=== PATIENT | male | born 1950 | race Caucasian/White ===

== ENCOUNTER 2019-07-02 19:42 | Inpatient (IN) | payer MEDICARE, BC ==
[~2019-07-02] VITALS: Ht 167.6 cm; Wt 88.2 kg
[2019-07-02 20:15] LABS: BASO % 0 % (0-3); EOS # 0.5 x10^3/uL (0.0-0.7); EOS % 6 % (0-3); HEMATOCRIT 41.6 % (39.0-53.0); HEMOGLOBIN 13.9 g/dL (13.0-17.5); LYMPH # 2.2 x10^3/uL (1.0-4.8); LYMPH % 28 % (24-48); MEAN CORPUSCULAR HEMOGLOBIN 28 pg (25-35); MEAN CORPUSCULAR HGB CONC 33 g/dL (31-37); MEAN CORPUSCULAR VOLUME 83 fL (79-100); MONO # 0.9 x10^3/uL (0.0-1.1); MONO % 11 % (0-9); NEUT # 4.2 x10^3uL (1.8-7.7); NEUT % 54 % (31-73); PLATELET COUNT 476 x10^3/uL (140-400); RED BLOOD COUNT 4.99 x10^6/uL (4.30-5.70); RED CELL DISTRIBUTION WIDTH 14.6 % (11.5-14.5); WHITE BLOOD COUNT 7.8 x10^3/uL (4.0-11.0)
[2019-07-02 20:27] LABS: ALBUMIN/GLOBULIN RATIO 0.8 (1.0-1.7); CALCIUM 9.1 mg/dL (8.5-10.1); CREATININE 0.8 mg/dL (0.7-1.3); GFR 96.4; MAGNESIUM 1.8 mg/dL (1.8-2.4); POTASSIUM 3.8 mmol/L (3.5-5.1); TOTAL BILIRUBIN 0.2 mg/dL (0.2-1.0); TOTAL PROTEIN 6.8 g/dL (6.4-8.2)
--- NOTE | 2019-07-02 20:55 | RAD ---
Exam: CT head INDICATION: Trauma TECHNIQUE: Sequential axial images through the head were obtained without the administration of IV contrast. Comparisons: None FINDINGS: No focal parenchymal lesion or hemorrhage is identified. There is no midline shift or sulcal effacement. No acute vascular territory infarction is identified. Latham-white distinction is preserved. The ventricular system is within normal limits without compression hydrocephalus. The basal cisterns are well maintained. There is a extra cranial soft tissue contusion in the right frontal region. The visualized portions of the paranasal sinuses and mastoid air cells are well-pneumatized. No acute fractures. IMPRESSION: There is an extra cranial soft tissue contusion in the right frontal region without underlying osseous or intracranial abnormality. Exposure: One or more of the following in the visualized dose reduction techniques were utilized for this examination: 1. Automated exposure control 2. Adjustment of the MA and/or KV according to patient size Use of iterative of reconstructive technique Electronically signed by: Elfego Antonio MD (07/02/2019 8:53 PM) [facility]
--- NOTE | 2019-07-02 21:25 | PHYS DOC ---
Past History Past Medical History: Anxiety, Depression, High Cholesterol, Hypertension, Hypothyroid, Other Additional Past Medical Histor: PTSD, OSTEOARTHRITIS, TOXIC ANCEPHALOPATHY, FALLS Past Surgical History: Other Additional Past Surgical Histo: NO SURGICAL HX PROVIDED Alcohol Use: None Drug Use: None Adult General Chief Complaint Chief Complaint: PSYCH EVALUATION HPI HPI Patient is a [69-year-old male sent here for medical clearance for [facility] admission Apparently has been having thoughts of hurting himself and is behaving himself as a long history of the same he has a history of conversion disorder and multiple other psychiatric issues. He's had multiple falls some seem to be self-inflicted according to chart review has a headache injury it is unclear if he ever had a head CT based on my chart review so we performed a head CT here which was negative acute. Vital signs are stable labs look good urine is still pending patient will be transferred to [facility] in stable condition Review of Systems Review of Systems Limited by cooperation Allergies Allergies Allergies Coded Allergies Type Severity Reaction Last Updated Verified oxycodone Allergy Unknown 07/02/19 Yes Physical Exam Physical Exam Constitutional: Well developed, well nourished, no acute distress, non-toxic appearance. [] HENT: Large contusion to the forehead Eyes: PERRLA, EOMI, conjunctiva normal, no discharge. [] Oropharynx is dry but the skin has good turgor Neck: Normal range of motion, no tenderness, supple, no stridor. [] Cardiovascular:Heart rate regular rhythm, no murmur [] Lungs & Thorax: Bilateral breath sounds clear to auscultation [] Abdomen: Bowel sounds normal, soft, no tenderness, no masses, no pulsatile masses. [] Skin: Warm, dry, no erythema, no rash. [] Back: No tenderness, no CVA tenderness. [] Extremities: No tenderness, no cyanosis, no clubbing, ROM intact, no edema. [] Neurologic: Alert and oriented X 3, normal motor function, normal sensory function, no focal deficits noted. [] Psychologic: Very blunted affect with depressed mood Current Patient Data Vital Signs Vital Signs Date Time Temp Pulse Resp B/P (MAP) Pulse Ox O2 Delivery O2 Flow Rate FiO2 07/02/19 19:45 98.5 80 20 95 Room Air None Temperature (Fahrenheit): * 99.3 degrees F (97.6-99.5) Patient Temperature * 99.3 degrees F (97.5-99.5) Temperature Source * Oral Blood Pressure Systolic * 113 mm Hg (100-140) Blood Pressure Diastolic * 67 mm Hg (60-100) Blood Pressure Mean * 82 mm Hg Pulse Rate * 106 beats per minute (60-90) H Respiratory Rate * 18 breaths per minute (12-24) Oxygen Delivery Method * Room Air Bedside Pulse Oximetry * 94 % Treatment Prior to Arrival * Yes Lab Results Laboratory Tests Test 07/02/19 20:00 White Blood Count 7.8 x10^3/uL (4.0-11.0) Red Blood Count 4.99 x10^6/uL (4.30-5.70) Hemoglobin 13.9 g/dL (13.0-17.5) Hematocrit 41.6 % (39.0-53.0) Mean Corpuscular Volume 83 fL (79-100) Mean Corpuscular Hemoglobin 28 pg (25-35) Mean Corpuscular Hemoglobin Concent 33 g/dL (31-37) Red Cell Distribution Width 14.6 % (11.5-14.5) H Platelet Count 476 x10^3/uL (140-400) H Neutrophils (%) (Auto) 54 % (31-73) Lymphocytes (%) (Auto) 28 % (24-48) Monocytes (%) (Auto) 11 % (0-9) H Eosinophils (%) (Auto) 6 % (0-3) H Basophils (%) (Auto) 0 % (0-3) Neutrophils # (Auto) 4.2 x10^3uL (1.8-7.7) Lymphocytes # (Auto) 2.2 x10^3/uL (1.0-4.8) Monocytes # (Auto) 0.9 x10^3/uL (0.0-1.1) Eosinophils # (Auto) 0.5 x10^3/uL (0.0-0.7) Basophils # (Auto) 0.0 x10^3/uL (0.0-0.2) Sodium Level 140 mmol/L (136-145) Potassium Level 3.8 mmol/L (3.5-5.1) Chloride Level 105 mmol/L (98-107) Carbon Dioxide Level 27 mmol/L (21-32) Anion Gap 8 (6-14) Blood Urea Nitrogen 8 mg/dL (8-26) Creatinine 0.8 mg/dL (0.7-1.3) Estimated GFR (Cockcroft-Gault) 96.4 BUN/Creatinine Ratio 10 (6-20) Glucose Level 86 mg/dL (70-99) Calcium Level 9.1 mg/dL (8.5-10.1) Magnesium Level 1.8 mg/dL (1.8-2.4) Total Bilirubin 0.2 mg/dL (0.2-1.0) Aspartate Amino Transferase (AST) 17 U/L (15-37) Alanine Aminotransferase (ALT) 25 U/L (16-63) Alkaline Phosphatase 93 U/L (46-116) Total Protein 6.8 g/dL (6.4-8.2) Albumin 3.0 g/dL (3.4-5.0) L Albumin/Globulin Ratio 0.8 (1.0-1.7) L EKG EKG []Normal sinus rhythm rate of 75 no acute ischemic changes noted interpreted by me the time of encounter Radiology/Procedures Radiology/Procedures [] Course & Med Decision Making Course & Med Decision Making Pertinent Labs and Imaging studies reviewed. (See chart for details) []See history of present illness for MDM Dragon Disclaimer Dragon Disclaimer This electronic medical record was generated, in whole or in part, using a voice recognition dictation system. Departure Departure: Impression: Primary Impression: Depression Disposition: ADMITTED INPATIENT Condition: STABLE Referrals: PCP,UNKNOWN (PCP) JIN ESPANA MD Jul 02, 2019 21:25
[2019-07-02 21:39] LABS: BILIRUBIN,URINE NEG (NEG); CLARITY,URINE CLEAR; COLOR,URINE YELLOW; GLUCOSE,URINE NEG (NEG); NITRITE,URINE NEG (NEG); UROBILINOGEN,URINE 1 mg/dL (0.2 mg/dL)
[2019-07-02 21:40] LABS: BACTERIA,URINE 0 /HPF (0-FEW); SQUAMOUS EPITHELIAL CELL,UR FEW /LPF; WBC,URINE OCC /HPF (0-4)
[2019-07-02] MEDS ORDERED: FLUO20CA8 PO (21:58)
[2019-07-02] MEDS ORDERED: MELA3TAB56 PO (21:58)
[2019-07-02] MEDS ORDERED: FENO145T30 PO (21:58)
[2019-07-02] MEDS ORDERED: ERGO500027 PO (21:58)
[2019-07-02] MEDS ORDERED: LORA10TA3 PO (21:58)
[2019-07-02] MEDS ORDERED: DOCU100C28 PO (21:58)
[2019-07-02] MEDS ORDERED: HYDR-2869 PO (21:58)
[2019-07-02] MEDS ORDERED: FLUO40CA2 PO (21:58)
[2019-07-02] MEDS ORDERED: AMLO5TAB10 PO (21:58)
[2019-07-02] MEDS ORDERED: FINA5TAB4 PO (21:58)
[2019-07-02] MEDS ORDERED: CLON1PAT2 TD (21:58)
[2019-07-02] MEDS ORDERED: ARIP5TAB13 PO (21:58)
[2019-07-02] MEDS ORDERED: POLY2500 PO (21:58)
[2019-07-02] MEDS ORDERED: HYDR-3165 PO (21:58)
[2019-07-02] MEDS ORDERED: LEVO50TA60 PO (21:58)
[2019-07-02] MEDS ORDERED: MONT10TA80 PO (21:58)
[2019-07-02] MEDS ORDERED: FLUT16SP21 NS (21:58)
[2019-07-02] MEDS ORDERED: TAMS0.4C97 PO (21:58)
[2019-07-02] MEDS ORDERED: LISI10TA2 PO (21:58)
[2019-07-02] MEDS ORDERED: GUAI600T6 PO (21:58)
[2019-07-02] MEDS ORDERED: ATOR20TA58 PO (21:58)
[2019-07-02] MEDS ORDERED: ACET325T9 PO (21:58)
[2019-07-02] MEDS ORDERED: DICL100G18 TP (21:58)
[2019-07-02] MEDS ORDERED: DIAZ10TA4 PO (21:58)
[2019-07-02] MEDS ORDERED: ASPI-612 PO (21:58)
[2019-07-02 23:41] VITALS: BP 115/78
[2019-07-02] MEDS ORDERED: ACETAMINOPHEN 325 MG TABLET PO PRN (23:45)
[2019-07-02] MEDS ORDERED: MAG HYDROX/AL HYDROX/SIMETH 30 ML ORAL.SUSP PO PRN (23:45)
[2019-07-02] MEDS ORDERED: MAGNESIUM HYDROXIDE 2,400 MG/30 ML ORAL.SUSP. PO PRN (23:45)
[2019-07-02] MEDS ORDERED: METHYL SALICYLATE/MENTHOL TOPICAL OINTMENT 57GM TUBE. TP PRN (23:45)
--- NOTE | 2019-07-02 23:52 | NUR ---
Admission Note with Justification for Admission to [facility] Patient admitted to [facility] for protective oversight for emergency stabilization of acute psychiatric crisis. Pt admitted from: [facility] Mode of arrival: EMS Accompanied By: [facility]SON Staff/ EMS Precipitating behaviors that initiated intake and admission: Weight loss (has lost 10# recently), poor intake of meals, increased depression, hitting himself, expressing that he wants to , asked driver wheelchair to kill him and leave him on the side of the road. Description of failure of out patient attempts at stabilization in previous setting list behavior and medication trials: Multiple ER visits, seen by Kristin DAHL and put on Abilify and Prozac. Behaviors and assessment findings upon admission: Pt A/O x4, calm but with a flat and depressed affect, soft spoken. When asked about thoughts of suicide, pt states "no, unless you had a gun and are going to shoot me". Pt denies any plan but has had multiple falls recently thought to be intentional attempts to self harm. Pt assigned to room close to the nurse's station, bed alarm on/in use. Pt oriented to room and unit, bed low and locked and yellow non-slip socks on. Plan: Admit for protective oversight for adjustment and stabilization of medications, behaviors and mood. Intense treatment regimen including groups, medication adjustments, therapy, consistent regimen for ADL's, self care, and sleep hygiene. Daily monitoring by Inpatient staff, Psychiatry, and Medical Physician.
[2019-07-03] MEDS: LEVOTHYROXINE 50 MCG TABLET PO SCH (06:09)
[2019-07-03 06:29] VITALS: BP 126/79
[2019-07-03] MEDS: FLUTICASONE 50MCG/NASAL SPRAY 16GM BOTTLE. NS SCH (08:36)
[2019-07-03] MEDS: DICLOFENAC SODIUM 1% TOPICAL GEL 100GM TUBE. TP SCH ×2 (08:37→20:11)
[2019-07-03] MEDS: CETIRIZINE HCL 10 MG TABLET PO SCH (08:38)
[2019-07-03] MEDS: TAMSULOSIN 0.4 MG CAP.ER.24H. PO SCH (08:38)
[2019-07-03] MEDS: LISINOPRIL 10 MG TABLET PO SCH (08:39)
[2019-07-03] MEDS: MONTELUKAST 10 MG TABLET. PO SCH (08:39)
[2019-07-03] MEDS: ASPIRIN ENTERIC COATED 81 MG TABLET.DR. PO SCH (08:39)
[2019-07-03] MEDS: amLODIPine BESYLATE 5 MG TABLET PO SCH (08:40)
[2019-07-03] MEDS: POLYETHYLENE GLYCOL 3350 17 GM PACKET. PO SCH (08:41)
[2019-07-03] MEDS: FINASTERIDE 5 MG TABLET PO SCH (08:41)
[2019-07-03] MEDS ORDERED: FLUoxetine HCL 20 MG CAPSULE PO SCH ×2 (09:00)
[2019-07-03 13:20] LABS: THYROID STIM HORMONE (TSH) 1.378 uIU/mL (0.358-3.740)
[2019-07-03 15:56] VITALS: BP 134/85
[2019-07-03] MEDS: DOCUSATE SODIUM 100 MG CAPSULE PO SCH (17:16)
[2019-07-03] MEDS: FENOFIBRATE NANOCRYSTALLIZED 145 MG TABLET PO SCH (20:10)
[2019-07-03] MEDS: MELATONIN 3 MG TABLET PO SCH (20:10)
[2019-07-03] MEDS: ATORVASTATIN CALCIUM 20 MG TABLET PO SCH (20:10)
[2019-07-03] MEDS: diazePAM 5 MG TABLET PO SCH (20:10)
[2019-07-03] MEDS ORDERED: ARIPiprazole 5 MG TABLET PO SCH (21:00)
--- NOTE | 2019-07-03 21:49 | PDOC ---
Exam Note: Robert Note: Please also refer to the separate dictated note~for this date of service dictated separately. Discussed the patient with Nursing staff reviewed the chart.~Reviewed interim history and current functioning. Reviewed vital signs,~Labs/ Radiology~and current medications noted below. Continue current treatment with the changes noted in the dictated addendum note Assessment: Vital Signs/I&O: Vital Signs Date Time Temp Pulse Resp B/P (MAP) Pulse Ox O2 Delivery O2 Flow Rate FiO2 07/03/19 15:56 97.2 102 18 134/85 (101) 95 07/02/19 19:45 Room Air I & O 07/02/19 07/02/19 07/03/19 15:00 23:00 07:00 Intake Total 0 ml Balance 0 ml Current Medications: Meds: Current Medications Medications (Trade) Dose Ordered Sig/Henry Route PRN Reason Start Time Stop Time Status Last Admin Dose Admin Amlodipine Besylate (Norvasc) 5 mg DAILY PO 07/03/19 09:00 07/03/19 08:40 Aspirin (Aspirin Enteric Coated) 81 mg DAILYWBKFT PO 07/03/19 08:00 07/03/19 08:39 Atorvastatin Calcium (Lipitor) 20 mg QHS PO 07/03/19 21:00 07/03/19 20:10 Diclofenac Sodium (Voltaren) 4 alexsandra BID TP 07/03/19 09:00 07/03/19 20:11 Fenofibrate (Tricor) 145 mg QHS PO 07/03/19 21:00 07/03/19 20:10 Finasteride (Proscar) 5 mg DAILY PO 07/03/19 09:00 07/03/19 08:41 Fluticasone Propionate (Flonase) 1 spray DAILY NS 07/03/19 09:00 07/03/19 08:36 Guaifenesin (Mucinex Er) 600 mg Q12HR PO 07/03/19 09:00 07/03/19 20:10 Levothyroxine Sodium (Synthroid) 50 mcg DAILY06 PO 07/03/19 06:00 07/03/19 06:09 Lisinopril (Prinivil) 10 mg DAILY PO 07/03/19 09:00 07/03/19 08:39 Montelukast Sodium (Singulair) 10 mg DAILY PO 07/03/19 09:00 07/03/19 08:39 Tamsulosin HCl (Flomax) 0.4 mg DAILY PO 07/03/19 09:00 07/03/19 08:38 Cetirizine HCl (ZyrTEC) 10 mg DAILY PO 07/03/19 09:00 07/03/19 08:38 Polyethylene Glycol (miraLAX) 17 gm DAILY PO 07/03/19 09:00 07/03/19 08:41 Aripiprazole (Abilify) 5 mg QHS PO 07/03/19 21:00 07/03/19 20:07 Fluoxetine HCl (PROzac) 20 mg DAILY PO 07/03/19 09:00 07/03/19 08:38 Melatonin (Melatonin) 3 mg QHS PO 07/03/19 21:00 07/03/19 20:10 Diazepam (Valium) 10 mg QHS PO 07/03/19 21:00 07/03/19 20:10 Fluoxetine HCl (PROzac) 40 mg DAILY PO 07/03/19 09:00 07/03/19 08:41 I have reviewed the current psychotropics carefully including drug interactions. Risk benefit ratio favors no change other than as noted in my dictated progress note. Diagnosis: Problems: (1) Anxiety disorder (2) Major depressive disorder, recurrent episode (3) Psychosis, atypical DARA FELIPE MD Jul 03, 2019 21:49
[2019-07-03] MEDS: HYDROcodone/APAP 5/325MG 1 TAB TABLET PO PRN ×2 (22:01→23:14)
[2019-07-03 22:11] LABS: THYROXINE 11.4 ug/dL (4.5-12.0)
[2019-07-03 23:07] LABS: HEMOGLOBIN A1C 5.6 % (4.8-5.6)
--- NOTE | 2019-07-03 23:35 | NUR ---
Stoney Note: Patient was in day room at time of medication administration and assessments. Patient is very quiet, flat and withdrawn. He is calm, cooperative and compliant, however. Patient is clearly very depressed saying, "I will take them but I don't think it'll make any difference." Patient mentioned he has sleep sonido. Patient has PTSD and according to him, cannot be startled when awoken. Patient denies and SI at this time. No other notable behaviors at this time. Addendum: 07/04/19 at 0510 by SOBEIDA MUNOZ RN Patient received a PRN Lortab around 2210 for pain, "all over."
[2019-07-04 05:40] VITALS: BP 96/65
[2019-07-04] MEDS: LEVOTHYROXINE 50 MCG TABLET PO SCH (06:00)
[2019-07-04] MEDS ORDERED: LURASIDONE 40 MG TABLET. PO SCH (08:00)
[2019-07-04] MEDS: DICLOFENAC SODIUM 1% TOPICAL GEL 100GM TUBE. TP SCH ×2 (08:50→20:37)
[2019-07-04] MEDS: POLYETHYLENE GLYCOL 3350 17 GM PACKET. PO SCH (08:51)
[2019-07-04] MEDS: FLUTICASONE 50MCG/NASAL SPRAY 16GM BOTTLE. NS SCH (08:51)
[2019-07-04] MEDS: LURASIDONE 40 MG TABLET. PO SCH (08:51)
[2019-07-04] MEDS: DULoxetine HCL 30 MG CAPSULE.DR PO SCH (08:52)
[2019-07-04] MEDS: TAMSULOSIN 0.4 MG CAP.ER.24H. PO SCH (08:53)
[2019-07-04] MEDS: FINASTERIDE 5 MG TABLET PO SCH (08:53)
[2019-07-04] MEDS: MONTELUKAST 10 MG TABLET. PO SCH (08:53)
[2019-07-04] MEDS: CETIRIZINE HCL 10 MG TABLET PO SCH (08:53)
[2019-07-04] MEDS: ASPIRIN ENTERIC COATED 81 MG TABLET.DR. PO SCH (08:53)
[2019-07-04] MEDS: LISINOPRIL 10 MG TABLET PO SCH (09:00)
[2019-07-04] MEDS: amLODIPine BESYLATE 5 MG TABLET PO SCH (09:00)
--- NOTE | 2019-07-04 12:57 | NUR ---
PSYCHOSOCIAL ASSESSMENT ADMISSION DATE: 07/02/19 CONTACT INFORMATION: DPOA/Guardian Contact Name: N/A, Bj is a self sign ETHNIC ORIGIN: REASONS FOR ADMISSION: Depressed Relation/conflict Sig. Change Appetite Sig. Change Sleep Suicidal ideation ADDITIONAL ADMISSION COMMENTS: Per intake record, Bj has been depressed, hitting himself in the head, expressing thoughts of wanting to , asked the facility manager van to kill him and leave him on the side fo the road, and has had poor intake of meals with weight loss. It was also reported that Bj may be falling to intentionally hurt himself. REASON FOR ADMISSION IN PATIENT/FAMILY'S OWN WORDS: "I was at [facility] and had no motivation to participate in therapy." PATIENT/FAMILY EXPECTATIONS FOR ADMISSION: Bj expressed desire to have increased intake of meals and to be able to sleep at night. LIVING SITUATION: Patient lives with: Most recently at [facility] for skilled rehab Snf Other living arrangements: [facility] Contact Name: Brittney-content engineer Contact Address: [id number] [place] [id number] Contact Phone #: [phone] Contact Fax #: [phone] FAMILY RELATIONS: Marital Status: # of Marriages: 2 # of Children: 4 [facility] Family Support: Bj reports spouse as concerned and that he saw her on the day he was brought to [place]. Additional Comments r/t Family: Bj has been twice. He had four children with his first ; Mary, Alfonzo, Edna, and Sara. All children reside in [place]. Bj's first marriage ended in divorce. He re- to Isaura, twenty years his younger. They have been for twenty years but live in separate residences. Bj has 14 grandchildren. Bj expressed that his children have offered to come see him and he has declined their visits. SIGNIFICANT PSYCHIATRIC/MEDICAL HISTORY: Psychiatric/Treatment History: Bj reported having been followed for the past eight years by psychiatrist, Dr. Herrera, for PTSD. Bj stated he no longer sees Dr. Herrera. He has most recently been seen at [facility] on 06/25/19 and was seen by a PA. Bj also reported having been treated for in- patient psych at a facility in [place] but was only there for three days because it was a bad experience and his came to pick him up. Bj also reported being at [facility] for one week sometime this year. Pertinent Family History: Bj reported that both of his parents committed suicide. His father was reported as an alcoholic. Bj also expressed that several other family members and friends of his have committed suicide. HISTORICAL DATA: Childhood Environment: Stressful Childhood Environment Additional Comments: Bj was born in [place] but raised in [place]. Bj reported his father to be an alcoholic. Bj was the youngest of three children. He reports that one sister was a drug addict and is . His other sister is living in [place] and he has occasional communication with her. Psychological Abuse: None reported Additional Comments: Drug Abuse History last 12 months: None reported Comment: Bj denied tobacco, alcohol, or drug use. PERSONAL HISTORY: Vocational history: Bj reported he worked in [employer]. He stated he worked for [email or web address]. 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 service: N Christian background: Bj is of the [employer] uatsdin. Sexual orientation: Heterosexual Educational Level: Bj graduated from high school and went on to obtain his bachelors degree in business from the [employer]. He attended [employer] for a period of time but did not finish his JAE. 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 He enjoys sports and used to play sports. Bj enjoys hunting and recently owned an 80 acre hunting property in [place]. Financial support/resources: Social Security Monthly income: Unknown Person handling finances: Isaura Delvalle- Do you have a history of legal problems: None reported. Cultural considerations: None reported. SOCIAL RELATIONSHIPS-CURRENT/PAST: Psychiatrist: Most recently, [facility], seen by a PA PCP: Most recently, Dr. Oropeza at [facility] Counselor/Therapist: None at this time. Veterans[facility] Administration: N/A Support Group: None Track Repairer/Hospital Account Manager: Reported that Lien Chaney is a case hardener, jB is unaware of this person. Other relationships: Reports supportive relation with STRENGTHS & WEAKNESSES: Patient's strengths: Good verbal skills Education level Ambulatory with a walker Patient's weaknesses: Lack of housing Poor relationships Health problems PRELIMINARY PLAN OF TREATMENT: Preliminary plan: Symp. Depression Decrease Isolation Promote Coping Skill No Suicidal/Amberly. ideation Improved Social Skills Medication Stabilization Monitor Med Effects Prevent Deterioration Other preliminary treatment comments: Bj will be encouraged to attend SW and recreational therapy groups while on the unit. DISCHARGE PLANNING: Discharge planning/disposition: Snf Additional discharge needs identified: D/C plans will relate to Bj's physical ability to care for himself at time of d/c. Bj is able to return to [facility] at time of d/c if skilled therapy is still needed. Bj expressed that it would not be an option for him to d/c to his 's apartment. ADDITIONAL INFORMATION: Other Pertinent Data: Met with Bj on 07/03/19 to introduce self and complete psychosocial assessment. Bj was sitting in the day room but agreeable to visit and was able to ambulate to his room with a walker. Bj was alert with flat affect. He had some difficulty with timeline of events when recalling recent hospitalizations. He reported having been in and out of hospitals and SNF's repeatedly over the past two months. Bj was focused on his lack of appetite and lack of sleep. Reassurance provided that physicians would be following his care and addressing these issues. Bj was agreeable to participate in treatment team meeting to be held on 07/05/19. Addendum: 07/05/19 at 1452 by TRACIE BRUNO JERROD read and approves PSA.
--- NOTE | 2019-07-04 13:57 | NUR ---
Attempted to meet and complete Activity Therapy Assessment; however, Pt. in social work group. Will attempt assessment again tomorrow.
[2019-07-04] MEDS: HYDROcodone/APAP 5/325MG 1 TAB TABLET PO PRN (14:18)
--- NOTE | 2019-07-04 14:51 | HP ---
ADMIT DATE: PSYCHIATRIC ADMISSION HISTORY AND EVALUATION This is a late entry, date of service 07/03/2019 covers elements not covered in my initial note 07/03/2019. I met with the patient evening of 07/03/2019. Discussed with nursing staff, reviewed the chart, previously discussed the patient with Shelby Martinez, project coordinator rn. After the patient was referred to us from [facility] where the patient has been in rehab and referred by Dr. Forbes, his primary care physician, on account of worsening symptoms of depression, not eating, weight loss, hitting himself with frequent falls, expressions of wanting to . He asked the advanced practice psychiatric nurse to kill him and leave him on the side of the road. This is within the context of his family history of mother committing suicide at the age of 52 and father committing suicide at the age of 74. The patient's behaviors have been dangerous with the suicidal ideation noted above despite him minimizing his symptoms and he has failed outpatient psychiatric interventions. CHIEF COMPLAINT: "I just said that. I did not mean it." HISTORY OF PRESENT ILLNESS: The patient has a history of significantly worsening depression, low mood, feeling irritable, angry with suicidal ideation noted above. He has been at [facility] for a short period of time for rehab. He has had a poor appetite, sleep disturbance and even though he has been reasonably oriented. He has had some short-term memory deficits. He has a history of some hypomanic episodes alternating with significant depressive episodes. MEDICAL HISTORY: Positive for hypertension, hyperlipidemia, colitis, encephalopathy, BPH, chronic low back pain, hypothyroidism, osteoarthritis, somewhat hard of hearing. PAST PSYCHIATRIC HISTORY: Positive for PTSD, conversion disorder. He was taken to the [facility] on 06/25/2019, started on Abilify at that time. ALLERGIES: OXYCODONE. CODE STATUS: DNR. ACCU-CHEKS: Negative. DIET: Regular. Takes medications whole, ambulates in wheelchair with frequent falls. FAMILY HISTORY: Positive for successful suicide in his mother and father. SOCIAL HISTORY: The patient is . He is being admitted voluntarily with coordination with his . No alcohol or drug abuse, physical, sexual or elder abuse. He is not known to be a perpetrator. The patient states he has been stressed lately because he could not sell his hunting property, but he was finally able to sell it within the past 1 month and then moved to this area. We will have to check the veracity of all of this with his . REACTION TO HOSPITALIZATION: The patient is accepting of it. ASSETS: Supportive . Reasonably cognitively intact. MENTAL STATUS EXAMINATION: The patient was seen individually in the evening of 07/03/2019. I had to talk loudly into his left ear. He is in a wheelchair. Speech is coherent, has some latency. Abstraction fair. Computation, he was able to do two steps on serial 7's. Speech coherent, low in volume at other times. Mood is depressed, anxious even though he minimizes this. He is somewhat paranoid. No active suicidal or homicidal ideation. Attention span is short. Intellect average. Insight fair. Judgment intact to standard questioning. IMPRESSION: Major depressive disorder, recurrent with psychotic features; anxiety disorder, unspecified; rule out bipolar 2 disorder, depressed with psychotic features, mild cognitive impairment; history of posttraumatic stress disorder consequent to witnessing his parents committed suicide. History of conversion disorder. Rest diagnoses as above. PLAN: Admit to Geropsychiatry Unit at [facility]. I will see the patient daily individually from a psychiatric standpoint. Medical followup with Dr. Estevez. We will observe the patient's baseline and then make further adjustments in his psychotropics. Given his history of possible bipolar 2 disorder, depressed with psychotic features. We will go ahead and reduce his Valium gradually, but for now, we will change the Prozac 60 mg a day to Cymbalta 30 mg a day for 2 days, then 60 mg a day thereafter and change the Abilify to Latuda 20 mg a day for 2 days, then 40 mg a day thereafter. May consider Lamictal as a mood stabilizer. Continue melatonin 5 mg at bedtime. Valium is 10 mg at bedtime. We will gradually reduce this. Estimated length of stay 10-12 days. DISPOSITION PLANS: We will have to be decided depending on the patient's response to treatment. MAN Marc FELIPE MD DR: NIKKY/sergey JOB#: [id number] / [id number]
--- NOTE | 2019-07-04 15:13 | CONS ---
DATE OF CONSULTATION: REASON FOR CONSULTATION: Consult for medical management. HISTORY OF PRESENT ILLNESS: The patient is a 69-year-old male patient, a resident at [facility] who was admitted on account of increasing depression, not eating, weight loss, hitting himself, frequent falls, expression of wanting to , asked a product evangelist to kill him and leave him on the side of the road, all this in a background with major depressive disorder, severe with psychotic features. When I asked him this afternoon, he said he was only joking about killing himself, did complain that he has poor appetite, he is not eating. He has also vasovagal episode, but he falls and he claimed that he has also critical illness myopathy as he apparently has been in bed for a long time in [facility], [facility] and [facility], although he was unable to be specific as to why he was in this hospital. PAST MEDICAL HISTORY: Significant for hypertension, hyperlipidemia, benign prostatic hypertrophy, has had a history of colitis as well as chronic low blood pressure and hypothyroidism together with osteoarthritis. PAST PSYCHIATRIC HISTORY: Significant for conversion disorder, posttraumatic stress disorder, generalized anxiety disorder and insomnia. PAST SURGICAL HISTORY: Significant for arthroscopic surgery of both knee joints and ruptured left biceps tendon and left rotator cuff tear repair. ALLERGIES: He is allergic to OXYCODONE. MEDICATIONS: He is currently on following medications: He is on loratadine 10 mg once a day, tamsulosin 0.4 mg daily, fenofibrate shabana-crystallized 145 mg at bedtime, atorvastatin calcium 20 mg at bedtime, clonidine TTS 2 weekly, hydralazine 50 mg 4 times a day, amlodipine besylate 5 mg daily, lisinopril 10 mg once a day, aspirin 81 mg once a day, diclofenac sodium for Voltaren gel 4 grams twice a day, hydrocodone/APAP 5/325 one tablet every 4 hours, acetaminophen 650 mg every 4 hours, fluoxetine 20 mg p.o. daily and aripiprazole 5 mg at bedtime, diazepam 10 mg at bedtime, Singulair 10 mg once a day, guaifenesin for Mucinex extended release 600 mg twice a day. He is on fluticasone propionate for Flonase 1 spray to each nostril once a day, Colace 100 mg once a day and levothyroxine sodium 50 mcg once a day, ergocalciferol 50,000 international units once a week every Tuesday, finasteride 5 mg daily, melatonin 3 mg at bedtime, polyethylene glycol 17 grams daily. FAMILY HISTORY: His mother committed suicide at age of 52. Her father committed suicide at the age of 72. He has one sister, older, apparently healthy. SOCIAL HISTORY: He is apparently , has no children from his second . He has 4 children with the first . He apparently does not smoke, drink alcohol or use any recreational drugs. 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 REVIEW OF SYSTEMS: As per history of present illness. PHYSICAL EXAMINATION GENERAL: When I examined him, he was sitting comfortably in his chair, in no apparent respiratory distress, slightly pale, but no jaundice, cyanosis or thyromegaly. No jugular venous distention. No limb edema. VITAL SIGNS: His heart rate was 80, blood pressure was 115/78, temperature was 97.7, respiratory rate was 18 and oxygen saturation was 96% on room air. HEAD, EYES, EARS, NOSE AND THROAT: Showed normocephalic, atraumatic. NECK: Supple. HEART: Showed normal first and second heart sounds. No gallop or murmur. CHEST: Clear to auscultation. No crepitation, rhonchi. ABDOMEN: Distended, soft, nontender. NEUROLOGIC: He was awake, alert, very soft spoken. However, all his cranial nerves are intact. EXTREMITIES: He moves extremities without difficulty, ambulates with a walker without difficulty. LABORATORY DATA: His lab work showed a white cell count of 7800, hemoglobin 14, hematocrit 42, MCV 83 and platelet count 476,000. His chemistry showed a serum sodium 140, potassium 3.8, chloride 105, bicarbonate 27, anion gap of 8, BUN 8, creatinine 0.8, estimated GFR was 96 mL per minute. His glucose was 86, calcium was 9.1, magnesium was 1.8. His serum iron was 35, TIBC was low at 249 and iron saturation was 14. His total bilirubin, AST, ALT, alkaline phosphatase were normal. Total protein was 6.8, albumin 3. Serum triglycerides 75, total cholesterol 129, LDL cholesterol was 86, VLDL was 15 and HDL cholesterol of 28 and the ratio was 4. His 25-hydroxyvitamin D was 60 and TSH was normal at 1.378. Urinalysis showed the urine was yellow, clear with a pH of 6, specific gravity of 1.020. The urine was negative for protein, glucose, ketones, moderate amount of blood, negative for nitrite and leukocyte esterase, and there are 11-20 rbc's, occasional wbc's, and no bacteria. His treponema pallidum antibodies were nonreactive. He did have a CT scan of the head without contrast as he had fell recently. This showed that the patient has no focal parenchymal lesion or hemorrhage identified. There is no midline shift or sulcal effacement, no acute vascular territory infarction identified. Nayak white distinction is preserved. The ventricular system is within normal limits without compression hydrocephalus. Basal cisterns are well maintained. There is an extracranial soft tissue contusion in the right frontal region. The visualized portions of the paranasal sinuses and mastoid air cells are well pneumatized. No acute fracture. IMPRESSION: There is an extracranial soft tissue contusion in the right frontal region without underlying osseous intracranial abnormality. ASSESSMENT AND PLAN: In summary, this is a 69-year-old male patient, a resident at [facility] who was admitted with increased depression, not eating, has weight loss, hitting himself, frequent falls, expressing wanting to , asked the product evangelist to kill himself and leave him on the side of the road, all this in a background of major depressive disorder, severe with psychotic features. Medically, he has multiple medical problems including hypertension, hyperlipidemia, benign prostatic hypertrophy. He has low blood pressure. However, he is also on multiple antihypertensive medications including clonidine, lisinopril, amlodipine and hydralazine. My plan is to check his orthostatics and if his blood pressures continue to be low, we might have to consider discontinuing some of his medication. He claims that he has critical illness myopathy. He was unable to be more specific about how the length of time he was admitted and why he was admitted in [facility], [facility] and [facility]. He also complained of low back pain. I will also consult Dr. Díaz to see if he has assist in finding out why he is falling. Thank you, Dr. Faria for allowing me to participate in the care of this patient. ANDRES BONNER MD DR: Parmjit JOB#: [id number] / [id number]
--- NOTE | 2019-07-04 15:15 | NUR ---
Patient is in the dining room for medications and assessments. He is flat, blunted, speaks in a whisper. Cooperative and compliant. Takes his medications whole. Out in the day room for groups, moderate participation. He stated, "I feel like I'm dehydrated even though I keep drinking water." and "I haven't been able to pee all day." This filing writer told him to continue drinking water, and that if he still feels like he isn't urinating enough, we will do a bladder scan. Just went to the bathroom and urinated. When this filing writer asked him if he went, he stated "just a little bit." Requested PRN Hydrocodone at 1415 for back pain. No agitation, denies SI/HI.
[2019-07-04 16:58] VITALS: BP 104/69
[2019-07-04] MEDS: DOCUSATE SODIUM 100 MG CAPSULE PO SCH (17:34)
--- NOTE | 2019-07-04 17:47 | NUR ---
Bladder scan performed at patient request. He is not retaining any urine. Given a urinal as well as a measured water cup to assuage his anxiety. called for an update, and informed this senior writer that patient often obsesses about his output and being dehydrated. He either thinks he is urinating too much, not enough or that he is constantly dehydrated. She said that it helps to show him what color his urine is and explain that it would be darker if he was in fact dehydrated.
--- NOTE | 2019-07-04 18:28 | CONS ---
DATE OF CONSULTATION: 07/02/2019 NEUROLOGICAL CONSULTATION REFERRING PHYSICIAN: Dr. Faria. REASON FOR CONSULTATION: Status post head injuries and syncopal attacks. HISTORY OF PRESENT ILLNESS: This is a 69-year-old, right-handed male who was admitted through Emergency Room on 07/02/2019 on account of frequent falls, mental status changes, and severe depressions along with suicidal ideations. According to the patient, he has had recurrent syncopal attacks for the last 10 years. He could not give me detailed information about the frequency and he would have ataxia. The last attack was approximately a week ago, ended up with a closed head injury, and contusion to the right frontal regions. The patient stated he did not recall the events and he did not have any seizure-like activities. Currently, he complains of lightheadedness, more prominent when he walks. Therefore, he has been using a walker for ambulation because of frequent falls. Currently, he denies chest pain, shortness of breath or palpitation, dysarthria, dysphagia, weakness, or paresthesia. He complains of right hip pain. Initial nonenhanced head CT scan revealed evidence of right frontal contusion, otherwise no acute intracranial processes. PAST MEDICAL HISTORY: Significant for depression, anxiety, hyperlipidemia, hypertension, hypothyroidism, frequent falls, osteoarthritis, posttraumatic stress disorders, encephalopathy, vitamin D deficiency, benign prostate hypertrophy. PAST SURGICAL HISTORY: Negative. SOCIAL HISTORY: The patient has four children. 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 He denies smoking, alcohol drinking, or illicit drug use. FAMILY HISTORY: Noncontributory. CURRENT HOME MEDICATIONS: Vitamin D2 15 units p.o., clonidine TTS-2 one patch weekly, Cymbalta 30 mg p.o. daily, Latuda 20 mg daily, diazepam 10 mg at bedtime, melatonin 3 mg at bedtime, TriCor 145 mg at bedtime, Lipitor 20 mg at bedtime, MiraLax, cetirizine 10 mg daily, tamsulosin 0.4 mg daily, Singulair 10 mg daily, lisinopril 10 mg daily, Mucinex ER 600 mg q. 12 hours, Proscar 5 mg daily, diclofenac topical application twice daily for arthritis, amlodipine 5 mg daily, aspirin 81 mg daily, levothyroxine 50 mcg p.o. daily, Tylenol p.r.n. hydralazine 50 mg q.i.d., magnesium 2400 mg daily, Mylanta. ALLERGIES: OXYCODONE. PHYSICAL EXAMINATION: GENERAL: Well-developed, well-nourished male, not in acute distress. VITAL SIGNS: Blood pressure 96/65, respiratory rate 20, pulse is 66, temperature 97, oxygen saturation 97% on room air. HEENT: Normocephalic. The patient has contusion to the right frontal region secondary to recent falls, otherwise unremarkable. NECK: Supple. Negative for carotid bruit, lymphadenopathy, or thyromegaly. LUNGS: Clear to A and P. CARDIOVASCULAR: Regular rate and rhythm, normal S1, S2. There is no S3, S4, or murmur. ABDOMEN: Soft. Bowel sounds positive. EXTREMITIES: Negative for cyanosis, clubbing, pitting edema. NEUROLOGICAL EXAM: Mental Status: The patient is alert and oriented x 3. The speech is fluent, but low volume. There is no language dysfunction. Memory, judgment, and abstracting thinking are fair. The patient denies hallucination or delusion. CRANIAL NERVES: Visual cummings are full. The pupils are reactive to light and accommodation. The extraocular movements are intact. There is no nystagmus. There is no facial motor or sensory deficit. Hearing is diminished bilaterally. The palate is elevated symmetrically. Sternocleidomastoid muscles are powerful bilaterally. The patient shrugs his shoulders symmetrically, protrudes his tongue in the midline without fasciculation or atrophy. MOTOR: No focal muscle bulk wasting. The tone is normal. The strength is 5/5 throughout. SENSORY EXAMINATION: Revealed normal pinprick, light touch, vibratory and position senses. DEEP TENDON REFLEXES: Symmetric and active without pathologic responses. GAIT: The patient uses a walker for ambulation. DIAGNOSTIC DATA: Nonenhanced head CT scan consistent with right frontal regions as described above in the history of present illness, otherwise unremarkable. LABORATORY DATA: CBC reveals white cells of 7.8 thousand, hemoglobin 13.9, hematocrit 41.6, and platelet count of 476,000. Chemistry reveals a sodium of 140, potassium 3.9, chloride 105, CO2 of 27, BUN 8, creatinine 0.8, glucose 86, and calcium 9.1. Iron is low at 35, TIBC is low at 249. Triglyceride and total cholesterol is normal, otherwise lipid profile is normal. TSH is normal. Laboratory data is negative for urinary tract infections. IMPRESSION: 1. Frequent falls with long history of syncope; however, he probably had self-induced closed head injury with abnormal head CT scan consistent with right frontal contusions. 2. Multiple medical problems to include hypertension, hyperlipidemia, vitamin D deficiency, benign prostate hypertrophy, frequent syncopal attacks, hypothyroidism, multiple psychiatric problems to include depressions, anxiety, with psychotic features. RECOMMENDATIONS: 1. The patient is neurologically stable; however, the patient has a risk of seizure due to recent head injuries and frequent falls. Therefore, the patient has to use a walker to prevent any frequent falls. The patient today has hypotension; therefore, for further evaluation for antihypertensive medication is recommended to prevent further syncopal attacks. 2. Continue with current medical and psychiatric care. 3. Physical therapy evaluation. M Cathy WILDER MD DR: JUAN/sergey JOB#: [id number] / [id number]
[2019-07-04] MEDS ORDERED: traZODone 50 MG TABLET. PO PRN (18:45)
[2019-07-04] MEDS: diazePAM 5 MG TABLET PO SCH (20:36)
[2019-07-04] MEDS: MELATONIN 3 MG TABLET PO SCH (20:37)
[2019-07-04] MEDS: ATORVASTATIN CALCIUM 20 MG TABLET PO SCH (20:37)
[2019-07-04] MEDS: FENOFIBRATE NANOCRYSTALLIZED 145 MG TABLET PO SCH (20:37)
[2019-07-04] MEDS ORDERED: ARIPiprazole 5 MG TABLET PO SCH (21:00)
--- NOTE | 2019-07-04 21:43 | PDOC ---
Exam Note: Robert Note: Please also refer to the separate dictated note~for this date of service dictated separately.~Patient seen individually. Discussed the patient with Nursing staff reviewed the chart.~Reviewed interim history and current functioning. Reviewed vital signs,~Labs/ Radiology~and current medications noted below. Continue current treatment with the changes noted in the dictated addendum note Assessment: Vital Signs/I&O: Vital Signs Date Time Temp Pulse Resp B/P (MAP) Pulse Ox O2 Delivery O2 Flow Rate FiO2 07/04/19 16:58 97.7 82 18 104/69 (81) 97 07/03/19 22:01 Room Air I & O 07/03/19 07/03/19 07/04/19 15:00 23:00 07:00 Intake Total 625 ml 600 ml Balance 625 ml 600 ml Current Medications: Meds: Current Medications Medications (Trade) Dose Ordered Sig/Henry Route PRN Reason Start Time Stop Time Status Last Admin Dose Admin Lurasidone HCl (Latuda) 20 mg DAILYWBKFT PO 07/04/19 08:00 07/05/19 08:01 07/04/19 08:51 Duloxetine HCl (Cymbalta) 30 mg DAILY PO 07/04/19 09:00 07/06/19 08:00 07/04/19 08:52 I have reviewed the current psychotropics carefully including drug interactions. Risk benefit ratio favors no change other than as noted in my dictated progress note. Diagnosis: Problems: (1) Anxiety disorder (2) Major depressive disorder, recurrent episode (3) Psychosis, atypical (4) Mild cognitive impairment (5) History of post traumatic stress disorder (6) Conversion disorder DARA FELIPE MD Jul 04, 2019 21:43
--- NOTE | 2019-07-05 02:51 | NUR ---
Pt in hallway for evening med pass and assessment. Pt calm, compliant. Pt worried about getting enough sleep but so far has not asked for any additional sleep med this shift.
[2019-07-05] MEDS: LEVOTHYROXINE 50 MCG TABLET PO SCH (05:59)
[2019-07-05 06:36] VITALS: BP 113/73
[2019-07-05] MEDS: LURASIDONE 40 MG TABLET. PO SCH (08:22)
[2019-07-05] MEDS: ASPIRIN ENTERIC COATED 81 MG TABLET.DR. PO SCH (08:22)
[2019-07-05] MEDS: CETIRIZINE HCL 10 MG TABLET PO SCH (08:22)
[2019-07-05] MEDS: DULoxetine HCL 30 MG CAPSULE.DR PO SCH (08:23)
[2019-07-05] MEDS: MONTELUKAST 10 MG TABLET. PO SCH (08:23)
[2019-07-05] MEDS: FINASTERIDE 5 MG TABLET PO SCH (08:23)
[2019-07-05] MEDS: amLODIPine BESYLATE 5 MG TABLET PO SCH (08:23)
[2019-07-05] MEDS: PRENATAL MULTIVITAMIN TABLET. PO SCH (08:24)
[2019-07-05] MEDS: TAMSULOSIN 0.4 MG CAP.ER.24H. PO SCH (08:24)
[2019-07-05] MEDS: POLYETHYLENE GLYCOL 3350 17 GM PACKET. PO SCH (08:25)
[2019-07-05] MEDS: FLUTICASONE 50MCG/NASAL SPRAY 16GM BOTTLE. NS SCH (08:25)
[2019-07-05] MEDS: LISINOPRIL 10 MG TABLET PO SCH (08:25)
[2019-07-05] MEDS: DICLOFENAC SODIUM 1% TOPICAL GEL 100GM TUBE. TP SCH ×2 (08:26→21:12)
--- NOTE | 2019-07-05 09:39 | NUR ---
WEEKLY ACTIVITY THERAPY NOTE Date of Admission: 07/02/2019 Date of AT Assessment: TBD Goal aimed:TBD Initial goal: TBD Weekly progress towards goal: NA Group participation level: moderate in one group on Tuesday highlights: participated in Trivia/ exercises on Tuesday morning Behaviors observed: soft spoken, flat affect Plan: meet/assess Pt Beneficial adaptations: TBD
--- NOTE | 2019-07-05 11:21 | NUR ---
WEEKLY NOTE: Bj participated in team meeting held this date. He has a flat affect and tends to be withdrawn. Bj is worried about his lack of appetite and reports insomnia. Nursing reports he is consuming on average 80% of meals and slept six hours last night. Dr. Faria reviewed with Bj that he has trazadone ordered prn and will be started on scheduled Remeron to help with appetite and sleep. Bj was made aware that he will need to request the trazadone is he is having difficulty sleeping. Bj has been attending SW groups since admit.
--- NOTE | 2019-07-05 12:52 | NUR ---
Faxed request for CARE assessment completion to Shalonda at [facility] should Bj need intermediate care at time of d/c.
[2019-07-05] MEDS: DOCUSATE SODIUM 100 MG CAPSULE PO SCH (15:41)
--- NOTE | 2019-07-05 16:17 | NUR ---
Patient is in the dining room for medications and assessments. He is flat, blunted, speaks in a whisper. Cooperative and compliant. Takes his medications whole. Out in the day room for groups, moderate participation. Patient continues to request water and insist that he is dehydrated. After lunch, he was incontinent of stool several times in the day room without making any attempt to go to his restroom or asking for help until he had already gone in his brief. Staff instructed him to walk to his bathroom and get himself cleaned up and changed. He kept asking for help, but when staff told him he was capable of doing it by himself and that they would stand by to make sure he was okay, he got himself cleaned up and changed. Call placed to Dr. Estevez re: excessive bowel movements. Order for Immodium placed, Miralax changed to PRN from daily. Patient instructed that he is not able to have a Boost unless he eats at least 50% of his meal. Denies pain, denies SI/HI.
[2019-07-05 16:22] VITALS: BP 109/70
[2019-07-05] MEDS ORDERED: POLYETHYLENE GLYCOL 3350 17 GM PACKET. PO PRN (16:30)
[2019-07-05] MEDS: LOPERAMIDE 2 MG CAPSULE PO PRN (16:49)
--- NOTE | 2019-07-05 17:00 | NUR ---
Orders from Dr. Estevez to change scheduled daily Miralax to PRN only. Latanya held. New order for Immodium, given to patient at 1645.
--- NOTE | 2019-07-05 18:04 | NUR ---
Despite PRN Immodium, patient continues to have loose stools. Lab order placed for stool culture, pending collection at this time.
--- NOTE | 2019-07-05 21:09 | PDOC ---
Exam Note: Robert Note: Please also refer to the separate dictated note~for this date of service dictated separately.~Patient seen individually. Discussed the patient with Nursing staff reviewed the chart.~Reviewed interim history and current functioning. Reviewed vital signs,~Labs/ Radiology~and current medications noted below. Continue current treatment with the changes noted in the dictated addendum note Assessment: Vital Signs/I&O: Vital Signs Date Time Temp Pulse Resp B/P (MAP) Pulse Ox O2 Delivery O2 Flow Rate FiO2 07/05/19 16:22 97.7 98 16 109/70 (83) 95 Room Air I & O 07/04/19 07/04/19 07/05/19 15:00 23:00 07:00 Intake Total 600 ml 240 ml 120 ml Balance 600 ml 240 ml 120 ml Current Medications: Meds: Current Medications Medications (Trade) Dose Ordered Sig/Henry Route PRN Reason Start Time Stop Time Status Last Admin Dose Admin Multivit/ Folic Acid/Iron (Multivitamin ) 1 tab DAILY PO 07/05/19 09:00 07/05/19 08:24 Loperamide HCl (Imodium) 4 mg PRN DAILY PRN PO diarrhea 07/05/19 16:30 07/05/19 16:49 I have reviewed the current psychotropics carefully including drug interactions. Risk benefit ratio favors no change other than as noted in my dictated progress note. Diagnosis: Problems: (1) Conversion disorder (2) Mild cognitive impairment (3) History of post traumatic stress disorder (4) Anxiety disorder (5) Major depressive disorder, recurrent episode (6) Psychosis, atypical DARA FELIPE MD Jul 05, 2019 21:09
[2019-07-05] MEDS: FENOFIBRATE NANOCRYSTALLIZED 145 MG TABLET PO SCH (21:12)
[2019-07-05] MEDS: MIRTAZAPINE 7.5 MG TABLET. PO SCH (21:12)
[2019-07-05] MEDS: diazePAM 5 MG TABLET PO SCH (21:13)
[2019-07-05] MEDS: ATORVASTATIN CALCIUM 20 MG TABLET PO SCH (21:13)
[2019-07-05] MEDS: MELATONIN 3 MG TABLET PO SCH (21:13)
--- NOTE | 2019-07-05 23:39 | NUR ---
PT in day room at time of medication administration and assessment. PT immediately stated he was having a bowel movement in his underwear. PT went to his room to clean himself up and try to use the toilet more. PT given new underwear and new pants. PT complained of pain of 8/10 with hyperactive bowel sounds. PT with watery diarrhea, same as all day. PT stating he thought about suicide earlier today, none now, no plan. No HI. PT assessed in room and medications given in room. PT compliant with both. Medications given whole with water.
[2019-07-06] MEDS: LEVOTHYROXINE 50 MCG TABLET PO SCH (06:17)
[2019-07-06 06:26] VITALS: BP 106/68
[2019-07-06] MEDS ORDERED: LURASIDONE 40 MG TABLET. PO SCH (08:00)
[2019-07-06] MEDS: FLUTICASONE 50MCG/NASAL SPRAY 16GM BOTTLE. NS SCH (08:37)
[2019-07-06] MEDS: DICLOFENAC SODIUM 1% TOPICAL GEL 100GM TUBE. TP SCH ×2 (08:37→20:30)
[2019-07-06] MEDS: LOPERAMIDE 2 MG CAPSULE PO PRN ×2 (08:38→18:08)
[2019-07-06] MEDS: cloNIDine TTS-2 1 PATCH PATCH TD SCH ×4 (08:38→13:53)
[2019-07-06] MEDS: FINASTERIDE 5 MG TABLET PO SCH (08:38)
[2019-07-06] MEDS: MONTELUKAST 10 MG TABLET. PO SCH (08:38)
[2019-07-06] MEDS: TAMSULOSIN 0.4 MG CAP.ER.24H. PO SCH (08:38)
[2019-07-06] MEDS: CETIRIZINE HCL 10 MG TABLET PO SCH (08:38)
[2019-07-06] MEDS: PRENATAL MULTIVITAMIN TABLET. PO SCH (08:38)
[2019-07-06] MEDS: LISINOPRIL 10 MG TABLET PO SCH (08:39)
[2019-07-06] MEDS: DULoxetine HCL 60 MG CAPSULE.DR PO SCH (08:39)
[2019-07-06] MEDS: LURASIDONE 40 MG TABLET. PO SCH (08:39)
[2019-07-06] MEDS: ASPIRIN ENTERIC COATED 81 MG TABLET.DR. PO SCH (08:39)
[2019-07-06] MEDS: amLODIPine BESYLATE 5 MG TABLET PO SCH (08:44)
--- NOTE | 2019-07-06 13:00 | NUR ---
ACTIVITY THERAPY ASSESSMENT: Pt was sitting down in the day room during the assessment. Pt was able to remember his past, present location, family, age, and more. Pt made eye contact, listened, and responded. Pt can verbally express himself and he uses a walker to ambulate. Pt wore clean clothes, has a low haircut and his hair color is black and bourgeois. Pt is and has four children form his previous marriage. Pt expressed his interest in hunting, sports, weight-lifting, [employer] music and he loves playing catch with tennis balls. Pt expressed that he has more stress than usual due to his current health and environment. INITIAL TREATMENT GOAL: Pt will increase motivation and recreation education by engaging in at least five activity therapy groups per week. Addendum: 07/26/19 at 0910 by EITAN AC ACT Goal changed 07/26/2019: Pt. will participate in all Activity Therapy groups offered.
[2019-07-06] MEDS: HYDROcodone/APAP 5/325MG 1 TAB TABLET PO PRN (13:51)
[2019-07-06 13:58] VITALS: BP 112/77
--- NOTE | 2019-07-06 14:31 | NUR ---
With Suly's verbal permission, phone call returned to Isaura, joe. Isaura provided the following timeline of events: In December 2016, Suly had a cousin that was more like a brother to him that by suicide. Suly began to decline in mood from that time. Per report, Suly became "manic" after that and was admitted for in patient psych treatment at [facility] in 08/2017. He somewhat stabilized until April 05, 2019 when he called his from their [place] home and reported thoughts of suicide. Isaura contacted crisis intervention who assisted to get Suly admitted to a [facility] in patient psych hospital for treatment. Isaura picked suly up on 04/07/19 with the intention to bring him back to [place] for [place]. Upon arriving to [place] on 04/12/19, Suly was taken to [facility] for evaluation. [facility] indicated that Suly did not qualify for in patient treatment and needed out patient services. Isaura set up an appointment at [facility] on on 04/14/19 and they recommended in patient treatment so Suly was hospitalized there from 04/14/19 thru 04/20/19. Suly then discharged back to [facility] in a weakened state. On 04/21/19 Suly had a fall and was unconscious and taken to [facility] where he was treated until 04/27/19. He was then discharged to [facility] from 04/27/19 thru 05/02/19 for rehab. He was discharged to [facility] apartment still weak with SI. On 05/05/19, Suly collapsed and was taken to [facility] where he stayed for medical issues and psych issues until 05/29/19. During Suly's stay at [facility], he had four ECT treatments. He was discharged back to [facility] on 05/29/19 but continued to be weak and was dehydrated. On 06/01/19, Suly was admitted to [facility] and treated there until he was transferred to [facility] on 06/07/19. Suly exhibited s/s of depression while at [facility] which prompted a referral to [facility]. Isaura expressed that while she wants to be supportive of any services that Suly may need, it is not an option for him to return to her apartment. She can not manage his needs and is currently under therapy herself. Shalonda from [facility] completed CARE assessment this afternoon and Suly triggered need for Level II assessment. Will work on getting psychiatric records from [facility] and [facility].
[2019-07-06 15:51] VITALS: BP 100/70
[2019-07-06] MEDS: DOCUSATE SODIUM 100 MG CAPSULE PO SCH (16:19)
--- NOTE | 2019-07-06 16:33 | NUR ---
Bj signed a release for information form in order to obtain medical records from [facility]. Releases faxed to [facility] with request for records. Awaiting records.
[2019-07-06] MEDS ORDERED: traZODone 50 MG TABLET. PO ONE (17:15)
[2019-07-06] MEDS ORDERED: traZODone 50 MG TABLET. PO PRN (18:15)
--- NOTE | 2019-07-06 18:29 | NUR ---
Pt had 3 episodes of loose stools today, one episode of incontinence. Verified stool sample sent to lab and pending. Immodium given. Pt very worried about becoming dehydrated or drinking too much. Explained to patient needs for proper hydration if having diarrhea and reinforced how to look at urine to tell hydration status. Pt stated he is feeling frustrated with diarrhea, but has denied SI today.
--- NOTE | 2019-07-06 19:29 | PN ---
DATE: PSYCHIATRIC PROGRESS NOTE This late entry 07/05/2019 covers the elements not covered in my initial note. SUBJECTIVE: I met with the patient in the evening and staffed at a treatment team meeting with the entire team in the morning. The patient attended this conference. The patient is sleeping average 6 hours. Appetite is 80%. Reviewed his family history of alcoholism in father, drug abuse in his sister, successful suicide in multiple family members including mother and father. REVIEW OF SYSTEMS: Ambulation impaired. No CV, , pulmonary, eye system symptoms on review. He is obsessed that he can sleep at night even though it is recorded he is sleeping reasonably well. MENTAL STATUS EXAM: Reasonably oriented. Speech has some latency, low in rate and rhythm, low in volume, often responses monosyllabic. Abstraction fair, computation impaired, language function intact. He states he is not eating well. No active suicidal or homicidal ideation. Mood and affect remains depressed. LABORATORY DATA: Reviewed. IMPRESSION: Major depressive disorder with psychotic features. At one point, the patient defecated in his pants in the dayroom. He is being checked for C. diff, started on Imodium MiraLax has been stopped, obsessed regarding being dehydrated and then over compensates by drinking excessive fluids causing the diarrhea partially. IMPRESSION: Major depressive disorder with psychotic features, mild cognitive impairment, bipolar, possible bipolar disorder, depressed. PLAN: Taper the Valium from 10 mg at bedtime gradually by 2.5 mg every 2 to 3 days until discontinued. Start Remeron 7.5 mg at bedtime for insomnia should help stimulate his appetite as well. Maintain Latuda increased to 40 mg a day. Continue melatonin, Cymbalta and trazodone p.r.n. MAN Marc FELIPE MD DR: NIKKY/sergey JOB#: [id number] / [id number]
[2019-07-06] MEDS: MIRTAZAPINE 7.5 MG TABLET. PO SCH (20:30)
[2019-07-06] MEDS: MELATONIN 3 MG TABLET PO SCH (20:30)
[2019-07-06] MEDS: traZODone 50 MG TABLET. PO SCH (20:30)
[2019-07-06] MEDS: diazePAM 5 MG TABLET PO SCH (20:30)
[2019-07-06] MEDS: ATORVASTATIN CALCIUM 20 MG TABLET PO SCH (20:30)
[2019-07-06] MEDS: FENOFIBRATE NANOCRYSTALLIZED 145 MG TABLET PO SCH (20:30)
--- NOTE | 2019-07-06 21:35 | PDOC ---
Exam Note: Robert Note: Please also refer to the separate dictated note~for this date of service dictated separately.~Patient seen individually. Discussed the patient with Nursing staff reviewed the chart.~Reviewed interim history and current functioning. Reviewed vital signs,~Labs/ Radiology~and current medications noted below. Continue current treatment with the changes noted in the dictated addendum note Assessment: Vital Signs/I&O: Vital Signs Date Time Temp Pulse Resp B/P (MAP) Pulse Ox O2 Delivery O2 Flow Rate FiO2 07/06/19 15:51 98.0 81 16 100/70 (80) 95 07/06/19 06:26 Room Air I & O 07/05/19 07/05/19 07/06/19 15:00 23:00 07:00 Intake Total 1060 ml 240 ml Balance 1060 ml 240 ml Current Medications: Meds: Current Medications Medications (Trade) Dose Ordered Sig/Henry Route PRN Reason Start Time Stop Time Status Last Admin Dose Admin Clonidine HCl (Catapres Tts-2) 1 patch WEEKLY TD 07/06/19 09:00 07/06/19 13:53 Lurasidone HCl (Latuda) 40 mg DAILYWBKFT PO 07/06/19 08:00 07/06/19 08:39 Duloxetine HCl (Cymbalta) 60 mg DAILY PO 07/06/19 09:00 07/06/19 08:39 Trazodone HCl (Desyrel) 50 mg HS PO 07/06/19 21:00 07/06/19 20:30 I have reviewed the current psychotropics carefully including drug interactions. Risk benefit ratio favors no change other than as noted in my dictated progress note. Diagnosis: Problems: (1) Conversion disorder (2) Mild cognitive impairment (3) History of post traumatic stress disorder (4) Anxiety disorder (5) Major depressive disorder, recurrent episode (6) Psychosis, atypical DARA FELIPE MD Jul 06, 2019 21:35
--- NOTE | 2019-07-06 23:39 | PN ---
DATE: 07/04/2019 PSYCHIATRIC PROGRESS NOTE This late entry 07/04/2019 covers elements not covered in my initial note. SUBJECTIVE: I met with the patient in the evening of 07/04/2019. Per report from PEDRO LUIS Lewis, the patient slept 6-3/4 hours previous night. We have consulted Dr. Díaz to follow him from a neurological standpoint. He has had a syncopal episode, remains somewhat obsessed about being dehydrated and not being able to urinate. Bladder scan showed 0 mL retention. He has vague somatic symptoms as above. No CV, , pulmonary, eye system symptoms on review, but obsessed that he is not sleeping, even though he is sleeping quite well per nursing observation. MENTAL STATUS EXAM: Oriented to himself and situation. Speech has some latency, low in rate and rhythm, low in volume. Abstraction fair, computation impaired, language function intact, attention span short. Mood and affect withdrawn, quite obsessive, anxious, depressed. LABORATORY DATA: Reviewed. IMPRESSION: Major depressive disorder, recurrent with psychotic features; anxiety disorder, unspecified. Rest unchanged. PLAN: Continue to gradually increase Cymbalta from 30 mg a day to 60 mg a day, Latuda from 20 mg a day to 40 mg a day. He also has some symptoms of PTSD, having experienced the suicide first hand by his mother and father. There are several other members in the family who have committed suicide raising the possibility of bipolar depression with a familial predisposition. We will continue to assess this. No active suicidal or homicidal ideation. MENTAL STATUS EXAMINATION: Reasonably oriented. Speech moderate latency, often responses monosyllabic. Abstraction fair, computation impaired, language function intact. Mood and affect withdrawn. PLAN: Continue as noted above. Adjust further as clinically indicated. MAN Marc FELIPE MD DR: NIKKY/sergey JOB#: [id number] / [id number]
--- NOTE | 2019-07-07 00:46 | NUR ---
Nsg Note: Patient in day room at time of medication administration and assessments. Patient calm, cooperative and compliant. No SI. Hypoverbal and flat. Patient went to his room shortly after this. Patient states he lays wide awake in the bed all night and cannot sleep but he is sleeping on/off. No other notable behaviors at this time. No documented diarrhea on NOC shift this far.
[2019-07-07] MEDS: LEVOTHYROXINE 50 MCG TABLET PO SCH (05:24)
[2019-07-07 06:14] VITALS: BP 100/58
[2019-07-07 07:44] LABS: HEMATOCRIT 36.4 % (39.0-53.0); HEMOGLOBIN 12.4 g/dL (13.0-17.5); RED BLOOD COUNT 4.4 x10^6/uL (4.30-5.70); RED CELL DISTRIBUTION WIDTH 14.4 % (11.5-14.5); WHITE BLOOD COUNT 10.5 x10^3/uL (4.0-11.0)
[2019-07-07 08:21] LABS: ALBUMIN 2.9 g/dL (3.4-5.0); ALBUMIN/GLOBULIN RATIO 1.2 (1.0-1.7); CALCIUM 8.5 mg/dL (8.5-10.1); CREATININE 0.9 mg/dL (0.7-1.3); GFR 84.2; POTASSIUM 4.5 mmol/L (3.5-5.1); TOTAL BILIRUBIN 0.3 mg/dL (0.2-1.0); TOTAL PROTEIN 5.4 g/dL (6.4-8.2)
[2019-07-07] MEDS: FINASTERIDE 5 MG TABLET PO SCH (11:08)
[2019-07-07] MEDS: PRENATAL MULTIVITAMIN TABLET. PO SCH (11:08)
[2019-07-07] MEDS: LURASIDONE 40 MG TABLET. PO SCH (11:08)
[2019-07-07] MEDS: TAMSULOSIN 0.4 MG CAP.ER.24H. PO SCH (11:08)
[2019-07-07] MEDS: CETIRIZINE HCL 10 MG TABLET PO SCH (11:08)
[2019-07-07] MEDS: MONTELUKAST 10 MG TABLET. PO SCH (11:09)
[2019-07-07] MEDS: DULoxetine HCL 60 MG CAPSULE.DR PO SCH (11:09)
[2019-07-07] MEDS: LISINOPRIL 10 MG TABLET PO SCH (11:09)
[2019-07-07] MEDS: ASPIRIN ENTERIC COATED 81 MG TABLET.DR. PO SCH (11:10)
[2019-07-07] MEDS: amLODIPine BESYLATE 5 MG TABLET PO SCH (11:10)
[2019-07-07] MEDS: FLUTICASONE 50MCG/NASAL SPRAY 16GM BOTTLE. NS SCH (11:13)
[2019-07-07] MEDS: DICLOFENAC SODIUM 1% TOPICAL GEL 100GM TUBE. TP SCH ×2 (11:13→19:50)
[2019-07-07] MEDS: DOCUSATE SODIUM 100 MG CAPSULE PO SCH (16:35)
--- NOTE | 2019-07-07 16:37 | NUR ---
Speaks with soft voice, as if a whisper. Compliant with medications and cares. Has had large loose stools today, so held colace. Pushing fluids as he might be dehydrated, B/P was low this a.m. was rechecked prior to environmental remediation specialist. and was 103/69 at that time, improved since before breakfast. He also reports a 30 lb weight loss in 3 months, simply due to not being hungry. Also states he does not like hospital food, but could eat a steak. Provided and ordered PBJ at meals since he said he would eat that. Somatic complaints increaased as day progressed. Reports he had fallen previously at the [facility] in [place], where he got the bruised forehead. A & O X3. Also states his voice became softer about 6 months ago and reports no one can tell him why. Walks with a walker, will contiinue to monitor intake and B/P. Did not address suicidal ideation with him today.
[2019-07-07 16:41] VITALS: BP 113/73
[2019-07-07] MEDS: diazePAM 5 MG TABLET PO SCH (19:49)
[2019-07-07] MEDS: MELATONIN 3 MG TABLET PO SCH (19:49)
[2019-07-07] MEDS: ATORVASTATIN CALCIUM 20 MG TABLET PO SCH (19:49)
[2019-07-07] MEDS: FENOFIBRATE NANOCRYSTALLIZED 145 MG TABLET PO SCH (19:50)
[2019-07-07] MEDS: MIRTAZAPINE 7.5 MG TABLET. PO SCH (19:50)
[2019-07-07] MEDS: traZODone 50 MG TABLET. PO SCH (19:51)
[2019-07-07] MEDS: HYDROcodone/APAP 5/325MG 1 TAB TABLET PO PRN (20:04)
--- NOTE | 2019-07-07 20:24 | NUR ---
Nursing note: Assumed care of pt in the day room. He was pleasant and compliant. he had to run to the restroom r/t loose stool agaim Addendum: 07/07/19 at 2025 by CONNOR ROACH RN again. He c/o pain 8/10 in his back and was given prn Lortab as ordered. No agitation, no hallucinations or delusions present.
--- NOTE | 2019-07-07 23:23 | PDOC ---
Exam Note: Robert Note: Please also refer to the separate dictated note~for this date of service dictated separately.~Patient seen individually. Discussed the patient with Nursing staff reviewed the chart.~Reviewed interim history and current functioning. Reviewed vital signs,~Labs/ Radiology~and current medications noted below. Continue current treatment with the changes noted in the dictated addendum note Assessment: Vital Signs/I&O: Vital Signs Date Time Temp Pulse Resp B/P (MAP) Pulse Ox O2 Delivery O2 Flow Rate FiO2 07/07/19 21:15 16 98 Room Air 07/07/19 16:41 97.4 86 113/73 (86) I & O 07/06/19 07/06/19 07/07/19 14:59 22:59 06:59 Intake Total 960 ml 240 ml 240 ml Balance 960 ml 240 ml 240 ml Labs: Laboratory Tests Test 07/07/19 07:17 White Blood Count 10.5 x10^3/uL (4.0-11.0) Red Blood Count 4.40 x10^6/uL (4.30-5.70) Hemoglobin 12.4 g/dL (13.0-17.5) L Hematocrit 36.4 % (39.0-53.0) L Mean Corpuscular Volume 83 fL (79-100) Mean Corpuscular Hemoglobin 28 pg (25-35) Mean Corpuscular Hemoglobin Concent 34 g/dL (31-37) Red Cell Distribution Width 14.4 % (11.5-14.5) Platelet Count 496 x10^3/uL (140-400) H Sodium Level 136 mmol/L (136-145) Potassium Level 4.5 mmol/L (3.5-5.1) Chloride Level 100 mmol/L (98-107) Carbon Dioxide Level 27 mmol/L (21-32) Anion Gap 9 (6-14) Blood Urea Nitrogen 18 mg/dL (8-26) Creatinine 0.9 mg/dL (0.7-1.3) Estimated GFR (Cockcroft-Gault) 84.2 BUN/Creatinine Ratio 20 (6-20) Glucose Level 83 mg/dL (70-99) Calcium Level 8.5 mg/dL (8.5-10.1) Total Bilirubin 0.3 mg/dL (0.2-1.0) Aspartate Amino Transferase (AST) 17 U/L (15-37) Alanine Aminotransferase (ALT) 19 U/L (16-63) Alkaline Phosphatase 74 U/L (46-116) Total Protein 5.4 g/dL (6.4-8.2) L Albumin 2.9 g/dL (3.4-5.0) L Albumin/Globulin Ratio 1.2 (1.0-1.7) Current Medications: Meds: Current Medications Medications (Trade) Dose Ordered Sig/Henry Route PRN Reason Start Time Stop Time Status Last Admin Dose Admin Diazepam (Valium) 5 mg QHS PO 07/07/19 21:00 07/08/19 21:01 07/07/19 19:49 I have reviewed the current psychotropics carefully including drug interactions. Risk benefit ratio favors no change other than as noted in my dictated progress note. Diagnosis: Problems: (1) Conversion disorder (2) Mild cognitive impairment (3) History of post traumatic stress disorder (4) Anxiety disorder (5) Major depressive disorder, recurrent episode (6) Psychosis, atypical DARA FELIPE MD Jul 07, 2019 23:23
[2019-07-08] MEDS: HYDROcodone/APAP 5/325MG 1 TAB TABLET PO PRN ×2 (02:05→20:24)
[2019-07-08 05:40] VITALS: BP 119/73
[2019-07-08] MEDS: LEVOTHYROXINE 50 MCG TABLET PO SCH (06:02)
[2019-07-08] MEDS: LURASIDONE 40 MG TABLET. PO SCH (08:32)
[2019-07-08] MEDS: PRENATAL MULTIVITAMIN TABLET. PO SCH (08:32)
[2019-07-08] MEDS: ASPIRIN ENTERIC COATED 81 MG TABLET.DR. PO SCH (08:32)
[2019-07-08] MEDS: LISINOPRIL 10 MG TABLET PO SCH (08:33)
[2019-07-08] MEDS: DULoxetine HCL 60 MG CAPSULE.DR PO SCH (08:33)
[2019-07-08] MEDS: MONTELUKAST 10 MG TABLET. PO SCH (08:34)
[2019-07-08] MEDS: CETIRIZINE HCL 10 MG TABLET PO SCH (08:34)
[2019-07-08] MEDS: FLUTICASONE 50MCG/NASAL SPRAY 16GM BOTTLE. NS SCH (08:34)
[2019-07-08] MEDS: amLODIPine BESYLATE 5 MG TABLET PO SCH (08:34)
[2019-07-08] MEDS: FINASTERIDE 5 MG TABLET PO SCH (08:34)
[2019-07-08] MEDS: TAMSULOSIN 0.4 MG CAP.ER.24H. PO SCH (08:34)
[2019-07-08] MEDS: DICLOFENAC SODIUM 1% TOPICAL GEL 100GM TUBE. TP SCH ×2 (08:36→20:26)
--- NOTE | 2019-07-08 11:29 | NUR ---
Had a large loose green stool immediately after eating breakfast, he asked "why is this happening?" Stool is green, will f/u with historical records. Stated he had multiple samples taken already, but our records do not reflect that statement. Soft spoken. Denies any pain at this time. A & O X3.
[2019-07-08] MEDS: LOPERAMIDE 2 MG CAPSULE PO PRN (12:20)
--- NOTE | 2019-07-08 14:28 | NUR ---
Given PRN immodium and held colace at suppertime.
[2019-07-08 16:15] VITALS: BP 95/62
[2019-07-08] MEDS: DOCUSATE SODIUM 100 MG CAPSULE PO SCH (17:41)
[2019-07-08] MEDS: traZODone 100 MG TABLET. PO SCH (20:22)
[2019-07-08] MEDS: MIRTAZAPINE 7.5 MG TABLET. PO SCH (20:23)
[2019-07-08] MEDS: diazePAM 5 MG TABLET PO SCH (20:23)
[2019-07-08] MEDS: MELATONIN 3 MG TABLET PO SCH (20:23)
[2019-07-08] MEDS: FENOFIBRATE NANOCRYSTALLIZED 145 MG TABLET PO SCH (20:23)
[2019-07-08] MEDS: ATORVASTATIN CALCIUM 20 MG TABLET PO SCH (20:23)
--- NOTE | 2019-07-08 20:44 | NUR ---
Nursing note: Assumed care of pt in the day room. He was quiet and withdrawn. He is pleasant and interactive, denying SI but c/o chronic pain 8/ in back. Given PRN Lortab as ordered. He is A&OX4. Pt stated he believes his weight was 196 when he came in, not 180 as our records reflect and so he has lost 4lbs.
--- NOTE | 2019-07-08 21:51 | PDOC ---
Exam Note: Robert Note: Please also refer to the separate dictated note~for this date of service dictated separately.~Patient seen individually. Discussed the patient with Nursing staff reviewed the chart.~Reviewed interim history and current functioning. Reviewed vital signs,~Labs/ Radiology~and current medications noted below. Continue current treatment with the changes noted in the dictated addendum note Assessment: Vital Signs/I&O: Vital Signs Date Time Temp Pulse Resp B/P (MAP) Pulse Ox O2 Delivery O2 Flow Rate FiO2 07/08/19 20:24 18 96 Room Air 07/08/19 16:15 97.5 88 95/62 (73) I & O 07/07/19 07/07/19 07/08/19 15:00 23:00 07:00 Intake Total 240 ml 240 ml Balance 240 ml 240 ml Current Medications: Meds: Current Medications Medications (Trade) Dose Ordered Sig/Henry Route PRN Reason Start Time Stop Time Status Last Admin Dose Admin Trazodone HCl (Desyrel) 100 mg QHS PO 07/08/19 21:00 07/08/19 20:22 I have reviewed the current psychotropics carefully including drug interactions. Risk benefit ratio favors no change other than as noted in my dictated progress note. Diagnosis: Problems: (1) Conversion disorder (2) Mild cognitive impairment (3) History of post traumatic stress disorder (4) Anxiety disorder (5) Major depressive disorder, recurrent episode (6) Psychosis, atypical DARA FELIPE MD Jul 08, 2019 21:51
[2019-07-09 05:32] VITALS: BP 110/70
[2019-07-09] MEDS: LEVOTHYROXINE 50 MCG TABLET PO SCH (06:38)
[2019-07-09] MEDS: PRENATAL MULTIVITAMIN TABLET. PO SCH (08:00)
[2019-07-09] MEDS: amLODIPine BESYLATE 5 MG TABLET PO SCH (08:00)
[2019-07-09] MEDS: FLUTICASONE 50MCG/NASAL SPRAY 16GM BOTTLE. NS SCH (08:00)
[2019-07-09] MEDS: DICLOFENAC SODIUM 1% TOPICAL GEL 100GM TUBE. TP SCH ×2 (08:00→21:00)
[2019-07-09] MEDS: DULoxetine HCL 60 MG CAPSULE.DR PO SCH (08:00)
[2019-07-09] MEDS: CETIRIZINE HCL 10 MG TABLET PO SCH (08:00)
[2019-07-09] MEDS: FINASTERIDE 5 MG TABLET PO SCH (08:01)
[2019-07-09] MEDS: ASPIRIN ENTERIC COATED 81 MG TABLET.DR. PO SCH (08:01)
[2019-07-09] MEDS: LURASIDONE 40 MG TABLET. PO SCH (08:01)
[2019-07-09] MEDS: MONTELUKAST 10 MG TABLET. PO SCH (08:01)
[2019-07-09] MEDS: TAMSULOSIN 0.4 MG CAP.ER.24H. PO SCH (08:01)
[2019-07-09] MEDS: CHOLECALCIFEROL (VITAMIN D3) 50,000 UNIT CAPSULE PO SCH (08:01)
[2019-07-09] MEDS: LISINOPRIL 10 MG TABLET PO SCH (08:02)
--- NOTE | 2019-07-09 09:24 | PN ---
DATE: 07/06/2019 PSYCHIATRIC PROGRESS NOTE This late entry 07/06/2019 covers elements not covered in my initial note. SUBJECTIVE: I met with the patient evening of 07/06/2019. Per PEDRO LUIS Polo, the patient slept 5-1/2 hours previous night. He has had diarrhea x 1 during the day and twice previous night, still complains of not sleeping, though he is recorded to sleep better. REVIEW OF SYSTEMS: No CV, , pulmonary, eye system symptoms on review. Does admit to tiredness. MENTAL STATUS EXAM: Reasonably oriented. Speech has some latency, coherent. Abstraction fair, computation impaired, language function intact, attention span short. No active suicidal ideation. LABORATORY DATA: Reviewed. IMPRESSION: Unchanged from initial note. PLAN: No change from initial note. We will taper the Valium, gradually increase the Latuda. Rest unchanged including Cymbalta. MAN Marc FELIPE MD DR: NIKKY/sergey JOB#: [id number] / [id number]
--- NOTE | 2019-07-09 11:41 | NUR ---
No medical records received from [facility] or [facility]. Follow up calls placed to both hospitals and messages left with request for medical records to be faxed. Awaiting return phone call from each hospital.
--- NOTE | 2019-07-09 12:06 | NUR ---
Returned phone call to Isaura, , who had questions about the CARE assessment. Explained to Isaura that based on Bj's diagnosis and previous in patient psychiatric hospitalizations this year, he will trigger a level II assessment. Isaura expressed she will contact their parts salesperson today to inform and proceed with medicaid planning, application process and spend down.
[2019-07-09] MEDS: LOPERAMIDE 2 MG CAPSULE PO PRN (12:48)
[2019-07-09] MEDS: DOCUSATE SODIUM 100 MG CAPSULE PO SCH (16:02)
[2019-07-09 16:04] VITALS: BP 84/56
--- NOTE | 2019-07-09 17:33 | NUR ---
Patient is in the dining room for medications and assessments. He is flat, blunted. He takes his medications whole. His appetite continues to be poor. He has also been breaking off and pocketing pieces of plastic silverware. Request to dietary put in for weighted utensils. He complained of loose stools x2, but was continent. PRN Immodium given at 1246. No agitation, no s/s or c/o pain or discomfort. Patient denies SI/HI.
[2019-07-09 20:11] VITALS: BP 96/62
[2019-07-09] MEDS: traZODone 100 MG TABLET. PO SCH (20:57)
[2019-07-09] MEDS: MIRTAZAPINE 7.5 MG TABLET. PO SCH (20:58)
[2019-07-09] MEDS: FENOFIBRATE NANOCRYSTALLIZED 145 MG TABLET PO SCH (20:59)
[2019-07-09] MEDS: diazePAM 5 MG TABLET PO SCH (20:59)
[2019-07-09] MEDS: ATORVASTATIN CALCIUM 20 MG TABLET PO SCH (20:59)
[2019-07-09] MEDS: MELATONIN 3 MG TABLET PO SCH (20:59)
--- NOTE | 2019-07-09 21:13 | PDOC ---
Exam Note: Robert Note: Please also refer to the separate dictated note~for this date of service dictated separately.~Patient seen individually. Discussed the patient with Nursing staff reviewed the chart.~Reviewed interim history and current functioning. Reviewed vital signs,~Labs/ Radiology~and current medications noted below. Continue current treatment with the changes noted in the dictated addendum note Assessment: Vital Signs/I&O: Vital Signs Date Time Temp Pulse Resp B/P (MAP) Pulse Ox O2 Delivery O2 Flow Rate FiO2 07/09/19 16:04 97.9 91 18 84/56 (65) 95 07/08/19 21:24 Room Air I & O 07/08/19 07/08/19 07/09/19 15:00 23:00 07:00 Intake Total 360 ml 360 ml 420 ml Balance 360 ml 360 ml 420 ml Current Medications: Meds: Current Medications Medications (Trade) Dose Ordered Sig/Henry Route PRN Reason Start Time Stop Time Status Last Admin Dose Admin Vitamin D (Vitamin D3) 50,000 unit WEEKLY PO 07/09/19 09:00 07/09/19 08:01 Diazepam (Valium) 2.5 mg QHS PO 07/09/19 21:00 07/10/19 21:01 07/09/19 20:59 I have reviewed the current psychotropics carefully including drug interactions. Risk benefit ratio favors no change other than as noted in my dictated progress note. Diagnosis: Problems: (1) Conversion disorder (2) Mild cognitive impairment (3) History of post traumatic stress disorder (4) Anxiety disorder (5) Major depressive disorder, recurrent episode (6) Psychosis, atypical DARA FELIPE MD Jul 09, 2019 21:13
--- NOTE | 2019-07-09 21:27 | PN ---
DATE: PSYCHIATRIC PROGRESS NOTE This late entry 07/08/2019 covers the elements not covered in my initial note. SUBJECTIVE: I met with the patient in the evening of 07/08/2019. The patient slept 6 hours previous night. He has been cooperative, appetite is poor. He has had some loose stools, still feels he is not sleeping well. REVIEW OF SYSTEMS: No CV, , pulmonary, eye system symptoms on review. MENTAL STATUS EXAM: Reasonably oriented. Speech has some latency, often responses monosyllabic, low in volume. Abstraction fair, computation impaired, language function intact. Mood and affect depressed. Denies active suicidal ideation. LABORATORY DATA: Reviewed. IMPRESSION: Major depressive disorder with psychotic features. Rest unchanged; history of post traumatic stress disorder; anxiety disorder, unspecified. PLAN: Increase trazodone to 100 mg at bedtime, may repeat x 1 insomnia. Taper the Valium. Continue rest of the psychotropics, Cymbalta, Latuda, melatonin, Remeron for now. MAN Marc FELIPE MD DR: NIKKY/sergey JOB#: [id number] / [id number]
[2019-07-09] MEDS: traZODone 50 MG TABLET. PO PRN (22:28)
--- NOTE | 2019-07-09 23:06 | NUR ---
Pt located in the dayroom this evening. Pt withdrawn, sitting by himself. Pt has flat affect and speaks in a whisper. Denies SI. Pt states that he has not eaten today or voided. Pt states that he does not sleep during the night. Nurse instructed pt to raise his hand if he is awake as staff makes their 15 min rounds. Pt taken to bed at 2200 where he immediately fell asleep with his arm raised, resting against the bed frame. Pt woke up during 2229 rounds and repeat Trazodone administered at that time. Pt currently sleeping soundly in his bed.
[2019-07-10 05:49] VITALS: BP 98/61
[2019-07-10] MEDS: LEVOTHYROXINE 50 MCG TABLET PO SCH (06:12)
--- NOTE | 2019-07-10 06:17 | NUR ---
While administering pt's AM thyroid pill, pt was sleeping soundly and very resistive to waking up to take the pill. When asked how he slept last night, pt responded "I didn't sleep." Pt then informed that staff checked on him every 15 minutes and pt was sleeping soundly and snoring each time. Pt then replied "I didn't sleep at all" and immediately fell back to sleep.
--- NOTE | 2019-07-10 06:48 | PN ---
DATE: 07/07/2019 PSYCHIATRIC PROGRESS NOTE This late entry of 07/07/2019 covers elements not covered in my initial note. SUBJECTIVE: I met with the patient on the evening of 07/07/2019. The patient slept 7-3/4 hours the previous night. He has had 5 loose bowel movements, we will defer to Dr. Estevez. Colace was held. Weight at admission per nursing was 180 pounds and today is 192 pounds. The patient states he is not eating well, we will monitor this. He still complains of insomnia, but reportedly slept 7-3/4 hours the previous night. REVIEW OF SYSTEMS: Positive for some tiredness. No CV, , pulmonary, eye system symptoms on review. MENTAL STATUS EXAMINATION: Reasonably oriented. Speech coherent, has some latency. Abstraction fair, computation impaired, language function intact, attention span short. Mood and affect withdrawn. LABORATORY DATA: Reviewed. IMPRESSION: Major depressive disorder with psychotic features; anxiety disorder, unspecified. Rest unchanged. PLAN: Continue current psychotropics. Cymbalta has been increased as is the Latuda. We are tapering the Valium. Maintain trazodone and Remeron. MAN Marc FELIPE MD DR: NIKKY/sergey JOB#: [id number] / [id number]
[2019-07-10] MEDS: CETIRIZINE HCL 10 MG TABLET PO SCH (08:55)
[2019-07-10] MEDS: DICLOFENAC SODIUM 1% TOPICAL GEL 100GM TUBE. TP SCH ×2 (08:55→21:17)
[2019-07-10] MEDS: DULoxetine HCL 60 MG CAPSULE.DR PO SCH (08:55)
[2019-07-10] MEDS: FINASTERIDE 5 MG TABLET PO SCH (08:55)
[2019-07-10] MEDS: PRENATAL MULTIVITAMIN TABLET. PO SCH (08:55)
[2019-07-10] MEDS: FLUTICASONE 50MCG/NASAL SPRAY 16GM BOTTLE. NS SCH (08:55)
[2019-07-10] MEDS: TAMSULOSIN 0.4 MG CAP.ER.24H. PO SCH (08:55)
[2019-07-10] MEDS: MONTELUKAST 10 MG TABLET. PO SCH (08:56)
[2019-07-10] MEDS: ASPIRIN ENTERIC COATED 81 MG TABLET.DR. PO SCH (08:56)
[2019-07-10] MEDS: LURASIDONE 40 MG TABLET. PO SCH (08:56)
[2019-07-10] MEDS: amLODIPine BESYLATE 5 MG TABLET PO SCH (08:57)
[2019-07-10] MEDS: LISINOPRIL 10 MG TABLET PO SCH (08:58)
--- NOTE | 2019-07-10 11:29 | NUR ---
Follow up calls placed to medical records department at [facility] and . Requested medical records be faxed for completion of level II assessment. Re-faxed the authorization for release of information to both hospitals.
--- NOTE | 2019-07-10 15:06 | NUR ---
Patient in his room at start of shift. He was arousable but refused to get up and come to the dining room for breakfast. Several more attempts made to get patient out of bed without success. Patient stated "I'm not asleep, I'm just resting." Finally got up at 1100 with PT. He was cooperative with taking a shower and then went to the day room. Compliant with medications and assessments. Patients came to visit during lunch. After lunch, when speaking with this script writer, stated that the patient told her he doesn't eat a lot of the food served because they get stuck between his teeth and he has no way to get them out. She inquired as to whether patient would be allowed to have dental floss if supervised. manager of financial planning gave permission as long as patient's supplies floss, patient is supervised when using it after meals, and it is locked in his closet when not in use. Patient up in the day room for most of the day. Flat, blunted. Denies pain or discomfort, denies SI/HI.
[2019-07-10 17:13] VITALS: BP 99/66
[2019-07-10] MEDS: DOCUSATE SODIUM 100 MG CAPSULE PO SCH (18:00)
--- NOTE | 2019-07-10 21:08 | PDOC ---
Exam Note: Robert Note: Please also refer to the separate dictated note~for this date of service dictated separately.~Patient seen individually. Discussed the patient with Nursing staff reviewed the chart.~Reviewed interim history and current functioning. Reviewed vital signs,~Labs/ Radiology~and current medications noted below. Continue current treatment with the changes noted in the dictated addendum note Assessment: Vital Signs/I&O: Vital Signs Date Time Temp Pulse Resp B/P (MAP) Pulse Ox O2 Delivery O2 Flow Rate FiO2 07/10/19 17:13 97.7 84 16 99/66 (77) 98 07/08/19 21:24 Room Air I & O 07/09/19 07/09/19 07/10/19 15:00 23:00 07:00 Intake Total 600 ml 240 ml Balance 600 ml 240 ml Current Medications: Meds: Current Medications Medications (Trade) Dose Ordered Sig/Henry Route PRN Reason Start Time Stop Time Status Last Admin Dose Admin Lurasidone HCl (Latuda) 60 mg DAILYWBKFT PO 07/10/19 08:00 07/10/19 08:56 I have reviewed the current psychotropics carefully including drug interactions. Risk benefit ratio favors no change other than as noted in my dictated progress note. Diagnosis: Problems: (1) Conversion disorder (2) Mild cognitive impairment (3) History of post traumatic stress disorder (4) Anxiety disorder (5) Major depressive disorder, recurrent episode (6) Psychosis, atypical DARA FELIPE MD Jul 10, 2019 21:08
[2019-07-10] MEDS: MELATONIN 3 MG TABLET PO SCH (21:13)
[2019-07-10] MEDS: HYDROcodone/APAP 5/325MG 1 TAB TABLET PO PRN (21:13)
[2019-07-10] MEDS: traZODone 100 MG TABLET. PO SCH (21:13)
[2019-07-10] MEDS: ATORVASTATIN CALCIUM 20 MG TABLET PO SCH (21:13)
[2019-07-10] MEDS: FENOFIBRATE NANOCRYSTALLIZED 145 MG TABLET PO SCH (21:14)
[2019-07-10] MEDS: MIRTAZAPINE 15 MG TABLET PO SCH (21:17)
[2019-07-10] MEDS: diazePAM 5 MG TABLET PO SCH (21:17)
--- NOTE | 2019-07-10 23:35 | NUR ---
Nursing note: Assumed care of pt in the day room. He is A&OX4, somatic complaints about being dehydrated, He is compliant with meds and assessment, wants to be brought repeat trazodone at a specific time. I explained it is prn not scheduled, will bring if needed later.
--- NOTE | 2019-07-11 03:10 | PN ---
DATE: 07/09/2019 PSYCHIATRIC PROGRESS NOTE. This late entry 07/09/2019 covers elements not covered in my initial note. SUBJECTIVE: I met with the patient in the evening of 07/09/2019. Per PEDRO LUIS Contreras, the patient slept 5-3/4 hours the previous night. He took his pain medications the previous night. Per nursing report, he had loose stools, Imodium ordered p.r.n. He still complains of insomnia despite increase in trazodone to 100 mg at bedtime, may repeat x 1 along with the melatonin. Valium is being tapered. He still complains of poor appetite. REVIEW OF SYSTEMS: No CV, , pulmonary, eye system symptoms on review. MENTAL STATUS EXAM: Reasonably oriented. Speech has some latency, coherent, often responses monosyllabic. Abstraction fair, computation impaired, language function intact. Mood and affect still somewhat withdrawn, depressed. LABORATORY DATA: Reviewed. IMPRESSION: Major depressive disorder with psychotic features; strong family history of suicide; anxiety disorder, unspecified; mild cognitive impairment. PLAN: Treat the diarrhea symptomatically, taper the Valium, increase the Latuda to 60 mg a day, rest unchanged for now. MAN Marc FELIPE MD DR: NIKKY/sergey JOB#: [id number] / [id number]
[2019-07-11 04:44] VITALS: BP 106/63
[2019-07-11] MEDS: LEVOTHYROXINE 50 MCG TABLET PO SCH (06:12)
[2019-07-11] MEDS: FLUTICASONE 50MCG/NASAL SPRAY 16GM BOTTLE. NS SCH (08:15)
[2019-07-11] MEDS: DICLOFENAC SODIUM 1% TOPICAL GEL 100GM TUBE. TP SCH ×2 (08:15→20:21)
[2019-07-11] MEDS: DULoxetine HCL 60 MG CAPSULE.DR PO SCH (08:15)
[2019-07-11] MEDS: LURASIDONE 40 MG TABLET. PO SCH (08:16)
[2019-07-11] MEDS: amLODIPine BESYLATE 5 MG TABLET PO SCH (08:16)
[2019-07-11] MEDS: TAMSULOSIN 0.4 MG CAP.ER.24H. PO SCH (08:17)
[2019-07-11] MEDS: PRENATAL MULTIVITAMIN TABLET. PO SCH (08:17)
[2019-07-11] MEDS: ASPIRIN ENTERIC COATED 81 MG TABLET.DR. PO SCH (08:17)
[2019-07-11] MEDS: CETIRIZINE HCL 10 MG TABLET PO SCH (08:18)
[2019-07-11] MEDS: LISINOPRIL 10 MG TABLET PO SCH (08:18)
[2019-07-11] MEDS: FINASTERIDE 5 MG TABLET PO SCH (08:18)
[2019-07-11] MEDS: MONTELUKAST 10 MG TABLET. PO SCH (08:18)
--- NOTE | 2019-07-11 13:38 | NUR ---
Received medical records from [facility]. Provided copy of records to CARE life enrichment manager Shalonda from [facility] who stopped by the office to retrieve records for completion of level II assessment.
--- NOTE | 2019-07-11 15:45 | NUR ---
Discussion with Bj who seems to be slightly more verbal. Bj was sitting up in the day room watching television. He contiunes to report having difficulty sleeping. Updated him that medical records have been obtained for completion of level II assessment in order for placement to occur upon discharge from [facility]. Bj accepted invite to treatment team on 07/12/19 and Isaura () will be involved via phone. Isaura expressed that she has gathered all documents for the medicaid application except for a copy of her lease which will be provided to her soon. She will then forward application and documents to their workers compensation defense attorney for submission.
[2019-07-11 15:56] VITALS: BP 110/66
--- NOTE | 2019-07-11 16:28 | NUR ---
Patient is in the dining room for assessments and medications. He remains flat and blunted. Took his medications whole. No c/o loose stool today. No c/o pain or discomfort. Out in the day room for a good portion of the day. Denies SI/HI.
[2019-07-11] MEDS: DOCUSATE SODIUM 100 MG CAPSULE PO SCH (17:50)
--- NOTE | 2019-07-11 18:01 | NUR ---
While medicating patient with his scheduled colace, he stated "I haven't been able to go in 4 days." This brief writer reminded him that he had complained of 2 loose stools on 07/09 and received PRN Immodium. This brief writer also told him that if he does have PRN Miralax available if he feels he needs it.
[2019-07-11] MEDS: MELATONIN 3 MG TABLET PO SCH (20:18)
[2019-07-11] MEDS: FENOFIBRATE NANOCRYSTALLIZED 145 MG TABLET PO SCH (20:19)
[2019-07-11] MEDS: MIRTAZAPINE 15 MG TABLET PO SCH (20:19)
[2019-07-11] MEDS: ATORVASTATIN CALCIUM 20 MG TABLET PO SCH (20:20)
[2019-07-11] MEDS: traZODone 150 MG TABLET. PO SCH (20:28)
--- NOTE | 2019-07-11 21:41 | PDOC ---
Exam Note: Robert Note: Please also refer to the separate dictated note~for this date of service dictated separately.~Patient seen individually. Discussed the patient with Nursing staff reviewed the chart.~Reviewed interim history and current functioning. Reviewed vital signs,~Labs/ Radiology~and current medications noted below. Continue current treatment with the changes noted in the dictated addendum note Assessment: Vital Signs/I&O: Vital Signs Date Time Temp Pulse Resp B/P (MAP) Pulse Ox O2 Delivery O2 Flow Rate FiO2 07/11/19 15:56 97.4 89 16 110/66 (81) 100 07/10/19 22:13 Room Air I & O 07/10/19 07/10/19 07/11/19 15:00 23:00 07:00 Intake Total 60 ml 360 ml 240 ml Balance 60 ml 360 ml 240 ml Current Medications: Meds: Current Medications Medications (Trade) Dose Ordered Sig/Henry Route PRN Reason Start Time Stop Time Status Last Admin Dose Admin Trazodone HCl (Desyrel) 150 mg QHS PO 07/11/19 21:00 07/11/19 20:28 I have reviewed the current psychotropics carefully including drug interactions. Risk benefit ratio favors no change other than as noted in my dictated progress note. Diagnosis: Problems: (1) Conversion disorder (2) Mild cognitive impairment (3) History of post traumatic stress disorder (4) Anxiety disorder (5) Major depressive disorder, recurrent episode (6) Psychosis, atypical DARA FELIPE MD Jul 11, 2019 21:41
--- NOTE | 2019-07-11 22:39 | NUR ---
Nursing note: Assumed care of pt in the day room. He is A&OX4, He is compliant with meds and assessment, wants to be brought repeat trazodone at a specific time. I explained to him he doesnt get it when he thinks he needs it. He has it as a as needed med.
[2019-07-12] MEDS: LEVOTHYROXINE 50 MCG TABLET PO SCH (04:47)
[2019-07-12 05:16] VITALS: BP 113/70
--- NOTE | 2019-07-12 08:54 | NUR ---
WEEKLY ACTIVITY THERAPY NOTE Date of Admission: 07/02/2019 Date of AT Assessment: 07/06/2019 Goal aimed: to increase motivation and recreation education Initial goal: Pt. will participate in at least five activity therapy groups per week. Weekly progress towards goal: achieved, 6/5 Group participation level: full in five and minimal in one Weekly highlights: smiling and laughing at times Behaviors observed: quiet, watching group, working with therapy, willing to engage in groups, soft spoken Plan: no change to goal Beneficial adaptations: sit close to program facilitator
[2019-07-12] MEDS: FLUTICASONE 50MCG/NASAL SPRAY 16GM BOTTLE. NS SCH (09:11)
[2019-07-12] MEDS: CETIRIZINE HCL 10 MG TABLET PO SCH (09:11)
[2019-07-12] MEDS: DULoxetine HCL 60 MG CAPSULE.DR PO SCH (09:12)
[2019-07-12] MEDS: PRENATAL MULTIVITAMIN TABLET. PO SCH (09:12)
[2019-07-12] MEDS: MONTELUKAST 10 MG TABLET. PO SCH (09:12)
[2019-07-12] MEDS: FINASTERIDE 5 MG TABLET PO SCH (09:12)
[2019-07-12] MEDS: ASPIRIN ENTERIC COATED 81 MG TABLET.DR. PO SCH (09:12)
[2019-07-12] MEDS: amLODIPine BESYLATE 5 MG TABLET PO SCH (09:12)
[2019-07-12] MEDS: LURASIDONE 40 MG TABLET. PO SCH (09:13)
[2019-07-12] MEDS: LISINOPRIL 10 MG TABLET PO SCH (09:13)
[2019-07-12] MEDS: DICLOFENAC SODIUM 1% TOPICAL GEL 100GM TUBE. TP SCH ×2 (09:13→20:32)
[2019-07-12] MEDS: TAMSULOSIN 0.4 MG CAP.ER.24H. PO SCH (09:13)
--- NOTE | 2019-07-12 09:37 | PN ---
DATE: 07/10/2019 PSYCHIATRIC PROGRESS NOTE This late entry 07/10/2019 covers elements not covered in my initial note. SUBJECTIVE: I met with the patient in the evening of 07/10/2019. Per Diane CLOUD, the patient slept 6 hours previous night. He remains somatic always stating something is wrong with him that appetite is poor, he is not sleeping well, though noted to be sleeping quite well. He did not wake up till 11 a.m., telling his he did not sleep all night. He has requested dental floss, nursing staff have arranged to observe him and he uses it. No diarrhea noted. I have reviewed about 120 pages of medical records from [facility]. He has had ECT approximately 4 treatments at in May and seemed to do a little better after this, though he subjectively denied he was any better. Also reviewed and other 120 pages of medical records received on him with his past history of depression and past treatments indicated. REVIEW OF SYSTEMS: Positive for some tiredness. No CV, , pulmonary, eye system symptoms on review. Complains of poor appetite. MENTAL STATUS EXAM: Reasonably oriented. Speech moderate latency, coherent, often responses monosyllabic. Abstraction fair, computation impaired, language function intact. Mood and affect depressed. No active suicidal ideation. LABORATORY DATA: Reviewed. IMPRESSION: Major depressive disorder with psychotic features, anxiety disorder, unspecified. Rest unchanged. PLAN: We will go ahead and increase the Remeron to 15 mg at bedtime, Latuda 60 mg a day and we may increase this further gradually. Valium is being tapered. Maintain melatonin 5 mg at bedtime, trazodone 100 mg at bedtime p.r.n. Adjust further as clinically indicated. MAN Marc FELIPE MD DR: NIKKY/sergey JOB#: [id number] / [id number]
--- NOTE | 2019-07-12 11:42 | NUR ---
WEEKLY NOTE: Bj was sleeping soundly at time of treatment team meeting, did not awaken to this worker calling his name twice. Isaura, Bj's , participated in team via phone. Bj is averaging 75% of meals and sleeping an average of six hours at night. He has been compliant with medications and assessments. He continues to report difficulty with sleep and appetite which staff observe differently. Level II assessment is pending. Dr. Faria suggested that Bj be re-assessed for ECT on an out patient basis. Bj will need placement once Level II assessment is completed.
--- NOTE | 2019-07-12 14:56 | NUR ---
Patient withdrawn to bed in the morning. Not talking to nurse but was compliant with his medications. Patient up ad phani with walker to meals. PT/OT will no longer work with patient because he is at his baseline and doesn't participate on most days. Patient attended the Halloween group after lunch and remained in the day room in the afternoon. Patient has flat affect but has not demonstrated any self harm behaviors this shift.
[2019-07-12 15:40] VITALS: BP 93/64
[2019-07-12] MEDS: DOCUSATE SODIUM 100 MG CAPSULE PO SCH (17:32)
--- NOTE | 2019-07-12 18:46 | NUR ---
Dr. Estevez reviewed the culture and sensitivity for the U/A. He stated that the patients antibiotic that he is on is the correct one. Addendum: 07/12/19 at 1847 by PARKER ARMSTRONG RN wrong patient.
[2019-07-12] MEDS: FENOFIBRATE NANOCRYSTALLIZED 145 MG TABLET PO SCH (20:29)
[2019-07-12] MEDS: MIRTAZAPINE 15 MG TABLET PO SCH (20:29)
[2019-07-12] MEDS: MELATONIN 3 MG TABLET PO SCH (20:30)
[2019-07-12] MEDS: ATORVASTATIN CALCIUM 20 MG TABLET PO SCH (20:30)
[2019-07-12] MEDS: traZODone 150 MG TABLET. PO SCH (20:32)
[2019-07-12] MEDS: traZODone 50 MG TABLET. PO PRN (21:28)
--- NOTE | 2019-07-12 21:38 | PDOC ---
Exam Note: Robert Note: Please also refer to the separate dictated note~for this date of service dictated separately.~Patient seen individually. Discussed the patient with Nursing staff reviewed the chart.~Reviewed interim history and current functioning. Reviewed vital signs,~Labs/ Radiology~and current medications noted below. Continue current treatment with the changes noted in the dictated addendum note Assessment: Vital Signs/I&O: Vital Signs Date Time Temp Pulse Resp B/P (MAP) Pulse Ox O2 Delivery O2 Flow Rate FiO2 07/12/19 15:40 97.5 90 16 93/64 (74) 97 07/10/19 22:13 Room Air I & O 07/11/19 07/11/19 07/12/19 15:00 23:00 07:00 Intake Total 480 ml 240 ml 240 ml Balance 480 ml 240 ml 240 ml Current Medications: I have reviewed the current psychotropics carefully including drug interactions. Risk benefit ratio favors no change other than as noted in my dictated progress note. Diagnosis: Problems: (1) Conversion disorder (2) Mild cognitive impairment (3) History of post traumatic stress disorder (4) Anxiety disorder (5) Major depressive disorder, recurrent episode (6) Psychosis, atypical DARA FELIPE MD Jul 12, 2019 21:38
[2019-07-13 05:36] VITALS: BP 120/81
[2019-07-13] MEDS: LEVOTHYROXINE 50 MCG TABLET PO SCH (05:58)
[2019-07-13] MEDS: FLUTICASONE 50MCG/NASAL SPRAY 16GM BOTTLE. NS SCH (08:57)
[2019-07-13] MEDS: DICLOFENAC SODIUM 1% TOPICAL GEL 100GM TUBE. TP SCH ×2 (08:57→20:09)
[2019-07-13] MEDS: CETIRIZINE HCL 10 MG TABLET PO SCH (08:58)
[2019-07-13] MEDS: cloNIDine TTS-2 1 PATCH PATCH TD SCH (08:58)
[2019-07-13] MEDS: FINASTERIDE 5 MG TABLET PO SCH (08:58)
[2019-07-13] MEDS: MONTELUKAST 10 MG TABLET. PO SCH (08:58)
[2019-07-13] MEDS: ASPIRIN ENTERIC COATED 81 MG TABLET.DR. PO SCH (08:58)
[2019-07-13] MEDS: amLODIPine BESYLATE 5 MG TABLET PO SCH (08:58)
[2019-07-13] MEDS: TAMSULOSIN 0.4 MG CAP.ER.24H. PO SCH (08:59)
[2019-07-13] MEDS: PRENATAL MULTIVITAMIN TABLET. PO SCH (08:59)
[2019-07-13] MEDS: DULoxetine HCL 60 MG CAPSULE.DR PO SCH (08:59)
[2019-07-13] MEDS: LURASIDONE 40 MG TABLET. PO SCH (08:59)
[2019-07-13] MEDS: LISINOPRIL 10 MG TABLET PO SCH (09:00)
--- NOTE | 2019-07-13 12:00 | NUR ---
Nursing note: Pt in day room for meds and assessment. He was withdrawn, but answered questions appropriately. He was compliant with meds. He stated he was feeling depressed, but denied any SI or hallucinations. He is currently in the dining room for lunch. No behaviors noted. Will continue to monitor.
[2019-07-13 16:03] VITALS: BP 107/74
[2019-07-13] MEDS: DOCUSATE SODIUM 100 MG CAPSULE PO SCH (17:44)
[2019-07-13] MEDS: traZODone 150 MG TABLET. PO SCH (20:09)
[2019-07-13] MEDS: MIRTAZAPINE 15 MG TABLET PO SCH (20:09)
[2019-07-13] MEDS: ATORVASTATIN CALCIUM 20 MG TABLET PO SCH (20:09)
[2019-07-13] MEDS: FENOFIBRATE NANOCRYSTALLIZED 145 MG TABLET PO SCH (20:09)
[2019-07-13] MEDS: MELATONIN 3 MG TABLET PO SCH (20:09)
--- NOTE | 2019-07-13 21:32 | PDOC ---
Exam Note: Robert Note: Please also refer to the separate dictated note~for this date of service dictated separately.~Patient seen individually. Discussed the patient with Nursing staff reviewed the chart.~Reviewed interim history and current functioning. Reviewed vital signs,~Labs/ Radiology~and current medications noted below. Continue current treatment with the changes noted in the dictated addendum note Assessment: Vital Signs/I&O: Vital Signs Date Time Temp Pulse Resp B/P (MAP) Pulse Ox O2 Delivery O2 Flow Rate FiO2 07/13/19 16:03 97.5 85 16 107/74 (85) 95 07/10/19 22:13 Room Air I & O 07/12/19 07/12/19 07/13/19 15:00 23:00 07:00 Intake Total 360 ml 120 ml 240 ml Balance 360 ml 120 ml 240 ml Current Medications: Meds: Current Medications Medications (Trade) Dose Ordered Sig/Henry Route PRN Reason Start Time Stop Time Status Last Admin Dose Admin Lurasidone HCl (Latuda) 80 mg [id number] PO 07/13/19 08:00 07/13/19 08:59 I have reviewed the current psychotropics carefully including drug interactions. Risk benefit ratio favors no change other than as noted in my dictated progress note. Diagnosis: Problems: (1) Conversion disorder (2) Mild cognitive impairment (3) History of post traumatic stress disorder (4) Anxiety disorder (5) Major depressive disorder, recurrent episode (6) Psychosis, atypical DARA FELIPE MD Jul 13, 2019 21:32
[2019-07-14] MEDS: traZODone 50 MG TABLET. PO PRN (00:11)
--- NOTE | 2019-07-14 01:24 | NUR ---
Last evening pt sat quietly in day room watching tv. Meds were taken without difficulty pt asked about diazepam and explained that it has been weaned and dcd. He requested PRN trazodone saying he is not sleeping. Encouraged pt to go to bed and lie quietly and try to sleep before taking PRN. Shortly after laying down pt was asleep and snoring, he later did wake up and took PRN but denied he had been sleeping.
--- NOTE | 2019-07-14 01:48 | PN ---
DATE: 07/12/2019 PSYCHIATRIC PROGRESS NOTE This late entry 07/12/2019 covers the elements not covered in my initial note. SUBJECTIVE: I met with the patient in the evening of 07/12/2019 and staffed at a treatment team meeting with the entire team in the morning. The patient's , Isaura, attended the treatment team meeting. We tried to get the patient to come for the meeting, but he was fast asleep. Despite this when questioned, he says he did not sleep at all and knew when they came to wake him up and bring him in for the treatment team meeting, but decided not to come. This seems to be his typical pattern of not being able to recognize some improvement in his symptoms and being fixated on the negative aspects of it. For example, he had complained of insomnia and now currently sleeping quite soundly and well into the morning, but despite this, complains of ongoing insomnia, remains obsessive, anxious. I reviewed his past history of ECT treatment, questionable positive response to this per the and the physician treating him, but not according to the patient. Sleeping average 6 hours, appetite 75%, still depressed, and withdrawn. No suicidal ideation. Reportedly, he has a past diagnosis of PTSD, major depressive disorder; anxiety disorder and certainly has some obsessive compulsive features. He may need ongoing maintenance ECT post-discharge. Discussed with the . REVIEW OF SYSTEMS: Vague somatic symptoms. No CV, , pulmonary, eye system symptoms on review. MENTAL STATUS EXAM: Reasonably oriented. Speech moderate latency, low in rate and rhythm, often responses monosyllabic. Abstraction fair, computation impaired, and language function intact. Mood and affect somewhat depressed and withdrawn. LABORATORY DATA: Reviewed. IMPRESSION: Major depressive disorder with psychotic features; psychotic disorder, unspecified; anxiety disorder, unspecified; obsessive-compulsive disorder, mild cognitive impairment. PLAN: Would continue his current psychotropics, Cymbalta. Valium is being tapered. Latuda has been increased to 80 mg a day. Maintain melatonin, Remeron. Make further adjustments as clinically indicated and maintenance ECT post-discharge, perhaps through [facility] or [facility]. DARA FELIPE MD DR: NIKKY/sergey JOB#: [id number] / [id number]
--- NOTE | 2019-07-14 05:22 | PN ---
DATE: 07/11/2019 PSYCHIATRIC PROGRESS NOTE This late entry, 07/11/2019, covers elements not covered in my initial note. SUBJECTIVE: I met with the patient in the evening of 07/11/2019. Per PEDRO LUIS Contreras, the patient slept 5-1/4 hours the previous night. Despite this, he states he was up all night. This is a consistent theme with him. He was not given repeat trazodone. He has vague somatic symptoms. REVIEW OF SYSTEMS: No CV, , pulmonary, eye system symptoms on review. MENTAL STATUS EXAM: Reasonably oriented. Speech, moderate latency, low in rate and rhythm, low in volume, often responses monosyllabic. Abstraction fair, computation impaired, language function intact, attention span short. Mood and affect still depressed. We have reviewed his past psychiatric history. He has had ECTs x 5 at [facility] and they were planning for continued outpatient maintenance ECT and we will address this with the and coordinate something post-discharge. No active suicidal or homicidal ideation. Speech, moderate latency, often responses monosyllabic. Abstraction fair, computation impaired, language function intact. LABORATORY DATA: Reviewed. IMPRESSION: Major depressive disorder, recurrent with psychotic features; anxiety disorder, unspecified; rule out bipolar disorder, depressed. Rest unchanged. PLAN: Increase Latuda from 60 mg a day to 80 mg a day once he has been on 60 mg for 3 days. Increase trazodone to scheduled 150 mg at bedtime, may repeat x 1 for insomnia. Maintain Cymbalta taper and stop the Valium. Continue melatonin, Remeron. Rest unchanged for now. MAN Marc FELIPE MD DR: NIKKY/sergey JOB#: [id number] / [id number]
[2019-07-14] MEDS: LEVOTHYROXINE 50 MCG TABLET PO SCH (05:42)
[2019-07-14 05:45] VITALS: BP 129/77
[2019-07-14 08:13] LABS: BASO % 1 % (0-3); EOS # 0.4 x10^3/uL (0.0-0.7); EOS % 5 % (0-3); HEMATOCRIT 36.3 % (39.0-53.0); LYMPH # 2.2 x10^3/uL (1.0-4.8); LYMPH % 27 % (24-48); MEAN CORPUSCULAR HEMOGLOBIN 28 pg (25-35); MEAN CORPUSCULAR HGB CONC 33 g/dL (31-37); MEAN CORPUSCULAR VOLUME 84 fL (79-100); MONO # 0.9 x10^3/uL (0.0-1.1); MONO % 10 % (0-9); NEUT # 4.8 x10^3uL (1.8-7.7); NEUT % 58 % (31-73); PLATELET COUNT 494 x10^3/uL (140-400); WHITE BLOOD COUNT 8.3 x10^3/uL (4.0-11.0)
[2019-07-14 08:20] LABS: ALBUMIN 2.7 g/dL (3.4-5.0); ALBUMIN/GLOBULIN RATIO 0.8 (1.0-1.7); CALCIUM 8.7 mg/dL (8.5-10.1); CREATININE 0.9 mg/dL (0.7-1.3); GFR 84.2; POTASSIUM 4.1 mmol/L (3.5-5.1); TOTAL BILIRUBIN 0.2 mg/dL (0.2-1.0); TOTAL PROTEIN 5.9 g/dL (6.4-8.2)
[2019-07-14] MEDS: DICLOFENAC SODIUM 1% TOPICAL GEL 100GM TUBE. TP SCH ×2 (09:00→20:32)
[2019-07-14] MEDS: LURASIDONE 40 MG TABLET. PO SCH (09:57)
[2019-07-14] MEDS: FLUTICASONE 50MCG/NASAL SPRAY 16GM BOTTLE. NS SCH (09:57)
[2019-07-14] MEDS: MONTELUKAST 10 MG TABLET. PO SCH (09:58)
[2019-07-14] MEDS: amLODIPine BESYLATE 5 MG TABLET PO SCH (09:58)
[2019-07-14] MEDS: ASPIRIN ENTERIC COATED 81 MG TABLET.DR. PO SCH (09:58)
[2019-07-14] MEDS: PRENATAL MULTIVITAMIN TABLET. PO SCH (09:59)
[2019-07-14] MEDS: TAMSULOSIN 0.4 MG CAP.ER.24H. PO SCH (09:59)
[2019-07-14] MEDS: DULoxetine HCL 30 MG CAPSULE.DR PO SCH (09:59)
[2019-07-14] MEDS: LISINOPRIL 10 MG TABLET PO SCH (09:59)
[2019-07-14] MEDS: FINASTERIDE 5 MG TABLET PO SCH (10:00)
[2019-07-14] MEDS: CETIRIZINE HCL 10 MG TABLET PO SCH (10:01)
--- NOTE | 2019-07-14 12:35 | NUR ---
Pt. slep through breakfast, when up in day room, refused to eat any of the food brought to him from his tray. Took meds whole with water. Reports he is not hungry. Up until lunch, then refused to eat any of his lunch. Staff concernced, states he has not eaten in two days. I advised them to not make an issue out of this. He does not appear malnourished. Will notify DrArleth of his continued refusal to eat. Pt. has stated to this telegraphic typewriter operator chief that he does not like hospital food. I told rich, that he would eat if he became hungry enough. It appears that the more attention directed to him not eating, the more resistant he acts to food. Soft spoken during a.m. assessment. Denies getiing any better since adm. here. He is alert and oriented, but denies knowing the date, day or month. Flat affect, withdrawn to self. Does not initiate conversation.
[2019-07-14 15:43] VITALS: BP 102/65
[2019-07-14] MEDS: DOCUSATE SODIUM 100 MG CAPSULE PO SCH (17:23)
[2019-07-14] MEDS: MELATONIN 3 MG TABLET PO SCH (20:25)
[2019-07-14] MEDS: FENOFIBRATE NANOCRYSTALLIZED 145 MG TABLET PO SCH (20:25)
[2019-07-14] MEDS: ATORVASTATIN CALCIUM 20 MG TABLET PO SCH (20:25)
[2019-07-14] MEDS: traZODone 150 MG TABLET. PO SCH (20:30)
[2019-07-14] MEDS ORDERED: AMITRIPTYLINE HCL 25 MG TABLET PO SCH (21:00)
--- NOTE | 2019-07-14 23:19 | PDOC ---
Exam Note: Robert Note: Please also refer to the separate dictated note~for this date of service dictated separately.~Patient seen individually. Discussed the patient with Nursing staff reviewed the chart.~Reviewed interim history and current functioning. Reviewed vital signs,~Labs/ Radiology~and current medications noted below. Continue current treatment with the changes noted in the dictated addendum note Assessment: Vital Signs/I&O: Vital Signs Date Time Temp Pulse Resp B/P (MAP) Pulse Ox O2 Delivery O2 Flow Rate FiO2 07/14/19 15:43 98.3 86 20 102/65 (77) 99 07/10/19 22:13 Room Air I & O 07/13/19 07/13/19 07/14/19 15:00 23:00 07:00 Intake Total 600 ml 580 ml Balance 600 ml 580 ml Labs: Laboratory Tests Test 07/14/19 07:35 White Blood Count 8.3 x10^3/uL (4.0-11.0) Red Blood Count 4.30 x10^6/uL (4.30-5.70) Hemoglobin 12.0 g/dL (13.0-17.5) L Hematocrit 36.3 % (39.0-53.0) L Mean Corpuscular Volume 84 fL (79-100) Mean Corpuscular Hemoglobin 28 pg (25-35) Mean Corpuscular Hemoglobin Concent 33 g/dL (31-37) Red Cell Distribution Width 15.0 % (11.5-14.5) H Platelet Count 494 x10^3/uL (140-400) H Neutrophils (%) (Auto) 58 % (31-73) Lymphocytes (%) (Auto) 27 % (24-48) Monocytes (%) (Auto) 10 % (0-9) H Eosinophils (%) (Auto) 5 % (0-3) H Basophils (%) (Auto) 1 % (0-3) Neutrophils # (Auto) 4.8 x10^3uL (1.8-7.7) Lymphocytes # (Auto) 2.2 x10^3/uL (1.0-4.8) Monocytes # (Auto) 0.9 x10^3/uL (0.0-1.1) Eosinophils # (Auto) 0.4 x10^3/uL (0.0-0.7) Basophils # (Auto) 0.0 x10^3/uL (0.0-0.2) Sodium Level 140 mmol/L (136-145) Potassium Level 4.1 mmol/L (3.5-5.1) Chloride Level 105 mmol/L (98-107) Carbon Dioxide Level 29 mmol/L (21-32) Anion Gap 6 (6-14) Blood Urea Nitrogen 11 mg/dL (8-26) Creatinine 0.9 mg/dL (0.7-1.3) Estimated GFR (Cockcroft-Gault) 84.2 BUN/Creatinine Ratio 12 (6-20) Glucose Level 96 mg/dL (70-99) Calcium Level 8.7 mg/dL (8.5-10.1) Total Bilirubin 0.2 mg/dL (0.2-1.0) Aspartate Amino Transferase (AST) 15 U/L (15-37) Alanine Aminotransferase (ALT) 16 U/L (16-63) Alkaline Phosphatase 60 U/L (46-116) Total Protein 5.9 g/dL (6.4-8.2) L Albumin 2.7 g/dL (3.4-5.0) L Albumin/Globulin Ratio 0.8 (1.0-1.7) L Current Medications: Meds: Current Medications Medications (Trade) Dose Ordered Sig/Henry Route PRN Reason Start Time Stop Time Status Last Admin Dose Admin Duloxetine HCl (Cymbalta) 90 mg DAILY PO 07/14/19 09:00 07/14/19 09:59 Amitriptyline HCl (Elavil) 25 mg QHS PO 07/14/19 21:00 07/14/19 20:26 I have reviewed the current psychotropics carefully including drug interactions. Risk benefit ratio favors no change other than as noted in my dictated progress note. Diagnosis: Problems: (1) Conversion disorder (2) Mild cognitive impairment (3) History of post traumatic stress disorder (4) Anxiety disorder (5) Major depressive disorder, recurrent episode (6) Psychosis, atypical DARA FELIPE MD Jul 14, 2019 23:19
--- NOTE | 2019-07-15 01:11 | NUR ---
Nsg Note: Patient in day room at time of medication administration and assessments. Patient was flat, quiet, calm, cooperative. Patient went to sleep shortly after taking medications. Patient fixated on "not sleeping." No other notable behaviors at this time.
[2019-07-15] MEDS: traZODone 50 MG TABLET. PO PRN ×2 (01:25→21:41)
[2019-07-15] MEDS: LEVOTHYROXINE 50 MCG TABLET PO SCH (05:52)
[2019-07-15 05:59] VITALS: BP 102/64
[2019-07-15] MEDS: TAMSULOSIN 0.4 MG CAP.ER.24H. PO SCH (08:27)
[2019-07-15] MEDS: PRENATAL MULTIVITAMIN TABLET. PO SCH (08:27)
[2019-07-15] MEDS: DULoxetine HCL 30 MG CAPSULE.DR PO SCH (08:27)
[2019-07-15] MEDS: LURASIDONE 40 MG TABLET. PO SCH (08:28)
[2019-07-15] MEDS: ASPIRIN ENTERIC COATED 81 MG TABLET.DR. PO SCH (08:28)
[2019-07-15] MEDS: CETIRIZINE HCL 10 MG TABLET PO SCH (08:28)
[2019-07-15] MEDS: LISINOPRIL 10 MG TABLET PO SCH (08:28)
[2019-07-15] MEDS: MONTELUKAST 10 MG TABLET. PO SCH (08:29)
[2019-07-15] MEDS: amLODIPine BESYLATE 5 MG TABLET PO SCH (08:29)
[2019-07-15] MEDS: FINASTERIDE 5 MG TABLET PO SCH (08:29)
[2019-07-15] MEDS: FLUTICASONE 50MCG/NASAL SPRAY 16GM BOTTLE. NS SCH (08:39)
[2019-07-15] MEDS: DICLOFENAC SODIUM 1% TOPICAL GEL 100GM TUBE. TP SCH ×2 (09:31→21:00)
--- NOTE | 2019-07-15 12:27 | NUR ---
Discussed medication changes with pt. at breakfast. He was interested and asked questions. Still insists he does not sleep at night, even though he apparently did sleep. Reported his mid back pain was worse today and allowed diflucan cream to be applied. Reported his urine was too yellow, advised him to drink more water and it would become analyst competitive intelligence, he understood and asked for more water. Has been eating and drinking better today. visited at noon.
[2019-07-15 15:45] VITALS: BP 109/70
[2019-07-15] MEDS: DOCUSATE SODIUM 100 MG CAPSULE PO SCH (17:13)
[2019-07-15] MEDS: traZODone 150 MG TABLET. PO SCH (19:53)
[2019-07-15] MEDS: MELATONIN 3 MG TABLET PO SCH (19:53)
[2019-07-15] MEDS: FENOFIBRATE NANOCRYSTALLIZED 145 MG TABLET PO SCH (19:53)
[2019-07-15] MEDS: AMITRIPTYLINE HCL 50 MG TABLET PO SCH (19:53)
[2019-07-15] MEDS: ATORVASTATIN CALCIUM 20 MG TABLET PO SCH (19:54)
[2019-07-15] MEDS: HYDROcodone/APAP 5/325MG 1 TAB TABLET PO PRN (19:55)
--- NOTE | 2019-07-15 20:36 | PDOC ---
Exam Note: Robert Note: Please also refer to the separate dictated note~for this date of service dictated separately.~Patient seen individually. Discussed the patient with Nursing staff reviewed the chart.~Reviewed interim history and current functioning. Reviewed vital signs,~Labs/ Radiology~and current medications noted below. Continue current treatment with the changes noted in the dictated addendum note Assessment: Vital Signs/I&O: Vital Signs Date Time Temp Pulse Resp B/P (MAP) Pulse Ox O2 Delivery O2 Flow Rate FiO2 07/15/19 19:55 18 99 Room Air 07/15/19 15:45 97.4 77 109/70 (83) I & O 07/14/19 07/14/19 07/15/19 15:00 23:00 07:00 Intake Total 180 ml 240 ml 60 ml Balance 180 ml 240 ml 60 ml Current Medications: Meds: Current Medications Medications (Trade) Dose Ordered Sig/Henry Route PRN Reason Start Time Stop Time Status Last Admin Dose Admin Amitriptyline HCl (Elavil) 25 mg QHS PO 07/14/19 21:00 07/15/19 17:58 DC 07/14/19 20:26 Trazodone HCl (Desyrel) 150 mg PRN 1X PRN PO INSOMNIA 07/15/19 01:30 07/15/19 01:25 Amitriptyline HCl (Elavil) 50 mg QHS PO 07/15/19 21:00 07/15/19 19:53 I have reviewed the current psychotropics carefully including drug interactions. Risk benefit ratio favors no change other than as noted in my dictated progress note. Diagnosis: Problems: (1) Conversion disorder (2) Mild cognitive impairment (3) History of post traumatic stress disorder (4) Anxiety disorder (5) Major depressive disorder, recurrent episode (6) Psychosis, atypical DARA FELIPE MD Jul 15, 2019 20:36
--- NOTE | 2019-07-15 22:19 | NUR ---
Nursing note: Assumed care of pt in the day room. He was reserved but watching a movie. He is calm and cooperative. Pt still denies sleeping and now is focused on his urine believing it is darker than it should be. I looked at his urine and advised him it looks normal and there is no odor. Pt states pain in back 04/21. Given PRN Hydrocodone.
[2019-07-16 05:28] VITALS: BP 107/75
[2019-07-16] MEDS: LEVOTHYROXINE 50 MCG TABLET PO SCH (06:05)
[2019-07-16] MEDS: CHOLECALCIFEROL (VITAMIN D3) 50,000 UNIT CAPSULE PO SCH (07:52)
[2019-07-16] MEDS: PRENATAL MULTIVITAMIN TABLET. PO SCH (07:52)
[2019-07-16] MEDS: FLUTICASONE 50MCG/NASAL SPRAY 16GM BOTTLE. NS SCH (07:52)
[2019-07-16] MEDS: DULoxetine HCL 30 MG CAPSULE.DR PO SCH (07:52)
[2019-07-16] MEDS: DICLOFENAC SODIUM 1% TOPICAL GEL 100GM TUBE. TP SCH ×2 (07:52→19:42)
[2019-07-16] MEDS: ASPIRIN ENTERIC COATED 81 MG TABLET.DR. PO SCH (07:53)
[2019-07-16] MEDS: TAMSULOSIN 0.4 MG CAP.ER.24H. PO SCH (07:53)
[2019-07-16] MEDS: LISINOPRIL 10 MG TABLET PO SCH (07:53)
[2019-07-16] MEDS: MONTELUKAST 10 MG TABLET. PO SCH (07:53)
[2019-07-16] MEDS: FINASTERIDE 5 MG TABLET PO SCH (07:53)
[2019-07-16] MEDS: CETIRIZINE HCL 10 MG TABLET PO SCH (07:54)
[2019-07-16] MEDS: amLODIPine BESYLATE 5 MG TABLET PO SCH (07:54)
[2019-07-16] MEDS: LURASIDONE 40 MG TABLET. PO SCH (07:54)
--- NOTE | 2019-07-16 11:04 | NUR ---
Nursing note: Pt in dining room for morning meds and assessment. He was compliant with taking his meds and cooperative with assessment. He states that being here is making him depressed, but denies SI. C/o back pain that he rated a 7/10, voltaren gel was administered. He has been withdrawn this morning and sitting in the day room. No behaviors noted at this time. Will continue to monitor.
[2019-07-16] MEDS: HYDROcodone/APAP 5/325MG 1 TAB TABLET PO PRN (12:13)
[2019-07-16 16:24] VITALS: BP 121/73
[2019-07-16] MEDS: DOCUSATE SODIUM 100 MG CAPSULE PO SCH (17:09)
[2019-07-16] MEDS: AMITRIPTYLINE HCL 50 MG TABLET PO SCH (19:42)
[2019-07-16] MEDS: ATORVASTATIN CALCIUM 20 MG TABLET PO SCH (19:42)
[2019-07-16] MEDS: MELATONIN 3 MG TABLET PO SCH (19:42)
[2019-07-16] MEDS: FENOFIBRATE NANOCRYSTALLIZED 145 MG TABLET PO SCH (19:42)
[2019-07-16] MEDS: traZODone 150 MG TABLET. PO SCH (19:42)
--- NOTE | 2019-07-16 20:07 | NUR ---
Nursing note: Assumed care of pt in the day room. He is compliant with meds and assessment. Stated he did not sleep last night. i advised he was sleeping soundly every time we did 15 minute rounds. He c/o pain 8/10 in back. No behaviors.
--- NOTE | 2019-07-16 20:35 | PDOC ---
Exam Note: Robert Note: Please also refer to the separate dictated note~for this date of service dictated separately.~Patient seen individually. Discussed the patient with Nursing staff reviewed the chart.~Reviewed interim history and current functioning. Reviewed vital signs,~Labs/ Radiology~and current medications noted below. Continue current treatment with the changes noted in the dictated addendum note Assessment: Vital Signs/I&O: Vital Signs Date Time Temp Pulse Resp B/P (MAP) Pulse Ox O2 Delivery O2 Flow Rate FiO2 07/16/19 16:24 98.4 69 16 121/73 (89) 96 07/15/19 20:55 Room Air I & O 07/15/19 07/15/19 07/16/19 15:00 23:00 07:00 Intake Total 720 ml 600 ml Balance 720 ml 600 ml Current Medications: Meds: Current Medications Medications (Trade) Dose Ordered Sig/Henry Route PRN Reason Start Time Stop Time Status Last Admin Dose Admin Amitriptyline HCl (Elavil) 50 mg QHS PO 07/15/19 21:00 07/16/19 19:42 I have reviewed the current psychotropics carefully including drug interactions. Risk benefit ratio favors no change other than as noted in my dictated progress note. Diagnosis: Problems: (1) Conversion disorder (2) Mild cognitive impairment (3) History of post traumatic stress disorder (4) Anxiety disorder (5) Major depressive disorder, recurrent episode (6) Psychosis, atypical DARA FELIPE MD Jul 16, 2019 20:35
--- NOTE | 2019-07-16 22:41 | PN ---
DATE: PSYCHIATRIC PROGRESS NOTE This late entry 07/13/2019 covers the elements not covered in my initial note. SUBJECTIVE: I met with the patient in the evening of 07/13/2019. Per PEDRO LUIS Loaiza, the patient slept 5-1/4 hours. He is compliant with his medications in the morning. Admits to being depressed. Denies suicidal ideation. He still obsesses about not sleeping, even though nursing staff record fairly reasonable sleeping hours. He is being checked for taking silverware from the dining room. We will check labs in the morning. He has vague somatic symptoms. REVIEW OF SYSTEMS: No CV, , pulmonary, eye system symptoms on review. MENTAL STATUS EXAM: Reasonably oriented. Speech is coherent, has some latency, low in volume. Abstraction fair, computation impaired, language function intact, attention span short. Mood and affect withdrawn. LABORATORY DATA: Reviewed. IMPRESSION: Unchanged from initial note. PLAN: Increase Cymbalta to 90 mg a day. Check labs in the morning. Rest unchanged from initial note. MAN Marc FELIPE MD DR: NIKKY/sergey JOB#: [id number] / [id number]
[2019-07-16] MEDS: traZODone 50 MG TABLET. PO PRN (23:25)
[2019-07-17 05:12] VITALS: BP 99/65
[2019-07-17] MEDS: LEVOTHYROXINE 50 MCG TABLET PO SCH (05:53)
[2019-07-17] MEDS: DULoxetine HCL 30 MG CAPSULE.DR PO SCH (08:03)
[2019-07-17] MEDS: LURASIDONE 40 MG TABLET. PO SCH (08:03)
[2019-07-17] MEDS: TAMSULOSIN 0.4 MG CAP.ER.24H. PO SCH (08:03)
[2019-07-17] MEDS: FINASTERIDE 5 MG TABLET PO SCH (08:03)
[2019-07-17] MEDS: LISINOPRIL 10 MG TABLET PO SCH (08:04)
[2019-07-17 08:08] VITALS: BP 96/64
[2019-07-17] MEDS: PRENATAL MULTIVITAMIN TABLET. PO SCH (08:09)
[2019-07-17] MEDS: ASPIRIN ENTERIC COATED 81 MG TABLET.DR. PO SCH (08:09)
[2019-07-17] MEDS: MONTELUKAST 10 MG TABLET. PO SCH (08:09)
[2019-07-17] MEDS: CETIRIZINE HCL 10 MG TABLET PO SCH (08:09)
[2019-07-17] MEDS: DICLOFENAC SODIUM 1% TOPICAL GEL 100GM TUBE. TP SCH ×2 (08:10→20:01)
[2019-07-17] MEDS: FLUTICASONE 50MCG/NASAL SPRAY 16GM BOTTLE. NS SCH (08:10)
[2019-07-17] MEDS: amLODIPine BESYLATE 5 MG TABLET PO SCH (08:11)
--- NOTE | 2019-07-17 10:53 | NUR ---
Nursing note: Pt in dining room this morning for meds and assessment. He was compliant with taking his meds whole and cooperative with his assessment. Lisinopril and amlodipine were held this morning d/t low BP. Pt concerned about not having a BM for a few days. He was encouraged to eat more and we will continue to monitor. Pt also mentioned that he did not sleep all night, but according to staff, he was snoring every time they walked by his room.
--- NOTE | 2019-07-17 11:32 | PN ---
DATE: 07/15/2019 PSYCHIATRIC PROGRESS NOTE This late entry, 07/15/2019, covers the elements not covered in my initial note. SUBJECTIVE: I met with the patient in the evening of 07/15/2019. The patient slept 6-3/4 hours previous night, but he again states he did not sleep at night. He has been a little more interactive with the nursing staff, had breakfast, not much for lunch. REVIEW OF SYSTEMS: No CV, , pulmonary, eye system symptoms on review. MENTAL STATUS EXAM: Reasonably oriented. Speech is coherent, has some latency. Abstraction fair, computation impaired, language function intact, attention span short. Mood and affect somewhat withdrawn. LABORATORY DATA: Reviewed. IMPRESSION: Unchanged from initial note. PLAN: No change from initial note, but increase amitriptyline from 25 at bedtime to 50 mg at bedtime. Rest unchanged. MAN Marc FELIPE MD DR: NIKKY/sergey JOB#: [id number] / [id number]
--- NOTE | 2019-07-17 12:02 | PN ---
DATE: 07/14/2019 PSYCHIATRIC PROGRESS NOTE This late entry, 07/14/2019, covers elements not covered in my initial note. SUBJECTIVE: I met with the patient in the evening of 07/14/2019. The patient slept 6-3/4 hours previous night, but he is convinced he did not sleep at all. Refuses to eat. REVIEW OF SYSTEMS: He has vague somatic symptoms. No CV, , pulmonary, eye system symptoms on review. MENTAL STATUS EXAM: The patient is reasonably oriented. Speech has some latency, coherent, often responses monosyllabic. Abstraction fair, computation impaired, language function intact, attention span short. Mood and affect somewhat withdrawn. LABORATORY DATA: Reviewed. IMPRESSION: Unchanged from initial note. PLAN: Change the patient's Remeron to amitriptyline 25 mg at bedtime, increase trazodone from 150 at bedtime to ____ mg at bedtime, may repeat x 1 p.r.n. insomnia. Maintain Cymbalta 90 mg a day, Latuda 80 mg a day, melatonin 3 mg at bedtime. Rest unchanged for now. MAN Marc FELIPE MD DR: NIKKY/sergey JOB#: [id number] / [id number]
[2019-07-17 16:17] VITALS: BP 113/75
[2019-07-17] MEDS: DOCUSATE SODIUM 100 MG CAPSULE PO SCH (17:20)
[2019-07-17] MEDS: FENOFIBRATE NANOCRYSTALLIZED 145 MG TABLET PO SCH (20:01)
[2019-07-17] MEDS: ATORVASTATIN CALCIUM 20 MG TABLET PO SCH (20:01)
[2019-07-17] MEDS: AMITRIPTYLINE HCL 50 MG TABLET PO SCH (20:01)
[2019-07-17] MEDS: MELATONIN 3 MG TABLET PO SCH (20:01)
[2019-07-17] MEDS: traZODone 150 MG TABLET. PO SCH (20:01)
--- NOTE | 2019-07-17 20:17 | NUR ---
Nursing note: Assumed care of pt in the day room. He was calm and compliant with meds and assessment. He still denies sleeping, still believes his urine is too dark and smelly, it is normal and no smell. He claims he only urinates once a day. He stated he has not had a BM for 5-6 days. I offered milk of mag and prune juice, he declined both. Pt is A&Ox3.
--- NOTE | 2019-07-17 20:39 | PDOC ---
Exam Note: Robert Note: Please also refer to the separate dictated note~for this date of service dictated separately.~Patient seen individually. Discussed the patient with Nursing staff reviewed the chart.~Reviewed interim history and current functioning. Reviewed vital signs,~Labs/ Radiology~and current medications noted below. Continue current treatment with the changes noted in the dictated addendum note Assessment: Vital Signs/I&O: Vital Signs Date Time Temp Pulse Resp B/P (MAP) Pulse Ox O2 Delivery O2 Flow Rate FiO2 07/17/19 16:17 98.1 69 16 113/75 (88) 97 07/15/19 20:55 Room Air I & O 07/16/19 07/16/19 07/17/19 15:00 23:00 07:00 Intake Total 480 ml 600 ml Balance 480 ml 600 ml Current Medications: I have reviewed the current psychotropics carefully including drug interactions. Risk benefit ratio favors no change other than as noted in my dictated progress note. Diagnosis: Problems: (1) Conversion disorder (2) Mild cognitive impairment (3) History of post traumatic stress disorder (4) Anxiety disorder (5) Major depressive disorder, recurrent episode (6) Psychosis, atypical DARA FELIPE MD Jul 17, 2019 20:39
[2019-07-18 05:25] VITALS: BP 104/71
[2019-07-18] MEDS: LEVOTHYROXINE 50 MCG TABLET PO SCH (05:38)
[2019-07-18] MEDS: FINASTERIDE 5 MG TABLET PO SCH (08:03)
[2019-07-18] MEDS: MONTELUKAST 10 MG TABLET. PO SCH (08:04)
[2019-07-18] MEDS: LISINOPRIL 10 MG TABLET PO SCH (08:04)
[2019-07-18] MEDS: PRENATAL MULTIVITAMIN TABLET. PO SCH (08:04)
[2019-07-18] MEDS: amLODIPine BESYLATE 5 MG TABLET PO SCH (08:04)
[2019-07-18] MEDS: TAMSULOSIN 0.4 MG CAP.ER.24H. PO SCH (08:04)
[2019-07-18] MEDS: DULoxetine HCL 30 MG CAPSULE.DR PO SCH (08:04)
[2019-07-18] MEDS: CETIRIZINE HCL 10 MG TABLET PO SCH (08:05)
[2019-07-18] MEDS: FLUTICASONE 50MCG/NASAL SPRAY 16GM BOTTLE. NS SCH (08:05)
[2019-07-18] MEDS: ASPIRIN ENTERIC COATED 81 MG TABLET.DR. PO SCH (08:05)
[2019-07-18] MEDS: DICLOFENAC SODIUM 1% TOPICAL GEL 100GM TUBE. TP SCH ×2 (08:06→20:22)
[2019-07-18] MEDS: LURASIDONE 40 MG TABLET. PO SCH (08:09)
--- NOTE | 2019-07-18 10:35 | NUR ---
Call placed to [facility], with intent to inquire about status of level II assessment. Left detailed message with request for return phone call. Awaiting call.
--- NOTE | 2019-07-18 11:23 | NUR ---
Patient in the dining room, compliant with medications and cooperative with assessment. Patient was withdrawn, but answered questions appropriately. A/Ox4. Patient denies pain, SI, or hallucinations. Will continue to monitor.
[2019-07-18 15:53] VITALS: BP 99/68
[2019-07-18] MEDS: DOCUSATE SODIUM 100 MG CAPSULE PO SCH (17:39)
[2019-07-18] MEDS: traZODone 150 MG TABLET. PO SCH (20:21)
[2019-07-18] MEDS: MELATONIN 3 MG TABLET PO SCH (20:21)
[2019-07-18] MEDS: ATORVASTATIN CALCIUM 20 MG TABLET PO SCH (20:22)
[2019-07-18] MEDS: FENOFIBRATE NANOCRYSTALLIZED 145 MG TABLET PO SCH (20:22)
[2019-07-18] MEDS: AMITRIPTYLINE HCL 50 MG TABLET PO SCH (20:22)
--- NOTE | 2019-07-18 20:44 | PDOC ---
Exam Note: Robert Note: Please also refer to the separate dictated note~for this date of service dictated separately.~Patient seen individually. Discussed the patient with Nursing staff reviewed the chart.~Reviewed interim history and current functioning. Reviewed vital signs,~Labs/ Radiology~and current medications noted below. Continue current treatment with the changes noted in the dictated addendum note Assessment: Vital Signs/I&O: Vital Signs Date Time Temp Pulse Resp B/P (MAP) Pulse Ox O2 Delivery O2 Flow Rate FiO2 07/18/19 15:53 98.1 95 18 99/68 (78) 96 07/15/19 20:55 Room Air I & O 07/17/19 07/17/19 07/18/19 15:00 23:00 07:00 Intake Total 600 ml 240 ml 240 ml Balance 600 ml 240 ml 240 ml Current Medications: I have reviewed the current psychotropics carefully including drug interactions. Risk benefit ratio favors no change other than as noted in my dictated progress note. Diagnosis: Problems: (1) Conversion disorder (2) Mild cognitive impairment (3) History of post traumatic stress disorder (4) Anxiety disorder (5) Major depressive disorder, recurrent episode (6) Psychosis, atypical DARA FELIPE MD Jul 18, 2019 20:44
[2019-07-18] MEDS: traZODone 50 MG TABLET. PO PRN (21:58)
--- NOTE | 2019-07-18 23:42 | NUR ---
Nursing note: Assumed care of pt in the day room. He was calm and compliant with meds and assessment. He denies sleeping, believes his urine is too dark leaving it in the toilet for nurse to observe. Pt reassured that it looked okay, but if he was concerned to drink some more water. He claims he only urinates once all day.
--- NOTE | 2019-07-19 05:50 | PN ---
DATE: 07/16/2019 PSYCHIATRIC PROGRESS NOTE This late entry, 07/16/2019, covers elements not covered in my initial note. SUBJECTIVE: I met with the patient in the evening of 07/16/2019. Per PEDRO LUIS Loaiza, the patient slept 6-1/2 hours the previous night, but when I questioned the patient, he states he did not sleep at all the previous night and this is typical for him. He is compliant with his medications. States he is depressed because he is here. Denies suicidal ideation. He is obsessed about being dehydrated, repeatedly questioning nursing staff on this. Appetite remains poor. REVIEW OF SYSTEMS: No CV, , pulmonary, eye system symptoms on review. MENTAL STATUS EXAM: Reasonably oriented. Speech has some latency, coherent. Abstraction is fair. Computation is impaired. Language function is intact. Mood and affect withdrawn. LABORATORY DATA: Reviewed. IMPRESSION: Unchanged from initial note. PLAN: No change from initial note. DARA FELIPE MD DR: NIKKY/sergey JOB#: [id number] / [id number]
[2019-07-19 06:02] VITALS: BP 121/71
[2019-07-19] MEDS: LEVOTHYROXINE 50 MCG TABLET PO SCH (06:07)
[2019-07-19] MEDS: TAMSULOSIN 0.4 MG CAP.ER.24H. PO SCH (08:47)
[2019-07-19] MEDS: LISINOPRIL 10 MG TABLET PO SCH (08:47)
[2019-07-19] MEDS: FINASTERIDE 5 MG TABLET PO SCH (08:47)
[2019-07-19] MEDS: DULoxetine HCL 30 MG CAPSULE.DR PO SCH (08:47)
[2019-07-19] MEDS: PRENATAL MULTIVITAMIN TABLET. PO SCH (08:47)
[2019-07-19] MEDS: LURASIDONE 40 MG TABLET. PO SCH (08:47)
[2019-07-19] MEDS: MONTELUKAST 10 MG TABLET. PO SCH (08:47)
[2019-07-19] MEDS: CETIRIZINE HCL 10 MG TABLET PO SCH (08:48)
[2019-07-19] MEDS: DICLOFENAC SODIUM 1% TOPICAL GEL 100GM TUBE. TP SCH ×2 (08:48→20:17)
[2019-07-19] MEDS: FLUTICASONE 50MCG/NASAL SPRAY 16GM BOTTLE. NS SCH (08:48)
[2019-07-19] MEDS: ASPIRIN ENTERIC COATED 81 MG TABLET.DR. PO SCH (08:48)
[2019-07-19] MEDS: amLODIPine BESYLATE 5 MG TABLET PO SCH (08:48)
--- NOTE | 2019-07-19 09:20 | NUR ---
WEEKLY ACTIVITY THERAPY NOTE Date of Admission: 07/02/2019 Date of AT Assessment: 07/06/2019 Goal aimed: to increase motivation and recreation education Initial goal: Pt. will participate in at least five activity therapy groups per week. Weekly progress towards goal: achieved, 04/16 Group participation level: moderate to full Weekly highlights: assessing a typical day during 24 hour clock on Tuesday Behaviors observed: usually around day room with feet elevated on walker, flat affect, quiet and keeps to self, on Tuesday he shared how he struggled sleeping here despite medication, Plan: no change to goal Beneficial adaptations: sit close to handkerchief folder, reminders and focus on positives
--- NOTE | 2019-07-19 11:56 | NUR ---
Patient reported constipation to Dr. Faria in treatment team. Patient has been obsessed with his bowel and urinary functions since arriving. Patient is having regular bowel movements and is not constipated. Dr. Estevez has reviewed medications multiple times. Imodium discontinued and no other orders at this time.
--- NOTE | 2019-07-19 12:16 | NUR ---
Patient in day room most of the morning. Compliant with medications. Patient remains obsessed with his bowels (states he is constipated), his urinary tract system (states that he does not urinate enough) and sleeping (states he does not sleep at night). Patient has active bowel signs, clear-yellow urine and it was documented that he got 7.75 hours last night.
--- NOTE | 2019-07-19 13:38 | PN ---
DATE: 07/17/2019 PSYCHIATRIC PROGRESS NOTE This late entry 07/17/2019 covers elements not covered in my initial note. SUBJECTIVE: I met with the patient evening of 07/17/2019. The patient slept 7-1/4 hours previous night, but again states subjectively he feels he has not slept at night. He has been obsessed about dark urine. His BP meds were held. BP was low at 95/65. We will defer to Dr. Estevez. REVIEW OF SYSTEMS: No CV, , pulmonary, eye system symptoms on review. MENTAL STATUS EXAM: Reasonably oriented. Speech has some latency, often responses monosyllabic. Abstraction fair, computation impaired, language function intact, attention span short. Mood and affect somewhat withdrawn. LABORATORY DATA: Reviewed. IMPRESSION: Unchanged from initial note. PLAN: No change from initial note. MAN Marc FELIPE MD DR: NIKKY/sergey JOB#: [id number] / [id number]
--- NOTE | 2019-07-19 14:31 | NUR ---
WEEKLY NOTE: Bj is averaging 75% intake of meals and 6-7 hours of sleep at night. He remains hyper-focused on his appetite and sleep thinking he is not eating enough and not sleeping. Lab work was reviewed at team meeting, which Bj attended, and Bj was informed his lab work was good. He tends to be withdrawn with flat affect. He has been involved moderately in some SW and recreational therapy groups. His is still out of town visiting family. Received a return voice message from [facility] wellness coordinator, expressing that Bj's level II assessment should be completed and forwarded to this worker no later than 07/25/19. Awaiting assessment in order to find recommended placement and arrange for f/u out patient ECT treatments.
[2019-07-19 16:20] VITALS: BP 107/67
[2019-07-19] MEDS: traZODone 150 MG TABLET. PO SCH (20:15)
[2019-07-19] MEDS: FENOFIBRATE NANOCRYSTALLIZED 145 MG TABLET PO SCH (20:16)
[2019-07-19] MEDS: ATORVASTATIN CALCIUM 20 MG TABLET PO SCH (20:16)
[2019-07-19] MEDS: AMITRIPTYLINE HCL 50 MG TABLET PO SCH (20:16)
[2019-07-19] MEDS: MELATONIN 3 MG TABLET PO SCH (20:16)
[2019-07-19] MEDS: DOCUSATE SODIUM 100 MG CAPSULE PO SCH (20:28)
--- NOTE | 2019-07-19 20:55 | PDOC ---
Exam Note: Robert Note: Please also refer to the separate dictated note~for this date of service dictated separately.~Patient seen individually. Discussed the patient with Nursing staff reviewed the chart.~Reviewed interim history and current functioning. Reviewed vital signs,~Labs/ Radiology~and current medications noted below. Continue current treatment with the changes noted in the dictated addendum note Assessment: Vital Signs/I&O: Vital Signs Date Time Temp Pulse Resp B/P (MAP) Pulse Ox O2 Delivery O2 Flow Rate FiO2 07/19/19 16:20 98.1 79 14 107/67 (80) 95 07/15/19 20:55 Room Air I & O 07/18/19 07/18/19 07/19/19 15:00 23:00 07:00 Intake Total 680 ml 320 ml Balance 680 ml 320 ml Current Medications: Meds: Current Medications Medications (Trade) Dose Ordered Sig/Henry Route PRN Reason Start Time Stop Time Status Last Admin Dose Admin Docusate Sodium (Colace) 100 mg BID PO 07/19/19 21:00 07/19/19 20:28 I have reviewed the current psychotropics carefully including drug interactions. Risk benefit ratio favors no change other than as noted in my dictated progress note. Diagnosis: Problems: (1) Conversion disorder (2) Mild cognitive impairment (3) History of post traumatic stress disorder (4) Anxiety disorder (5) Major depressive disorder, recurrent episode (6) Psychosis, atypical DARA FELIPE MD Jul 19, 2019 20:55
--- NOTE | 2019-07-19 23:18 | NUR ---
Last evening pt sat in day room [facility] watching TV. He was cooperative with meds but was concerned that he would have difficulty swallowing them. He talked about other somatic concerns, difficulty voiding, dehydration, constipation, generalized weakness, insomnia, dysphagia. Pt encouraged to increase fluid intake, take pills a few at a time, maintain and increase activity as tolerated.
[2019-07-20] MEDS: traZODone 50 MG TABLET. PO PRN (02:36)
[2019-07-20 06:03] VITALS: BP 162/84
[2019-07-20] MEDS: LEVOTHYROXINE 50 MCG TABLET PO SCH (06:09)
[2019-07-20] MEDS: FLUTICASONE 50MCG/NASAL SPRAY 16GM BOTTLE. NS SCH (07:53)
[2019-07-20] MEDS: PRENATAL MULTIVITAMIN TABLET. PO SCH (07:54)
[2019-07-20] MEDS: DULoxetine HCL 30 MG CAPSULE.DR PO SCH (07:54)
[2019-07-20] MEDS: TAMSULOSIN 0.4 MG CAP.ER.24H. PO SCH (07:54)
[2019-07-20] MEDS: DOCUSATE SODIUM 100 MG CAPSULE PO SCH ×2 (07:54→21:28)
[2019-07-20] MEDS: amLODIPine BESYLATE 5 MG TABLET PO SCH (07:55)
[2019-07-20] MEDS: FINASTERIDE 5 MG TABLET PO SCH (07:55)
[2019-07-20] MEDS: MONTELUKAST 10 MG TABLET. PO SCH (07:55)
[2019-07-20] MEDS: CETIRIZINE HCL 10 MG TABLET PO SCH (07:55)
[2019-07-20] MEDS: LISINOPRIL 10 MG TABLET PO SCH (07:55)
[2019-07-20] MEDS: ASPIRIN ENTERIC COATED 81 MG TABLET.DR. PO SCH (07:55)
[2019-07-20] MEDS: cloNIDine TTS-2 1 PATCH PATCH TD SCH (07:58)
[2019-07-20] MEDS: LURASIDONE 40 MG TABLET. PO SCH (07:58)
[2019-07-20] MEDS ORDERED: DICLOFENAC SODIUM 1% TOPICAL GEL 100GM TUBE. TP PRN (09:00)
[2019-07-20 16:04] VITALS: BP 115/73
--- NOTE | 2019-07-20 16:54 | NUR ---
Patient is alert and oriented x 3, speech is clear but soft. Flat affect. Able to make wants and needs known and able to verbalize understanding of others. No negative moods or behaviors observed this shift. Medication compliant. Patient has complained to this nurse that he has been having difficutly swallowing, bed side swallow study ordered per doctor. Patient requested new diet order of ground foods, new diet was ordered at lunch time and patient refused to eat it stating " thats not ground" This nurse educated patient on ground diet and patient verbalized understanding of education received but refused to eat lunch still. Patient is now heading towards dining room for dinner.
--- NOTE | 2019-07-20 20:29 | PDOC ---
Exam Note: Robert Note: Please also refer to the separate dictated note~for this date of service dictated separately.~Patient seen individually. Discussed the patient with Nursing staff reviewed the chart.~Reviewed interim history and current functioning. Reviewed vital signs,~Labs/ Radiology~and current medications noted below. Continue current treatment with the changes noted in the dictated addendum note Assessment: Vital Signs/I&O: Vital Signs Date Time Temp Pulse Resp B/P (MAP) Pulse Ox O2 Delivery O2 Flow Rate FiO2 07/20/19 16:04 97.3 84 16 115/73 (87) 98 07/15/19 20:55 Room Air I & O 07/19/19 07/19/19 07/20/19 15:00 23:00 07:00 Intake Total 720 ml 240 ml 240 ml Balance 720 ml 240 ml 240 ml Current Medications: Meds: Current Medications Medications (Trade) Dose Ordered Sig/Henry Route PRN Reason Start Time Stop Time Status Last Admin Dose Admin Docusate Sodium (Colace) 100 mg BID PO 07/19/19 21:00 07/20/19 07:54 I have reviewed the current psychotropics carefully including drug interactions. Risk benefit ratio favors no change other than as noted in my dictated progress note. Diagnosis: Problems: (1) Conversion disorder (2) Mild cognitive impairment (3) History of post traumatic stress disorder (4) Anxiety disorder (5) Major depressive disorder, recurrent episode (6) Psychosis, atypical DARA FELIPE MD Jul 20, 2019 20:28
[2019-07-20] MEDS: ATORVASTATIN CALCIUM 20 MG TABLET PO SCH (21:28)
[2019-07-20] MEDS: traZODone 150 MG TABLET. PO SCH (21:28)
[2019-07-20] MEDS: AMITRIPTYLINE HCL 50 MG TABLET PO SCH (21:29)
[2019-07-20] MEDS: FENOFIBRATE NANOCRYSTALLIZED 145 MG TABLET PO SCH (21:29)
[2019-07-20] MEDS: MELATONIN 3 MG TABLET PO SCH (21:29)
--- NOTE | 2019-07-21 04:43 | NUR ---
Pt cooperative and compliant. Flat affect; requested medications to be broken with exception to the smallest pills. Pt swallowed pills with water, without choking; he did c/o trouble swallowing. Rested through the night. Will continue to monitor.
[2019-07-21 05:38] VITALS: BP 110/68
[2019-07-21] MEDS: LEVOTHYROXINE 50 MCG TABLET PO SCH (05:58)
[2019-07-21] MEDS: LURASIDONE 40 MG TABLET. PO SCH (08:00)
[2019-07-21] MEDS: PRENATAL MULTIVITAMIN TABLET. PO SCH (08:23)
[2019-07-21] MEDS: FINASTERIDE 5 MG TABLET PO SCH (08:24)
[2019-07-21] MEDS: DOCUSATE SODIUM 100 MG CAPSULE PO SCH ×2 (08:24→21:49)
[2019-07-21] MEDS: DULoxetine HCL 30 MG CAPSULE.DR PO SCH (08:24)
[2019-07-21] MEDS: amLODIPine BESYLATE 5 MG TABLET PO SCH (08:25)
[2019-07-21] MEDS: TAMSULOSIN 0.4 MG CAP.ER.24H. PO SCH (08:27)
[2019-07-21] MEDS: MONTELUKAST 10 MG TABLET. PO SCH (08:27)
[2019-07-21] MEDS: LISINOPRIL 10 MG TABLET PO SCH (08:27)
[2019-07-21] MEDS: CETIRIZINE HCL 10 MG TABLET PO SCH (08:28)
[2019-07-21] MEDS: ASPIRIN ENTERIC COATED 81 MG TABLET.DR. PO SCH (08:34)
[2019-07-21] MEDS: FLUTICASONE 50MCG/NASAL SPRAY 16GM BOTTLE. NS SCH (09:00)
--- NOTE | 2019-07-21 10:34 | NUR ---
Pt. reports he does not want ground food, and refused to eat the morning sausage. He also c/o dry mouth and throat. States he does not have a sore throat. He takes multiple meds for sinus or allergy relief. He states he does not know why, and he does not need them. Will report same to Dr. Estevez. He took all a.m. meds whole with no difficulty. Instructed to drink as much water as he would like, as he inquired. Also stated he'd had trouble with his b/m's, asked if he'd had diarrhea or constipation. Said he did not know the last time he'd had a b/m. Later, Luc, nurse reported Bj had diarrhea and he also said he had not urinated since yesterday. Will continue to monitor, push fluids, and held A.M. Zyrtec and flonase per pt. request. Continues to speak in soft voice.
--- NOTE | 2019-07-21 12:47 | PN ---
DATE: 07/18/2019 PSYCHIATRIC PROGRESS NOTE This late entry 07/18/2019 covers the elements not covered in my initial note. SUBJECTIVE: I met with the patient in the evening. Per PEDRO LUIS Fernández, the patient slept 7 hours previous night. He is alert, oriented, no suicidal ideation, remains somewhat withdrawn. He is fixated that he has been constipated, we will defer to Dr. Estevez. States he has no appetite. REVIEW OF SYSTEMS: No CV, , pulmonary, eye system symptoms on review. MENTAL STATUS EXAM: Reasonably oriented. Speech has some latency, coherent. Abstraction fair, computation impaired, language function intact, attention span short. Mood and affect somewhat withdrawn. LABORATORY DATA: Reviewed. IMPRESSION: Unchanged from initial note. PLAN: No change from initial note. MAN Marc FELIPE MD DR: NIKKY/sergey JOB#: [id number] / [id number]
--- NOTE | 2019-07-21 12:59 | PN ---
DATE: 07/19/2019 PSYCHIATRIC PROGRESS NOTE This late entry 07/19/2019 covers the elements not covered in my initial note. SUBJECTIVE: I met with the patient in the evening and staffed treatment team, meeting with the entire team and the patient attending this conference. The patient remains somewhat withdrawn, states he is depressed, has poor appetite, not sleeping, though nursing staff record that he is sleeping 6-7 hours at night. He still complains of constipation. REVIEW OF SYSTEMS: No CV, , pulmonary, eye system symptoms on review. MENTAL STATUS EXAM: Reasonably oriented. Speech has some latency, coherent. Abstraction fair, computation impaired, language function intact. Mood and affect withdrawn. LABORATORY DATA: Reviewed. IMPRESSION: Unchanged from initial note. PLAN: No change from initial note. MAN Marc FELIPE MD DR: NIKKY/sergey JOB#: [id number] / [id number]
--- NOTE | 2019-07-21 13:05 | NUR ---
Mack cardoza completed. She reported there is no physical reason why pt. should not be on a regular diet. Does appear to have multiple somatic complaints, and whatever is given attention he focuses on. He has eaten regular diet at lunch and order has been changed. He was informed we will not change it again, just at his request. Will continue to monitor and push fluids.
[2019-07-21] MEDS ORDERED: SALIVA STIMULANT AGENT 44ML SPRAY BOTTLE. PO PRN (14:00)
[2019-07-21 15:50] VITALS: BP 115/77
[2019-07-21] MEDS ORDERED: traZODone 100 MG TABLET. PO PRN (20:45)
[2019-07-21] MEDS: AMITRIPTYLINE HCL 50 MG TABLET PO SCH (21:48)
[2019-07-21] MEDS: MELATONIN 3 MG TABLET PO SCH (21:49)
[2019-07-21] MEDS: FENOFIBRATE NANOCRYSTALLIZED 145 MG TABLET PO SCH (21:49)
[2019-07-21] MEDS: ATORVASTATIN CALCIUM 20 MG TABLET PO SCH (21:49)
[2019-07-21] MEDS: traZODone 100 MG TABLET. PO SCH (21:49)
[2019-07-22] MEDS: LEVOTHYROXINE 50 MCG TABLET PO SCH (05:47)
[2019-07-22 06:17] VITALS: BP 119/73
[2019-07-22] MEDS: FINASTERIDE 5 MG TABLET PO SCH (08:48)
[2019-07-22] MEDS: DULoxetine HCL 30 MG CAPSULE.DR PO SCH (08:48)
[2019-07-22] MEDS: LURASIDONE 40 MG TABLET. PO SCH (08:48)
[2019-07-22] MEDS: ASPIRIN ENTERIC COATED 81 MG TABLET.DR. PO SCH (08:48)
[2019-07-22] MEDS: amLODIPine BESYLATE 5 MG TABLET PO SCH (08:49)
[2019-07-22] MEDS: TAMSULOSIN 0.4 MG CAP.ER.24H. PO SCH (08:49)
[2019-07-22] MEDS: LISINOPRIL 10 MG TABLET PO SCH (08:49)
[2019-07-22] MEDS: DOCUSATE SODIUM 100 MG CAPSULE PO SCH ×2 (08:49→20:19)
[2019-07-22] MEDS: PRENATAL MULTIVITAMIN TABLET. PO SCH (08:52)
--- NOTE | 2019-07-22 15:46 | NUR ---
Mood and affect improved today. Slightly more talkative and expressive. He shared concern that yesterday afternoon he had been incontinent of urine, totaly unexpected, and new for him. Then last night he had totally saturated his bed with urine, and states that has never happened before. He was concerned about drinking water was causing it. I reassured him he needed to continue to drink water as much as desired, and I would report new symptoms to Crystal to see if any medication changes might be causing this lack of control.
[2019-07-22 16:16] VITALS: BP 110/67
[2019-07-22] MEDS: ATORVASTATIN CALCIUM 20 MG TABLET PO SCH (20:18)
[2019-07-22] MEDS: MELATONIN 3 MG TABLET PO SCH (20:19)
[2019-07-22] MEDS: traZODone 100 MG TABLET. PO SCH (20:19)
[2019-07-22] MEDS: AMITRIPTYLINE HCL 50 MG TABLET PO SCH (20:19)
[2019-07-22] MEDS: FENOFIBRATE NANOCRYSTALLIZED 145 MG TABLET PO SCH (20:19)
--- NOTE | 2019-07-22 21:59 | PDOC ---
Exam Note: Robert Note: This is a late entry for DOS 07/21/2019. Please also refer to the separate dictated note~for this date of service dictated separately.~Patient seen individually. Discussed the patient with Nursing staff reviewed the chart.~Reviewed interim history and current functioning. Reviewed vital signs,~Labs/ Radiology~and current medications noted below. Continue current treatment with the changes noted in the dictated addendum note Assessment: Vital Signs/I&O: Vital Signs Date Time Temp Pulse Resp B/P (MAP) Pulse Ox O2 Delivery O2 Flow Rate FiO2 07/22/19 16:16 97.4 80 20 110/67 (81) 98 07/21/19 05:38 Room Air I & O 07/21/19 07/21/19 07/22/19 15:00 23:00 07:00 Intake Total 480 ml 480 ml 240 ml Balance 480 ml 480 ml 240 ml Current Medications: I have reviewed the current psychotropics carefully including drug interactions. Risk benefit ratio favors no change other than as noted in my dictated progress note. Diagnosis: Problems: (1) Conversion disorder (2) Mild cognitive impairment (3) History of post traumatic stress disorder (4) Anxiety disorder (5) Major depressive disorder, recurrent episode (6) Psychosis, atypical DARA FELIPE MD Jul 22, 2019 21:59
--- NOTE | 2019-07-22 23:53 | NUR ---
Nsg Note: Patient in day room at time of medication administration and assessments. patient was calm, cooperative and compliant. Patient still somewhat flat and hypoverbal but appears to be smiling from time to time now. Patient fixated on "not getting enough sleep". Although he has recorded sleep hours every night. Addressed any concerns with him before patient went to lay down. No other notable behaviors at this time.
[2019-07-23] MEDS: LEVOTHYROXINE 50 MCG TABLET PO SCH (05:29)
[2019-07-23 05:58] VITALS: BP 106/67
[2019-07-23] MEDS: DOCUSATE SODIUM 100 MG CAPSULE PO SCH ×2 (08:10→20:53)
[2019-07-23] MEDS: FINASTERIDE 5 MG TABLET PO SCH (08:10)
[2019-07-23] MEDS: TAMSULOSIN 0.4 MG CAP.ER.24H. PO SCH (08:10)
[2019-07-23] MEDS: PRENATAL MULTIVITAMIN TABLET. PO SCH (08:11)
[2019-07-23] MEDS: ASPIRIN ENTERIC COATED 81 MG TABLET.DR. PO SCH (08:11)
[2019-07-23] MEDS: DULoxetine HCL 30 MG CAPSULE.DR PO SCH (08:11)
[2019-07-23] MEDS: CHOLECALCIFEROL (VITAMIN D3) 50,000 UNIT CAPSULE PO SCH (08:11)
[2019-07-23] MEDS: LURASIDONE 40 MG TABLET. PO SCH (08:11)
[2019-07-23] MEDS: amLODIPine BESYLATE 5 MG TABLET PO SCH (08:12)
[2019-07-23] MEDS: LISINOPRIL 10 MG TABLET PO SCH (08:13)
--- NOTE | 2019-07-23 16:00 | NUR ---
Patient in the dining room for assessment and medication. Flat, but cooperative. Denies pain, denies SI/HI. Held Lisinopril and Amolodipine this AM for low blood pressure.
[2019-07-23 16:05] VITALS: BP 116/79
--- NOTE | 2019-07-23 20:28 | PDOC ---
Exam Note: Robert Note: Please also refer to the separate dictated note~for this date of service dictated separately.~Patient seen individually. Discussed the patient with Nursing staff reviewed the chart.~Reviewed interim history and current functioning. Reviewed vital signs,~Labs/ Radiology~and current medications noted below. Continue current treatment with the changes noted in the dictated addendum note Assessment: Vital Signs/I&O: Vital Signs Date Time Temp Pulse Resp B/P (MAP) Pulse Ox O2 Delivery O2 Flow Rate FiO2 07/23/19 16:05 97.6 100 18 116/79 (91) 97 07/21/19 05:38 Room Air I & O 07/22/19 07/22/19 07/23/19 14:59 22:59 06:59 Intake Total 840 ml 360 ml Balance 840 ml 360 ml Current Medications: I have reviewed the current psychotropics carefully including drug interactions. Risk benefit ratio favors no change other than as noted in my dictated progress note. Diagnosis: Problems: (1) Conversion disorder (2) Mild cognitive impairment (3) History of post traumatic stress disorder (4) Anxiety disorder (5) Major depressive disorder, recurrent episode (6) Psychosis, atypical DARA FELIPE MD Jul 23, 2019 20:28
[2019-07-23] MEDS: AMITRIPTYLINE HCL 50 MG TABLET PO SCH (20:53)
[2019-07-23] MEDS: FENOFIBRATE NANOCRYSTALLIZED 145 MG TABLET PO SCH (20:53)
[2019-07-23] MEDS: traZODone 100 MG TABLET. PO SCH (20:53)
[2019-07-23] MEDS: MELATONIN 3 MG TABLET PO SCH (20:53)
[2019-07-23] MEDS: ATORVASTATIN CALCIUM 20 MG TABLET PO SCH (20:53)
--- NOTE | 2019-07-23 21:50 | PN ---
DATE: This late entry 07/20/2019 covers elements not covered in my initial note. SUBJECTIVE: I met with the patient evening of 07/20/2019. Per PEDRO LUIS Polo, the patient slept 5-1/2 hours previous night. He complains of difficulty swallowing. Bedside swallow study has been requested. He complains of trouble urinating, has various somatic complaints, believes he did not sleep at all the previous night despite having slept 5-1/2 hours. REVIEW OF SYSTEMS: Other than above, no CV, , pulmonary, eye system symptoms on review. MENTAL STATUS EXAM: Reasonably oriented. Speech has some latency, coherent. Abstraction fair, computation impaired, language function intact. Mood and affect withdrawn. LABORATORY DATA: Reviewed. IMPRESSION: Major depressive disorder, severe with psychotic features. Rest unchanged. PLAN: Increase melatonin to 6 mg at bedtime. Continue Cymbalta, Latuda, trazodone, amitriptyline for now. MAN Marc FELIPE MD DR: NIKKY/sergey JOB#: [id number] / [id number]
--- NOTE | 2019-07-24 01:06 | NUR ---
Nsg Note: Patient in room at time of medication administration and assessments. Patient was calm, cooperative and compliant. Patient was more interactive and smiling. No other notable behaviors at this time.
--- NOTE | 2019-07-24 03:41 | PN ---
DATE: PSYCHIATRIC PROGRESS NOTE This late entry 07/21/2019 covers the elements not covered in my initial note. SUBJECTIVE: I met with the patient in the evening. The patient slept 6-1/2 hours previous night. He still states he is not sleeping well despite all indications to the contrary per nursing observation at night. He said he choked the day before, swallow test was unremarkable, had a bowel movement on 07/21/2019 but still feels the constipation is a big problem. REVIEW OF SYSTEMS: Positive for vague somatic symptoms. No CV, , pulmonary, eye system symptoms on review. MENTAL STATUS EXAM: The patient is reasonably oriented. Speech is coherent, has some latency. Abstraction fair, computation impaired, language function intact, attention span short. Mood and affect withdrawn. LABORATORY DATA: Reviewed. IMPRESSION: Unchanged from initial note. PLAN: Increase trazodone from 150 mg at bedtime to 200 mg at bedtime, january repeat x 1 for insomnia. Rest unchanged. MAN Marc FELIPE MD DR: NIKKY/sergey JOB#: [id number] / [id number]
[2019-07-24 05:09] VITALS: BP 113/75
[2019-07-24] MEDS: LEVOTHYROXINE 50 MCG TABLET PO SCH (05:21)
[2019-07-24] MEDS: ASPIRIN ENTERIC COATED 81 MG TABLET.DR. PO SCH (08:25)
[2019-07-24] MEDS: LURASIDONE 40 MG TABLET. PO SCH ×2 (08:25→20:15)
[2019-07-24] MEDS: DULoxetine HCL 30 MG CAPSULE.DR PO SCH (08:25)
[2019-07-24] MEDS: TAMSULOSIN 0.4 MG CAP.ER.24H. PO SCH (08:25)
[2019-07-24] MEDS: DOCUSATE SODIUM 100 MG CAPSULE PO SCH ×2 (08:25→20:15)
[2019-07-24] MEDS: PRENATAL MULTIVITAMIN TABLET. PO SCH (08:26)
[2019-07-24] MEDS: FINASTERIDE 5 MG TABLET PO SCH (08:26)
[2019-07-24] MEDS: LISINOPRIL 10 MG TABLET PO SCH (08:26)
[2019-07-24] MEDS: amLODIPine BESYLATE 5 MG TABLET PO SCH (08:26)
[2019-07-24 09:35] LABS: BASO # 0.1 x10^3/uL (0.0-0.2); BASO % 1 % (0-3); EOS # 0.2 x10^3/uL (0.0-0.7); EOS % 2 % (0-3); HEMATOCRIT 37.5 % (39.0-53.0); HEMOGLOBIN 12.6 g/dL (13.0-17.5); LYMPH # 1.8 x10^3/uL (1.0-4.8); LYMPH % 19 % (24-48); MEAN CORPUSCULAR HEMOGLOBIN 28 pg (25-35); MEAN CORPUSCULAR HGB CONC 34 g/dL (31-37); MEAN CORPUSCULAR VOLUME 84 fL (79-100); MONO # 0.6 x10^3/uL (0.0-1.1); MONO % 7 % (0-9); NEUT # 6.8 x10^3uL (1.8-7.7); NEUT % 72 % (31-73); PLATELET COUNT 518 x10^3/uL (140-400); RED BLOOD COUNT 4.49 x10^6/uL (4.30-5.70); RED CELL DISTRIBUTION WIDTH 14.7 % (11.5-14.5); WHITE BLOOD COUNT 9.5 x10^3/uL (4.0-11.0)
[2019-07-24 09:48] LABS: ALBUMIN 3.3 g/dL (3.4-5.0); ALBUMIN/GLOBULIN RATIO 0.9 (1.0-1.7); CALCIUM 8.9 mg/dL (8.5-10.1); CREATININE 1.1 mg/dL (0.7-1.3); GFR 66.8; TOTAL BILIRUBIN 0.2 mg/dL (0.2-1.0); TOTAL PROTEIN 7.1 g/dL (6.4-8.2)
--- NOTE | 2019-07-24 12:07 | PN ---
DATE: 07/22/2019 PSYCHIATRIC PROGRESS NOTE This late entry 07/22/2019 covers elements not covered in my initial note. SUBJECTIVE: I met with the patient evening of 07/22/2019. Apparently, the patient slept 5-3/4 hours previous night and urinated in his bed at night. He complains of dry mouth. Sinus meds have been discontinued. We will reduce the trazodone from 200 at bedtime down to 175 at bedtime. REVIEW OF SYSTEMS: Vague somatic symptoms. No CV, , pulmonary, eye system symptoms on review. MENTAL STATUS EXAM: Reasonably oriented. Speech has some latency, low in volume, coherent, abstraction fair, computation impaired, language function intact. Mood and affect withdrawn. No suicidal ideation. LABORATORY DATA: Reviewed. IMPRESSION: Unchanged from initial note. PLAN: Reduce the trazodone. Rest unchanged. MAN Marc FELIPE MD DR: NIKKY/sergey JOB#: [id number] / [id number]
--- NOTE | 2019-07-24 12:21 | NUR ---
Patient was sitting quietly in the dining room during morning rounding, took medications whole, allowed for morning assessment. Patient said "he hasn't urinated in days." When checking with staff, pt has urinated and does worry about this. Patient denies pain, is withdrawn to self. No agitation noted, will continue to monitor.
[2019-07-24 15:52] VITALS: BP 98/57
[2019-07-24] MEDS: traZODone 100 MG TABLET. PO SCH (20:15)
[2019-07-24] MEDS: FENOFIBRATE NANOCRYSTALLIZED 145 MG TABLET PO SCH (20:15)
[2019-07-24] MEDS: ATORVASTATIN CALCIUM 20 MG TABLET PO SCH (20:15)
[2019-07-24] MEDS: AMITRIPTYLINE HCL 50 MG TABLET PO SCH (20:15)
[2019-07-24] MEDS: MELATONIN 3 MG TABLET PO SCH (20:15)
--- NOTE | 2019-07-24 20:50 | PDOC ---
Exam Note: Robert Note: Please also refer to the separate dictated note~for this date of service dictated separately.~Patient seen individually. Discussed the patient with Nursing staff reviewed the chart.~Reviewed interim history and current functioning. Reviewed vital signs,~Labs/ Radiology~and current medications noted below. Continue current treatment with the changes noted in the dictated addendum note Assessment: Vital Signs/I&O: Vital Signs Date Time Temp Pulse Resp B/P (MAP) Pulse Ox O2 Delivery O2 Flow Rate FiO2 07/24/19 15:52 98.8 82 16 98/57 (71) 95 07/24/19 05:09 Room Air I & O 07/23/19 07/23/19 07/24/19 15:00 23:00 07:00 Intake Total 1200 ml 120 ml 240 ml Balance 1200 ml 120 ml 240 ml Labs: Laboratory Tests Test 07/24/19 09:18 White Blood Count 9.5 x10^3/uL (4.0-11.0) Red Blood Count 4.49 x10^6/uL (4.30-5.70) Hemoglobin 12.6 g/dL (13.0-17.5) L Hematocrit 37.5 % (39.0-53.0) L Mean Corpuscular Volume 84 fL (79-100) Mean Corpuscular Hemoglobin 28 pg (25-35) Mean Corpuscular Hemoglobin Concent 34 g/dL (31-37) Red Cell Distribution Width 14.7 % (11.5-14.5) H Platelet Count 518 x10^3/uL (140-400) H Neutrophils (%) (Auto) 72 % (31-73) Lymphocytes (%) (Auto) 19 % (24-48) L Monocytes (%) (Auto) 7 % (0-9) Eosinophils (%) (Auto) 2 % (0-3) Basophils (%) (Auto) 1 % (0-3) Neutrophils # (Auto) 6.8 x10^3uL (1.8-7.7) Lymphocytes # (Auto) 1.8 x10^3/uL (1.0-4.8) Monocytes # (Auto) 0.6 x10^3/uL (0.0-1.1) Eosinophils # (Auto) 0.2 x10^3/uL (0.0-0.7) Basophils # (Auto) 0.1 x10^3/uL (0.0-0.2) Sodium Level 135 mmol/L (136-145) L Potassium Level 4.0 mmol/L (3.5-5.1) Chloride Level 100 mmol/L (98-107) Carbon Dioxide Level 26 mmol/L (21-32) Anion Gap 9 (6-14) Blood Urea Nitrogen 15 mg/dL (8-26) Creatinine 1.1 mg/dL (0.7-1.3) Estimated GFR (Cockcroft-Gault) 66.8 BUN/Creatinine Ratio 14 (6-20) Glucose Level 215 mg/dL (70-99) H Calcium Level 8.9 mg/dL (8.5-10.1) Total Bilirubin 0.2 mg/dL (0.2-1.0) Aspartate Amino Transferase (AST) 16 U/L (15-37) Alanine Aminotransferase (ALT) 20 U/L (16-63) Alkaline Phosphatase 63 U/L (46-116) Total Protein 7.1 g/dL (6.4-8.2) Albumin 3.3 g/dL (3.4-5.0) L Albumin/Globulin Ratio 0.9 (1.0-1.7) L Current Medications: I have reviewed the current psychotropics carefully including drug interactions. Risk benefit ratio favors no change other than as noted in my dictated progress note. Diagnosis: Problems: (1) Conversion disorder (2) Mild cognitive impairment (3) History of post traumatic stress disorder (4) Anxiety disorder (5) Major depressive disorder, recurrent episode (6) Psychosis, atypical DARA FELIPE MD Jul 24, 2019 20:50
--- NOTE | 2019-07-25 00:04 | NUR ---
Nsg Note: Patient in day room at time of medication administration and assessments. Patient was calm, compliant and cooperative. Patient still stating he is not getting sleep at night. Staff continuing to monitor. No other notable behaviors at this time.
[2019-07-25] MEDS: LEVOTHYROXINE 50 MCG TABLET PO SCH (05:07)
[2019-07-25] MEDS: DOCUSATE SODIUM 100 MG CAPSULE PO SCH ×2 (07:57→20:53)
[2019-07-25] MEDS: PRENATAL MULTIVITAMIN TABLET. PO SCH (07:57)
[2019-07-25] MEDS: FINASTERIDE 5 MG TABLET PO SCH (07:58)
[2019-07-25] MEDS: TAMSULOSIN 0.4 MG CAP.ER.24H. PO SCH (07:58)
[2019-07-25] MEDS: DULoxetine HCL 30 MG CAPSULE.DR PO SCH (07:58)
[2019-07-25] MEDS: LISINOPRIL 10 MG TABLET PO SCH (07:58)
[2019-07-25] MEDS: ASPIRIN ENTERIC COATED 81 MG TABLET.DR. PO SCH (07:59)
[2019-07-25] MEDS: amLODIPine BESYLATE 5 MG TABLET PO SCH (07:59)
--- NOTE | 2019-07-25 14:24 | NUR ---
NURSING NOTES: PATIENT CALM AND COOPERATIVE WITH STAFF THUS FAR THIS SHIFT. PATIENT TAKES MEDICATIONS WHOLE WITHOUT DIFFICULTY. NO COMPLAINTS OFFERED FROM PATIENT THUS FAR.
--- NOTE | 2019-07-25 15:24 | NUR ---
Call placed to [facility] level II director of financial aid, with intent to inquire about status of Level II that is pending for Bj. Left detailed message with request for return phone call.
[2019-07-25 16:09] VITALS: BP 133/77
--- NOTE | 2019-07-25 20:41 | PDOC ---
Exam Note: Robert Note: Please also refer to the separate dictated note~for this date of service dictated separately.~Patient seen individually. Discussed the patient with Nursing staff reviewed the chart.~Reviewed interim history and current functioning. Reviewed vital signs,~Labs/ Radiology~and current medications noted below. Continue current treatment with the changes noted in the dictated addendum note Assessment: Vital Signs/I&O: Vital Signs Date Time Temp Pulse Resp B/P (MAP) Pulse Ox O2 Delivery O2 Flow Rate FiO2 07/25/19 16:09 97.5 92 16 133/77 (95) 96 07/24/19 05:09 Room Air I & O 07/24/19 07/24/19 07/25/19 15:00 23:00 07:00 Intake Total 960 ml 120 ml 120 ml Balance 960 ml 120 ml 120 ml Current Medications: I have reviewed the current psychotropics carefully including drug interactions. Risk benefit ratio favors no change other than as noted in my dictated progress note. Diagnosis: Problems: (1) Mild cognitive impairment (2) Conversion disorder (3) Major depressive disorder, recurrent episode (4) Psychosis, atypical (5) Anxiety disorder (6) History of post traumatic stress disorder DARA FELIPE MD Jul 25, 2019 20:41
--- NOTE | 2019-07-25 20:42 | PN ---
DATE: 07/24/2019 PSYCHIATRIC PROGRESS NOTE This late entry 07/24/2019 covers elements not covered in my initial note. SUBJECTIVE: I met with the patient in the evening of 07/24/2019. Per PEDRO LUIS Ames, the patient slept 6-1/4 hours previous night. He has been doing better, still states he cannot sleep, but has not urinated in his bed like he did a couple of nights back. He still states he feels depressed, but little more interactive in groups. No CV, , pulmonary, eye system symptoms on review. MENTAL STATUS EXAM: The patient is reasonably oriented. Speech is coherent, has some latency, low in volume. Abstraction fair, computation impaired, language function intact. Mood and affect less depressed, little more verbally interactive as I met with him. LABORATORY DATA: Reviewed. IMPRESSION: Unchanged from initial note. PLAN: No change from initial note. MAN Marc FELIPE MD DR: NIKKY/sergey JOB#: [id number] / [id number]
[2019-07-25] MEDS: traZODone 100 MG TABLET. PO SCH (20:53)
[2019-07-25] MEDS: FENOFIBRATE NANOCRYSTALLIZED 145 MG TABLET PO SCH (20:53)
[2019-07-25] MEDS: ATORVASTATIN CALCIUM 20 MG TABLET PO SCH (20:53)
[2019-07-25] MEDS: AMITRIPTYLINE HCL 50 MG TABLET PO SCH (20:53)
[2019-07-25] MEDS: MELATONIN 3 MG TABLET PO SCH (20:53)
--- NOTE | 2019-07-26 02:26 | PN ---
DATE: 07/23/2019 This late entry, 07/23/2019, covers elements not covered in my initial note. SUBJECTIVE: I met with the patient the evening of 07/23/2019. The patient slept 2-1/2 hours the previous night. He complains of an ongoing insomnia despite frequently nursing staff observing that he sleeps reasonably well. He complains of poor appetite. REVIEW OF SYSTEMS: No CV, , pulmonary, or eye system symptoms on review. MENTAL STATUS EXAM: Reasonably oriented. Speech has some latency, often responses monosyllabic. Abstraction fair, computation impaired, language function intact, attention span short. Mood and affect somewhat withdrawn, but does come out for groups. LABORATORY DATA: Reviewed. IMPRESSION: Unchanged from initial note. PLAN: No change from initial note. MAN Marc FELIPE MD DR: NIKKY/sergey JOB#: [id number] / [id number]
--- NOTE | 2019-07-26 02:48 | NUR ---
Last evening pt sat quietly in day room watching TV. When meds offered he said he didn't know if he could swallow them or not. He was able to take pills without difficulty, then mentioned not voiding today and asked when his last BM was. BM was documented 1 day ago, speech therapy swallow eval from 07/21 rec reg diet, staff reports pt voiding well.
[2019-07-26] MEDS: LEVOTHYROXINE 50 MCG TABLET PO SCH (05:35)
[2019-07-26 06:07] VITALS: BP 106/60
[2019-07-26] MEDS: ASPIRIN ENTERIC COATED 81 MG TABLET.DR. PO SCH (08:07)
[2019-07-26] MEDS: PRENATAL MULTIVITAMIN TABLET. PO SCH (08:07)
[2019-07-26] MEDS: LURASIDONE 40 MG TABLET. PO SCH (08:08)
[2019-07-26] MEDS: FINASTERIDE 5 MG TABLET PO SCH (08:08)
[2019-07-26] MEDS: DULoxetine HCL 30 MG CAPSULE.DR PO SCH (08:08)
[2019-07-26] MEDS: DOCUSATE SODIUM 100 MG CAPSULE PO SCH ×2 (08:09→19:51)
[2019-07-26] MEDS: amLODIPine BESYLATE 5 MG TABLET PO SCH (08:09)
[2019-07-26] MEDS: LISINOPRIL 10 MG TABLET PO SCH (08:09)
[2019-07-26] MEDS: TAMSULOSIN 0.4 MG CAP.ER.24H. PO SCH (08:10)
--- NOTE | 2019-07-26 09:19 | NUR ---
WEEKLY ACTIVITY THERAPY NOTE Date of Admission: 07/02/2019 Date of AT Assessment: 07/06/2019 Goal aimed: to increase motivation and recreation education Initial goal: Pt. will participate in at least five activity therapy groups per week. Weekly progress towards goal: exceeded Group participation level: varied Weekly highlights: participated in every group that was offered this week Behaviors observed: similar to previous week- reserved, increased emotion, increased socialization as the week continued Plan: change goal to: Pt. 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
--- NOTE | 2019-07-26 10:59 | NUR ---
Patient was in the dining room during the time of assessments and medications. Patient took medications whole, compliant, and cooperative with assessments. Patient denies pain, and withdrawn to self. No agitation noted, will continue to monitor
--- NOTE | 2019-07-26 11:09 | NUR ---
WEEKLY NOTE: Although Bj continues to report he is not sleeping well, staff have documented an average of 7.5 hours of sleep at night, average intake of meals has been 75%. Bj has had increased attendance at SW and recreational therapy groups. His voice projection seems stronger and has has been observed to smile on occasion. Bj's current weight is 195#. Level II is pending. Bj will need placement and ECT follow up treatment upon d/c. Bj participated in team meeting today.
[2019-07-26 16:45] VITALS: BP 123/73
[2019-07-26] MEDS: AMITRIPTYLINE HCL 50 MG TABLET PO SCH (19:50)
[2019-07-26] MEDS: FENOFIBRATE NANOCRYSTALLIZED 145 MG TABLET PO SCH (19:50)
[2019-07-26] MEDS: traZODone 100 MG TABLET. PO SCH (19:50)
[2019-07-26] MEDS: ATORVASTATIN CALCIUM 20 MG TABLET PO SCH (19:51)
[2019-07-26] MEDS: MELATONIN 3 MG TABLET PO SCH (19:51)
--- NOTE | 2019-07-26 20:41 | PDOC ---
Exam Note: Robert Note: Please also refer to the separate dictated note~for this date of service dictated separately.~Patient seen individually. Discussed the patient with Nursing staff reviewed the chart.~Reviewed interim history and current functioning. Reviewed vital signs,~Labs/ Radiology~and current medications noted below. Continue current treatment with the changes noted in the dictated addendum note Assessment: Vital Signs/I&O: Vital Signs Date Time Temp Pulse Resp B/P (MAP) Pulse Ox O2 Delivery O2 Flow Rate FiO2 07/26/19 16:45 97.9 82 18 123/73 (90) 98 07/26/19 06:07 Room Air I & O 07/25/19 07/25/19 07/26/19 15:00 23:00 07:00 Intake Total 480 ml 360 ml 240 ml Balance 480 ml 360 ml 240 ml Current Medications: I have reviewed the current psychotropics carefully including drug interactions. Risk benefit ratio favors no change other than as noted in my dictated progress note. Diagnosis: Problems: (1) Conversion disorder (2) Mild cognitive impairment (3) History of post traumatic stress disorder (4) Anxiety disorder (5) Major depressive disorder, recurrent episode (6) Psychosis, atypical DARA FELIPE MD Jul 26, 2019 20:41
--- NOTE | 2019-07-27 03:25 | NUR ---
Last evening pt was in day room sitting quietly watching TV. Meds taken without difficulty. No behaviors and appears to be sleeping well.
[2019-07-27] MEDS: LEVOTHYROXINE 50 MCG TABLET PO SCH (06:00)
[2019-07-27 06:24] VITALS: BP 112/66
[2019-07-27] MEDS: ASPIRIN ENTERIC COATED 81 MG TABLET.DR. PO SCH (08:08)
[2019-07-27] MEDS: DOCUSATE SODIUM 100 MG CAPSULE PO SCH ×2 (08:08→19:52)
[2019-07-27] MEDS: LURASIDONE 40 MG TABLET. PO SCH (08:08)
[2019-07-27] MEDS: TAMSULOSIN 0.4 MG CAP.ER.24H. PO SCH (08:09)
[2019-07-27] MEDS: DULoxetine HCL 30 MG CAPSULE.DR PO SCH (08:09)
[2019-07-27] MEDS: PRENATAL MULTIVITAMIN TABLET. PO SCH (08:09)
[2019-07-27] MEDS: amLODIPine BESYLATE 5 MG TABLET PO SCH (08:09)
[2019-07-27] MEDS: cloNIDine TTS-2 1 PATCH PATCH TD SCH (08:10)
[2019-07-27] MEDS: LISINOPRIL 10 MG TABLET PO SCH (08:10)
[2019-07-27] MEDS: FINASTERIDE 5 MG TABLET PO SCH (08:10)
--- NOTE | 2019-07-27 10:30 | NUR ---
No return call from [facility] Level II director. Left detailed message for Susan with request for return call about status of level II assessment, awaiting return phone call.
--- NOTE | 2019-07-27 11:28 | NUR ---
Patient was in the dining room during morning rounding, took medications whole. Let the nurse know it has been awhile since he has urinated and had a bm. The nurse reassured patient that we were monitoring it. Patient denies pain at this time, no agitation noted. Will continue to monitor.
--- NOTE | 2019-07-27 13:25 | PN ---
DATE: 07/25/2019 PSYCHIATRIC PROGRESS NOTE This late entry of 07/25/2019 covers elements not covered in my initial note. SUBJECTIVE: I met with the patient in the evening of 07/25/2019. Per PEDRO LUIS Duvall, the patient slept 7 hours previous night. He has been pleasant, reasonably oriented, still withdrawn. We will check an amitriptyline blood level. He slept well per nursing observation, but when questioned, he states he did not sleep at all at night. REVIEW OF SYSTEMS: No CV, , pulmonary, eye system symptoms on review. MENTAL STATUS EXAMINATION: The patient is reasonably oriented. Speech moderate latency, often responses monosyllabic. Abstraction fair, computation impaired, language function intact, attention span short. Mood and affect withdrawn. He is smiling a little more than before. LABORATORY DATA: Reviewed. IMPRESSION: Unchanged from initial note. PLAN: No change from initial note. MAN Marc FELIPE MD DR: NIKKY/sergey JOB#: [id number] / [id number]
[2019-07-27 16:03] VITALS: BP 113/73
[2019-07-27] MEDS: FENOFIBRATE NANOCRYSTALLIZED 145 MG TABLET PO SCH (19:51)
[2019-07-27] MEDS: traZODone 100 MG TABLET. PO SCH (19:51)
[2019-07-27] MEDS: AMITRIPTYLINE HCL 50 MG TABLET PO SCH (19:51)
[2019-07-27] MEDS: ATORVASTATIN CALCIUM 20 MG TABLET PO SCH (19:53)
[2019-07-27] MEDS: MELATONIN 3 MG TABLET PO SCH (19:54)
--- NOTE | 2019-07-27 20:53 | PDOC ---
Exam Note: Robert Note: Please also refer to the separate dictated note~for this date of service dictated separately.~Patient seen individually. Discussed the patient with Nursing staff reviewed the chart.~Reviewed interim history and current functioning. Reviewed vital signs,~Labs/ Radiology~and current medications noted below. Continue current treatment with the changes noted in the dictated addendum note Assessment: Vital Signs/I&O: Vital Signs Date Time Temp Pulse Resp B/P (MAP) Pulse Ox O2 Delivery O2 Flow Rate FiO2 07/27/19 16:03 98.2 91 18 113/73 (86) 96 07/27/19 06:24 Room Air I & O 07/26/19 07/26/19 07/27/19 15:00 23:00 07:00 Intake Total 960 ml 1440 ml 240 ml Balance 960 ml 1440 ml 240 ml Current Medications: I have reviewed the current psychotropics carefully including drug interactions. Risk benefit ratio favors no change other than as noted in my dictated progress note. Diagnosis: Problems: (1) Conversion disorder (2) Mild cognitive impairment (3) History of post traumatic stress disorder (4) Anxiety disorder (5) Major depressive disorder, recurrent episode (6) Psychosis, atypical DARA FELIPE MD Jul 27, 2019 20:53
--- NOTE | 2019-07-28 01:10 | NUR ---
Last evening pt was in day room quite and cooperative. When taking HS meds he began expressing concerns over not voiding enough and insomnia. Discussed with pt that when staff checks on him at night he is laying still with eyes closed and snoring which looks like sleeping to us. He said he just lays awake all night long. When talking about not voiding a sheet for pt to keep track of his own I and O was placed in his BR. Urinal provided and measuring scale on it and drinking cup explained. Shortly after pt said he had drank 250 cc and voided 650 cc.
--- NOTE | 2019-07-28 03:05 | PN ---
DATE: 07/26/2019 This late entry 07/26/2019 covers elements not covered in my initial note. SUBJECTIVE: I met with the patient evening of 07/26/2019 and also a treatment team meeting with the entire team in the morning with the patient attended. We had a lengthy discussion about his progress. His perception is that he is not sleeping, but the nursing are documenting 7 hours sleep, appetite 75% and he feels he eats nothing, weight has increased somewhat and we will check it twice a week. He has had a level 2 screening by Dave from the [facility], result is awaited. REVIEW OF SYSTEMS: In addition to above, no CV, , GI, or pulmonary system symptoms on review. MENTAL STATUS EXAM: Reasonably oriented. Speech has some latency, low in volume, coherent, abstraction fair, computation impaired, language function intact. Mood and affect still depressed, but improved. LABORATORY DATA: Reviewed. IMPRESSION: Major depressive disorder with psychotic features. Rest unchanged. PLAN: No change from initial note. Maintain melatonin, Latuda, Cymbalta, trazodone and amitriptyline. MAN Marc FELIPE MD DR: NIKKY/sergey JOB#: [id number] / [id number]
[2019-07-28 05:16] VITALS: BP 120/76
[2019-07-28] MEDS: LEVOTHYROXINE 50 MCG TABLET PO SCH (06:21)
[2019-07-28] MEDS: ASPIRIN ENTERIC COATED 81 MG TABLET.DR. PO SCH (08:27)
[2019-07-28] MEDS: DOCUSATE SODIUM 100 MG CAPSULE PO SCH ×2 (08:28→20:09)
[2019-07-28] MEDS: DULoxetine HCL 30 MG CAPSULE.DR PO SCH (08:28)
[2019-07-28] MEDS: PRENATAL MULTIVITAMIN TABLET. PO SCH (08:28)
[2019-07-28] MEDS: TAMSULOSIN 0.4 MG CAP.ER.24H. PO SCH (08:28)
[2019-07-28] MEDS: LURASIDONE 40 MG TABLET. PO SCH (08:28)
[2019-07-28] MEDS: FINASTERIDE 5 MG TABLET PO SCH (08:29)
[2019-07-28] MEDS: amLODIPine BESYLATE 5 MG TABLET PO SCH (08:29)
[2019-07-28] MEDS: LISINOPRIL 10 MG TABLET PO SCH (08:29)
--- NOTE | 2019-07-28 10:07 | NUR ---
Pt is calm, cooperative, and compliant. No agitation or aggression. No hallucinations or delusions. He is anxious at times regarding his water intake and output. No HI/SI. He is cooperative with his medication and assessment.
[2019-07-28 15:57] VITALS: BP 118/70
[2019-07-28] MEDS ORDERED: traZODone 100 MG TABLET. PO PRN (19:15)
[2019-07-28] MEDS: AMITRIPTYLINE HCL 50 MG TABLET PO SCH (20:09)
[2019-07-28] MEDS: ATORVASTATIN CALCIUM 20 MG TABLET PO SCH (20:09)
[2019-07-28] MEDS: MELATONIN 3 MG TABLET PO SCH (20:09)
[2019-07-28] MEDS: traZODone 100 MG TABLET. PO SCH (20:09)
[2019-07-28] MEDS: FENOFIBRATE NANOCRYSTALLIZED 145 MG TABLET PO SCH (20:10)
--- NOTE | 2019-07-28 20:43 | PDOC ---
Exam Note: Robert Note: Please also refer to the separate dictated note~for this date of service dictated separately.~Patient seen individually. Discussed the patient with Nursing staff reviewed the chart.~Reviewed interim history and current functioning. Reviewed vital signs,~Labs/ Radiology~and current medications noted below. Continue current treatment with the changes noted in the dictated addendum note Assessment: Vital Signs/I&O: Vital Signs Date Time Temp Pulse Resp B/P (MAP) Pulse Ox O2 Delivery O2 Flow Rate FiO2 07/28/19 15:57 98.4 99 16 118/70 (86) 95 07/28/19 05:16 Room Air I & O 07/27/19 07/27/19 07/28/19 15:00 23:00 07:00 Intake Total 1060 ml 720 ml Balance 1060 ml 720 ml Current Medications: Meds: Current Medications Medications (Trade) Dose Ordered Sig/Henry Route PRN Reason Start Time Stop Time Status Last Admin Dose Admin Trazodone HCl (Desyrel) 250 mg QHS PO 07/28/19 21:00 07/28/19 20:09 I have reviewed the current psychotropics carefully including drug interactions. Risk benefit ratio favors no change other than as noted in my dictated progress note. Diagnosis: Problems: (1) Conversion disorder (2) Mild cognitive impairment (3) History of post traumatic stress disorder (4) Anxiety disorder (5) Major depressive disorder, recurrent episode (6) Psychosis, atypical DARA FELIPE MD Jul 28, 2019 20:43
--- NOTE | 2019-07-28 23:42 | NUR ---
Nursing note: Assumed care of pt in the day room. He was calm and compliant, no c/o pain, no behaviors. No mention of water consumption.
[2019-07-29] MEDS: LURASIDONE 40 MG TABLET. PO SCH (05:20)
[2019-07-29] MEDS: LEVOTHYROXINE 50 MCG TABLET PO SCH (05:20)
[2019-07-29] MEDS: FINASTERIDE 5 MG TABLET PO SCH (05:21)
[2019-07-29] MEDS: PRENATAL MULTIVITAMIN TABLET. PO SCH (05:21)
[2019-07-29] MEDS: LISINOPRIL 10 MG TABLET PO SCH (05:21)
[2019-07-29] MEDS: DOCUSATE SODIUM 100 MG CAPSULE PO SCH ×2 (05:21→20:18)
[2019-07-29] MEDS: DULoxetine HCL 30 MG CAPSULE.DR PO SCH (05:21)
[2019-07-29] MEDS: TAMSULOSIN 0.4 MG CAP.ER.24H. PO SCH (05:21)
[2019-07-29] MEDS: ASPIRIN ENTERIC COATED 81 MG TABLET.DR. PO SCH (05:22)
[2019-07-29] MEDS: amLODIPine BESYLATE 5 MG TABLET PO SCH (05:22)
[2019-07-29 06:30] VITALS: BP 101/65
[2019-07-29 08:45] LABS: ALBUMIN 3.1 g/dL (3.4-5.0); GFR 84.2; TOTAL BILIRUBIN 0.3 mg/dL (0.2-1.0)
[2019-07-29 08:46] LABS: BASO % 0 % (0-3); EOS # 0.2 x10^3/uL (0.0-0.7); EOS % 2 % (0-3); HEMATOCRIT 36.5 % (39.0-53.0); HEMOGLOBIN 12.4 g/dL (13.0-17.5); LYMPH # 2.1 x10^3/uL (1.0-4.8); LYMPH % 30 % (24-48); MEAN CORPUSCULAR HEMOGLOBIN 28 pg (25-35); MEAN CORPUSCULAR HGB CONC 34 g/dL (31-37); MEAN CORPUSCULAR VOLUME 83 fL (79-100); MONO # 0.8 x10^3/uL (0.0-1.1); MONO % 11 % (0-9); NEUT # 3.9 x10^3uL (1.8-7.7); NEUT % 57 % (31-73); PLATELET COUNT 535 x10^3/uL (140-400); RED BLOOD COUNT 4.42 x10^6/uL (4.30-5.70); RED CELL DISTRIBUTION WIDTH 14.4 % (11.5-14.5)
[2019-07-29 09:14] LABS: ALBUMIN/GLOBULIN RATIO 0.9 (1.0-1.7); CREATININE 0.9 mg/dL (0.7-1.3); TOTAL PROTEIN 6.7 g/dL (6.4-8.2)
--- NOTE | 2019-07-29 11:12 | NUR ---
He can be anxious at times regarding his water intake and output. No HI/SI. He is cooperative with his medication and assessment. Pt is calm, cooperative, and compliant. No agitation or aggression. No hallucinations or delusions.
[2019-07-29 16:09] VITALS: BP 119/69
[2019-07-29] MEDS: traZODone 100 MG TABLET. PO SCH (20:18)
[2019-07-29] MEDS: FENOFIBRATE NANOCRYSTALLIZED 145 MG TABLET PO SCH (20:19)
[2019-07-29] MEDS: MELATONIN 3 MG TABLET PO SCH (20:19)
[2019-07-29] MEDS: ATORVASTATIN CALCIUM 20 MG TABLET PO SCH (20:19)
--- NOTE | 2019-07-29 20:33 | PDOC ---
Exam Note: Robert Note: Please also refer to the separate dictated note~for this date of service dictated separately.~Patient seen individually. Discussed the patient with Nursing staff reviewed the chart.~Reviewed interim history and current functioning. Reviewed vital signs,~Labs/ Radiology~and current medications noted below. Continue current treatment with the changes noted in the dictated addendum note Assessment: Vital Signs/I&O: Vital Signs Date Time Temp Pulse Resp B/P (MAP) Pulse Ox O2 Delivery O2 Flow Rate FiO2 07/29/19 16:09 97.5 84 18 119/69 (86) 97 07/28/19 05:16 Room Air I & O 07/28/19 07/28/19 07/29/19 15:00 23:00 07:00 Intake Total 1380 ml 720 ml Balance 1380 ml 720 ml Labs: Laboratory Tests Test 07/29/19 07:57 White Blood Count 7.0 x10^3/uL (4.0-11.0) Red Blood Count 4.42 x10^6/uL (4.30-5.70) Hemoglobin 12.4 g/dL (13.0-17.5) L Hematocrit 36.5 % (39.0-53.0) L Mean Corpuscular Volume 83 fL (79-100) Mean Corpuscular Hemoglobin 28 pg (25-35) Mean Corpuscular Hemoglobin Concent 34 g/dL (31-37) Red Cell Distribution Width 14.4 % (11.5-14.5) Platelet Count 535 x10^3/uL (140-400) H Neutrophils (%) (Auto) 57 % (31-73) Lymphocytes (%) (Auto) 30 % (24-48) Monocytes (%) (Auto) 11 % (0-9) H Eosinophils (%) (Auto) 2 % (0-3) Basophils (%) (Auto) 0 % (0-3) Neutrophils # (Auto) 3.9 x10^3uL (1.8-7.7) Lymphocytes # (Auto) 2.1 x10^3/uL (1.0-4.8) Monocytes # (Auto) 0.8 x10^3/uL (0.0-1.1) Eosinophils # (Auto) 0.2 x10^3/uL (0.0-0.7) Basophils # (Auto) 0.0 x10^3/uL (0.0-0.2) Sodium Level 133 mmol/L (136-145) L Potassium Level 4.0 mmol/L (3.5-5.1) Chloride Level 98 mmol/L (98-107) Carbon Dioxide Level 27 mmol/L (21-32) Anion Gap 8 (6-14) Blood Urea Nitrogen 9 mg/dL (8-26) Creatinine 0.9 mg/dL (0.7-1.3) Estimated GFR (Cockcroft-Gault) 84.2 BUN/Creatinine Ratio 10 (6-20) Glucose Level 99 mg/dL (70-99) Calcium Level 9.0 mg/dL (8.5-10.1) Total Bilirubin 0.3 mg/dL (0.2-1.0) Aspartate Amino Transferase (AST) 19 U/L (15-37) Alanine Aminotransferase (ALT) 20 U/L (16-63) Alkaline Phosphatase 61 U/L (46-116) Total Protein 6.7 g/dL (6.4-8.2) Albumin 3.1 g/dL (3.4-5.0) L Albumin/Globulin Ratio 0.9 (1.0-1.7) L Current Medications: Meds: Current Medications Medications (Trade) Dose Ordered Sig/Henry Route PRN Reason Start Time Stop Time Status Last Admin Dose Admin Trazodone HCl (Desyrel) 250 mg QHS PO 07/28/19 21:00 07/29/19 20:18 I have reviewed the current psychotropics carefully including drug interactions. Risk benefit ratio favors no change other than as noted in my dictated progress note. Diagnosis: Problems: (1) Conversion disorder (2) Mild cognitive impairment (3) History of post traumatic stress disorder (4) Anxiety disorder (5) Major depressive disorder, recurrent episode (6) Psychosis, atypical DARA FELIPE MD Jul 29, 2019 20:33
--- NOTE | 2019-07-29 22:34 | PN ---
DATE: 07/27/2019 PSYCHIATRIC PROGRESS NOTE This late entry 07/27/2019 covers elements not covered in my initial note. SUBJECTIVE: I met with the patient evening of July 27. The patient slept 6-3/4 hours previous night per PEDRO LUIS Ames. He states he again did not sleep. Subjectively, less going into the bedroom during the day. We will check an amitriptyline level. REVIEW OF SYSTEMS: Positive for tiredness. No CV, , pulmonary, eye, ENT system symptoms on review. MENTAL STATUS EXAM: The patient is reasonably oriented. Speech has some latency, coherent. Abstraction fair. Computation impaired. Language function intact. Attention span short. Mood and affect somewhat dysphoric, but he is smiling more readily as I met with him. LABORATORY DATA: Reviewed. IMPRESSION: Unchanged from initial note. PLAN: No change from initial note, other than check the amitriptyline blood level for now. MAN Marc FELIPE MD DR: NIKKY/sergey JOB#: [id number] / [id number]
--- NOTE | 2019-07-29 23:20 | NUR ---
Prn trazodone given, pt laying awake in bed said he has insomnia. Med taken whole without difficulty. Calm and cooperative no behaviors.
[2019-07-30] MEDS: HYDROcodone/APAP 5/325MG 1 TAB TABLET PO PRN (01:23)
--- NOTE | 2019-07-30 01:24 | NUR ---
PRN michael dwyer pt remains awake in bed and reports back pain.
[2019-07-30] MEDS: LEVOTHYROXINE 50 MCG TABLET PO SCH (04:33)
[2019-07-30 05:48] VITALS: BP 96/58
[2019-07-30 08:00] VITALS: BP 109/65
[2019-07-30] MEDS: LURASIDONE 40 MG TABLET. PO SCH (08:06)
[2019-07-30] MEDS: CHOLECALCIFEROL (VITAMIN D3) 50,000 UNIT CAPSULE PO SCH (08:06)
[2019-07-30] MEDS: DULoxetine HCL 30 MG CAPSULE.DR PO SCH (08:06)
[2019-07-30] MEDS: FINASTERIDE 5 MG TABLET PO SCH (08:07)
[2019-07-30] MEDS: LISINOPRIL 10 MG TABLET PO SCH (08:07)
[2019-07-30] MEDS: TAMSULOSIN 0.4 MG CAP.ER.24H. PO SCH (08:07)
[2019-07-30] MEDS: DOCUSATE SODIUM 100 MG CAPSULE PO SCH ×2 (08:07→21:10)
[2019-07-30] MEDS: PRENATAL MULTIVITAMIN TABLET. PO SCH (08:07)
[2019-07-30] MEDS: ASPIRIN ENTERIC COATED 81 MG TABLET.DR. PO SCH (08:08)
[2019-07-30] MEDS: amLODIPine BESYLATE 5 MG TABLET PO SCH (08:08)
--- NOTE | 2019-07-30 10:27 | NUR ---
Nursing note: Pt in dining room for morning meds and assessment. Pt was compliant with meds and cooperative with his assessment. Pt has no complaints this morning and denies depression and SI. Pt is currently in the day room.
[2019-07-30 15:39] VITALS: BP 107/71
--- NOTE | 2019-07-30 15:53 | PN ---
DATE: 07/28/2019 PSYCHIATRIC PROGRESS NOTE This late entry 07/28/2019 covers elements not covered in my initial note. SUBJECTIVE: I met with the patient evening of 07/28/2019. The patient slept 6-1/2 hours previous night. He still states he did not sleep at night, up all night, but this is typical for him. He is wanting an increase of trazodone. REVIEW OF SYSTEMS: No CV, , pulmonary, eye system symptoms on review. MENTAL STATUS EXAM: Reasonably oriented. Speech has some latency, coherent, often responses monosyllabic. Abstraction fair, computation impaired, language function intact. Mood and affect remain somewhat withdrawn. LABORATORY DATA: Reviewed. IMPRESSION: Unchanged from initial note. PLAN: Increase trazodone to 250 mg at bedtime, may repeat x 1 for insomnia. Maintain amitriptyline, melatonin, Latuda, Cymbalta at current dosage. MAN Marc FELIPE MD DR: NIKKY/sergey JOB#: [id number] / [id number]
--- NOTE | 2019-07-30 20:10 | PDOC ---
Exam Note: Robert Note: Please also refer to the separate dictated note~for this date of service dictated separately.~Patient seen individually. Discussed the patient with Nursing staff reviewed the chart.~Reviewed interim history and current functioning. Reviewed vital signs,~Labs/ Radiology~and current medications noted below. Continue current treatment with the changes noted in the dictated addendum note Assessment: Vital Signs/I&O: Vital Signs Date Time Temp Pulse Resp B/P (MAP) Pulse Ox O2 Delivery O2 Flow Rate FiO2 07/30/19 15:39 97.6 96 16 107/71 (83) 96 07/30/19 05:48 Room Air I & O 07/29/19 07/29/19 07/30/19 15:00 23:00 07:00 Intake Total 960 ml 480 ml 240 ml Balance 960 ml 480 ml 240 ml Labs: Laboratory Tests Test 07/30/19 07:13 Sodium Level 134 mmol/L (136-145) L Current Medications: I have reviewed the current psychotropics carefully including drug interactions. Risk benefit ratio favors no change other than as noted in my dictated progress note. Diagnosis: Problems: (1) Conversion disorder (2) Mild cognitive impairment (3) History of post traumatic stress disorder (4) Anxiety disorder (5) Major depressive disorder, recurrent episode (6) Psychosis, atypical DARA FELIPE MD Jul 30, 2019 20:10
[2019-07-30] MEDS: MELATONIN 3 MG TABLET PO SCH (21:10)
[2019-07-30] MEDS: FENOFIBRATE NANOCRYSTALLIZED 145 MG TABLET PO SCH (21:10)
[2019-07-30] MEDS: traZODone 100 MG TABLET. PO SCH (21:10)
[2019-07-30] MEDS: ATORVASTATIN CALCIUM 20 MG TABLET PO SCH (21:11)
--- NOTE | 2019-07-31 00:54 | NUR ---
Nursing Note The patient was calm and compliant with his medication and assessment. The patient took his meidcaiton whole. The patients last documented Bowel movement was on 06/24/19 so MOM and prune juice were given. Patient reports BM @0050 07/31/19.
[2019-07-31 06:22] VITALS: BP 96/58
[2019-07-31] MEDS: LEVOTHYROXINE 50 MCG TABLET PO SCH (06:23)
--- NOTE | 2019-07-31 07:19 | PN ---
DATE: 07/29/2019 PSYCHIATRIC PROGRESS NOTE This late entry 07/29/2019 covers elements not covered in my initial note. SUBJECTIVE: I met with the patient the evening of 07/29/2019. Overall, the patient states he is not sleeping at night, though it is recorded at 6-1/2 hours. He has been withdrawn, still feels depressed, but comes out more to groups and activities. He does have some probable SIADH symptoms. Sodium is 133, we will defer to Dr. Estevez, and he is on fluid restriction. I had a lengthy discussion with him explaining the reason for the fluid restriction and we will stop the amitriptyline since this could be contributing to it more likely than trazodone. REVIEW OF SYSTEMS: No CV, , pulmonary, eye system symptoms on review. MENTAL STATUS EXAM: Reasonably oriented. Speech has some latency, coherent, often responses monosyllabic. Abstraction is fair. Computation is impaired. Language function is intact. Mood and affect somewhat withdrawn. LABORATORY DATA: Reviewed. 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 PLAN: Stop the amitriptyline. Continue rest unchanged for now. MAN Marc FELIPE MD DR: NIKKY/sergey JOB#: [id number] / [id number]
[2019-07-31 07:30] LABS: CALCIUM 8.9 mg/dL (8.5-10.1); CREATININE 0.8 mg/dL (0.7-1.3); GFR 96.4; POTASSIUM 4.1 mmol/L (3.5-5.1)
[2019-07-31 08:25] VITALS: BP 116/72
[2019-07-31] MEDS: ASPIRIN ENTERIC COATED 81 MG TABLET.DR. PO SCH (08:28)
[2019-07-31] MEDS: DOCUSATE SODIUM 100 MG CAPSULE PO SCH ×2 (08:28→20:13)
[2019-07-31] MEDS: TAMSULOSIN 0.4 MG CAP.ER.24H. PO SCH (08:29)
[2019-07-31] MEDS: amLODIPine BESYLATE 5 MG TABLET PO SCH (08:29)
[2019-07-31] MEDS: DULoxetine HCL 30 MG CAPSULE.DR PO SCH (08:29)
[2019-07-31] MEDS: FINASTERIDE 5 MG TABLET PO SCH (08:30)
[2019-07-31] MEDS: LURASIDONE 40 MG TABLET. PO SCH (08:30)
[2019-07-31] MEDS: LISINOPRIL 10 MG TABLET PO SCH (08:30)
[2019-07-31] MEDS: PRENATAL MULTIVITAMIN TABLET. PO SCH (08:30)
--- NOTE | 2019-07-31 14:39 | NUR ---
Call received from Isaura Delvalle, Bj's , indicating she had received the PASRR determination letter in the mail. Isaura e-mailed this worker a copy of the letter. Discussion held about [facility] centers vs. level II nursing facilities that specialize in mental health needs. SW called the following facilities to inquire about bed availability: [facility] has openings; [facility]-awaiting return phone call; [facility] has no availability; [facility] has openings; [facility] has availability; [facility] has availability; and [place] has availability. E-mailed Isaura back to inform of above information so as to forward referrals to facilities of her and Bj's choice. Awaiting direction.
--- NOTE | 2019-07-31 14:59 | NUR ---
Nursing note: Pt in dining room this morning for meds and assessment. He was compliant with taking his meds and was cooperative with his assessment. Pt had no complaints this morning and has been in the day room for most of the day.
--- NOTE | 2019-07-31 15:37 | NUR ---
Reviewed with Bj about receiving level II PASRR letter and proceeding with finding placement. 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 Bj had no specific facilities that he wanted a referral to be sent to as he is not familiar with care facilities in this area. Per request of Isaura, faxed referral to [facility] for review, awaiting outcome.
[2019-07-31 16:11] VITALS: BP 109/65
--- NOTE | 2019-07-31 17:32 | NUR ---
Fluid restriction of [address] Estevez's order d/t low Na level.
--- NOTE | 2019-07-31 19:56 | PDOC ---
Exam Note: Robert Note: Please also refer to the separate dictated note~for this date of service dictated separately.~Patient seen individually. Discussed the patient with Nursing staff reviewed the chart.~Reviewed interim history and current functioning. Reviewed vital signs,~Labs/ Radiology~and current medications noted below. Continue current treatment with the changes noted in the dictated addendum note Assessment: Vital Signs/I&O: Vital Signs Date Time Temp Pulse Resp B/P (MAP) Pulse Ox O2 Delivery O2 Flow Rate FiO2 07/31/19 16:11 97.6 86 18 109/65 (80) 95 07/30/19 05:48 Room Air I & O 07/30/19 07/30/19 07/31/19 14:59 22:59 06:59 Intake Total 1200 ml 480 ml 120 ml Balance 1200 ml 480 ml 120 ml Labs: Laboratory Tests Test 07/31/19 06:30 Sodium Level 136 mmol/L (136-145) Potassium Level 4.1 mmol/L (3.5-5.1) Chloride Level 99 mmol/L (98-107) Carbon Dioxide Level 28 mmol/L (21-32) Anion Gap 9 (6-14) Blood Urea Nitrogen 12 mg/dL (8-26) Creatinine 0.8 mg/dL (0.7-1.3) Estimated GFR (Cockcroft-Gault) 96.4 Glucose Level 96 mg/dL (70-99) Calcium Level 8.9 mg/dL (8.5-10.1) Current Medications: I have reviewed the current psychotropics carefully including drug interactions. Risk benefit ratio favors no change other than as noted in my dictated progress note. Diagnosis: Problems: (1) Conversion disorder (2) Mild cognitive impairment (3) History of post traumatic stress disorder (4) Anxiety disorder (5) Major depressive disorder, recurrent episode (6) Psychosis, atypical DARA FELIPE MD Jul 31, 2019 19:56
[2019-07-31] MEDS: ATORVASTATIN CALCIUM 20 MG TABLET PO SCH (20:13)
[2019-07-31] MEDS: FENOFIBRATE NANOCRYSTALLIZED 145 MG TABLET PO SCH (20:13)
[2019-07-31] MEDS: traZODone 100 MG TABLET. PO SCH (20:13)
[2019-07-31] MEDS: MELATONIN 3 MG TABLET PO SCH (20:14)
--- NOTE | 2019-07-31 20:14 | PN ---
DATE: PSYCHIATRIC PROGRESS NOTE This late entry 07/30/2019 covers the elements not covered in my initial note. SUBJECTIVE: I met with the patient in the evening of 07/30/2019. The patient slept 4-1/2 hours previous night. Sodium is 134, improved from 133, the day before. Per PEDRO LUIS Loaiza, the patient remains somewhat withdrawn, states he slept poorly previous night. We did stop the amitriptyline, but he was complaining of not sleeping well even before this. REVIEW OF SYSTEMS: No CV, , pulmonary, eye system symptoms on review. MENTAL STATUS EXAM: Reasonably oriented. Speech has some latency, coherent, often responses monosyllabic. Abstraction fair, computation impaired, language function intact, attention span short. Mood and affect withdrawn. LABORATORY DATA: Reviewed. IMPRESSION: Unchanged from initial note including SIADH. PLAN: No change from initial note. Keep the patient off amitriptyline. Repeat electrolytes morning of 07/31/2019. MAN Marc FELIPE MD DR: NIKKY/sergey JOB#: [id number] / [id number]
--- NOTE | 2019-07-31 22:55 | NUR ---
Pt in dayroom for evening meds and assessment. Pt calm and cooperative. No behaviors noted. Pt stated that he never gets any sleep.
[2019-08-01] MEDS: LEVOTHYROXINE 50 MCG TABLET PO SCH (05:51)
[2019-08-01 06:11] VITALS: BP 130/64
[2019-08-01] MEDS: LURASIDONE 40 MG TABLET. PO SCH (08:16)
[2019-08-01] MEDS: ASPIRIN ENTERIC COATED 81 MG TABLET.DR. PO SCH (08:16)
[2019-08-01] MEDS: PRENATAL MULTIVITAMIN TABLET. PO SCH (08:17)
[2019-08-01] MEDS: TAMSULOSIN 0.4 MG CAP.ER.24H. PO SCH (08:17)
[2019-08-01] MEDS: DOCUSATE SODIUM 100 MG CAPSULE PO SCH ×2 (08:17→20:23)
[2019-08-01] MEDS: amLODIPine BESYLATE 5 MG TABLET PO SCH (08:17)
[2019-08-01] MEDS: DULoxetine HCL 30 MG CAPSULE.DR PO SCH (08:17)
[2019-08-01] MEDS: FINASTERIDE 5 MG TABLET PO SCH (08:18)
[2019-08-01] MEDS: LISINOPRIL 10 MG TABLET PO SCH (08:18)
--- NOTE | 2019-08-01 14:07 | NUR ---
Patient was in the dining room during morning rounding, took medications whole, allowed for morning assessment. Patient asked about how much water he could have today. The nurse reminded him he was on a fluid restriction and that we have to keep a close eye on his intake due to his sodium levels. Patient verbalized understanding of this. No agitation noted, patient is withdrawn to himself. Will continue to monitor.
[2019-08-01 16:31] VITALS: BP 139/79
--- NOTE | 2019-08-01 19:56 | PDOC ---
Exam Note: Robert Note: Please also refer to the separate dictated note~for this date of service dictated separately.~Patient seen individually. Discussed the patient with Nursing staff reviewed the chart.~Reviewed interim history and current functioning. Reviewed vital signs,~Labs/ Radiology~and current medications noted below. Continue current treatment with the changes noted in the dictated addendum note Assessment: Vital Signs/I&O: Vital Signs Date Time Temp Pulse Resp B/P (MAP) Pulse Ox O2 Delivery O2 Flow Rate FiO2 08/01/19 16:31 97.8 102 16 139/79 (99) 97 07/30/19 05:48 Room Air I & O 07/31/19 07/31/19 08/01/19 15:00 23:00 07:00 Intake Total 720 ml 300 ml Balance 720 ml 300 ml Current Medications: I have reviewed the current psychotropics carefully including drug interactions. Risk benefit ratio favors no change other than as noted in my dictated progress note. Diagnosis: Problems: (1) Conversion disorder (2) Mild cognitive impairment (3) History of post traumatic stress disorder (4) Anxiety disorder (5) Major depressive disorder, recurrent episode (6) Psychosis, atypical DARA FELIPE MD Aug 01, 2019 19:56
[2019-08-01] MEDS: MELATONIN 3 MG TABLET PO SCH (20:23)
[2019-08-01] MEDS: traZODone 100 MG TABLET. PO SCH (20:23)
[2019-08-01] MEDS: FENOFIBRATE NANOCRYSTALLIZED 145 MG TABLET PO SCH (20:23)
[2019-08-01] MEDS: ATORVASTATIN CALCIUM 20 MG TABLET PO SCH (20:23)
--- NOTE | 2019-08-02 01:46 | PN ---
DATE: 07/31/2019 This late entry 07/31/2019 covers elements not covered in my initial note. SUBJECTIVE: I met with the patient in the evening. Per Hui RN, the patient slept 6 hours previous night, irritable in the morning with certified nursing assistant instructor. Sodium is 136, improved. He is frustrated with the fluid restriction. We will defer to Dr. Estevez consequent to his SIADH on the amitriptyline, which has since been discontinued. REVIEW OF SYSTEMS: No CV, , pulmonary, eye system symptoms on review. MENTAL STATUS EXAM: Reasonably oriented. Speech has some latency, often responses monosyllabic, coherent. Abstraction fair, computation impaired, language function intact. Mood and affect still depressed, but improved. LABORATORY DATA: Reviewed. No active suicidal ideation. IMPRESSION: Unchanged from initial note. PLAN: No change from initial note. MAN Marc FELIPE MD DR: NIKKY/sergey JOB#: [id number] / [id number]
[2019-08-02] MEDS: LEVOTHYROXINE 50 MCG TABLET PO SCH (05:31)
[2019-08-02 06:03] VITALS: BP 116/68
[2019-08-02 06:47] LABS: ALBUMIN/GLOBULIN RATIO 0.9 (1.0-1.7); CALCIUM 8.7 mg/dL (8.5-10.1); CREATININE 0.8 mg/dL (0.7-1.3); GFR 96.4; TOTAL BILIRUBIN 0.3 mg/dL (0.2-1.0); TOTAL PROTEIN 6.3 g/dL (6.4-8.2)
[2019-08-02] MEDS: DULoxetine HCL 30 MG CAPSULE.DR PO SCH (08:12)
[2019-08-02] MEDS: ASPIRIN ENTERIC COATED 81 MG TABLET.DR. PO SCH (08:12)
[2019-08-02] MEDS: LURASIDONE 40 MG TABLET. PO SCH (08:12)
[2019-08-02] MEDS: PRENATAL MULTIVITAMIN TABLET. PO SCH (08:12)
[2019-08-02] MEDS: DOCUSATE SODIUM 100 MG CAPSULE PO SCH ×2 (08:13→20:06)
[2019-08-02] MEDS: LISINOPRIL 10 MG TABLET PO SCH (08:13)
[2019-08-02] MEDS: amLODIPine BESYLATE 5 MG TABLET PO SCH (08:13)
[2019-08-02] MEDS: TAMSULOSIN 0.4 MG CAP.ER.24H. PO SCH (08:13)
[2019-08-02] MEDS: FINASTERIDE 5 MG TABLET PO SCH (08:13)
--- NOTE | 2019-08-02 09:20 | NUR ---
WEEKLY ACTIVITY THERAPY NOTE Date of Admission: 07/02/2019 Date of AT Assessment: 07/06/2019 Goal aimed: to increase motivation and recreation education Initial goal: Pt. will participate in at least five activity therapy groups per week. Goal changed 07/26/19: Pt. will participate in all Activity Therapy groups offered Weekly progress towards goal: did not achieve Group participation level: varied Weekly highlights: painted window with prompting, tr in pictionary despite feeling like he had no idea what to do Behaviors observed: sleeping more in group this week/dozing off, calm, social with female peer Plan: no change to goal Beneficial adaptations: sit close to surgical clinical reviewer, reminders and focus on positives, gross motor activities
--- NOTE | 2019-08-02 10:13 | NUR ---
Nursing note: Pt was in dining room for morning meds and assessment. He was compliant with taking his meds whole and was cooperative with his assessment. Pt asked if he was still on a fluid restriction and was concerned about becoming dehydrated. This nurse reminded him that the fluid restriction was necessary until his sodium levels were back up. Pt confirmed he understood and he had no other complaints. He is currently in the day room. Will continue to monitor.
--- NOTE | 2019-08-02 10:55 | NUR ---
WEEKLY NOTE: Bj is averaging 75% of meals and six hours of sleep at night, although Bj reports he is still having insomnia. Bj is attending meals in the dining room and is involved in many fo the SW and recreational therapy group activities. He has been cooperative with medication administration and nursing assessments. Referrals are being sent out to facilities for review, Bj will d/c once placement is obtained.
--- NOTE | 2019-08-02 13:24 | NUR ---
Per request of Isaura, joe, faxed referrals to [facility], [facility], and [facility]. Received phone call back from [facility] declining Bj for admission indicating they could not meet his needs. Awaiting return calls from other facilities. F/u call two placed to Jolene at [facility] with intent to inquire about admission decision. Left detailed message with request for return phone call. Call placed to SEFERINO Hayes at [facility], who indicated having male availability. Faxed referral for review, awaiting outcome.
--- NOTE | 2019-08-02 14:02 | NUR ---
Received a voice message from [facility] declining Bj for admission. Notified Isaura, , via e-mail.
[2019-08-02 16:05] VITALS: BP 115/74
[2019-08-02] MEDS: FENOFIBRATE NANOCRYSTALLIZED 145 MG TABLET PO SCH (20:06)
[2019-08-02] MEDS: ATORVASTATIN CALCIUM 20 MG TABLET PO SCH (20:06)
[2019-08-02] MEDS: traZODone 100 MG TABLET. PO SCH (20:06)
[2019-08-02] MEDS: MELATONIN 3 MG TABLET PO SCH (20:06)
--- NOTE | 2019-08-02 20:20 | NUR ---
Nursing note: Assumed care of pt in the day room. He is calm and compliant, interacting only when interacted with first. No c/o pain or delusions present at this time.
--- NOTE | 2019-08-02 20:22 | PDOC ---
Exam Note: Robert Note: Please also refer to the separate dictated note~for this date of service dictated separately.~Patient seen individually. Discussed the patient with Nursing staff reviewed the chart.~Reviewed interim history and current functioning. Reviewed vital signs,~Labs/ Radiology~and current medications noted below. Continue current treatment with the changes noted in the dictated addendum note Assessment: Vital Signs/I&O: Vital Signs Date Time Temp Pulse Resp B/P (MAP) Pulse Ox O2 Delivery O2 Flow Rate FiO2 08/02/19 16:05 97.6 86 18 115/74 (88) 96 07/30/19 05:48 Room Air I & O 08/01/19 08/01/19 08/02/19 15:00 23:00 07:00 Intake Total 840 ml 360 ml 120 ml Balance 840 ml 360 ml 120 ml Labs: Laboratory Tests Test 08/02/19 06:17 Sodium Level 134 mmol/L (136-145) L Potassium Level 4.0 mmol/L (3.5-5.1) Chloride Level 98 mmol/L (98-107) Carbon Dioxide Level 29 mmol/L (21-32) Anion Gap 7 (6-14) Blood Urea Nitrogen 9 mg/dL (8-26) Creatinine 0.8 mg/dL (0.7-1.3) Estimated GFR (Cockcroft-Gault) 96.4 BUN/Creatinine Ratio 11 (6-20) Glucose Level 96 mg/dL (70-99) Calcium Level 8.7 mg/dL (8.5-10.1) Total Bilirubin 0.3 mg/dL (0.2-1.0) Aspartate Amino Transferase (AST) 14 U/L (15-37) L Alanine Aminotransferase (ALT) 19 U/L (16-63) Alkaline Phosphatase 58 U/L (46-116) Total Protein 6.3 g/dL (6.4-8.2) L Albumin 3.0 g/dL (3.4-5.0) L Albumin/Globulin Ratio 0.9 (1.0-1.7) L Current Medications: I have reviewed the current psychotropics carefully including drug interactions. Risk benefit ratio favors no change other than as noted in my dictated progress note. Diagnosis: Problems: (1) Conversion disorder (2) Mild cognitive impairment (3) History of post traumatic stress disorder (4) Anxiety disorder (5) Major depressive disorder, recurrent episode (6) Psychosis, atypical DARA FELIPE MD Aug 02, 2019 20:22
[2019-08-03] MEDS: LEVOTHYROXINE 50 MCG TABLET PO SCH (06:06)
[2019-08-03 06:08] VITALS: BP 107/66
[2019-08-03 06:41] LABS: CALCIUM 8.9 mg/dL (8.5-10.1); CREATININE 0.8 mg/dL (0.7-1.3); GFR 96.4; POTASSIUM 4.1 mmol/L (3.5-5.1)
[2019-08-03] MEDS: DULoxetine HCL 30 MG CAPSULE.DR PO SCH (08:28)
[2019-08-03] MEDS: LISINOPRIL 10 MG TABLET PO SCH (08:29)
[2019-08-03] MEDS: TAMSULOSIN 0.4 MG CAP.ER.24H. PO SCH (08:29)
[2019-08-03] MEDS: amLODIPine BESYLATE 5 MG TABLET PO SCH (08:29)
[2019-08-03] MEDS: ASPIRIN ENTERIC COATED 81 MG TABLET.DR. PO SCH (08:29)
[2019-08-03] MEDS: FINASTERIDE 5 MG TABLET PO SCH (08:29)
[2019-08-03] MEDS: DOCUSATE SODIUM 100 MG CAPSULE PO SCH ×2 (08:29→19:54)
[2019-08-03] MEDS: LURASIDONE 40 MG TABLET. PO SCH (08:30)
[2019-08-03] MEDS: PRENATAL MULTIVITAMIN TABLET. PO SCH (08:30)
[2019-08-03] MEDS: cloNIDine TTS-2 1 PATCH PATCH TD SCH (08:30)
--- NOTE | 2019-08-03 11:59 | NUR ---
Patient is in the dining room for assessments and meds. He is calm, cooperative and compliant. He continues to question the need for a fluid restriction. This marketing writer reiterated to him that it is necessary until his labs go back to normal. He was satisfied with that answer. No agitation. Denies pain or discomfort. Denies SI/HI.
[2019-08-03 16:22] VITALS: BP 115/76
[2019-08-03] MEDS: FENOFIBRATE NANOCRYSTALLIZED 145 MG TABLET PO SCH (19:54)
[2019-08-03] MEDS: ATORVASTATIN CALCIUM 20 MG TABLET PO SCH (19:54)
[2019-08-03] MEDS: MELATONIN 3 MG TABLET PO SCH (19:54)
--- NOTE | 2019-08-03 20:36 | PDOC ---
Exam Note: Robert Note: Please also refer to the separate dictated note~for this date of service dictated separately.~Patient seen individually. Discussed the patient with Nursing staff reviewed the chart.~Reviewed interim history and current functioning. Reviewed vital signs,~Labs/ Radiology~and current medications noted below. Continue current treatment with the changes noted in the dictated addendum note Assessment: Vital Signs/I&O: Vital Signs Date Time Temp Pulse Resp B/P (MAP) Pulse Ox O2 Delivery O2 Flow Rate FiO2 08/03/19 16:22 97.4 96 17 115/76 (89) 100 Room Air I & O 08/02/19 08/02/19 08/03/19 15:00 23:00 07:00 Intake Total 960 ml 360 ml Balance 960 ml 360 ml Labs: Laboratory Tests Test 08/03/19 06:05 Sodium Level 134 mmol/L (136-145) L Potassium Level 4.1 mmol/L (3.5-5.1) Chloride Level 99 mmol/L (98-107) Carbon Dioxide Level 30 mmol/L (21-32) Anion Gap 5 (6-14) L Blood Urea Nitrogen 10 mg/dL (8-26) Creatinine 0.8 mg/dL (0.7-1.3) Estimated GFR (Cockcroft-Gault) 96.4 Glucose Level 88 mg/dL (70-99) Calcium Level 8.9 mg/dL (8.5-10.1) Current Medications: I have reviewed the current psychotropics carefully including drug interactions. Risk benefit ratio favors no change other than as noted in my dictated progress note. Diagnosis: Problems: (1) Conversion disorder (2) Mild cognitive impairment (3) History of post traumatic stress disorder (4) Anxiety disorder (5) Major depressive disorder, recurrent episode (6) Psychosis, atypical DARA FELIPE MD Aug 03, 2019 20:36
--- NOTE | 2019-08-03 21:22 | NUR ---
Nursing note: Assumed care of pt in the day room. He was calm and compliant. When I asked if he was aware that his Trazodone had been D/C'd he said yes but it didn't matter because he doesn't sleep anyway. He then went into his room to lie down. No c/o pain, no behaviors.
--- NOTE | 2019-08-04 02:45 | PN ---
DATE: 08/02/2019 PSYCHIATRIC PROGRESS NOTE This late entry 08/02/2019 covers the elements not covered in my initial note. SUBJECTIVE: I met with the patient evening of 08/02/2019. Sleeping about 6 hours average. Appetite is 75%. He is still on fluid restriction, seems to resent this baseline sodium was 140, currently around 134 despite discontinuing the amitriptyline. We may have to stop the trazodone if it is resistive to increase despite fluid restriction. He still subjectively feels he does not sleep at night, but objectively nursing report a reasonable amount of sleep. REVIEW OF SYSTEMS: No CV, , pulmonary, eye system symptoms on review. Gait unsteady with walker. MENTAL STATUS EXAM: Reasonably oriented. Speech has some latency, coherent. Abstraction fair, computation impaired, language function intact. Mood and affect still somewhat dysphoric. No suicidal ideation. LABORATORY DATA: Reviewed. IMPRESSION: Unchanged from initial note. PLAN: No change from initial note. MAN Marc FELIPE MD DR: NIKKY/sergey JOB#: [id number] / [id number]
[2019-08-04 06:00] VITALS: BP 142/75
[2019-08-04] MEDS: LEVOTHYROXINE 50 MCG TABLET PO SCH (06:13)
[2019-08-04 08:20] LABS: CALCIUM 8.8 mg/dL (8.5-10.1); CREATININE 0.8 mg/dL (0.7-1.3); GFR 96.4; POTASSIUM 4.3 mmol/L (3.5-5.1)
[2019-08-04] MEDS: TAMSULOSIN 0.4 MG CAP.ER.24H. PO SCH (08:48)
[2019-08-04] MEDS: DOCUSATE SODIUM 100 MG CAPSULE PO SCH ×2 (08:48→21:01)
[2019-08-04] MEDS: PRENATAL MULTIVITAMIN TABLET. PO SCH (08:48)
[2019-08-04] MEDS: ASPIRIN ENTERIC COATED 81 MG TABLET.DR. PO SCH (08:48)
[2019-08-04] MEDS: LURASIDONE 40 MG TABLET. PO SCH (08:48)
[2019-08-04] MEDS: DULoxetine HCL 30 MG CAPSULE.DR PO SCH (08:48)
[2019-08-04] MEDS: amLODIPine BESYLATE 5 MG TABLET PO SCH (08:48)
[2019-08-04] MEDS: LISINOPRIL 10 MG TABLET PO SCH (08:49)
[2019-08-04] MEDS: FINASTERIDE 5 MG TABLET PO SCH (08:49)
--- NOTE | 2019-08-04 09:48 | NUR ---
Patient was in his room during morning rounding, took medications, allowed for morning assessment. Patient is tired. No agitation noted, pt denies pain. Will continue to monitor.
[2019-08-04 15:58] VITALS: BP 149/82
--- NOTE | 2019-08-04 20:40 | PDOC ---
Exam Note: Robert Note: Please also refer to the separate dictated note~for this date of service dictated separately.~Patient seen individually. Discussed the patient with Nursing staff reviewed the chart.~Reviewed interim history and current functioning. Reviewed vital signs,~Labs/ Radiology~and current medications noted below. Continue current treatment with the changes noted in the dictated addendum note Assessment: Vital Signs/I&O: Vital Signs Date Time Temp Pulse Resp B/P (MAP) Pulse Ox O2 Delivery O2 Flow Rate FiO2 08/04/19 15:58 99.3 102 16 149/82 (104) 97 08/04/19 06:00 Room Air I & O 08/03/19 08/03/19 08/04/19 15:00 23:00 07:00 Intake Total 960 ml 360 ml Balance 960 ml 360 ml Labs: Laboratory Tests Test 08/04/19 07:45 Sodium Level 133 mmol/L (136-145) L Potassium Level 4.3 mmol/L (3.5-5.1) Chloride Level 98 mmol/L (98-107) Carbon Dioxide Level 27 mmol/L (21-32) Anion Gap 8 (6-14) Blood Urea Nitrogen 12 mg/dL (8-26) Creatinine 0.8 mg/dL (0.7-1.3) Estimated GFR (Cockcroft-Gault) 96.4 Glucose Level 96 mg/dL (70-99) Calcium Level 8.8 mg/dL (8.5-10.1) Current Medications: I have reviewed the current psychotropics carefully including drug interactions. Risk benefit ratio favors no change other than as noted in my dictated progress note. Diagnosis: Problems: (1) Conversion disorder (2) Mild cognitive impairment (3) History of post traumatic stress disorder (4) Anxiety disorder (5) Major depressive disorder, recurrent episode (6) Psychosis, atypical DARA FELIPE MD Aug 04, 2019 20:40
[2019-08-04] MEDS: ATORVASTATIN CALCIUM 20 MG TABLET PO SCH (21:01)
[2019-08-04] MEDS: MELATONIN 3 MG TABLET PO SCH (21:01)
[2019-08-04] MEDS: FENOFIBRATE NANOCRYSTALLIZED 145 MG TABLET PO SCH (21:01)
--- NOTE | 2019-08-04 23:04 | NUR ---
Pt located in his room this evening. Pt pleasant and compliant with whole medications. Slightly upset when informed that he had reached his fluid restriction maximum for the day. Pt currently sleeping soundly in bed.
[2019-08-05 05:48] VITALS: BP 134/71
[2019-08-05] MEDS: LEVOTHYROXINE 50 MCG TABLET PO SCH (06:06)
[2019-08-05 08:40] LABS: CALCIUM 9.1 mg/dL (8.5-10.1); CREATININE 0.7 mg/dL (0.7-1.3); GFR 112.5; POTASSIUM 4.1 mmol/L (3.5-5.1)
[2019-08-05] MEDS: DOCUSATE SODIUM 100 MG CAPSULE PO SCH ×2 (09:26→21:04)
[2019-08-05] MEDS: DULoxetine HCL 30 MG CAPSULE.DR PO SCH (09:26)
[2019-08-05] MEDS: PRENATAL MULTIVITAMIN TABLET. PO SCH (09:26)
[2019-08-05] MEDS: LURASIDONE 40 MG TABLET. PO SCH (09:27)
[2019-08-05] MEDS: TAMSULOSIN 0.4 MG CAP.ER.24H. PO SCH (09:27)
[2019-08-05] MEDS: FINASTERIDE 5 MG TABLET PO SCH (09:27)
[2019-08-05] MEDS: LISINOPRIL 10 MG TABLET PO SCH (09:28)
[2019-08-05] MEDS: amLODIPine BESYLATE 5 MG TABLET PO SCH (09:28)
[2019-08-05] MEDS: ASPIRIN ENTERIC COATED 81 MG TABLET.DR. PO SCH (09:28)
[2019-08-05 15:38] VITALS: BP 123/77
[2019-08-05 16:23] VITALS: BP 112/69
[2019-08-05] MEDS: IV NORMAL SALINE 1,000ML 1,000 ML IV SCH (17:00)
[2019-08-05 17:01] LABS: HEMATOCRIT 40.3 % (39.0-53.0); HEMOGLOBIN 13.5 g/dL (13.0-17.5); RED BLOOD COUNT 4.83 x10^6/uL (4.30-5.70); RED CELL DISTRIBUTION WIDTH 14.4 % (11.5-14.5); WHITE BLOOD COUNT 10.8 x10^3/uL (4.0-11.0)
[2019-08-05 17:14] LABS: ALBUMIN 3.3 g/dL (3.4-5.0); ALBUMIN/GLOBULIN RATIO 0.9 (1.0-1.7); CALCIUM 8.9 mg/dL (8.5-10.1); CREATININE 0.7 mg/dL (0.7-1.3); GFR 112.5; POTASSIUM 3.9 mmol/L (3.5-5.1); TOTAL BILIRUBIN 0.2 mg/dL (0.2-1.0); TOTAL PROTEIN 6.8 g/dL (6.4-8.2)
[2019-08-05] MEDS ORDERED: CONTRAST GIVEN MC PRN (17:15)
[2019-08-05] MEDS ORDERED: IOHEXOL 240 MG/ML 50ML VIAL. PO ONE (17:15)
[2019-08-05] MEDS ORDERED: IOHEXOL 300 MG/ML 75 ML VIAL. IV ONE (17:15)
--- NOTE | 2019-08-05 19:29 | NUR ---
Pt. had c/o stomach pain to aide when V/S taken at 15:00. When I entered room later to recheck his v/s and assess, check his blood sugar, he was flushed, diaphoretic, and stated he'd had diarrhea today and stomach pain. Dr. Estevez present and assessed, rebound tenderness appeared to be present when pt. was further assessed by DrArleth Reaves received. I instructed pt. in what lab tests and abdominal CT was planned with dye. Pt. understood. Was focused on how much he would need to urinate to get rid of the dye. Continued to be calm and compliant with IV insertion, on first attempt by PEDRO LUIS Rubin. N/S was started as ordered, and continued to monitor him closely, keeping him updated on timeframe of tests. At 1800 he was given the drink for prep which he completed by 1830 without difficulty. At 1900 he was escorted per w/c to radiology for the Stat CT ordered. IV had become puffy, no redness or pain or burning felt by pt. But it was restarted in his L hand on first attempt at 1845, prior to leaving the floor, patent and running smoothly. Asked pt. if he would like his informed. Stated "that's up to you". Will await test results and Dr. Estevez's orders before notifying his . Pt. has not asked for any PRN pain medications, but is aware they are available, and instructed to notify us if any increase in pain or nausea developed. He agreed.
--- NOTE | 2019-08-05 19:50 | RAD ---
EXAM: Chest, single view. HISTORY: Shortness of breath. COMPARISON: None. FINDINGS: A frontal view of the chest is obtained. There is suspected bilateral lower lobe atelectasis. There is no consolidation, pleural effusion or pneumothorax. The heart is normal in size. IMPRESSION: Suspected bilateral lower lobe atelectasis. Electronically signed by: Shalonda Conti MD (08/05/2019 7:48 PM) [id number]
--- NOTE | 2019-08-05 19:54 | RAD ---
EXAM: Abdomen and pelvis CT with intravenous contrast. HISTORY: Right lower quadrant pain. TECHNIQUE: Computed tomographic images of the abdomen and pelvis were obtained following the administration of 75 cc Omnipaque 300 intravenous contrast. Multiplanar reformatting was performed. *One or more of the following individualized dose reduction techniques were utilized for this examination: 1. Automated exposure control. 2. Adjustment of the mA and/or kV according to patient size. 3. Use of iterative reconstruction technique. COMPARISON: None. FINDINGS: Evaluation of the lower thorax demonstrates posterior dependent and basilar atelectasis. There is no infiltrate or pleural effusion. The heart is normal in size. No hepatic lesion is seen. The gallbladder, pancreas, spleen and adrenal glands are unremarkable. There is a 1.8 cm simple appearing cyst within the anterior mid zone of the right kidney. There is no appendicitis. There is a large amount of stool throughout the colon and within the rectal vault. The bladder is distended. The aorta is normal in caliber. There is aortic and aortic branch vessel atherosclerosis. There is slight nonspecific stranding within the root of mesentery. There is no lymphadenopathy. There is a tiny fat-containing umbilical hernia. There are few benign bone islands. There are degenerative changes involving the spine. There is lumbar scoliosis. IMPRESSION: 1. Large amount of stool within the colon and rectal vault. Correlate for constipation. There may be superimposed fecal impaction. 2. Nonspecific stranding at the root of mesentery. No convincing lymphadenopathy is seen. 3. Small right renal cyst. Electronically signed by: Shalonda Conti MD (08/05/2019 7:51 PM) [facility]
--- NOTE | 2019-08-05 19:57 | PDOC ---
Exam Note: Robert Note: Please also refer to the separate dictated note~for this date of service dictated separately.~Patient seen individually. Discussed the patient with Nursing staff reviewed the chart.~Reviewed interim history and current functioning. Reviewed vital signs,~Labs/ Radiology~and current medications noted below. Continue current treatment with the changes noted in the dictated addendum note Assessment: Vital Signs/I&O: Vital Signs Date Time Temp Pulse Resp B/P (MAP) Pulse Ox O2 Delivery O2 Flow Rate FiO2 08/05/19 16:23 99.1 118 22 112/69 (83) 94 Room Air I & O 08/04/19 08/04/19 08/05/19 15:00 23:00 07:00 Intake Total 340 ml 180 ml Balance 340 ml 180 ml Labs: Laboratory Tests Test 08/05/19 07:50 08/05/19 16:16 08/05/19 16:50 Sodium Level 131 mmol/L (136-145) L 132 mmol/L (136-145) L Potassium Level 4.1 mmol/L (3.5-5.1) 3.9 mmol/L (3.5-5.1) Chloride Level 97 mmol/L (98-107) L 97 mmol/L (98-107) L Carbon Dioxide Level 24 mmol/L (21-32) 25 mmol/L (21-32) Anion Gap 10 (6-14) 10 (6-14) Blood Urea Nitrogen 13 mg/dL (8-26) 17 mg/dL (8-26) Creatinine 0.7 mg/dL (0.7-1.3) 0.7 mg/dL (0.7-1.3) Estimated GFR (Cockcroft-Gault) 112.5 112.5 Glucose Level 127 mg/dL (70-99) H 143 mg/dL (70-99) H Calcium Level 9.1 mg/dL (8.5-10.1) 8.9 mg/dL (8.5-10.1) Glucose (Fingerstick) 168 mg/dL (70-99) H White Blood Count 10.8 x10^3/uL (4.0-11.0) Red Blood Count 4.83 x10^6/uL (4.30-5.70) Hemoglobin 13.5 g/dL (13.0-17.5) Hematocrit 40.3 % (39.0-53.0) Mean Corpuscular Volume 83 fL (79-100) Mean Corpuscular Hemoglobin 28 pg (25-35) Mean Corpuscular Hemoglobin Concent 33 g/dL (31-37) Red Cell Distribution Width 14.4 % (11.5-14.5) Platelet Count 664 x10^3/uL (140-400) H BUN/Creatinine Ratio 24 (6-20) H Lactic Acid Level 0.8 mmol/L (0.4-2.0) Total Bilirubin 0.2 mg/dL (0.2-1.0) Aspartate Amino Transferase (AST) 18 U/L (15-37) Alanine Aminotransferase (ALT) 19 U/L (16-63) Alkaline Phosphatase 67 U/L (46-116) Lactate Dehydrogenase 126 U/L (85-227) Total Protein 6.8 g/dL (6.4-8.2) Albumin 3.3 g/dL (3.4-5.0) L Albumin/Globulin Ratio 0.9 (1.0-1.7) L Current Medications: Meds: Current Medications Medications (Trade) Dose Ordered Sig/Henry Route PRN Reason Start Time Stop Time Status Last Admin Dose Admin Sodium Chloride 1,000 ml @ 100 mls/hr Q10H IV 08/05/19 17:00 08/05/19 17:00 Iohexol (Omnipaque 300 Mg/ml) 75 ml 1X ONCE IV 08/05/19 17:15 08/05/19 17:16 DC 08/05/19 19:12 Iohexol (Omnipaque 240 Mg/ml) 30 ml 1X ONCE PO 08/05/19 17:15 08/05/19 17:16 DC 08/05/19 17:15 I have reviewed the current psychotropics carefully including drug interactions. Risk benefit ratio favors no change other than as noted in my dictated progress note. Diagnosis: Problems: (1) Conversion disorder (2) Mild cognitive impairment (3) History of post traumatic stress disorder (4) Anxiety disorder (5) Major depressive disorder, recurrent episode (6) Psychosis, atypical DARA FELIPE MD Aug 05, 2019 19:57
[2019-08-05 20:09] LABS: CLARITY,URINE HAZY; COLOR,URINE YELLOW; GLUCOSE,URINE NEG (NEG)
[2019-08-05 20:10] LABS: AMORPHOUS SEDIMENT,UR PRESENT /HPF; BACTERIA,URINE MOD /HPF (0-FEW); BILIRUBIN,URINE NEG (NEG); GRANULAR CASTS,URINE OCC /HPF; NITRITE,URINE NEG (NEG); RBC,URINE OCC /HPF (0-2); UROBILINOGEN,URINE 0.2 mg/dL (0.2 mg/dL)
[2019-08-05] MEDS ORDERED: MAGNESIUM CITRATE 296 ML SOLUTION. PO ONE (20:30)
[2019-08-05] MEDS ORDERED: BISACODYL 10 MG SUPP.RECT PR ONE (20:30)
[2019-08-05] MEDS: ATORVASTATIN CALCIUM 20 MG TABLET PO SCH (21:04)
[2019-08-05] MEDS: FENOFIBRATE NANOCRYSTALLIZED 145 MG TABLET PO SCH (21:04)
[2019-08-05] MEDS: MELATONIN 3 MG TABLET PO SCH (21:04)
--- NOTE | 2019-08-05 23:30 | NUR ---
Pt has been laying in bed all evening after returning from radiology. Fluids infusing in L hand. CXR/CT results called to Dr. Estevez. Received orders to continue IV fluids, BMP in AM, Mag Citrate, Dulcolax suppository. Pt informed of results and new orders. Pt tolerated medications well. Pt continues to be anxious re: his IV, lab results, not sleeping, becoming dehydrated. Pt informed that staff is closely monitoring him. Pt currently laying in bed awake on/off all night.
[2019-08-06] MEDS: IV NORMAL SALINE 1,000ML 1,000 ML IV SCH (03:36)
--- NOTE | 2019-08-06 04:59 | PN ---
DATE: 08/03/2019 PSYCHIATRIC PROGRESS NOTE This late entry, 08/03/2019, covers elements not covered in my initial note. SUBJECTIVE: I met with the patient in the evening. Per Diane RN, the patient slept 7-1/4 hours previous night. Sodium is 134. We will defer to Dr. Estevez. Amitriptyline has already been stopped. We will stop the trazodone as well. Check electrolytes on and . REVIEW OF SYSTEMS: Positive for tiredness and he resents being on fluid restriction. No CV, , pulmonary, and eye system symptoms on review. MENTAL STATUS EXAM: Reasonably oriented. Speech is low in rate and rhythm, low in volume, often responses monosyllabic. Abstraction fair, computation impaired, and language function intact. Mood and affect withdrawn. LABORATORY DATA: Reviewed. IMPRESSION: Major depressive disorder, recurrent, severe with psychotic features, in partial remission, probable SIADH, hyponatremia. Rest unchanged. PLAN: No change from initial note other than what is noted above. Stop the trazodone. Maintain melatonin, Latuda, and Cymbalta for now. MAN Marc FELIPE MD DR: NIKKY/sergey JOB#: [id number] / [id number]
[2019-08-06] MEDS: LEVOTHYROXINE 50 MCG TABLET PO SCH (05:59)
[2019-08-06 06:08] VITALS: BP 162/98
[2019-08-06 07:35] LABS: CALCIUM 8.4 mg/dL (8.5-10.1); CREATININE 0.7 mg/dL (0.7-1.3); GFR 112.5; POTASSIUM 4.2 mmol/L (3.5-5.1)
[2019-08-06] MEDS: amLODIPine BESYLATE 5 MG TABLET PO SCH (09:44)
[2019-08-06] MEDS: LURASIDONE 40 MG TABLET. PO SCH (09:44)
[2019-08-06] MEDS: LISINOPRIL 10 MG TABLET PO SCH (09:45)
[2019-08-06] MEDS: PRENATAL MULTIVITAMIN TABLET. PO SCH (09:45)
[2019-08-06] MEDS: FINASTERIDE 5 MG TABLET PO SCH (09:46)
[2019-08-06] MEDS: CHOLECALCIFEROL (VITAMIN D3) 50,000 UNIT CAPSULE PO SCH (09:47)
[2019-08-06] MEDS: DOCUSATE SODIUM 100 MG CAPSULE PO SCH ×2 (09:47→20:12)
[2019-08-06] MEDS: ASPIRIN ENTERIC COATED 81 MG TABLET.DR. PO SCH (09:47)
[2019-08-06] MEDS: TAMSULOSIN 0.4 MG CAP.ER.24H. PO SCH (09:47)
[2019-08-06] MEDS: DULoxetine HCL 30 MG CAPSULE.DR PO SCH (09:48)
--- NOTE | 2019-08-06 13:18 | NUR ---
Follow up call placed to Daily at [facility] who reports the inability to meet Bj's needs based on level II screen. Bj has been declined for admission. Follow up call placed to Rosaline at [facility] to follow up on referral sent last week. Left detailed message with request for return phone call. Follow up call three placed to Jolene at [facility] who expressed that her accounts administrator has yet to make an admission decision. Jolene did not know when an admission decision would be made and expressed, "sometimes it takes a while." Call placed to Asia at [facility], left message to inquire about male bed availability and request for return phone call. Call placed to Shefali at [facility], left message to inquire about male bed availability and request for return phone call.
--- NOTE | 2019-08-06 14:13 | NUR ---
Received voice message from Shefali at [facility] indicating they do have male bed availability. Faxed referral for review, awaiting outcome.
[2019-08-06] MEDS: FLUTICASONE 50MCG/NASAL SPRAY 16GM BOTTLE. NS PRN (14:14)
--- NOTE | 2019-08-06 15:22 | NUR ---
Patient in bed for initial medications and assessment. IV in left hand patent and infusing 0.9% NS at 100ml/hr. Patient acting helpless, being resistant to getting out of bed and going to the bathroom. Continues to soil his brief and then says he is unable to wipe himself. He was encouraged to do his own self care, which he did. Orders to DC IV, removed at 1345. No agitation. Patient denies pain or discomfort. Denies SI. Out in the day room for afternoon group, but did not really participate.
[2019-08-06 15:53] VITALS: BP 123/82
--- NOTE | 2019-08-06 19:51 | PDOC ---
Exam Note: Robert Note: Please also refer to the separate dictated note~for this date of service dictated separately.~Patient seen individually. Discussed the patient with Nursing staff reviewed the chart.~Reviewed interim history and current functioning. Reviewed vital signs,~Labs/ Radiology~and current medications noted below. Continue current treatment with the changes noted in the dictated addendum note Assessment: Vital Signs/I&O: Vital Signs Date Time Temp Pulse Resp B/P (MAP) Pulse Ox O2 Delivery O2 Flow Rate FiO2 08/06/19 15:53 97.6 100 16 123/82 (96) 96 08/06/19 06:08 Room Air I & O 08/05/19 08/05/19 08/06/19 14:59 22:59 06:59 Intake Total 720 ml 0 ml Balance 720 ml 0 ml Labs: Laboratory Tests Test 08/06/19 06:43 Sodium Level 134 mmol/L (136-145) L Potassium Level 4.2 mmol/L (3.5-5.1) Chloride Level 99 mmol/L (98-107) Carbon Dioxide Level 26 mmol/L (21-32) Anion Gap 9 (6-14) Blood Urea Nitrogen 10 mg/dL (8-26) Creatinine 0.7 mg/dL (0.7-1.3) Estimated GFR (Cockcroft-Gault) 112.5 Glucose Level 113 mg/dL (70-99) H Calcium Level 8.4 mg/dL (8.5-10.1) L Current Medications: Meds: Current Medications Medications (Trade) Dose Ordered Sig/Henry Route PRN Reason Start Time Stop Time Status Last Admin Dose Admin Magnesium Citrate (Citroma) 296 ml 1X ONCE PO 08/05/19 20:30 08/05/19 20:31 DC 08/05/19 21:03 Bisacodyl (Dulcolax Supp) 10 mg 1X ONCE TX 08/05/19 20:30 08/05/19 20:31 DC 08/05/19 21:04 I have reviewed the current psychotropics carefully including drug interactions. Risk benefit ratio favors no change other than as noted in my dictated progress note. Diagnosis: Problems: (1) Conversion disorder (2) Mild cognitive impairment (3) History of post traumatic stress disorder (4) Anxiety disorder (5) Major depressive disorder, recurrent episode (6) Psychosis, atypical DARA FELIPE MD Aug 06, 2019 19:51
[2019-08-06] MEDS: MELATONIN 3 MG TABLET PO SCH (20:12)
[2019-08-06] MEDS: FENOFIBRATE NANOCRYSTALLIZED 145 MG TABLET PO SCH (20:19)
[2019-08-06] MEDS: ATORVASTATIN CALCIUM 20 MG TABLET PO SCH (20:19)
--- NOTE | 2019-08-06 22:02 | NUR ---
Nursing Note Pt tolerates meds and assessments, no complaints this pm. Stares at staff, sort of leering has a very flat affect.
--- NOTE | 2019-08-07 04:48 | PN ---
DATE: 08/04/2019 This late entry, 08/04/2019, covers elements not covered in my initial note. SUBJECTIVE: I met with the patient in the evening. The patient slept 8-1/4 hours previous night. Sodium is 133. Still on fluid restriction and we stopped the trazodone since it could be also contributing to the SIADH. We will check a BMP on Tuesday. REVIEW OF SYSTEMS: Positive for tiredness and feeling thirsty. No CV, GI, or pulmonary system symptoms on review. Still states he does not sleep at night. MENTAL STATUS EXAM: Reasonably oriented. Speech has some latency, often responses monosyllabic. Abstraction fair, computation impaired, language function intact, attention span short. Mood and affect withdrawn. No active suicidal ideation. LABORATORY DATA: Reviewed. IMPRESSION: Unchanged from initial note. PLAN: No change from initial note. MAN Marc FELIPE MD DR: NIKKY/sergey JOB#: [id number] / [id number]
--- NOTE | 2019-08-07 04:59 | PN ---
DATE: 08/05/2019 PSYCHIATRIC PROGRESS NOTE This late entry, 08/05/2019, covers elements not covered in my initial note. SUBJECTIVE: I met with the patient in the evening. The patient slept 7-3/4 hours previous night. He is on IV normal saline. Sodium was 132. Deferred to Dr. Estevez. UA has reflux to culture, may have UTI, again defer to Dr. Estevez. He is complaining of abdominal pain, initially questionable on the right side. Then, he complained of pain on the left lower quadrant and CT shows constipation, received magnesium citrate and suppository. REVIEW OF SYSTEMS: Additionally, complains of tiredness. No CV, , pulmonary, or eye system symptoms on review. MENTAL STATUS EXAM: Reasonably oriented. Speech moderate latency, often responses monosyllabic. Abstraction fair, computation impaired, language function intact, attention span short. Mood and affect withdrawn. LABORATORY DATA: Reviewed. IMPRESSION: Unchanged from initial note. PLAN: No change from initial note. MAN Marc FELIPE MD DR: NIKKY/sergey JOB#: [id number] / [id number]
[2019-08-07 06:21] VITALS: BP 151/78
[2019-08-07] MEDS: LEVOTHYROXINE 50 MCG TABLET PO SCH (06:36)
[2019-08-07] MEDS: LURASIDONE 40 MG TABLET. PO SCH (08:16)
[2019-08-07] MEDS: PRENATAL MULTIVITAMIN TABLET. PO SCH (08:16)
[2019-08-07] MEDS: DOCUSATE SODIUM 100 MG CAPSULE PO SCH ×2 (08:17→19:43)
[2019-08-07] MEDS: TAMSULOSIN 0.4 MG CAP.ER.24H. PO SCH (08:17)
[2019-08-07] MEDS: LISINOPRIL 10 MG TABLET PO SCH (08:18)
[2019-08-07] MEDS: amLODIPine BESYLATE 5 MG TABLET PO SCH (08:18)
[2019-08-07] MEDS: FINASTERIDE 5 MG TABLET PO SCH (08:18)
[2019-08-07] MEDS: DULoxetine HCL 30 MG CAPSULE.DR PO SCH (08:19)
[2019-08-07] MEDS: ASPIRIN ENTERIC COATED 81 MG TABLET.DR. PO SCH (08:19)
--- NOTE | 2019-08-07 10:14 | NUR ---
Patient is in the dining room for assessment and medications. He is pleasant, soft spoken. Calm, cooperative and compliant. No agitation. No complaints of pain or discomfort. Denies SI.
--- NOTE | 2019-08-07 10:20 | NUR ---
Follow up call placed to Asia at [facility], left second message inquiring about male bed availability. Awaiting return call. Follow up call placed to Shefali at [facility], she stated they are still reviewing Bj's referral but will call back with admit decision. Awaiting return phone call.
--- NOTE | 2019-08-07 11:35 | NUR ---
WEEKLY ACTIVITY THERAPY NOTE-- Based on four days of programming Date of Admission: 07/02/2019 Date of AT Assessment: 07/06/2019 Goal aimed: to increase motivation and recreation education Initial goal: Pt. will participate in at least five activity therapy groups per week. Goal changed 07/26/19: Pt. will participate in all Activity Therapy groups offered Weekly progress towards goal: did not achieve Group participation level: full in two groups Weekly highlights: full participation in [employer] on Tuesday afternoon Behaviors observed: sleeping more often, less interest in groups, IV fluids on Tuesday Plan: no change to goal Beneficial adaptations: sit close to telehealth director, reminders and focus on positives, gross motor activities
[2019-08-07] MEDS: FLUTICASONE 50MCG/NASAL SPRAY 16GM BOTTLE. NS PRN (13:42)
--- NOTE | 2019-08-07 14:10 | NUR ---
Received voice message from Shefali at [facility] denying Bj for admit due to SI.
[2019-08-07 16:09] VITALS: BP 129/82
[2019-08-07] MEDS: ATORVASTATIN CALCIUM 20 MG TABLET PO SCH (19:43)
[2019-08-07] MEDS: FENOFIBRATE NANOCRYSTALLIZED 145 MG TABLET PO SCH (19:43)
[2019-08-07] MEDS: MELATONIN 3 MG TABLET PO SCH (19:43)
[2019-08-07] MEDS: HYDROcodone/APAP 5/325MG 1 TAB TABLET PO PRN (19:53)
--- NOTE | 2019-08-07 19:54 | PDOC ---
Exam Note: Robert Note: Please also refer to the separate dictated note~for this date of service dictated separately.~Patient seen individually. Discussed the patient with Nursing staff reviewed the chart.~Reviewed interim history and current functioning. Reviewed vital signs,~Labs/ Radiology~and current medications noted below. Continue current treatment with the changes noted in the dictated addendum note Assessment: Vital Signs/I&O: Vital Signs Date Time Temp Pulse Resp B/P (MAP) Pulse Ox O2 Delivery O2 Flow Rate FiO2 08/07/19 16:09 97.8 78 16 129/82 (98) 98 Room Air I & O 08/06/19 08/06/19 08/07/19 15:00 23:00 07:00 Intake Total 0 ml 240 ml 100 ml Balance 0 ml 240 ml 100 ml Current Medications: I have reviewed the current psychotropics carefully including drug interactions. Risk benefit ratio favors no change other than as noted in my dictated progress note. Diagnosis: Problems: (1) Conversion disorder (2) Mild cognitive impairment (3) History of post traumatic stress disorder (4) Anxiety disorder (5) Major depressive disorder, recurrent episode (6) Psychosis, atypical DARA FELIPE MD Aug 07, 2019 19:54
--- NOTE | 2019-08-07 23:40 | PN ---
DATE: PSYCHIATRIC PROGRESS NOTE This late entry 08/06/2019 covers the elements not covered in my initial note. SUBJECTIVE: I met with the patient in the evening. The patient slept for 4-3/4 hours previous night. Per Diane RN, the day before he complained of abdominal pain and is being addressed by Dr. Estevez was constipated. IV has been discontinued. He did come out of bed, but seems to project that he can do little for himself, even though he can do a lot more per nursing report. He wants the fluid restriction to be stopped and sodium 134. We will defer to Dr. Estevez. No CV, , pulmonary, eye system symptoms on review. MENTAL STATUS EXAM: Reasonably oriented. Speech has some latency, coherent, often responses monosyllabic. Abstraction fair, computation impaired, language function intact, attention span short. Mood and affect withdrawn. LABORATORY DATA: Reviewed. IMPRESSION: Major depressive disorder, recurrent with psychotic features; anxiety disorder, unspecified. Rest unchanged. PLAN: No change from initial note other than what is noted above. MAN Marc FELIPE MD DR: NIKKY/sergey JOB#: [id number] / [id number]
--- NOTE | 2019-08-07 23:52 | NUR ---
Nursing Note PT interactive, pleasant calm cooperative. States he hasn't slept in 10 nights.
[2019-08-08] MEDS: LEVOTHYROXINE 50 MCG TABLET PO SCH (06:15)
[2019-08-08 06:33] VITALS: BP 131/78
[2019-08-08] MEDS: FLUTICASONE 50MCG/NASAL SPRAY 16GM BOTTLE. NS PRN ×2 (08:09→20:29)
[2019-08-08] MEDS: amLODIPine BESYLATE 5 MG TABLET PO SCH (08:10)
[2019-08-08] MEDS: TAMSULOSIN 0.4 MG CAP.ER.24H. PO SCH (08:10)
[2019-08-08] MEDS: LISINOPRIL 10 MG TABLET PO SCH (08:10)
[2019-08-08] MEDS: ASPIRIN ENTERIC COATED 81 MG TABLET.DR. PO SCH (08:10)
[2019-08-08] MEDS: DULoxetine HCL 30 MG CAPSULE.DR PO SCH (08:11)
[2019-08-08] MEDS: LURASIDONE 40 MG TABLET. PO SCH (08:11)
[2019-08-08] MEDS: DOCUSATE SODIUM 100 MG CAPSULE PO SCH ×2 (08:11→20:28)
[2019-08-08] MEDS: PRENATAL MULTIVITAMIN TABLET. PO SCH (08:11)
[2019-08-08] MEDS: FINASTERIDE 5 MG TABLET PO SCH (08:11)
--- NOTE | 2019-08-08 09:08 | NUR ---
WEEKLY NOTE: Bj is averaging 50% of meals and 7 hours of sleep at night. He tends to be fixated on his fluid restriction, anxious at times, and has had decreased group involvement this week. Bj had constipation issues over the weekend requiring IV treatment. Labs are pending. Referrals are being sent out for placement but Bj has been denied at all facilities thus far. Will continue to seek a facility that is able to meet Bj's needs. Medicaid application is pending.
--- NOTE | 2019-08-08 09:51 | NUR ---
No return call from [facility], call three placed to Asia director of database marketing, left message with request for return phone call. Follow up call placed to Rosaline at [facility] who indicated no male bed available at this time. Follow up call placed To Jolene, director of database marketing at [facility], with intent to inquire about admit decision. Left message for Jolene with request for return phone call. Called back to [place] and requested to speak with personal care home administrator, Jame, who indicated he would visit further with his SEFERINO and Jolene and call back with an admit decision.
--- NOTE | 2019-08-08 10:12 | NUR ---
Call placed to Paris Stewart, [facility] consulting practice director, and left message for return phone call. Faxed referral for review. Awaiting admit decision.
--- NOTE | 2019-08-08 10:30 | NUR ---
Nursing Note Patient in the dining room, pleasant and compliant with medications whole. He is cooperative with assessments and appears to have tremors on his right hand and leg, according to the patient the "shaking started this morning". Patient denies pain and SI. No agitation and no aggression at this time. Will continue to monitor.
--- NOTE | 2019-08-08 13:49 | NUR ---
Phone conversation with Isaura, , to discuss placement difficulty with recent denials from numerous longterm facilities. Encouraged Isaura to re-consider level II facilities that may be better suited to meet Bj's mental health needs. Suggested she tour the communities in addition to re-searching them on line. Isaura expressed herself as an advocate for Bj and that she will not place Bj in a facility that does not provide adequate care. Reviewed several of the longterm centers that have accepted some of our patients in the past but Isaura declined as the facilities had bad reviews on Medicare.gov. Isaura indicated that she will plan on touring level II facilities in [place] early next week. Referrals are still pending at [facility].
[2019-08-08 15:43] VITALS: BP 118/74
--- NOTE | 2019-08-08 19:52 | PDOC ---
Exam Note: Robert Note: Please also refer to the separate dictated note~for this date of service dictated separately.~Patient seen individually. Discussed the patient with Nursing staff reviewed the chart.~Reviewed interim history and current functioning. Reviewed vital signs,~Labs/ Radiology~and current medications noted below. Continue current treatment with the changes noted in the dictated addendum note Assessment: Vital Signs/I&O: Vital Signs Date Time Temp Pulse Resp B/P (MAP) Pulse Ox O2 Delivery O2 Flow Rate FiO2 08/08/19 15:43 98.0 80 18 118/74 (89) 99 08/07/19 16:09 Room Air I & O 08/07/19 08/07/19 08/08/19 15:00 23:00 07:00 Intake Total 480 ml 580 ml Balance 480 ml 580 ml Current Medications: I have reviewed the current psychotropics carefully including drug interactions. Risk benefit ratio favors no change other than as noted in my dictated progress note. Diagnosis: Problems: (1) Conversion disorder (2) Mild cognitive impairment (3) History of post traumatic stress disorder (4) Anxiety disorder (5) Major depressive disorder, recurrent episode (6) Psychosis, atypical DARA FELIPE MD Aug 08, 2019 19:52
[2019-08-08] MEDS: ATORVASTATIN CALCIUM 20 MG TABLET PO SCH (20:28)
[2019-08-08] MEDS: FENOFIBRATE NANOCRYSTALLIZED 145 MG TABLET PO SCH (20:28)
[2019-08-08] MEDS: MELATONIN 3 MG TABLET PO SCH (20:29)
[2019-08-08] MEDS: HYDROcodone/APAP 5/325MG 1 TAB TABLET PO PRN (20:32)
--- NOTE | 2019-08-08 23:35 | NUR ---
Nursing Note Pt is isolative, quiet and cooperative. When I asked how he slept last night, he gave me a big thumbs up. Lortab given for back pain.
--- NOTE | 2019-08-09 01:24 | PN ---
DATE: 08/07/2019 PSYCHIATRIC PROGRESS NOTE This late entry 08/07/2019 covers elements not covered in my initial note. SUBJECTIVE: I met with the patient in the evening and staffed at a treatment team meeting with the entire team in the morning and the patient attended the treatment team conference along with his . We had a lengthy discussion about his diagnosis, progress, his SIADH symptoms with a low sodium and frustration about fluid restriction. The patient's appetite is about 50%, sleeping 7 hours. Still feels he does not sleep at night, but attending groups more frequently, still somewhat depressed, but better. No suicidal ideation. REVIEW OF SYSTEMS: Positive for some tiredness. No CV, , pulmonary, eye system symptoms on review. MENTAL STATUS EXAM: Reasonably oriented. Speech is coherent. Abstraction fair. Speech has some latency, computation reasonable, language function intact. Mood and affect dysphoric, anxious. LABORATORY DATA: Reviewed. IMPRESSION: Unchanged from initial note. PLAN: No change from initial note. We stopped the trazodone, amitriptyline, since they could be implicated with the SIADH. We will maintain Latuda and Cymbalta for now along with melatonin. DARA FELIPE MD DR: NIKKY/sergey JOB#: [id number] / [id number]
[2019-08-09 05:48] VITALS: BP 144/79
[2019-08-09] MEDS: LEVOTHYROXINE 50 MCG TABLET PO SCH (06:04)
[2019-08-09] MEDS: DOCUSATE SODIUM 100 MG CAPSULE PO SCH ×2 (09:00→20:04)
[2019-08-09] MEDS: LURASIDONE 40 MG TABLET. PO SCH (09:00)
[2019-08-09] MEDS: PRENATAL MULTIVITAMIN TABLET. PO SCH (09:00)
[2019-08-09] MEDS: TAMSULOSIN 0.4 MG CAP.ER.24H. PO SCH (09:00)
[2019-08-09] MEDS: DULoxetine HCL 30 MG CAPSULE.DR PO SCH (09:00)
[2019-08-09] MEDS: ASPIRIN ENTERIC COATED 81 MG TABLET.DR. PO SCH (09:00)
[2019-08-09] MEDS: amLODIPine BESYLATE 5 MG TABLET PO SCH (09:01)
[2019-08-09] MEDS: FINASTERIDE 5 MG TABLET PO SCH (09:01)
[2019-08-09] MEDS: LISINOPRIL 10 MG TABLET PO SCH (09:01)
--- NOTE | 2019-08-09 10:50 | PN ---
DATE: 08/08/2019 PSYCHIATRIC PROGRESS NOTE This late entry, 08/08, covers the elements not covered in my initial note. SUBJECTIVE: I met with the patient in the evening. Per PEDRO LUIS Fernández, the patient slept 7 hours previous night, took a nap during the day, reportedly was having some shaking on the right side. Nursing staff wondered whether it was partly intentional. We will check a BMP for his electrolytes as well. REVIEW OF SYSTEMS: Positive for some tiredness. No CV, , pulmonary, eye systems symptoms on review. MENTAL STATUS EXAM: Reasonably oriented. Speech has some latency, coherent. Abstraction fair, computation impaired, language function intact. Mood and affect withdrawn. LABORATORY DATA: Reviewed. IMPRESSION: Unchanged from initial note. PLAN: No change from initial note. MAN Marc FELIPE MD DR: NIKKY/sergey JOB#: [id number] / [id number]
[2019-08-09 11:00] LABS: CALCIUM 9.2 mg/dL (8.5-10.1); CREATININE 0.7 mg/dL (0.7-1.3); GFR 112.5; POTASSIUM 3.8 mmol/L (3.5-5.1)
--- NOTE | 2019-08-09 11:08 | PN ---
DATE: 08/09/2019 PSYCHIATRIC PROGRESS NOTE This note covers elements not covered in my initial note 08/09/2019. SUBJECTIVE: I met with the patient in the morning. The patient slept 8-1/4 hours previous night, but still states he does not sleep well at night subjectively. He has been somewhat withdrawn, resents the water restriction. We will defer to Dr. Estevez. REVIEW OF SYSTEMS: No CV, , pulmonary, eye system symptoms on review, does complain of tiredness. MENTAL STATUS EXAM: Reasonably oriented. Speech has some latency, coherent. Abstraction fair, computation impaired, language function intact. Mood and affect somewhat withdrawn. LABORATORY DATA: Reviewed. IMPRESSION: Unchanged from initial note. PLAN: No change from initial note. MAN Marc FELIPE MD DR: NIKKY/sergey JOB#: [id number] / [id number]
[2019-08-09 13:36] VITALS: BP 97/55
--- NOTE | 2019-08-09 14:44 | NUR ---
Patient was in his room during morning rounding, took medications whole, allowed for morning assessment. Patient's was visiting patient at lunch. Patient started to feel light headed with her, was diaphoretic and shaking. Was assisted back to bed with the nurse. Vitals were taken, bp-97/55. HR was 113. Patient is now resting in bed. Page made to in regards to this. The nurse will follow up with patient.
[2019-08-09 16:15] VITALS: BP 138/79
--- NOTE | 2019-08-09 18:02 | RAD ---
KUB History: Constipation or bowel obstruction Comparison: August 05, 2019 CT abdomen pelvis Findings: 2 supine AP views of the abdomen are . Exam is insufficient for the evaluation for free air. There is now oral contrast throughout the colon. There is some gas in the small bowel although not considered significantly dilated in the right abdomen. Impression: 1. There is now oral contrast throughout the nondilated colon, also some gas in the nondilated small bowel. Electronically signed by: Jacek Siddiqui MD (08/09/2019 6:00 PM) [facility]
[2019-08-09] MEDS: ATORVASTATIN CALCIUM 20 MG TABLET PO SCH (20:04)
[2019-08-09] MEDS: FENOFIBRATE NANOCRYSTALLIZED 145 MG TABLET PO SCH (20:05)
[2019-08-09] MEDS: MELATONIN 3 MG TABLET PO SCH (20:05)
[2019-08-09] MEDS: HYDROcodone/APAP 5/325MG 1 TAB TABLET PO PRN (20:08)
--- NOTE | 2019-08-09 20:38 | PDOC ---
Exam Note: Robert Note: Please also refer to the separate dictated note~for this date of service dictated separately.~Patient seen individually. Discussed the patient with Nursing staff reviewed the chart.~Reviewed interim history and current functioning. Reviewed vital signs,~Labs/ Radiology~and current medications noted below. Continue current treatment with the changes noted in the dictated addendum note Assessment: Vital Signs/I&O: Vital Signs Date Time Temp Pulse Resp B/P (MAP) Pulse Ox O2 Delivery O2 Flow Rate FiO2 08/09/19 20:08 18 Room Air 08/09/19 16:15 98.4 108 138/79 (98) 97 I & O 08/08/19 08/08/19 08/09/19 14:59 22:59 06:59 Intake Total 840 ml 240 ml Balance 840 ml 240 ml Labs: Laboratory Tests Test 08/09/19 10:41 Sodium Level 128 mmol/L (136-145) L Potassium Level 3.8 mmol/L (3.5-5.1) Chloride Level 94 mmol/L (98-107) L Carbon Dioxide Level 23 mmol/L (21-32) Anion Gap 11 (6-14) Blood Urea Nitrogen 7 mg/dL (8-26) L Creatinine 0.7 mg/dL (0.7-1.3) Estimated GFR (Cockcroft-Gault) 112.5 Glucose Level 97 mg/dL (70-99) Calcium Level 9.2 mg/dL (8.5-10.1) Current Medications: I have reviewed the current psychotropics carefully including drug interactions. Risk benefit ratio favors no change other than as noted in my dictated progress note. Diagnosis: Problems: (1) Conversion disorder (2) Mild cognitive impairment (3) History of post traumatic stress disorder (4) Anxiety disorder (5) Major depressive disorder, recurrent episode (6) Psychosis, atypical DARA FELIPE MD Aug 09, 2019 20:38
--- NOTE | 2019-08-09 22:25 | NUR ---
Nursing Notes: Pt is withdrawn to room. Pt is calm and cooperative. Compliant with medications and assessment. Pt reports lower back pain 8/10, PRN Lortab given as ordered.
[2019-08-10] MEDS: LEVOTHYROXINE 50 MCG TABLET PO SCH (05:31)
[2019-08-10 06:28] VITALS: BP 124/70
[2019-08-10 08:50] VITALS: BP 124/70
[2019-08-10] MEDS: amLODIPine BESYLATE 5 MG TABLET PO SCH (08:50)
[2019-08-10] MEDS: LISINOPRIL 10 MG TABLET PO SCH (08:50)
[2019-08-10] MEDS: FINASTERIDE 5 MG TABLET PO SCH (08:50)
[2019-08-10] MEDS: PRENATAL MULTIVITAMIN TABLET. PO SCH (08:50)
[2019-08-10] MEDS: TAMSULOSIN 0.4 MG CAP.ER.24H. PO SCH (08:50)
[2019-08-10] MEDS: LURASIDONE 40 MG TABLET. PO SCH (08:51)
[2019-08-10] MEDS: ASPIRIN ENTERIC COATED 81 MG TABLET.DR. PO SCH (08:51)
[2019-08-10] MEDS: DULoxetine HCL 30 MG CAPSULE.DR PO SCH (08:51)
[2019-08-10] MEDS: DOCUSATE SODIUM 100 MG CAPSULE PO SCH (08:51)
[2019-08-10] MEDS: cloNIDine TTS-2 1 PATCH PATCH TD SCH (08:51)
--- NOTE | 2019-08-10 13:52 | NUR ---
Patient is in the dining room for assessment and medications. He is calm, cooperative, and compliant. No agitation. Denies pain and discomfort. Denies SI. Out in the day room for most of the day.
--- NOTE | 2019-08-10 14:00 | NUR ---
Patient in the day room. Nearly lost his balance, complaining of dizziness. Diaphoretic, trembling. Vital signs: Blood pressure: 114/77; Pulse: 118-122; O2 sat: 97-100%; Resp.: 18; Temp. 97.0; Blood sugar: 131. Paged Dr. Estevez, orders received: Lactic Acid, CBC, CMP, UA, KUB. Paged Dr. Smallwood, order received to discharge and transfer down to [address] [place] [address] Faria on the unit at the time and discontinued Cymbalta. Patient transferred down to [address] [place] [address] without further issues. /DPOA contacted and informed of transfer. Report given to PEDRO LUIS Harvey.
[2019-08-10] MEDS ORDERED: LURA80TA PO (14:32)
[2019-08-10] MEDS ORDERED: PREN-6 PO (14:34)
--- NOTE | 2019-08-10 14:40 | NUR ---
Transition Record was faxed to follow-up provider with the following elements: Reason for admission, procedures, tests, principal diagnosis, pending studies, patient instructions, 04/04 contact information for unit, phone number to obtain pending test results, plan for follow-up care, physician follow-up, advanced directive information, and medication list with dose, duration and instructions. This information was included in the following documents: History and physical, lab results, study results, progress notes, social work planning form, DC instruction form, patient visit summary, and medication reconciliation form. Date & time record faxed: 08/10/19 [id number] Record faxed to: [facility] Record discussed with/ report given to: Candice Morgan RN
[2019-08-10 14:53] LABS: BASO % 0 % (0-3); EOS % 0 % (0-3); HEMATOCRIT 42.1 % (39.0-53.0); LYMPH # 1.9 x10^3/uL (1.0-4.8); LYMPH % 16 % (24-48); MEAN CORPUSCULAR HEMOGLOBIN 27 pg (25-35); MEAN CORPUSCULAR HGB CONC 33 g/dL (31-37); MEAN CORPUSCULAR VOLUME 83 fL (79-100); MONO # 1.3 x10^3/uL (0.0-1.1); MONO % 11 % (0-9); NEUT # 8.6 x10^3uL (1.8-7.7); NEUT % 72 % (31-73); PLATELET COUNT 638 x10^3/uL (140-400); RED CELL DISTRIBUTION WIDTH 14.1 % (11.5-14.5); WHITE BLOOD COUNT 11.8 x10^3/uL (4.0-11.0)
[2019-08-10 15:07] LABS: ALBUMIN 3.4 g/dL (3.4-5.0); CALCIUM 9.5 mg/dL (8.5-10.1); CREATININE 1.3 mg/dL (0.7-1.3); GFR 55.1; POTASSIUM 3.9 mmol/L (3.5-5.1); TOTAL BILIRUBIN 0.3 mg/dL (0.2-1.0); TOTAL PROTEIN 6.9 g/dL (6.4-8.2)
--- NOTE | 2019-08-10 15:48 | RAD ---
Exam: Abdomen one view INDICATION: Constipation TECHNIQUE: Frontal view of the abdomen Comparisons: None FINDINGS: Air and stool are seen throughout the colon to the level of the rectum in a nonobstructive bowel gas pattern. Large stool burden is noted throughout the colon probably at the rectum as well as the ascending and transverse colon. No suspicious masses or calcifications. Degenerative change in the lumbar spine with mild scoliotic curvature. No suspicious osseous lesions identified. IMPRESSION: Nonobstructive bowel gas pattern with a large stool burden as described above. Electronically signed by: Elfego Antonio MD (08/10/2019 3:45 PM) [facility]
--- NOTE | 2019-08-10 19:59 | PDOC ---
Exam Note: Robert Note: Please also refer to the separate dictated note~for this date of service dictated separately.~Patient seen individually. Discussed the patient with Nursing staff reviewed the chart.~Reviewed interim history and current functioning. Reviewed vital signs,~Labs/ Radiology~and current medications noted below. Continue current treatment with the changes noted in the dictated addendum note Assessment: Vital Signs/I&O: Vital Signs Date Time Temp Pulse Resp B/P (MAP) Pulse Ox O2 Delivery O2 Flow Rate FiO2 08/10/19 08:50 87 124/70 08/10/19 06:28 98.6 20 97 08/09/19 21:18 Room Air I & O 08/09/19 08/09/19 08/10/19 14:59 22:59 06:59 Intake Total 240 ml 120 ml Balance 240 ml 120 ml Labs: Laboratory Tests Test 08/10/19 14:40 White Blood Count 11.8 x10^3/uL (4.0-11.0) H Red Blood Count 5.10 x10^6/uL (4.30-5.70) Hemoglobin 14.0 g/dL (13.0-17.5) Hematocrit 42.1 % (39.0-53.0) Mean Corpuscular Volume 83 fL (79-100) Mean Corpuscular Hemoglobin 27 pg (25-35) Mean Corpuscular Hemoglobin Concent 33 g/dL (31-37) Red Cell Distribution Width 14.1 % (11.5-14.5) Platelet Count 638 x10^3/uL (140-400) H Neutrophils (%) (Auto) 72 % (31-73) Lymphocytes (%) (Auto) 16 % (24-48) L Monocytes (%) (Auto) 11 % (0-9) H Eosinophils (%) (Auto) 0 % (0-3) Basophils (%) (Auto) 0 % (0-3) Neutrophils # (Auto) 8.6 x10^3uL (1.8-7.7) H Lymphocytes # (Auto) 1.9 x10^3/uL (1.0-4.8) Monocytes # (Auto) 1.3 x10^3/uL (0.0-1.1) H Eosinophils # (Auto) 0.0 x10^3/uL (0.0-0.7) Basophils # (Auto) 0.0 x10^3/uL (0.0-0.2) Sodium Level 132 mmol/L (136-145) L Potassium Level 3.9 mmol/L (3.5-5.1) Chloride Level 97 mmol/L (98-107) L Carbon Dioxide Level 24 mmol/L (21-32) Anion Gap 11 (6-14) Blood Urea Nitrogen 16 mg/dL (8-26) Creatinine 1.3 mg/dL (0.7-1.3) Estimated GFR (Cockcroft-Gault) 55.1 BUN/Creatinine Ratio 12 (6-20) Glucose Level 110 mg/dL (70-99) H Lactic Acid Level 1.3 mmol/L (0.4-2.0) Calcium Level 9.5 mg/dL (8.5-10.1) Total Bilirubin 0.3 mg/dL (0.2-1.0) Aspartate Amino Transferase (AST) 30 U/L (15-37) Alanine Aminotransferase (ALT) 26 U/L (16-63) Alkaline Phosphatase 63 U/L (46-116) Total Protein 6.9 g/dL (6.4-8.2) Albumin 3.4 g/dL (3.4-5.0) Albumin/Globulin Ratio 1.0 (1.0-1.7) Current Medications: I have reviewed the current psychotropics carefully including drug interactions. Risk benefit ratio favors no change other than as noted in my dictated progress note. Diagnosis: Problems: (1) Conversion disorder (2) Mild cognitive impairment (3) History of post traumatic stress disorder (4) Hyponatremia (5) Anxiety disorder (6) Major depressive disorder, recurrent episode (7) Psychosis, atypical DARA FELIPE MD Aug 10, 2019 19:59
[2019-08-12] MEDS ORDERED: OXYM30SP NS (17:19)
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
== END 2019-08-10 14:39 | DRG 885 ==
LOC: ER 19:42 → GEROPSY 21:55
PROVIDERS: ADMIT Psychiatry & Neurology Psychiatry; ATTEND Psychiatry & Neurology Psychiatry
DX: F33.3 Major depressive disorder, recurrent, severe with psychotic symptoms (principal); E22.2 Syndrome of inappropriate secretion of antidiuretic hormone; G72.81 Critical illness myopathy; R45.851 Suicidal ideations; F29 Unspecified psychosis not due to a substance or known physiological condition; Z88.8 Allergy status to other drugs, medicaments and biological substances; Z79.899 Other long term (current) drug therapy; E03.9 Hypothyroidism, unspecified; E78.00 Pure hypercholesterolemia, unspecified; G31.84 Mild cognitive impairment of uncertain or unknown etiology; E78.5 Hyperlipidemia, unspecified; E86.0 Dehydration; F41.1 Generalized anxiety disorder; F42.9 Obsessive-compulsive disorder, unspecified; F43.10 Post-traumatic stress disorder, unspecified; F44.9 Dissociative and conversion disorder, unspecified; G47.00 Insomnia, unspecified; H91.90 Unspecified hearing loss, unspecified ear; I10 Essential (primary) hypertension; K59.00 Constipation, unspecified; N40.0 Benign prostatic hyperplasia without lower urinary tract symptoms; R13.10 Dysphagia, unspecified; M25.551 Pain in right hip; R29.6 Repeated falls; X58.XXXA Exposure to other specified factors, initial encounter; Z66 Do not resuscitate; Z81.1 Family history of alcohol abuse and dependence; Z81.8 Family history of other mental and behavioral disorders; G89.29 Other chronic pain; M19.90 Unspecified osteoarthritis, unspecified site; W18.39XA Other fall on same level, initial encounter; Y93.89 Activity, other specified; Y92.89 Other specified places as the place of occurrence of the external cause; Y99.8 Other external cause status
CPT/HCPCS: 36415; 70450; 71045; 74018; 74177; 80048; 80053; 80061; 81001; 82306; 82947; 83036; 83540; 83550; 83605; 83615; 83735; 84295; 84436; 84443; 84480; 85025; 85027; 86592; 87045; 87086; P9612; Q9966; Q9967; 92610; 97110; 97116; 97530; 97535; 99285-25; J7030

== ENCOUNTER 2019-08-10 14:50 | Inpatient (IN) | payer MEDICARE, BC ==
[~2019-08-10] VITALS: Ht 167.6 cm; Wt 81.7 kg
[~2019-08-10 14:50] MED LIST: ACET325T9 PO; AMLO5TAB10 PO; ARIP5TAB13 PO; ASPI-612 PO; ATOR20TA58 PO; CLON1PAT2 TD; DIAZ10TA4 PO; DICL100G18 TP; DOCU100C28 PO; ERGO500027 PO; FENO145T30 PO; FINA5TAB4 PO; FLUO20CA19 PO; FLUO40CA2 PO; FLUT16SP21 NS; GUAI600T6 PO; HYDR-2869 PO; HYDR-3165 PO; LEVO50TA60 PO; LISI10TA2 PO; LORA10TA3 PO; LURA80TA PO; MELA3TAB56 PO; MONT10TA80 PO; POLY2500 PO; PREN-6 PO; TAMS0.4C97 PO
[2019-08-10 15:08] VITALS: BP 107/72
--- NOTE | 2019-08-10 16:01 | RAD ---
Study: CT abdomen and pelvis without contrast Indication: Abdominal pain. Comparison: 08/05/2019 Technique: Helical CT imaging performed of the abdomen and pelvis without the use of intravenous contrast. Sagittal and coronal reformats were obtained. One or more of the following individualized dose reduction techniques were utilized for this examination: 1. Automated exposure control 2. Adjustment of the mA and/or kV according to patient size 3. Use of iterative reconstruction technique. Findings: Motion degraded study particularly to the lower chest. No newly seen abnormality of the liver, gallbladder, pancreas, spleen or adrenal glands. Redemonstrated right renal cyst, image 57 series 2. No hydroureteronephrosis. Unremarkable urinary bladder. Redemonstrated large amount of stool distending the rectal vault. Dense stool also present elsewhere throughout the colon similar in volume to the recent prior. Contrast within a normal appendix. Normal small bowel caliber. Unremarkable stomach. Vascular calcifications throughout the aorta and iliofemoral system without aneurysmal dilatation or ostial stenosis. No lymphadenopathy. No free fluid or air. Unchanged osseous structures with redemonstrated levocurvature centered at L2 with advanced discogenic arthrosis at L2-L3. Impression: Essentially unchanged appearance of the abdomen and pelvis from the recent comparison performed on 08/05/2019. As noted on the prior study, large amount of well-formed stool within the colon that is greatest at the rectal vault and a degree of impaction is likely present. Correlate for findings that would suggest constipation to account for the patient's symptoms. Electronically signed by: DANILO HUSTON MD (08/10/2019 3:57 PM) [facility]
--- NOTE | 2019-08-10 16:03 | EKG ---
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
[2019-08-10] MEDS ORDERED: HYDROcodone/APAP 5/325MG 1 TAB TABLET PO PRN (16:45)
[2019-08-10] MEDS: IV NORMAL SALINE 1,000ML 1,000 ML IV SCH (16:48)
[2019-08-10] MEDS ORDERED: MINERAL OIL 133 ML ENEMA. PR ONE (17:30)
[2019-08-10] MEDS: DOCUSATE SODIUM 100 MG CAPSULE PO SCH (17:58)
[2019-08-10] MEDS ORDERED: MAGNESIUM CITRATE 296 ML SOLUTION. PO ONE (18:15)
[2019-08-10] MEDS ORDERED: METHYLNALTREXONE 12 MG/0.6 ML VIAL. SQ ONE (18:15)
[2019-08-10] MEDS: ENOXAPARIN 40 MG/0.4 ML SYRINGE. SQ SCH (18:42)
[2019-08-10 19:30] VITALS: BP 113/76
[2019-08-10] MEDS: MELATONIN 3 MG TABLET PO SCH (20:27)
[2019-08-10] MEDS: DICLOFENAC SODIUM 1% TOPICAL GEL 100GM TUBE. TP SCH (20:28)
[2019-08-10] MEDS: FENOFIBRATE NANOCRYSTALLIZED 145 MG TABLET PO SCH (20:28)
[2019-08-10 23:32] VITALS: BP 113/67
[2019-08-11] MEDS: IV NORMAL SALINE 1,000ML 1,000 ML IV SCH ×3 (01:30→14:59)
[2019-08-11 03:16] LABS: BILIRUBIN,URINE NEG (NEG); CLARITY,URINE HAZY; COLOR,URINE YELLOW; GLUCOSE,URINE NEG (NEG); NITRITE,URINE NEG (NEG); UROBILINOGEN,URINE 0.2 mg/dL (0.2 mg/dL); WBC,URINE 0 /HPF (0-4)
[2019-08-11 03:17] LABS: AMORPHOUS SEDIMENT,UR PRESENT /HPF; BACTERIA,URINE FEW /HPF (0-FEW); SQUAMOUS EPITHELIAL CELL,UR OCC /LPF
[2019-08-11 05:28] LABS: BASO # 0.1 x10^3/uL (0.0-0.2); BASO % 1 % (0-3); EOS # 0.1 x10^3/uL (0.0-0.7); EOS % 1 % (0-3); HEMATOCRIT 36.6 % (39.0-53.0); HEMOGLOBIN 12.5 g/dL (13.0-17.5); LYMPH % 24 % (24-48); MEAN CORPUSCULAR HEMOGLOBIN 28 pg (25-35); MEAN CORPUSCULAR HGB CONC 34 g/dL (31-37); MEAN CORPUSCULAR VOLUME 83 fL (79-100); MONO # 0.9 x10^3/uL (0.0-1.1); MONO % 11 % (0-9); NEUT # 5.5 x10^3uL (1.8-7.7); NEUT % 64 % (31-73); PLATELET COUNT 523 x10^3/uL (140-400); RED BLOOD COUNT 4.42 x10^6/uL (4.30-5.70); WHITE BLOOD COUNT 8.7 x10^3/uL (4.0-11.0)
[2019-08-11 05:31] LABS: CALCIUM 8.3 mg/dL (8.5-10.1); CREATININE 0.7 mg/dL (0.7-1.3); GFR 112.5; POTASSIUM 3.9 mmol/L (3.5-5.1)
[2019-08-11 05:46] VITALS: BP 94/54
[2019-08-11] MEDS ORDERED: IOHEXOL 350 MG/ML 100 ML VIAL. IV ONE (06:45)
[2019-08-11] MEDS ORDERED: CONTRAST GIVEN MC PRN (06:45)
[2019-08-11] MEDS ORDERED: METHYLNALTREXONE 12 MG/0.6 ML VIAL. SQ ONE (08:15)
--- NOTE | 2019-08-11 08:50 | CONS ---
DATE OF CONSULTATION: 08/11/2019 REASON FOR CONSULTATION: Elevated troponin. CONSULTING PHYSICIAN: Dr. Smallwood. HISTORY OF PRESENT ILLNESS: The patient is a 69-year-old man with past medical history as noted below, who presents to the hospital in the setting of diaphoresis. He has actually been at the psychiatric facility at [facility] over the last 5 weeks, being treated for major depressive disorder with psychotic features. In this setting, he apparently was having unsteady gait and this has been chronic, but yesterday had some diaphoresis and near syncope. This prompted transfer to the medical unit for further evaluation and treatment. Initial evaluation has not revealed any significant pathology, but due to the patient diaphoresis yesterday, he did have a troponin lab which was minimally elevated. In speaking with the patient today, he denies any current chest pain or dyspnea. Yesterday what he recalls as a sudden onset of diaphoresis and dyspnea, which then led to some unsteady gait. He otherwise did not describe any crushing angina or chest pain. He denies any palpitations. The patient does report that at baseline he has had a history of syncope for nearly 12 years and usually has near syncopal episodes of unclear etiology. Further information regarding this is not available. PAST MEDICAL HISTORY: 1. Major depressive disorder. 2. Hypertension. 3. Dyslipidemia. 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 ALLERGIES: OXYCODONE. CURRENT CARDIAC MEDICATIONS: 1. Lisinopril 10 mg daily. 2. Lovenox 40 mg q.24 hours. 3. P.r.n. hydralazine. REVIEW OF SYSTEMS: Negative unless otherwise mentioned above in HPI. PHYSICAL EXAMINATION: VITAL SIGNS: Afebrile, 84, 20, 94/54, 98% on room air. GENERAL: He is alert and oriented. HEAD AND NECK: Unremarkable. CARDIAC: Regular rate and rhythm with a soft systolic murmur. LUNGS: Clear. ABDOMEN: Soft, nontender. EXTREMITIES: 2+ radial and dorsalis pedis pulses without any edema. NEUROLOGIC: No focal deficits. MUSCULOSKELETAL: No trauma. PSYCHIATRIC: Flat affect. DIAGNOSTIC STUDIES: Hemoglobin, male with mildly decreased at 12.5 with a platelet count of 523. Sodium is 136 with a creatinine of 0.7. Troponin was elevated to a peak of 0.063, now down trending to 0.041. D-dimer elevated at 0.51. Telemetry and EKG are notable for sinus tachycardia. Abdomen and pelvis CT is grossly unremarkable except for signs of significant stool burden. ASSESSMENT: Elevated troponin: Low suspicion for acute coronary syndrome. This may be secondary to metabolic derangement, medications/hypertension or possible pulmonary embolus in the setting of an elevated D-dimer, tachypnea and diaphoresis. RECOMMENDATIONS: 1. Agree with CT angiography of the chest to rule out any occult pulmonary emboli. 2. At this present time, we will continue his lisinopril and add a daily aspirin regimen. We will plan for initiation of low dose statin therapy. 3. We will check a routine echocardiogram to ensure that he has no significant LV dysfunction. If the CT angiography is positive, then continue treatment for his pulmonary embolus. Otherwise, could consider an outpatient stress test depending on the patient's symptoms. Thank you for this consultation. JEAN MARIE ANGELES MD DR: MATHEW/sergey JOB#: [id number] / [id number]
[2019-08-11] MEDS: DICLOFENAC SODIUM 1% TOPICAL GEL 100GM TUBE. TP SCH ×2 (09:00→20:37)
[2019-08-11] MEDS: NYSTATIN TOPICAL POWDER 15GM BOTTLE. TP SCH ×2 (09:00→20:37)
[2019-08-11] MEDS: TAMSULOSIN 0.4 MG CAP.ER.24H. PO SCH (09:26)
[2019-08-11] MEDS: FINASTERIDE 5 MG TABLET PO SCH (09:26)
[2019-08-11] MEDS: POLYETHYLENE GLYCOL 3350 17 GM PACKET. PO SCH (09:26)
[2019-08-11] MEDS: CETIRIZINE HCL 10 MG TABLET PO SCH (09:26)
[2019-08-11] MEDS: LISINOPRIL 10 MG TABLET PO SCH (09:27)
[2019-08-11] MEDS: LEVOTHYROXINE 50 MCG TABLET PO SCH (09:27)
[2019-08-11] MEDS: FLUTICASONE 50MCG/NASAL SPRAY 16GM BOTTLE. NS SCH (09:33)
[2019-08-11] MEDS: LURASIDONE 40 MG TABLET. PO SCH (09:34)
[2019-08-11] MEDS: PRENATAL MULTIVITAMIN TABLET. PO SCH (09:34)
[2019-08-11] MEDS: ASPIRIN ENTERIC COATED 81 MG TABLET.DR. PO SCH (09:36)
--- NOTE | 2019-08-11 10:22 | HP ---
ADMIT DATE: 08/10/2019 HISTORY OF PRESENT ILLNESS: The patient is a 69-year-old male who came from the [facility]. He has been having problems with marked diaphoresis and abdominal pain, possibly related to having to use medications for his pain medications and may have a narcotic bowel. I put him on some Relistor to get his bowels moving. Blood pressure 107/72. He did have an elevated pulse of 110. He did have an elevated troponin, for which Dr. Acevedo has been kind enough to review with us. The patient was admitted for his atypical chest discomfort as well as his elevated troponins and make further evaluation on him. He did have a positive D-dimer as well and awaiting the results back on his CTA there. PAST MEDICAL HISTORY: Includes that of tremors, hypercholesterolemia, hypertension, hypotension, colitis, arthritis, back pain, hypothyroidism, PTSD, conversion disorder, depression, anxiety. IMMUNIZATIONS: For influenza up-to-date. SLEEP DIFFICULTIES: Does have insomnia. ALLERGIES: OXYCODONE. MEDICATIONS: The patient's medications include loratadine 10 mg a day, Flomax 0.4, fenofibrate 145, hydralazine 50, lisinopril 10, diclofenac sodium lotion, hydrocodone p.r.n., Latuda 80 mg daily, fluticasone, levothyroxine 50 mcg, vitamin D2, vitamins, finasteride, melatonin, polyethylene glycol. SOCIAL HISTORY: He has a previous history of smoking and the like. REVIEW OF SYSTEMS: The patient denies any headaches, visual changes. Does have some abdominal discomfort as noted primarily in the left lower quadrant and left mid quadrant area, mild nausea. Denies shortness of breath. Does have some chest discomfort or tightness. PHYSICAL EXAMINATION: GENERAL: Skin is clammy, otherwise neurologically baseline. VITAL SIGNS: Blood pressure anywhere from 110/70-94/54, respiratory rate 20, pulse is 84 up to 110, afebrile. HEENT: The patient's head was atraumatic, normocephalic. Eyes: PERRLA without jaundice. The mouth and throat were normal. NECK: Supple without JVD or thyromegaly. LUNGS: Diminished, but clear. CARDIOVASCULAR: Regular sinus rhythm, S1, S2, without murmur, rub, thrill, or extra heart sound. ABDOMEN: Protuberant, soft. Definite tenderness and firmness in that left mid to left upper quadrant areas. No guarding. No hepatosplenomegaly. Positive bowel sounds, are markedly diminished. EXTREMITIES: No clubbing, cyanosis, nor edema. NEUROLOGIC: The patient is baseline. LABORATORY DATA: White count 8, hemoglobin 12 and 36, platelets elevated at 523. Sodium and potassium 136 and 3.9, BUN and creatinine 15 and 0.7. Blood sugar 83, calcium slightly low at 8.3. Troponin 0.048 and 0.041. He had an earlier one of 0.063 but they have been coming down. CPK of 237. Troponin elevated at 0.51. UA did show 11-20 red blood cells in his urine and marked dehydration and urine specific gravity elevated at 1.030. IMPRESSION: Elevated troponins, hematuria, abdominal pain, constipation, possible narcotic bowel syndrome, bipolar disease, posttraumatic stress disorder. Continue his home meds. Cardiology consulted and make further evaluation on this fine gentleman. GRADY MERRILL MD DR: MARKO/sergey JOB#: [id number] / [id number]
--- NOTE | 2019-08-11 10:47 | RAD ---
CT ANGIOGRAPHY CHEST INDICATION: Positive d-dimer, dyspnea. Comparison: None. TECHNIQUE: Following the uneventful administration of intravenous contrast, 90 cc Omnipaque 350, axial CT sections were obtained through the lungs and upper abdomen. Multiplanar reconstructions and MIP images were obtained. PQRS compliance statement: One or more of the following individualized dose reduction techniques were utilized for this examination: 1. Automated exposure control 2. Adjustment of the mA and/or kV according to patient size 3. Use of iterative reconstruction technique FINDINGS: Pulmonary arteries: No evidence of pulmonary thromboembolic disease. Lungs and Airways: No pulmonary mass or consolidation. Bibasilar dependent and subsegmental atelectasis. No abnormality of the central airways. Pleura: The pleural spaces are normal. Heart and Mediastinum: The visualized thyroid is normal in size and attenuation. No axillary or supraclavicular lymphadenopathy. No mediastinal, hilar or retrocrural lymphadenopathy. Cardiomegaly. No pericardial effusion. Coronary artery atherosclerotic disease. The great vessels of the thorax are normal. Abdomen: Hepatic steatosis. Bones and Soft Tissues: Degenerative changes of the spine. IMPRESSION: 1. No evidence of pulmonary thromboembolic disease. 2. No pulmonary mass or consolidation. Electronically signed by: Jacek Nina MD (08/11/2019 10:44 AM) [facility]
[2019-08-11 11:42] VITALS: BP 145/82
[2019-08-11] MEDS ORDERED: SODIUM CHLORIDE 0.65% NASAL SPRAY 45ML BOTTLE. NS PRN (15:00)
[2019-08-11 15:51] VITALS: BP 150/81
[2019-08-11] MEDS: LORazepam 0.5 MG TABLET PO PRN (16:57)
[2019-08-11] MEDS: DOCUSATE SODIUM 100 MG CAPSULE PO SCH (16:57)
[2019-08-11] MEDS ORDERED: OXYMETAZOLINE 0.05% NASAL SPRAY 15ML BOTTLE. NS PRN (17:30)
[2019-08-11] MEDS: ENOXAPARIN 40 MG/0.4 ML SYRINGE. SQ SCH (19:23)
[2019-08-11 19:31] VITALS: BP 109/71
[2019-08-11] MEDS: MELATONIN 3 MG TABLET PO SCH (20:34)
[2019-08-11] MEDS: FENOFIBRATE NANOCRYSTALLIZED 145 MG TABLET PO SCH (20:35)
[2019-08-11] MEDS ORDERED: ATORVASTATIN CALCIUM 20 MG TABLET PO SCH (21:00)
[2019-08-11 22:26] VITALS: BP 136/73
[2019-08-12] MEDS: IV NORMAL SALINE 1,000ML 1,000 ML IV SCH ×2 (05:04→07:00)
[2019-08-12 05:15] VITALS: BP 146/75
[2019-08-12] MEDS: NYSTATIN TOPICAL POWDER 15GM BOTTLE. TP SCH (09:00)
[2019-08-12] MEDS: PRENATAL MULTIVITAMIN TABLET. PO SCH (09:00)
[2019-08-12] MEDS: DICLOFENAC SODIUM 1% TOPICAL GEL 100GM TUBE. TP SCH (09:00)
[2019-08-12 09:11] LABS: BASO % 1 % (0-3); EOS # 0.1 x10^3/uL (0.0-0.7); EOS % 2 % (0-3); HEMATOCRIT 36.8 % (39.0-53.0); HEMOGLOBIN 12.3 g/dL (13.0-17.5); LYMPH # 1.6 x10^3/uL (1.0-4.8); LYMPH % 20 % (24-48); MEAN CORPUSCULAR HEMOGLOBIN 28 pg (25-35); MEAN CORPUSCULAR HGB CONC 34 g/dL (31-37); MEAN CORPUSCULAR VOLUME 83 fL (79-100); MONO # 0.7 x10^3/uL (0.0-1.1); MONO % 9 % (0-9); NEUT # 5.5 x10^3uL (1.8-7.7); NEUT % 69 % (31-73); PLATELET COUNT 512 x10^3/uL (140-400); RED BLOOD COUNT 4.43 x10^6/uL (4.30-5.70); WHITE BLOOD COUNT 7.9 x10^3/uL (4.0-11.0)
[2019-08-12 09:21] LABS: ALBUMIN/GLOBULIN RATIO 0.9 (1.0-1.7); CALCIUM 8.3 mg/dL (8.5-10.1); CREATININE 0.7 mg/dL (0.7-1.3); GFR 112.5; POTASSIUM 3.7 mmol/L (3.5-5.1); TOTAL BILIRUBIN 0.3 mg/dL (0.2-1.0); TOTAL PROTEIN 6.2 g/dL (6.4-8.2)
--- NOTE | 2019-08-12 10:33 | PDOC ---
PROVIDER NOTE PROVIDER NOTE PROVIDER NOTE Cardiology Progress Note: S: No acute events. he reports continued chest pain/dyspnea although he was sleeping comfortably before I walked into the room. He appears anxious O: VSS Normal cardiac exam. Labs reviewed. Meds reviewed. impression: 1. Elevated troponin - etiology unclear (No P.E. Low suspicion for ACS) RECS: 1. Continue present tx. Await echo. Ok to transfer up to the psych unit while waiting for echo. JEAN MARIE ANGELES MD Aug 12, 2019 10:33
[2019-08-12 11:28] VITALS: BP 171/63
[2019-08-12 12:04] VITALS: BP 171/63
[2019-08-12] MEDS: LISINOPRIL 10 MG TABLET PO SCH (12:04)
[2019-08-12] MEDS: CETIRIZINE HCL 10 MG TABLET PO SCH (12:04)
[2019-08-12] MEDS: ASPIRIN ENTERIC COATED 81 MG TABLET.DR. PO SCH (12:04)
[2019-08-12] MEDS: TAMSULOSIN 0.4 MG CAP.ER.24H. PO SCH (12:04)
[2019-08-12] MEDS: FINASTERIDE 5 MG TABLET PO SCH (12:04)
[2019-08-12] MEDS: LEVOTHYROXINE 50 MCG TABLET PO SCH (12:04)
[2019-08-12] MEDS: LORazepam 0.5 MG TABLET PO PRN (12:04)
[2019-08-12] MEDS: POLYETHYLENE GLYCOL 3350 17 GM PACKET. PO SCH (12:05)
[2019-08-12] MEDS: LURASIDONE 40 MG TABLET. PO SCH (12:05)
[2019-08-12] MEDS: FLUTICASONE 50MCG/NASAL SPRAY 16GM BOTTLE. NS SCH (12:05)
--- NOTE | 2019-08-12 14:53 | PDOC ---
Exam Note: Robert Note: Please also refer to the separate dictated note~for this date of service dictated separately.~Patient seen individually. Discussed the patient with Nursing staff reviewed the chart.~Reviewed interim history and current functioning. Reviewed vital signs,~Labs/ Radiology~and current medications noted below. Continue current treatment with the changes noted in the dictated addendum note. This is a late entry for 08.11.19 Assessment: Vital Signs/I&O: Vital Signs Date Time Temp Pulse Resp B/P (MAP) Pulse Ox O2 Delivery O2 Flow Rate FiO2 08/12/19 12:04 91 171/63 08/12/19 11:28 98.4 20 96 Room Air I & O 0 08/11/19 08/11/19 08/12/19 15:00 23:00 07:00 Intake Total 2630 ml 450 ml 1400 ml Output Total 1200 ml 1900 ml 800 ml Balance 1430 ml -1450 ml 600 ml Labs: Laboratory Tests Test 08/12/19 07:52 08/12/19 08:53 Glucose (Fingerstick) 85 mg/dL (70-99) White Blood Count 7.9 x10^3/uL (4.0-11.0) Red Blood Count 4.43 x10^6/uL (4.30-5.70) Hemoglobin 12.3 g/dL (13.0-17.5) L Hematocrit 36.8 % (39.0-53.0) L Mean Corpuscular Volume 83 fL (79-100) Mean Corpuscular Hemoglobin 28 pg (25-35) Mean Corpuscular Hemoglobin Concent 34 g/dL (31-37) Red Cell Distribution Width 14.0 % (11.5-14.5) Platelet Count 512 x10^3/uL (140-400) H Neutrophils (%) (Auto) 69 % (31-73) Lymphocytes (%) (Auto) 20 % (24-48) L Monocytes (%) (Auto) 9 % (0-9) Eosinophils (%) (Auto) 2 % (0-3) Basophils (%) (Auto) 1 % (0-3) Neutrophils # (Auto) 5.5 x10^3uL (1.8-7.7) Lymphocytes # (Auto) 1.6 x10^3/uL (1.0-4.8) Monocytes # (Auto) 0.7 x10^3/uL (0.0-1.1) Eosinophils # (Auto) 0.1 x10^3/uL (0.0-0.7) Basophils # (Auto) 0.0 x10^3/uL (0.0-0.2) Sodium Level 135 mmol/L (136-145) L Potassium Level 3.7 mmol/L (3.5-5.1) Chloride Level 99 mmol/L (98-107) Carbon Dioxide Level 27 mmol/L (21-32) Anion Gap 9 (6-14) Blood Urea Nitrogen 5 mg/dL (8-26) L Creatinine 0.7 mg/dL (0.7-1.3) Estimated GFR (Cockcroft-Gault) 112.5 BUN/Creatinine Ratio 7 (6-20) Glucose Level 115 mg/dL (70-99) H Calcium Level 8.3 mg/dL (8.5-10.1) L Total Bilirubin 0.3 mg/dL (0.2-1.0) Aspartate Amino Transferase (AST) 25 U/L (15-37) Alanine Aminotransferase (ALT) 26 U/L (16-63) Alkaline Phosphatase 56 U/L (46-116) Total Protein 6.2 g/dL (6.4-8.2) L Albumin 3.0 g/dL (3.4-5.0) L Albumin/Globulin Ratio 0.9 (1.0-1.7) L Current Medications: Meds: Current Medications Medications (Trade) Dose Ordered Sig/Henry Route PRN Reason Start Time Stop Time Status Last Admin Dose Admin Atorvastatin Calcium (Lipitor) 20 mg QHS PO 08/11/19 21:00 08/12/19 14:34 DC 08/11/19 20:35 Sodium Chloride (Saline Mist Nasal) 1 alexsandra PRN Q1HR PRN NS NASAL CONGESTION 08/11/19 15:00 08/12/19 14:34 DC 08/11/19 15:35 Lorazepam (Ativan) 0.5 mg PRN Q2HR PRN PO ANXIETY / AGITATION 08/11/19 16:00 08/12/19 14:34 DC 08/12/19 12:04 Oxymetazoline HCl (Afrin) 2 spray PRN DAILY PRN NS SEASONAL ALLERGY 08/11/19 17:30 08/12/19 14:34 DC 08/11/19 19:23 I have reviewed the current psychotropics carefully including drug interactions. Risk benefit ratio favors no change other than as noted in my dictated progress note. Diagnosis: Problems: (1) Major depressive disorder, recurrent episode (2) Psychosis, atypical (3) Anxiety disorder (4) History of post traumatic stress disorder (5) Conversion disorder DARA FELIPE MD Aug 12, 2019 14:52
[2019-08-12] MEDS ORDERED: MONT10TA80 PO (17:19)
[2019-08-12] MEDS ORDERED: CHOL500050 PO (17:19)
[2019-08-12] MEDS ORDERED: SODI45SP4 NS (17:19)
[2019-08-12] MEDS ORDERED: CETI10TA16 PO (17:19)
[2019-08-12] MEDS ORDERED: ASPI-612 PO (17:19)
[2019-08-12] MEDS ORDERED: NYST15PO9 TP (17:19)
[2019-08-12] MEDS ORDERED: ATOR20TA58 PO (17:19)
[2019-08-12] MEDS ORDERED: LORA-254 PO (17:19)
[2019-08-12] MEDS ORDERED: GUAI600T47 PO (17:19)
[2019-08-12] MEDS ORDERED: OXYM30SP25 NS (17:19)
--- NOTE | 2019-08-12 19:53 | DS ---
DATE OF DISCHARGE: 08/12/2019 HOSPITAL COURSE: A 69-year-old gentleman came in from the skilled unit at a [facility]. He has been having some chest pain, marked diaphoresis. The patient came in with elevated troponin for which he was evaluated by Dr. Acevedo who was kind enough to review, the patient did not feel it was cardiac. The patient made relatively good progress. Did have an elevated d-dimer. CTA was negative for blood clot. The patient made good progress during the rest of his hospitalization. No complications and mild anemia of 12.3 and 36, platelet count actually was elevated over 500,000. The patient's sodium and potassium were 3.7, BUN and creatinine of 9 and 0.7. The patient's albumin of 3. The patient continued to be monitored. He made good progress during the rest of his hospitalization. Has conversion syndrome. Will be transferred back up to the [facility] for further rehabilitation. See MRAD. Decreased activity and followup with the physicians on the floor for adjustment of his psychiatric medication. IMPRESSION: Elevated troponin, hematuria, abdominal pain, constipation. He did have a good bowel movement with some possible narcotic bowel syndrome, bipolar disease, posttraumatic syndrome, moderate protein malnutrition, thrombocytosis, anemia of unknown etiology, hematuria, dehydration. The patient will be admitted back upstairs to the [facility]. He will be discharged here. See MRAD. Decreased activity and followup accordingly. GRADY MERRILL MD DR: MAKRO/sergey JOB#: [id number] / [id number]
--- NOTE | 2019-08-12 20:58 | PN ---
DATE: 08/11/2019 PSYCHIATRIC PROGRESS NOTE This late entry 08/11/2019 covers elements not covered in my initial note. SUBJECTIVE: I met with the patient in the evening. The patient was transferred to [address] [place] [address] Medical/Surgical floor consequent to his hyponatremia, which was recalcitrant to changes in his psychotropics and medical management on the [facility]. He was additionally found to be extremely constipated. All of this has been addressed. We had previously stopped his amitriptyline consequent to SIADH, possibility of contributing to the hyponatremia and once the hyponatremia persisted, we stopped the trazodone as well. Immediately prior to this transfer to [address] [place] [address], we had additionally stopped the Cymbalta as a last psychotropic that could be contributing to the hyponatremia/SIADH. The patient has been more anxious per nursing report and did call me as an emergency. I did add some Ativan p.r.n. and part of this could be withdrawal from the discontinuation of the Cymbalta. REVIEW OF SYSTEMS: Positive for some tiredness, but he is not having the cold sweats like he was on the [facility]. He is reasonably oriented, verbally interactive with me evening of 08/11/2019. MENTAL STATUS EXAMINATION: The patient is reasonably oriented as noted above. Speech has some latency, coherent. Abstraction fair, computation somewhat impaired. Attention span short. Mood is dysphoric, anxious. No clear psychotic symptoms. No suicidal ideation. LABORATORY DATA: Reviewed. IMPRESSION: Major depressive disorder with psychotic features, past history of treatment on electroconvulsive therapy. Syndrome of inappropriate antidiuretic hormone secretion. Rest unchanged from initial note. PLAN: From a psychiatric standpoint, we would not recommend any changes for now, but keep him off the 3 psychotropics mentioned above. Once he is medically stable depending on how he is doing psychiatrically we may consider transferring him back to the [facility] for psychiatric stabilization before transition to a lower level of care. He will need ECT maintenance as an outpatient. I did see the patient for a psychiatric consult followup as requested by Dr. Mack/Dr. Smallwood and he was seen in the evening of 08/11/2019. DARA FELIPE MD DR: NIKKY/sergey JOB#: [id number] / [id number]
--- NOTE | 2019-08-13 02:46 | PN ---
DATE: 08/12/2019 PSYCHIATRIC PROGRESS NOTE This note covers elements not covered in my initial note 08/12/2019. SUBJECTIVE: I met with the patient in the evening and also with his who was shaving him and giving him a haircut in his room. Overall, the patient has been anxious, restless, somewhat paranoid, at times depressed. His psychotropics have been discontinued, and we will need to transfer him back to the [facility] to stabilize him on his psychotropics prior to his transition to custodial. Discussed this with him and his this evening. REVIEW OF SYSTEMS: Positive for tiredness. No CV, , pulmonary, eye system symptoms on review. MENTAL STATUS EXAM: Reasonably oriented. Speech is coherent, abstraction fair, computation impaired, language function intact. Mood and affect is depressed. LABORATORY DATA: Reviewed. IMPRESSION: Major depressive disorder with psychotic features. Rest unchanged. PLAN: No change from initial note. We will transition him back to [facility]. DARA FELIPE MD DR: NIKKY/sergey JOB#: [id number] / [id number]
[2019-08-13] MEDS ORDERED: CHOLECALCIFEROL (VITAMIN D3) 50,000 UNIT CAPSULE PO SCH (09:00)
== END 2019-08-12 14:34 | DRG 281 ==
LOC: 1 SOUTH 14:50
PROVIDERS: ADMIT Family Medicine; ATTEND Family Medicine
DX: I21.A1 Myocardial infarction type 2 (principal); E44.0 Moderate protein-calorie malnutrition; E22.2 Syndrome of inappropriate secretion of antidiuretic hormone; K59.09 Other constipation; E78.00 Pure hypercholesterolemia, unspecified; I10 Essential (primary) hypertension; F43.10 Post-traumatic stress disorder, unspecified; M19.90 Unspecified osteoarthritis, unspecified site; F44.9 Dissociative and conversion disorder, unspecified; E03.9 Hypothyroidism, unspecified; G47.00 Insomnia, unspecified; E78.5 Hyperlipidemia, unspecified; F31.9 Bipolar disorder, unspecified; D64.9 Anemia, unspecified; E86.0 Dehydration; D47.3 Essential (hemorrhagic) thrombocythemia; Z88.8 Allergy status to other drugs, medicaments and biological substances; Z87.891 Personal history of nicotine dependence
CPT/HCPCS: 36415; 71275; 74176; 80048; 80053; 81001; 82550; 82947; 84484; 85025; 85379; 87040; 87086; 93005; J1650; Q9967; 99285-25; J7030

== ENCOUNTER 2019-08-12 15:03 | Inpatient (IN) | payer MEDICARE, BC ==
[~2019-08-12] VITALS: Ht 167.6 cm; Wt 77.6 kg
[2019-08-12 16:12] VITALS: BP 129/82
[2019-08-12] MEDS ORDERED: METHYL SALICYLATE/MENTHOL TOPICAL OINTMENT 57GM TUBE. TP PRN (17:15)
[2019-08-12] MEDS ORDERED: MAGNESIUM HYDROXIDE 2,400 MG/30 ML ORAL.SUSP. PO PRN (17:15)
[2019-08-12] MEDS ORDERED: MAG HYDROX/AL HYDROX/SIMETH 30 ML ORAL.SUSP PO PRN (17:15)
[2019-08-12] MEDS ORDERED: CETI10TA16 PO (17:19)
[2019-08-12] MEDS ORDERED: ASPI-612 PO (17:19)
[2019-08-12] MEDS ORDERED: OXYM30SP25 NS (17:19)
[2019-08-12] MEDS ORDERED: MONT10TA80 PO (17:19)
[2019-08-12] MEDS ORDERED: LORA-254 PO (17:19)
[2019-08-12] MEDS ORDERED: ATOR20TA58 PO (17:19)
[2019-08-12] MEDS ORDERED: CHOL500050 PO (17:19)
[2019-08-12] MEDS ORDERED: SODI45SP4 NS (17:19)
[2019-08-12] MEDS ORDERED: NYST15PO9 TP (17:19)
[2019-08-12] MEDS ORDERED: GUAI600T47 PO (17:19)
--- NOTE | 2019-08-12 19:22 | NUR ---
Admission Note with Justification for Admission to [facility] Patient admitted to [facility] for protective oversight for emergency stabilization of acute psychiatric crisis. Pt admitted from: [address] [place] [address]. Mode of arrival: w/c Accompanied By: [facility] StaffJane Precipitating behaviors that initiated intake and admission: Returned from med/surg floor due to refusing to eat and disrobing, trying to get out of bed without assistance, fixated on telephone, stating he heard his neighbors outside. Description of failure of out patient attempts at stabilization in previous setting list behavior and medication trials: pt. was reportedly disrobing, agitated. Behaviors and assessment findings upon admission: Hand tremors, A & O X3, irritable. Plan: Admit for protective oversight for adjustment and stabilization of medications, behaviors and mood. Intense treatment regimen including groups, medication adjustments, therapy, consistent regimen for ADL's, self care, and sleep hygiene. Daily monitoring by Inpatient staff, Psychiatry, and Medical Physician.
[2019-08-12] MEDS: FENOFIBRATE NANOCRYSTALLIZED 145 MG TABLET PO SCH (20:29)
[2019-08-12] MEDS: NYSTATIN TOPICAL POWDER 15GM BOTTLE. TP SCH (20:30)
[2019-08-12] MEDS: ATORVASTATIN CALCIUM 20 MG TABLET PO SCH (20:30)
[2019-08-12] MEDS: DOCUSATE SODIUM 100 MG CAPSULE PO SCH (20:30)
[2019-08-12] MEDS: MELATONIN 3 MG TABLET PO SCH (20:30)
[2019-08-12] MEDS: DICLOFENAC SODIUM 1% TOPICAL GEL 100GM TUBE. TP SCH (20:30)
[2019-08-12] MEDS: LORazepam 1 MG TABLET PO PRN (20:31)
--- NOTE | 2019-08-12 20:37 | PDOC ---
Exam Note: Robert Note: Please also refer to the separate dictated note~for this date of service dictated separately. Discussed the patient with Nursing staff reviewed the chart.~Reviewed interim history and current functioning. Reviewed vital signs,~Labs/ Radiology~and current medications noted below. Continue current treatment with the changes noted in the dictated addendum note Assessment: Vital Signs/I&O: Vital Signs Date Time Temp Pulse Resp B/P (MAP) Pulse Ox O2 Delivery O2 Flow Rate FiO2 08/12/19 16:12 98.5 103 20 129/82 (98) 98 Current Medications: Meds: Current Medications Medications (Trade) Dose Ordered Sig/Henry Route PRN Reason Start Time Stop Time Status Last Admin Dose Admin Atorvastatin Calcium (Lipitor) 20 mg QHS PO 08/12/19 21:00 08/12/19 20:30 Diclofenac Sodium (Voltaren) 4 alexsandra BID TP 08/12/19 21:00 08/12/19 20:30 Docusate Sodium (Colace) 100 mg QEVNG PO 08/12/19 18:00 08/12/19 20:30 Fenofibrate (Tricor) 145 mg QHS PO 08/12/19 21:00 08/12/19 20:29 Guaifenesin (Mucinex Er) 600 mg BID PO 08/12/19 21:00 08/12/19 20:29 Nystatin (Nystop) 1 alexsandra BID TP 08/12/19 21:00 08/12/19 20:30 Lorazepam (Ativan) 0.5 mg PRN Q2HR PRN PO ANXIETY / AGITATION 08/12/19 17:45 08/12/19 20:31 Melatonin (Melatonin) 6 mg QHS PO 08/12/19 21:00 08/12/19 20:30 I have reviewed the current psychotropics carefully including drug interactions. Risk benefit ratio favors no change other than as noted in my dictated progress note. Diagnosis: Problems: (1) Mild cognitive impairment (2) Conversion disorder (3) History of post traumatic stress disorder (4) Anxiety disorder (5) Major depressive disorder, recurrent episode (6) Psychosis, atypical DARA FELIPE MD Aug 12, 2019 20:37
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
--- NOTE | 2019-08-13 02:27 | NUR ---
Pt up wandering in the bourgeois at this time. When asked what he was doing up, pt reported that the man in his room wanted to lay in the other bed and that he had to get up. Staff checked pt room to ensure that another pt had not wandered into the wrong room. There was no one there. Pt was escorted back to his room and shown that no one was in fact there to which pt replied "well, I guess you'll find him wandering around out there somewhere". At this time, pt returned to bed.
[2019-08-13] MEDS: LEVOTHYROXINE 50 MCG TABLET PO SCH ×2 (04:54→23:45)
[2019-08-13 06:05] VITALS: BP_SYST 107; BP_SYST 127; BP_DIAS 69; BP_DIAS 77
[2019-08-13 06:42] LABS: ALBUMIN/GLOBULIN RATIO 0.9 (1.0-1.7); CALCIUM 8.7 mg/dL (8.5-10.1); CREATININE 0.8 mg/dL (0.7-1.3); GFR 96.4; POTASSIUM 3.8 mmol/L (3.5-5.1); TOTAL BILIRUBIN 0.3 mg/dL (0.2-1.0); TOTAL PROTEIN 6.2 g/dL (6.4-8.2)
[2019-08-13] MEDS: MONTELUKAST 10 MG TABLET. PO SCH (08:05)
[2019-08-13] MEDS: PRENATAL MULTIVITAMIN TABLET. PO SCH (08:05)
[2019-08-13] MEDS: CHOLECALCIFEROL (VITAMIN D3) 50,000 UNIT CAPSULE PO SCH (08:05)
[2019-08-13] MEDS: CETIRIZINE HCL 10 MG TABLET PO SCH (08:05)
[2019-08-13] MEDS: FINASTERIDE 5 MG TABLET PO SCH (08:05)
[2019-08-13] MEDS: TAMSULOSIN 0.4 MG CAP.ER.24H. PO SCH (08:05)
[2019-08-13] MEDS: POLYETHYLENE GLYCOL 3350 17 GM PACKET. PO SCH (08:05)
[2019-08-13] MEDS: ASPIRIN ENTERIC COATED 81 MG TABLET.DR. PO SCH (08:06)
[2019-08-13] MEDS: LISINOPRIL 10 MG TABLET PO SCH ×2 (08:06→09:00)
[2019-08-13] MEDS: DICLOFENAC SODIUM 1% TOPICAL GEL 100GM TUBE. TP SCH ×2 (09:00→20:20)
[2019-08-13] MEDS: NYSTATIN TOPICAL POWDER 15GM BOTTLE. TP SCH ×2 (09:00→20:15)
[2019-08-13] MEDS: FLUTICASONE 50MCG/NASAL SPRAY 16GM BOTTLE. NS SCH (09:36)
[2019-08-13] MEDS: LURASIDONE 40 MG TABLET. PO SCH (09:36)
--- NOTE | 2019-08-13 10:32 | NUR ---
Received voice message from Jame, health data administrator at [facility], declining Bj for admit due to fluid restriction. Jame expressed they could not manage a patient on a fluid restriction at their community.
--- NOTE | 2019-08-13 14:52 | NUR ---
Nursing note: Pt was in dining room this morning for meds and assessment. Pt was pleasant and compliant with taking meds whole and cooperative with his assessment. He answered questions appropriately. He has been in the day room for most of the day and participated in groups. Will continue to monitor.
[2019-08-13 16:02] VITALS: BP 113/66
[2019-08-13] MEDS: DOCUSATE SODIUM 100 MG CAPSULE PO SCH (17:23)
[2019-08-13] MEDS: traZODone 50 MG TABLET. PO SCH (20:13)
[2019-08-13] MEDS: LORazepam 1 MG TABLET PO PRN (20:13)
[2019-08-13] MEDS: ATORVASTATIN CALCIUM 20 MG TABLET PO SCH (20:14)
[2019-08-13] MEDS: MELATONIN 3 MG TABLET PO SCH (20:14)
[2019-08-13] MEDS: FENOFIBRATE NANOCRYSTALLIZED 145 MG TABLET PO SCH (20:14)
--- NOTE | 2019-08-13 20:49 | PDOC ---
Exam Note: Robert Note: Please also refer to the separate dictated note~for this date of service dictated separately.~Patient seen individually. Discussed the patient with Nursing staff reviewed the chart.~Reviewed interim history and current functioning. Reviewed vital signs,~Labs/ Radiology~and current medications noted below. Continue current treatment with the changes noted in the dictated addendum note Assessment: Vital Signs/I&O: Vital Signs Date Time Temp Pulse Resp B/P (MAP) Pulse Ox O2 Delivery O2 Flow Rate FiO2 08/13/19 16:02 98.3 89 20 113/66 (82) 96 I & O 08/12/19 08/12/19 08/13/19 15:00 23:00 07:00 Intake Total 270 ml 120 ml Balance 270 ml 120 ml Labs: Laboratory Tests Test 08/13/19 05:52 08/13/19 08:03 Sodium Level 135 mmol/L (136-145) L Potassium Level 3.8 mmol/L (3.5-5.1) Chloride Level 100 mmol/L (98-107) Carbon Dioxide Level 27 mmol/L (21-32) Anion Gap 8 (6-14) Blood Urea Nitrogen 8 mg/dL (8-26) Creatinine 0.8 mg/dL (0.7-1.3) Estimated GFR (Cockcroft-Gault) 96.4 BUN/Creatinine Ratio 10 (6-20) Glucose Level 91 mg/dL (70-99) Calcium Level 8.7 mg/dL (8.5-10.1) Total Bilirubin 0.3 mg/dL (0.2-1.0) Aspartate Amino Transferase (AST) 30 U/L (15-37) Alanine Aminotransferase (ALT) 26 U/L (16-63) Alkaline Phosphatase 54 U/L (46-116) Total Protein 6.2 g/dL (6.4-8.2) L Albumin 3.0 g/dL (3.4-5.0) L Albumin/Globulin Ratio 0.9 (1.0-1.7) L Glucose (Fingerstick) 98 mg/dL (70-99) Current Medications: Meds: Current Medications Medications (Trade) Dose Ordered Sig/Henry Route PRN Reason Start Time Stop Time Status Last Admin Dose Admin Aspirin (Aspirin Enteric Coated) 81 mg DAILYWBKFT PO 08/13/19 08:00 08/13/19 08:06 Atorvastatin Calcium (Lipitor) 20 mg QHS PO 08/12/19 21:00 08/13/19 20:14 Cetirizine HCl (ZyrTEC) 10 mg DAILY PO 08/13/19 09:00 08/13/19 08:05 Vitamin D (Vitamin D3) 50,000 unit WEEKLY PO 08/13/19 09:00 08/13/19 08:05 Diclofenac Sodium (Voltaren) 4 alexsandra BID TP 08/12/19 21:00 08/12/19 20:30 Fenofibrate (Tricor) 145 mg QHS PO 08/12/19 21:00 08/13/19 20:14 Finasteride (Proscar) 5 mg DAILY PO 08/13/19 09:00 08/13/19 08:05 Fluticasone Propionate (Flonase) 1 spray DAILY NS 08/13/19 09:00 08/13/19 09:36 Guaifenesin (Mucinex Er) 600 mg BID PO 08/12/19 21:00 08/13/19 20:14 Levothyroxine Sodium (Synthroid) 50 mcg DAILY06 PO 08/13/19 06:00 08/13/19 04:54 Montelukast Sodium (Singulair) 10 mg DAILY PO 08/13/19 09:00 08/13/19 08:05 Nystatin (Nystop) 1 alexsandra BID TP 08/12/19 21:00 08/13/19 20:15 Tamsulosin HCl (Flomax) 0.4 mg DAILY PO 08/13/19 09:00 08/13/19 08:05 Polyethylene Glycol (miraLAX) 17 gm DAILY PO 08/13/19 09:00 08/13/19 08:05 Multivit/ Folic Acid/Iron (Multivitamin ) 1 tab DAILY PO 08/13/19 09:00 08/13/19 08:05 Melatonin (Melatonin) 6 mg QHS PO 08/12/19 21:00 08/13/19 20:14 Lurasidone HCl (Latuda) 80 mg DAILYWBKFT PO 08/13/19 08:00 08/13/19 09:36 Trazodone HCl (Desyrel) 50 mg QHS PO 08/13/19 21:00 08/13/19 20:13 I have reviewed the current psychotropics carefully including drug interactions. Risk benefit ratio favors no change other than as noted in my dictated progress note. Diagnosis: Problems: (1) Anxiety disorder (2) Major depressive disorder, recurrent episode (3) Psychosis, atypical (4) Conversion disorder (5) Mild cognitive impairment (6) History of post traumatic stress disorder DARA FELIPE MD Aug 13, 2019 20:49
--- NOTE | 2019-08-13 20:58 | CONS ---
DATE OF CONSULTATION: REASON FOR CONSULTATION: Medical management. HISTORY OF PRESENT ILLNESS: The patient is a 69-year-old male patient, who was apparently transferred to [address] [place] [address] on account of marked diaphoresis. He was unsteady on his feet, diaphoretic, and his heart rate was high. He has had a near syncopal episode and this prompted transfer to medical unit for further evaluation and treatment. His initial troponin was slightly elevated and therefore, he has had 2 more sets of cardiac enzyme and Cardiology team was consulted for evaluation and treatment. The patient denied any crushing angina or chest pain, denied any palpitation and an echocardiogram was ordered, but was not done. As the patient remained stable, he was transferred back to [facility] for inpatient psychiatric stabilization to do the echocardiogram after transfer. PAST MEDICAL HISTORY: Significant for hypertension, hyperlipidemia, benign prostatic hypertrophy, has also a history of colitis as well as chronic low blood pressure, hypothyroidism, and generalized osteoarthritis. PAST SURGICAL HISTORY: Significant for arthroscopic surgery of both knee joints and ruptured left biceps tendon and left rotator cuff tear repair. PAST PSYCHIATRIC HISTORY: Significant for conversion disorder, posttraumatic stress disorder, generalized anxiety, and insomnia. ALLERGIES: He is allergic to OXYCODONE. FAMILY HISTORY: Noncontributory. SOCIAL HISTORY: He is a former smoker. PHYSICAL EXAMINATION: GENERAL: On examining, he looked well and was clearly in no apparent respiratory distress. No pallor, jaundice, cyanosis or thyromegaly. No jugular venous distention. No limb edema. VITAL SIGNS: His heart rate was 80, blood pressure was 107/69, temperature was 97.3, respiratory rate was 16, and oxygen saturation was 95% on room air. HEAD, EYES, EARS, NOSE AND THROAT: Showed normocephalic, atraumatic. NECK: Supple. HEART: Showed normal first and second heart sounds. No gallop, rub or murmur. CHEST: Clear to auscultation. No crepitation or rhonchi. ABDOMEN: Distended, soft, and nontender. NEUROLOGIC: He was awake, alert, responding appropriately. All cranial nerves intact. EXTREMITIES: He moves extremities without difficulty. LABORATORY DATA: This morning showed a serum sodium 135, potassium 3.8, chloride 100, bicarbonate 27, anion gap of 8, BUN 8, creatinine 0.8, estimated GFR was 96 mL per minute. His glucose was 91, calcium was 8.7. Total bilirubin, AST, ALT, alkaline phosphatase were normal. Total protein was 6.2, albumin was 3. ASSESSMENT AND PLAN: In summary, this is a 69-year-old male patient who was transferred to medical unit. The patient what seemed to have near syncope, marked diaphoresis, tachycardia, and hypertension. His troponin was slightly elevated. He has 2 more sets of cardiac enzymes that ruled out myocardial infarction. He is scheduled for an echocardiogram. He was [facility] to continue with inpatient psychiatric stabilization and has multiple other medical problems including hypertension, benign prostatic hypertrophy, hypothyroidism, and hyperlipidemia. ANDRES BONNER MD DR: FABIAN/sergey JOB#: [id number] / [id number]
--- NOTE | 2019-08-13 23:12 | NUR ---
Nursing Note Pt pleasant calm and cooperative. Takes po meds , requests to have an ativan for anxiety at HS, is now in his room having a full conversation with someone that isn't there. Trazodone and ativan were given at HS.
[2019-08-13] MEDS: traZODone 50 MG TABLET. PO PRN (23:42)
[2019-08-13] MEDS: HYDROcodone/APAP 5/325MG 1 TAB TABLET PO PRN (23:45)
[2019-08-13] MEDS: SODIUM CHLORIDE 0.65% NASAL SPRAY 45ML BOTTLE. NS PRN (23:45)
[2019-08-13] MEDS: OXYMETAZOLINE 0.05% NASAL SPRAY 15ML BOTTLE. NS PRN (23:46)
[2019-08-14 05:41] VITALS: BP 107/76
[2019-08-14 08:17] LABS: ALBUMIN 3.4 g/dL (3.4-5.0); ALBUMIN/GLOBULIN RATIO 0.9 (1.0-1.7); CALCIUM 9.2 mg/dL (8.5-10.1); CREATININE 0.8 mg/dL (0.7-1.3); GFR 96.4; TOTAL BILIRUBIN 0.3 mg/dL (0.2-1.0)
[2019-08-14] MEDS: POLYETHYLENE GLYCOL 3350 17 GM PACKET. PO SCH (08:36)
[2019-08-14] MEDS: FLUTICASONE 50MCG/NASAL SPRAY 16GM BOTTLE. NS SCH (08:36)
[2019-08-14] MEDS: CETIRIZINE HCL 10 MG TABLET PO SCH (08:37)
[2019-08-14] MEDS: LURASIDONE 40 MG TABLET. PO SCH (08:37)
[2019-08-14] MEDS: MONTELUKAST 10 MG TABLET. PO SCH (08:37)
[2019-08-14] MEDS: DICLOFENAC SODIUM 1% TOPICAL GEL 100GM TUBE. TP SCH ×2 (08:37→21:00)
[2019-08-14] MEDS: PRENATAL MULTIVITAMIN TABLET. PO SCH (08:37)
[2019-08-14] MEDS: ASPIRIN ENTERIC COATED 81 MG TABLET.DR. PO SCH (08:37)
[2019-08-14] MEDS: LISINOPRIL 10 MG TABLET PO SCH (08:38)
[2019-08-14] MEDS: FINASTERIDE 5 MG TABLET PO SCH (08:38)
[2019-08-14] MEDS: TAMSULOSIN 0.4 MG CAP.ER.24H. PO SCH (08:38)
[2019-08-14] MEDS: NYSTATIN TOPICAL POWDER 15GM BOTTLE. TP SCH ×2 (08:38→20:15)
--- NOTE | 2019-08-14 10:28 | NUR ---
Emailed Isaura, , to inquire about how the facility tours in [place] went on 08/13/19, awaiting reply. Informed Isaura that suly has been declined at [place] due to fluid restriction. Call placed to Isaura at [facility] with intent to inquire about admit decision. left message with request for return phone call. Call placed to Asia at [facility] [facility] who reported no male bed availability and a wait list of eight.
--- NOTE | 2019-08-14 11:01 | NUR ---
Patient in dining room for med pass. He was compliant and denied pain when asked. Patient was asking to go back to bed stating that he didn't sleep well last night. His sleep hours were charged as 4.5. Patient defecated in the shower and then returned to bed after showering.
[2019-08-14 15:44] VITALS: BP 110/69
--- NOTE | 2019-08-14 16:08 | HP ---
ADMIT DATE: 08/13/2019 This late entry of 08/13/2019 covers elements not covered in my initial note. I met with the patient in evening of 08/13/2019 at length in his room. I previously discussed with nursing staff. IDENTIFYING DATA: The patient is a 69-year-old male with a history of major depressive disorder, recurrent, severe with psychotic features and a past history of treatment with ECT who was on the [facility] being stabilized for his depression, then developed SIADH and hyponatremia consequent to this. His amitriptyline and later, the Cymbalta were discontinued in case they are contributing to the SIADH, but the problem persisted and he was transferred to the medical/surgical floor of [address] [place] [address] for medical stabilization. He has now been stabilized and trazodone was stopped as well. He continues to be depressed with intermittent hallucinations, agitation, and therefore referred back to [facility] for psychiatric stabilization. CHIEF COMPLAINT: "I did not sleep last night. I see things." HISTORY OF PRESENT ILLNESS: The patient has a history of significant symptoms of major depressive disorder, recurrent with psychotic features and past treatment with ECT while at [facility]. He was doing better on his psychotropics prior to developing the SIADH and thereafter, each one of them had to be discontinued to a point that currently at the time of this readmission, he just remains on Latuda 80 mg a day, melatonin 6 mg at bedtime, Ativan p.r.n., and trazodone p.r.n. He does have a history of mood swings, but no clear history of bipolar disorder. PAST PSYCHIATRIC HISTORY: As above. MEDICAL HISTORY: Positive for history of PTSD, for which he was additionally treated on prazosin, history of hypertension, dyslipidemia, mild cognitive impairment, low back pain, hypothyroidism, colitis, encephalopathy, osteoarthritis, and BPH. ACCU-CHEKS: Daily. CODE STATUS: DNR. ALLERGIES: OXYCODONE. DIET: Regular, 1800 mL fluid restriction. Takes medications whole. Ambulates with walker. UA negative on 08/11/2019. FAMILY HISTORY: Noncontributory. SOCIAL HISTORY: No alcohol, drug abuse, physical, sexual or elder abuse history is noted. Not known to be a perpetrator. MENTAL STATUS EXAMINATION: The patient was seen individually in evening of 08/13/2019. He is reasonably oriented. Speech has some latency, often responses monosyllabic, coherent. Abstraction fair, computation impaired, language function intact. Mood and affect depressed. No active suicidal ideation, somewhat paranoid. LABORATORY DATA: Reviewed. IMPRESSION: Major depressive disorder, recurrent with psychotic features; anxiety disorder, unspecified; mild cognitive impairment, some symptoms of obsessive compulsive disorder. Rest as above. PLAN: Admit to Geropsychiatry Unit at . I will see the patient daily individually from a psychiatric standpoint. Medical followup with Dr. Estevez. Continue the patient on his current psychotropics. We have restarted trazodone, may have to consider restarting an alternate antidepressant depending on his progress. Insomnia has been recalcitrant feature of his symptoms, and we will for now, adjust address it with trazodone. Estimated length of stay 7-9 days. MAN Marc FELIPE MD DR: NIKKY/sergey JOB#: [id number] / [id number]
[2019-08-14] MEDS: DOCUSATE SODIUM 100 MG CAPSULE PO SCH (17:27)
[2019-08-14] MEDS: FENOFIBRATE NANOCRYSTALLIZED 145 MG TABLET PO SCH (20:14)
[2019-08-14] MEDS: traZODone 50 MG TABLET. PO SCH (20:14)
[2019-08-14] MEDS: MELATONIN 3 MG TABLET PO SCH (20:14)
[2019-08-14] MEDS: ATORVASTATIN CALCIUM 20 MG TABLET PO SCH (20:14)
[2019-08-14] MEDS: ZIPRASIDONE 20 MG CAPSULE. PO SCH (20:14)
--- NOTE | 2019-08-14 20:32 | PDOC ---
Exam Note: Robert Note: Please also refer to the separate dictated note~for this date of service dictated separately.~Patient seen individually. Discussed the patient with Nursing staff reviewed the chart.~Reviewed interim history and current functioning. Reviewed vital signs,~Labs/ Radiology~and current medications noted below. Continue current treatment with the changes noted in the dictated addendum note Assessment: Vital Signs/I&O: Vital Signs Date Time Temp Pulse Resp B/P (MAP) Pulse Ox O2 Delivery O2 Flow Rate FiO2 08/14/19 15:44 99.2 80 18 110/69 (83) 94 I & O 08/13/19 08/13/19 08/14/19 15:00 23:00 07:00 Intake Total 1200 ml 480 ml 300 ml Balance 1200 ml 480 ml 300 ml Labs: Laboratory Tests Test 08/14/19 07:28 08/14/19 07:47 Glucose (Fingerstick) 96 mg/dL (70-99) Sodium Level 136 mmol/L (136-145) Potassium Level 4.0 mmol/L (3.5-5.1) Chloride Level 101 mmol/L (98-107) Carbon Dioxide Level 26 mmol/L (21-32) Anion Gap 9 (6-14) Blood Urea Nitrogen 10 mg/dL (8-26) Creatinine 0.8 mg/dL (0.7-1.3) Estimated GFR (Cockcroft-Gault) 96.4 BUN/Creatinine Ratio 13 (6-20) Glucose Level 99 mg/dL (70-99) Calcium Level 9.2 mg/dL (8.5-10.1) Total Bilirubin 0.3 mg/dL (0.2-1.0) Aspartate Amino Transferase (AST) 26 U/L (15-37) Alanine Aminotransferase (ALT) 30 U/L (16-63) Alkaline Phosphatase 59 U/L (46-116) Total Protein 7.0 g/dL (6.4-8.2) Albumin 3.4 g/dL (3.4-5.0) Albumin/Globulin Ratio 0.9 (1.0-1.7) L Current Medications: Meds: Current Medications Medications (Trade) Dose Ordered Sig/Henry Route PRN Reason Start Time Stop Time Status Last Admin Dose Admin Trazodone HCl (Desyrel) 50 mg QHS PO 12/2/19 21:00 08/14/19 20:14 Ziprasidone (Geodon) 20 mg HS PO 08/14/19 21:00 08/14/19 20:14 I have reviewed the current psychotropics carefully including drug interactions. Risk benefit ratio favors no change other than as noted in my dictated progress note. Diagnosis: Problems: (1) Anxiety disorder (2) Major depressive disorder, recurrent episode (3) Psychosis, atypical (4) Conversion disorder (5) Mild cognitive impairment (6) History of post traumatic stress disorder DARA FELIPE MD Aug 14, 2019 20:32
--- NOTE | 2019-08-14 23:26 | NUR ---
Pt located in his room, sleeping soundly throughout the evening. When approached for HS medications, pt refused to open his eyes or acknowledge nurse. Pt compliant with whole medications with resistance. Pt immediately went right back to sleep.
[2019-08-15] MEDS: LEVOTHYROXINE 50 MCG TABLET PO SCH (05:36)
[2019-08-15 05:56] VITALS: BP 129/81
[2019-08-15 07:23] LABS: ALBUMIN 3.3 g/dL (3.4-5.0); ALBUMIN/GLOBULIN RATIO 0.9 (1.0-1.7); CALCIUM 9.1 mg/dL (8.5-10.1); CREATININE 0.7 mg/dL (0.7-1.3); GFR 112.5; POTASSIUM 3.9 mmol/L (3.5-5.1); TOTAL BILIRUBIN 0.3 mg/dL (0.2-1.0); TOTAL PROTEIN 6.8 g/dL (6.4-8.2)
[2019-08-15] MEDS: MONTELUKAST 10 MG TABLET. PO SCH (08:14)
[2019-08-15] MEDS: CETIRIZINE HCL 10 MG TABLET PO SCH (08:14)
[2019-08-15] MEDS: TAMSULOSIN 0.4 MG CAP.ER.24H. PO SCH (08:14)
[2019-08-15] MEDS: POLYETHYLENE GLYCOL 3350 17 GM PACKET. PO SCH (08:14)
[2019-08-15] MEDS: FINASTERIDE 5 MG TABLET PO SCH (08:14)
[2019-08-15] MEDS: PRENATAL MULTIVITAMIN TABLET. PO SCH (08:14)
[2019-08-15] MEDS: LURASIDONE 40 MG TABLET. PO SCH (08:14)
[2019-08-15] MEDS: ASPIRIN ENTERIC COATED 81 MG TABLET.DR. PO SCH (08:14)
[2019-08-15] MEDS: LISINOPRIL 10 MG TABLET PO SCH (08:15)
[2019-08-15] MEDS: SODIUM CHLORIDE 0.65% NASAL SPRAY 45ML BOTTLE. NS PRN (08:15)
[2019-08-15] MEDS: NYSTATIN TOPICAL POWDER 15GM BOTTLE. TP SCH ×2 (08:16→20:01)
[2019-08-15] MEDS: buPROPion XL 150 MG TAB.ER.24H PO SCH (08:17)
[2019-08-15] MEDS: DICLOFENAC SODIUM 1% TOPICAL GEL 100GM TUBE. TP SCH ×2 (08:17→20:01)
[2019-08-15] MEDS: FLUTICASONE 50MCG/NASAL SPRAY 16GM BOTTLE. NS SCH (08:17)
--- NOTE | 2019-08-15 08:37 | NUR ---
PSYCHOSOCIAL ASSESSMENT ADMISSION DATE: 07/02/19 CONTACT INFORMATION: DPOA/Guardian Contact Name: N/A, Bj is a self sign ETHNIC ORIGIN: REASONS FOR ADMISSION: Depressed Relation/conflict Sig. Change Appetite Sig. Change Sleep Suicidal ideation ADDITIONAL ADMISSION COMMENTS: Per intake record, Bj has been depressed, hitting himself in the head, expressing thoughts of wanting to , asked the facility grievance coordinator to kill him and leave him on the side fo the road, and has had poor intake of meals with weight loss. It was also reported that Bj may be falling to intentionally hurt himself. REASON FOR ADMISSION IN PATIENT/FAMILY'S OWN WORDS: "I was at [facility] and had no motivation to participate in therapy." PATIENT/FAMILY EXPECTATIONS FOR ADMISSION: Bj expressed desire to have increased intake of meals and to be able to sleep at night. LIVING SITUATION: Patient lives with: Most recently at [facility] for skilled rehab Long Term Other living arrangements: [facility] Contact Name: Brittney-commercial review appraiser Contact Address: [id number] [place] [id number] Contact Phone #: [phone] Contact Fax #: [phone] FAMILY RELATIONS: Marital Status: # of Marriages: 2 # of Children: 4 [facility] Family Support: Bj reports spouse as concerned and that he saw her on the day he was brought to [employer]. Additional Comments r/t Family: Bj has been twice. He had four children with his first ; Mary, Alfonzo, Edna, and Sara. All children reside in [place]. Bj's first marriage ended in divorce. He re- to Isaura, twenty years his younger. They have been for twenty years but live in separate residences. Bj has 14 grandchildren. Bj expressed that his children have offered to come see him and he has declined their visits. SIGNIFICANT PSYCHIATRIC/MEDICAL HISTORY: Psychiatric/Treatment History: Bj reported having been followed for the past eight years by psychiatrist, Dr. Herrera, for PTSD. Bj stated he no longer sees Dr. Herrera. He has most recently been seen at [facility] on 06/25/19 and was seen by a PA. Bj also reported having been treated for in- patient psych at a facility in [place] but was only there for three days because it was a bad experience and his came to pick him up. Bj also reported being at [facility] for one week sometime this year. Pertinent Family History: Bj reported that both of his parents committed suicide. His father was reported as an alcoholic. Bj also expressed that several other family members and friends of his have committed suicide. HISTORICAL DATA: Childhood Environment: Stressful Childhood Environment Additional Comments: Bj was born in [place] but raised in [place]. Bj reported his father to be an alcoholic. Bj was the youngest of three children. He reports that one sister was a drug addict and is . His other sister is living in [place] and he has occasional communication with her. Psychological Abuse: None reported Additional Comments: Drug Abuse History last 12 months: None reported Comment: Bj denied tobacco, alcohol, or drug use. PERSONAL HISTORY: Vocational history: Bj reported he worked in [employer]. He stated he worked for [employer]. 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 Sexual orientation: Heterosexual Educational Level: Bj graduated from high school and went on to obtain his bachelors degree in business from the [employer]. He attended [employer] for a period of time but did not finish his JAE. 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 He enjoys sports and used to play sports. Bj enjoys hunting and recently owned an 80 acre hunting property in [place]. Financial support/resources: Social Security Monthly income: Unknown Person handling finances: Isaura Delvalle- Do you have a history of legal problems: None reported. Cultural considerations: None reported. SOCIAL RELATIONSHIPS-CURRENT/PAST: Psychiatrist: Most recently, [facility], seen by a PA PCP: Most recently, Dr. Oropeza at [facility] Counselor/Therapist: None at this time. Veterans' Administration: N/A Support Group: None Sheet Heater Helper/Defence Intelligence Analyst: Reported that Lien Chaney is a test case developer, Bj is unaware of this person. Other relationships: Reports supportive relation with STRENGTHS & WEAKNESSES: Patient's strengths: Good verbal skills Education level Ambulatory with a walker Patient's weaknesses: Lack of housing Poor relationships Health problems PRELIMINARY PLAN OF TREATMENT: Preliminary plan: Symp. Depression Decrease Isolation Promote Coping Skill No Suicidal/Amberly. ideation Improved Social Skills Medication Stabilization Monitor Med Effects Prevent Deterioration Other preliminary treatment comments: Bj will be encouraged to attend SW and recreational therapy groups while on the unit. DISCHARGE PLANNING: Discharge planning/disposition: Long Term Additional discharge needs identified: D/C plans will relate to Bj's physical ability to care for himself at time of d/c. Bj is able to return to [facility] at time of d/c if skilled therapy is still needed. Bj expressed that it would not be an option for him to d/c to his 's apartment. ADDITIONAL INFORMATION: Other Pertinent Data: Met with Bj on 07/03/19 to introduce self and complete psychosocial assessment. Bj was sitting in the day room but agreeable to visit and was able to ambulate to his room with a walker. Bj was alert with flat affect. He had some difficulty with timeline of events when recalling recent hospitalizations. He reported having been in and out of hospitals and SNF's repeatedly over the past two months. Bj was focused on his lack of appetite and lack of sleep. Reassurance provided that physicians would be following his care and addressing these issues. Bj was agreeable to participate in treatment team meeting to be held on 07/05/19. Addendum: 07/05/19 at 1452 by TRACIE BRUNO JERROD read and approves PSA. Addendum: 08/17/19 at 1214 by TRACIE BRUNO JERROD read and approves the psychosocial assessment.
--- NOTE | 2019-08-15 10:26 | NUR ---
Nursing note: Patient was in dining room, pleasant, and compliant with taking medications whole and cooperative with his assessment. He answered questions appropriately. Denies auditory and visual hallucinations. Denies pain. Will continue to monitor.
--- NOTE | 2019-08-15 12:00 | NUR ---
ACTIVITY THERAPY ASSESSMENT from original admission on 07/02/2019. Assessed on 07/06/2019 at 1300: Pt was sitting down in the day room during the assessment. Pt was able to remember his past, present location, family, age, and more. Pt made eye contact, listened, and responded. Pt can verbally express himself and he uses a walker to ambulate. Pt wore clean clothes, has a low haircut and his hair color is black and bourgeois. Pt is and has four children form his previous marriage. Pt expressed his interest in hunting, sports, weight-lifting, Motown music and he loves playing catch with tennis balls. Pt expressed that he has more stress than usual due to his current health and environment. INITIAL TREATMENT GOAL: Pt will increase motivation and recreation education by engaging in at least five activity therapy groups per week. Goal changed 07/26/2019: Pt. will participate in all Activity Therapy groups offered. Addendum: 08/18/19 at 1227 by EITAN AC ACT Goal changed 08/16: Pt. will participate in at least five Activity Therapy groups per week.
--- NOTE | 2019-08-15 12:35 | NUR ---
On 08/14/19, received voice message from Isaura Delvalle indicating that she has not been able to tour any facilities as of yet as she is ill. Isaura indicated that she was hopeful to tour four facilities soon based on how she was feeling. Follow up e-mail sent to Isaura this date to inquire, awaiting response. Call placed again to Isaura Stewart, sales account coordinator at [facility], to inquire about admission decision. Isaura expressed that her DON, Missy, has been in touch with Bj's spouse about finding alternate placement for him as they are not equipped to manage Bj's mental health needs. Left message for Missy with request for return phone call.
--- NOTE | 2019-08-15 14:30 | NUR ---
Received e-mail from Isaura Delvalle indicating she was planning on touring [facility] this afternoon. Provided Claudia's address per request. Completed referral to [facility] after calling to confirm they had male bed availability, awaiting admission decision. Left message at [facility] to inquire about bed availability and if they were a medicaid provider, awaiting return phone call.
[2019-08-15 15:39] VITALS: BP 113/71
--- NOTE | 2019-08-15 15:56 | NUR ---
Received phone call from Isaura Delvalle with request for referral to be faxed to [facility]. Referral faxed at this time, awaiting admission decision. Isaura is also planning on touring [facility] today.
[2019-08-15] MEDS: DOCUSATE SODIUM 100 MG CAPSULE PO SCH (17:15)
[2019-08-15] MEDS: FENOFIBRATE NANOCRYSTALLIZED 145 MG TABLET PO SCH (20:00)
[2019-08-15] MEDS: ATORVASTATIN CALCIUM 20 MG TABLET PO SCH (20:00)
[2019-08-15] MEDS: traZODone 50 MG TABLET. PO SCH (20:00)
[2019-08-15] MEDS: ZIPRASIDONE 20 MG CAPSULE. PO SCH (20:00)
[2019-08-15] MEDS: MELATONIN 3 MG TABLET PO SCH (20:01)
--- NOTE | 2019-08-15 23:15 | NUR ---
Pt sleeping in his room all evening. Compliant with whole medications. Less irritable this evening. Denied hallucinations.
--- NOTE | 2019-08-16 00:33 | PN ---
DATE: 08/14/2019 PSYCHIATRIC PROGRESS NOTE This late entry 08/14/2019 covers elements not covered in my initial note. SUBJECTIVE: I met with the patient in the evening. Per [facility], the patient slept 4-1/2 hours previous night, complained of not sleeping well at night. He was actively hallucinating while lying in bed, talking to someone, no one was there. Sodium 135. When questioned, he said he was talking to his son and his father. He had defecated in his bed as well. Appears more confused. We had stopped all his psychotropics and some of this could be readjustment of that. REVIEW OF SYSTEMS: Positive for tiredness. No CV, , pulmonary, eye system symptoms on review. MENTAL STATUS EXAM: Reasonably oriented. Speech has some latency, coherent. Abstraction fair, computation impaired, language function intact, attention span short. Mood and affect depressed, somewhat paranoid. LABORATORY DATA: Reviewed. IMPRESSION: Major depressive disorder with psychotic features; mild cognitive impairment; bipolar disorder, depressed with psychotic features. PLAN: Maintain Latuda 80 mg a day, melatonin 6 mg at bedtime, trazodone and Ativan p.r.n. Start Geodon 20 mg at bedtime as an antipsychotic and Wellbutrin XL 150 mg a day as an antidepressant. 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 Dr. Bright will cover for me over the next few days. DARA FELIPE MD DR: NIKKY/sergey JOB#: [id number] / [id number]
--- NOTE | 2019-08-16 02:06 | PN ---
DATE: 08/15/2019 SUBJECTIVE: The patient was seen today, met with the staff, chart reviewed. Staff reports no major behavior problems. The patient is on fluid restriction because of excessive water drinking including water intoxication resulting in hyponatremia. The patient denies of having any major problems at this time. OBSERVATION: VITAL SIGNS: Temperature 97.4, blood pressure 129/81, pulse 75, respirations 20, O2 sat 98%. Slept about 10 hours last night. The patient's appetite improved. MEDICATIONS: The patient's current medications include bupropion 150 mg daily, Geodon 20 mg at night, trazodone 50 mg at night and also 50 mg at night p.r.n. for sleep. The patient is also on Latuda 80 mg daily, melatonin 5 mg at night. The patient is also on lorazepam 0.5 mg daily p.r.n. LABORATORY DATA: The patient's lab reviewed. ASSESSMENT: 1. Major depressive disorder. 2. Posttraumatic stress disorder. 3. Mild cognitive impairment. 4. Psychotic disorder, unspecified. PLAN: Continue with the current treatment plan. LENGTH OF STAY: Five days. CHAS MENG MD DR: IAN/sergey JOB#: [id number] / [id number]
[2019-08-16] MEDS: LEVOTHYROXINE 50 MCG TABLET PO SCH (05:16)
[2019-08-16 05:59] VITALS: BP 110/71
[2019-08-16 07:58] LABS: ALBUMIN 3.1 g/dL (3.4-5.0); CALCIUM 9.2 mg/dL (8.5-10.1); CREATININE 0.9 mg/dL (0.7-1.3); GFR 84.2; POTASSIUM 4.3 mmol/L (3.5-5.1); TOTAL BILIRUBIN 0.2 mg/dL (0.2-1.0); TOTAL PROTEIN 6.3 g/dL (6.4-8.2)
[2019-08-16] MEDS: buPROPion XL 150 MG TAB.ER.24H PO SCH (08:34)
[2019-08-16] MEDS: CETIRIZINE HCL 10 MG TABLET PO SCH (08:34)
[2019-08-16] MEDS: MONTELUKAST 10 MG TABLET. PO SCH (08:34)
[2019-08-16] MEDS: FINASTERIDE 5 MG TABLET PO SCH (08:34)
[2019-08-16] MEDS: ASPIRIN ENTERIC COATED 81 MG TABLET.DR. PO SCH (08:34)
[2019-08-16] MEDS: LURASIDONE 40 MG TABLET. PO SCH (08:34)
[2019-08-16] MEDS: POLYETHYLENE GLYCOL 3350 17 GM PACKET. PO SCH (08:34)
[2019-08-16] MEDS: PRENATAL MULTIVITAMIN TABLET. PO SCH (08:34)
[2019-08-16] MEDS: TAMSULOSIN 0.4 MG CAP.ER.24H. PO SCH (08:34)
[2019-08-16] MEDS: FLUTICASONE 50MCG/NASAL SPRAY 16GM BOTTLE. NS SCH (08:35)
[2019-08-16] MEDS: LISINOPRIL 10 MG TABLET PO SCH (08:35)
[2019-08-16] MEDS: DICLOFENAC SODIUM 1% TOPICAL GEL 100GM TUBE. TP SCH ×2 (08:35→20:41)
[2019-08-16] MEDS: NYSTATIN TOPICAL POWDER 15GM BOTTLE. TP SCH ×2 (08:35→20:40)
[2019-08-16] MEDS: OXYMETAZOLINE 0.05% NASAL SPRAY 15ML BOTTLE. NS PRN (08:36)
--- NOTE | 2019-08-16 10:29 | NUR ---
Follow up calls placed to [facility] and [facility] with intent to inquire about admit decision. Left detailed messages at both facilities with request for return phone call. Awaiting call.
--- NOTE | 2019-08-16 10:32 | NUR ---
Nursing note: Patient is in his room, pleasant, and compliant with taking medications whole and cooperative with his assessment. He answered questions appropriately. Denies auditory and visual hallucinations. Denies pain. Will continue to monitor.
--- NOTE | 2019-08-16 13:30 | NUR ---
[facility] declined Bj for admission based on psychiatric needs. Notified Isaura via e-mail. Isaura was here today over the noon hour to see Bj. While Bj has been up to the day room recently, he has declined invites to participate in SW groups which is different than his normal.
--- NOTE | 2019-08-16 14:29 | NUR ---
WEEKLY NOTE: Placement is continuing being sought for Bj. He has been declined at numerous nursing facilities based on his mental health needs. His , Isaura, is in the process of touring facilities and referrals are being sent to facilities of her choice. Bj has had some medical issues in which he did transfer to the medical floor over the weekend and once stabilized, returned to [facility]. He is more quiet this week and has had less group participation. He is medication compliant, attends meals in the dining room, and nursing documents adequate sleep.
[2019-08-16 16:01] VITALS: BP 107/69
[2019-08-16] MEDS: DOCUSATE SODIUM 100 MG CAPSULE PO SCH (17:58)
--- NOTE | 2019-08-16 19:41 | NUR ---
WEEKLY ACTIVITY THERAPY NOTE Date of Admission: 07/02/2019 (Pt. returned to [facility] on 08/12, from [facility]) Date of AT Assessment: 07/06/2019 Goal aimed: to increase motivation and recreation education Initial goal: Pt. will participate in at least five activity therapy groups per week. Goal changed 07/26/19: Pt. will participate in all Activity Therapy groups offered Weekly progress towards goal: did not achieve Group participation level: Full in one group and moderate in another Weekly highlights: Drumming on Tuesday- fully engaged Behaviors observed: sleeping more often, less interest in groups/not around group much, quiet Plan: change goal to: Pt. will participate in at least five Activity Therapy groups per week. Beneficial adaptations: sit close to manager statistical programming, reminders and focus on positives, gross motor activities
--- NOTE | 2019-08-16 20:07 | PN ---
DATE: 08/16/2019 SUBJECTIVE: The patient was seen today, met with the staff, chart reviewed. Staff reports the patient has been somewhat drowsy and not participating in activities. The patient on rounds appeared calmer, not having any sedation at this time. The patient denies of any side effects to the medications. The patient also denied of any visual or auditory hallucinations, but the patient has marked psychomotor retardation, slow to respond to questions, but able to hold a reasonable conversation. OBSERVATION: VITAL SIGNS: Temperature 98.1, blood pressure 110/71, pulse 70, respirations 20, O2 sat 94%. Slept about 10 hours last night. The patient's appetite is fair. MEDICATIONS: The patient's medications reviewed. He is currently on bupropion 150 mg daily, Geodon 20 mg at night, trazodone 50 mg at night and also 50 mg at night p.r.n. for sleep. The patient is also on Latuda 80 mg daily, melatonin 5 mg at night. The patient is also on lorazepam 0.5 mg daily p.r.n. ASSESSMENT: Major depression, single episode, post-traumatic stress disorder, cognitive disorder, mild. PLAN: Discussed with the staff and the patient and agreed. To discontinue the Geodon 20 mg at night and also decrease the Latuda to 60 mg daily. The patient will continue with the treatment. LENGTH OF STAY: 3-[address] days. CHAS MENG MD DR: IAN/sergey JOB#: [id number] / [id number]
[2019-08-16] MEDS: traZODone 50 MG TABLET. PO SCH (20:36)
[2019-08-16] MEDS: ATORVASTATIN CALCIUM 20 MG TABLET PO SCH (20:36)
[2019-08-16] MEDS: MELATONIN 3 MG TABLET PO SCH (20:36)
[2019-08-16] MEDS: FENOFIBRATE NANOCRYSTALLIZED 145 MG TABLET PO SCH (20:37)
--- NOTE | 2019-08-17 00:38 | NUR ---
Pt located in the his bedroom this evening, awake in bed. Compliant with medications and assessment. pt had no complaints at this time.
[2019-08-17] MEDS: LEVOTHYROXINE 50 MCG TABLET PO SCH (05:11)
[2019-08-17 05:50] VITALS: BP 107/67
[2019-08-17] MEDS: LURASIDONE 40 MG TABLET. PO SCH (08:23)
[2019-08-17] MEDS: ASPIRIN ENTERIC COATED 81 MG TABLET.DR. PO SCH (08:23)
[2019-08-17] MEDS: FLUTICASONE 50MCG/NASAL SPRAY 16GM BOTTLE. NS SCH (08:23)
[2019-08-17] MEDS: POLYETHYLENE GLYCOL 3350 17 GM PACKET. PO SCH (08:24)
[2019-08-17] MEDS: FINASTERIDE 5 MG TABLET PO SCH (08:24)
[2019-08-17] MEDS: PRENATAL MULTIVITAMIN TABLET. PO SCH (08:24)
[2019-08-17] MEDS: TAMSULOSIN 0.4 MG CAP.ER.24H. PO SCH (08:24)
[2019-08-17] MEDS: LISINOPRIL 10 MG TABLET PO SCH (08:24)
[2019-08-17] MEDS: DICLOFENAC SODIUM 1% TOPICAL GEL 100GM TUBE. TP SCH ×2 (08:25→19:31)
[2019-08-17] MEDS: CETIRIZINE HCL 10 MG TABLET PO SCH (08:25)
[2019-08-17] MEDS: buPROPion XL 150 MG TAB.ER.24H PO SCH (08:25)
[2019-08-17] MEDS: MONTELUKAST 10 MG TABLET. PO SCH (08:25)
[2019-08-17] MEDS: NYSTATIN TOPICAL POWDER 15GM BOTTLE. TP SCH ×2 (08:25→19:30)
--- NOTE | 2019-08-17 10:31 | NUR ---
Patient has had a good morning, was in the dining room during morning rounding eating breakfast. Took medications whole, allowed for morning assessment. Patient denies pain at this time. No agitation noted, pt is back in his room. Will continue to monitor.
--- NOTE | 2019-08-17 10:57 | NUR ---
No return calls from [facility] or [facility]. Call placed to Rashaad at [facility] who is going to get a message to Kaylynn, director child development center, with request to call this worker with admission decision. Call placed to Edita, director child development center at [facility], with intent to inquire about admit decision. Awaiting return phone call.
--- NOTE | 2019-08-17 12:09 | NUR ---
Received return phone call from Edita at [facility] with additional questions about Bj. Edita requested that a copy of the medicaid application and four months bank statements that have been submitted be faxed for her business office to review. E-mailed Isaura, , to inform and to inquire about how she would like SW to proceed. Also informed Isaura via e-mail of the importance of securing placement for Bj as he is medication compliant and without thoughts of self harm deeming him stable for discharge to a lower level of care with out patient supports. Awaiting reply from Isaura.
--- NOTE | 2019-08-17 15:17 | NUR ---
Isaura is in the process of touring [facility] today. She is providing them with the financial information they have requested. awaiting admit decision.
[2019-08-17 16:17] VITALS: BP 100/64
[2019-08-17] MEDS: DOCUSATE SODIUM 100 MG CAPSULE PO SCH (17:40)
[2019-08-17] MEDS: FENOFIBRATE NANOCRYSTALLIZED 145 MG TABLET PO SCH (19:59)
[2019-08-17] MEDS: MELATONIN 3 MG TABLET PO SCH (19:59)
[2019-08-17] MEDS: ATORVASTATIN CALCIUM 20 MG TABLET PO SCH (19:59)
[2019-08-17] MEDS: traZODone 50 MG TABLET. PO SCH (19:59)
--- NOTE | 2019-08-17 20:46 | NUR ---
Nursing note: Assumed care of pt in his room. He was lying in bed awake, he is compliant with meds and assessment, no c/o pain, no behaviors, withdrawn.
--- NOTE | 2019-08-18 00:13 | PN ---
DATE: 08/17/2019 SUBJECTIVE: The patient was seen today, met with the staff, chart reviewed. Staff reports no major problems. The patient continues to isolate himself, but able to sit in the patient's area, but not interacting. The patient responds well on 1:1. The patient denies of feeling depressed. OBSERVATION: VITAL SIGNS: Temperature 97.9, blood pressure 107/67, pulse 66, respirations 18, O2 sat 97%. Slept about 9 hours last night. LABORATORY DATA: The patient's lab reviewed. MEDICATIONS: The patient's current medications include bupropion 150 mg daily, trazodone 50 mg at night and also 50 mg at night p.r.n., Latuda 60 mg daily. Geodon was discontinued. The patient is also on melatonin 5 mg at night, also lorazepam 0.5 mg daily p.r.n. ASSESSMENT: 1. Major depression, single episode. 2. Posttraumatic stress disorder. 3. Mild cognitive disorder. PLAN: Continue with the treatment. LENGTH OF STAY: 3-5 days. CHAS MENG MD DR: IAN/sergey JOB#: [id number] / [id number]
[2019-08-18] MEDS: LEVOTHYROXINE 50 MCG TABLET PO SCH (05:24)
[2019-08-18 06:35] VITALS: BP 127/80
[2019-08-18 07:29] LABS: BASO % 1 % (0-3); EOS # 0.1 x10^3/uL (0.0-0.7); EOS % 1 % (0-3); HEMATOCRIT 36.5 % (39.0-53.0); HEMOGLOBIN 12.4 g/dL (13.0-17.5); LYMPH # 2.4 x10^3/uL (1.0-4.8); LYMPH % 33 % (24-48); MEAN CORPUSCULAR HEMOGLOBIN 28 pg (25-35); MEAN CORPUSCULAR HGB CONC 34 g/dL (31-37); MEAN CORPUSCULAR VOLUME 84 fL (79-100); MONO # 0.6 x10^3/uL (0.0-1.1); MONO % 9 % (0-9); NEUT # 4.1 x10^3uL (1.8-7.7); NEUT % 57 % (31-73); PLATELET COUNT 463 x10^3/uL (140-400); RED BLOOD COUNT 4.37 x10^6/uL (4.30-5.70); WHITE BLOOD COUNT 7.3 x10^3/uL (4.0-11.0)
[2019-08-18 07:43] LABS: CALCIUM 8.5 mg/dL (8.5-10.1); CREATININE 0.9 mg/dL (0.7-1.3); GFR 84.2; TOTAL BILIRUBIN 0.2 mg/dL (0.2-1.0); TOTAL PROTEIN 6.1 g/dL (6.4-8.2)
[2019-08-18] MEDS: FLUTICASONE 50MCG/NASAL SPRAY 16GM BOTTLE. NS SCH (08:02)
[2019-08-18] MEDS: ASPIRIN ENTERIC COATED 81 MG TABLET.DR. PO SCH (08:02)
[2019-08-18] MEDS: POLYETHYLENE GLYCOL 3350 17 GM PACKET. PO SCH (08:03)
[2019-08-18] MEDS: LURASIDONE 40 MG TABLET. PO SCH (08:03)
[2019-08-18] MEDS: TAMSULOSIN 0.4 MG CAP.ER.24H. PO SCH (08:03)
[2019-08-18] MEDS: PRENATAL MULTIVITAMIN TABLET. PO SCH (08:03)
[2019-08-18] MEDS: FINASTERIDE 5 MG TABLET PO SCH (08:04)
[2019-08-18] MEDS: buPROPion XL 150 MG TAB.ER.24H PO SCH (08:04)
[2019-08-18] MEDS: CETIRIZINE HCL 10 MG TABLET PO SCH (08:04)
[2019-08-18] MEDS: MONTELUKAST 10 MG TABLET. PO SCH (08:04)
[2019-08-18] MEDS: LISINOPRIL 10 MG TABLET PO SCH (08:05)
[2019-08-18] MEDS: DICLOFENAC SODIUM 1% TOPICAL GEL 100GM TUBE. TP SCH ×2 (08:05→21:00)
[2019-08-18] MEDS: NYSTATIN TOPICAL POWDER 15GM BOTTLE. TP SCH ×2 (08:05→21:00)
--- NOTE | 2019-08-18 09:58 | NUR ---
Patient was in the dining room during morning rounding, took medications, allowed for morning assessment. Patient did smile at the nurse, was withdrawn to himself. No agitation noted, pt denies pain. Will continue to monitor.
[2019-08-18 15:50] VITALS: BP 114/76
[2019-08-18] MEDS: DOCUSATE SODIUM 100 MG CAPSULE PO SCH (17:13)
[2019-08-18] MEDS: MELATONIN 3 MG TABLET PO SCH (21:12)
[2019-08-18] MEDS: FENOFIBRATE NANOCRYSTALLIZED 145 MG TABLET PO SCH (21:12)
[2019-08-18] MEDS: traZODone 50 MG TABLET. PO SCH (21:12)
[2019-08-18] MEDS: ATORVASTATIN CALCIUM 20 MG TABLET PO SCH (21:12)
[2019-08-18] MEDS: OXYMETAZOLINE 0.05% NASAL SPRAY 15ML BOTTLE. NS PRN (21:22)
[2019-08-18] MEDS: HYDROcodone/APAP 5/325MG 1 TAB TABLET PO PRN (21:22)
--- NOTE | 2019-08-18 22:09 | PN ---
DATE: 08/18/2019 SUBJECTIVE: The patient was seen today, met with the staff, chart reviewed. The patient continues to show improvement, but withdrawn, isolative and is also on fluid restrictions because his sodium level has been low, currently is 138. The patient tends to isolate himself. Limited interaction also marked blunting of affect. OBSERVATION: VITAL SIGNS: Temperature 98.6, blood pressure 114/76, pulse 73, respirations 18, O2 sat 96%. Slept about 7 hours last night. The patient is not having any physical complaints. The patient's appetite is fair. LABORATORY DATA: The patient's lab reviewed. MEDICATIONS: The patient is currently on bupropion 150 mg daily, trazodone 50 mg at night and also 50 mg at bedtime p.o. p.r.n., Latuda 60 mg daily, Geodon was discontinued 2 days ago. The patient is also on melatonin 5 mg daily and also lorazepam 0.5 mg daily p.r.n. ASSESSMENT: 1. Major depression, single episode. 2. Posttraumatic stress disorder. 3. Mild cognitive disorder. PLAN: To continue with the treatment. LENGTH OF STAY: 3-[address]AS M[address] MD [address]: IAN/sergey JOB#: [id number] / [id number]
--- NOTE | 2019-08-18 23:15 | NUR ---
Nursing Note Pt in room isolative but cooperative and compliant with meds, complains of stuffy nose and back pain, lortab and afrin given, no hallucinations or delusions.
[2019-08-19] MEDS: LEVOTHYROXINE 50 MCG TABLET PO SCH (05:59)
[2019-08-19 06:22] VITALS: BP 105/67
[2019-08-19] MEDS: PRENATAL MULTIVITAMIN TABLET. PO SCH (08:07)
[2019-08-19] MEDS: POLYETHYLENE GLYCOL 3350 17 GM PACKET. PO SCH (08:07)
[2019-08-19] MEDS: FINASTERIDE 5 MG TABLET PO SCH (08:07)
[2019-08-19] MEDS: LISINOPRIL 10 MG TABLET PO SCH (08:08)
[2019-08-19] MEDS: ASPIRIN ENTERIC COATED 81 MG TABLET.DR. PO SCH (08:08)
[2019-08-19] MEDS: buPROPion XL 150 MG TAB.ER.24H PO SCH (08:08)
[2019-08-19] MEDS: LURASIDONE 40 MG TABLET. PO SCH (08:09)
[2019-08-19] MEDS: CETIRIZINE HCL 10 MG TABLET PO SCH (08:09)
[2019-08-19] MEDS: TAMSULOSIN 0.4 MG CAP.ER.24H. PO SCH (08:09)
[2019-08-19] MEDS: FLUTICASONE 50MCG/NASAL SPRAY 16GM BOTTLE. NS SCH (08:09)
[2019-08-19] MEDS: MONTELUKAST 10 MG TABLET. PO SCH (08:09)
[2019-08-19] MEDS: DICLOFENAC SODIUM 1% TOPICAL GEL 100GM TUBE. TP SCH ×2 (08:10→20:59)
[2019-08-19] MEDS: NYSTATIN TOPICAL POWDER 15GM BOTTLE. TP SCH ×2 (08:10→20:58)
--- NOTE | 2019-08-19 10:27 | NUR ---
Nursing note: Pt in dining room this morning for meds and assessment. He was compliant with meds whole and cooperative with his assessment. Pt has been withdrawn to his room for most of the morning. No hallucinations or delusions noted at this time. Pt denies any pain this morning. Will continue to monitor.
[2019-08-19] MEDS: ACETAMINOPHEN 325 MG TABLET PO PRN (13:00)
--- NOTE | 2019-08-19 13:23 | NUR ---
Nursing note: Pt c/o headache after lunch. PRN given @1300. Will continue to monitor.
[2019-08-19 15:32] VITALS: BP 119/76
[2019-08-19] MEDS: DOCUSATE SODIUM 100 MG CAPSULE PO SCH (17:53)
[2019-08-19] MEDS: OXYMETAZOLINE 0.05% NASAL SPRAY 15ML BOTTLE. NS PRN (19:43)
[2019-08-19] MEDS: FENOFIBRATE NANOCRYSTALLIZED 145 MG TABLET PO SCH (19:43)
[2019-08-19] MEDS: ATORVASTATIN CALCIUM 20 MG TABLET PO SCH (19:43)
[2019-08-19] MEDS: traZODone 50 MG TABLET. PO SCH (19:43)
[2019-08-19] MEDS: HYDROcodone/APAP 5/325MG 1 TAB TABLET PO PRN (19:43)
[2019-08-19] MEDS: MELATONIN 3 MG TABLET PO SCH (19:44)
--- NOTE | 2019-08-19 20:21 | NUR ---
Nursing Note Pt in room isolative but cooperative and compliant with meds, complains of stuffy nose and back pain, lortab and afrin given, no hallucinations or delusions. States he was in bed on and off all day was feeling nauseated with head ache but now resolved for the most part, smiles on approach is pleasant.
--- NOTE | 2019-08-19 23:03 | PN ---
DATE: 08/19/2019 SUBJECTIVE: The patient was seen today, met with the staff, chart reviewed. The patient reports that he is not feeling well; feeling nauseous, wanting to stay in bed. Staff also reports he has been complaining of feeling tired, wanting to be in bed. The patient does not have any other physical complaints. OBSERVATION: VITAL SIGNS: Temperature 98.6, blood pressure 114/76, pulse 73, respirations 18, O2 sat 96% and slept well last night. LABORATORY DATA: The patient's lab reviewed. CURRENT MEDICATIONS: Include bupropion 150 mg daily, trazodone 50 mg at night and also 50 mg at night p.r.n. for sleep, Latuda 60 mg daily. The patient is also on melatonin 5 mg daily. ASSESSMENT: 1. Major depression, single episode. 2. Posttraumatic stress disorder. 3. Mild cognitive disorder. PLAN: To continue with the treatment. LENGTH OF STAY: 3-5 days. CHAS MENG MD DR: IAN/sergey JOB#: [id number] / [id number]
[2019-08-20 05:53] VITALS: BP 102/68
[2019-08-20] MEDS: LEVOTHYROXINE 50 MCG TABLET PO SCH (06:05)
[2019-08-20] MEDS: CHOLECALCIFEROL (VITAMIN D3) 50,000 UNIT CAPSULE PO SCH (08:20)
[2019-08-20] MEDS: TAMSULOSIN 0.4 MG CAP.ER.24H. PO SCH (08:20)
[2019-08-20] MEDS: MONTELUKAST 10 MG TABLET. PO SCH (08:20)
[2019-08-20] MEDS: LISINOPRIL 10 MG TABLET PO SCH (08:21)
[2019-08-20] MEDS: LURASIDONE 40 MG TABLET. PO SCH (08:21)
[2019-08-20] MEDS: PRENATAL MULTIVITAMIN TABLET. PO SCH (08:22)
[2019-08-20] MEDS: buPROPion XL 150 MG TAB.ER.24H PO SCH (08:22)
[2019-08-20] MEDS: CETIRIZINE HCL 10 MG TABLET PO SCH (08:22)
[2019-08-20] MEDS: FINASTERIDE 5 MG TABLET PO SCH (08:22)
[2019-08-20] MEDS: FLUTICASONE 50MCG/NASAL SPRAY 16GM BOTTLE. NS SCH (08:22)
[2019-08-20] MEDS: ASPIRIN ENTERIC COATED 81 MG TABLET.DR. PO SCH (08:22)
[2019-08-20] MEDS: NYSTATIN TOPICAL POWDER 15GM BOTTLE. TP SCH ×2 (08:23→21:00)
[2019-08-20] MEDS: DICLOFENAC SODIUM 1% TOPICAL GEL 100GM TUBE. TP SCH ×2 (08:23→21:00)
[2019-08-20] MEDS: POLYETHYLENE GLYCOL 3350 17 GM PACKET. PO SCH (09:00)
--- NOTE | 2019-08-20 10:06 | NUR ---
Nursing note: Pt in dining room for morning meds and assessment. He was compliant with his meds whole and was cooperative with his assessment. Pt had no complaints at time of assessment. He is currently sleeping in his room. Will continue to monitor.
--- NOTE | 2019-08-20 12:46 | NUR ---
Kaylynn from [facility] will be out this afternoon to do an onsite evaluation of Bj for possible placement. Awaiting outcome. Ramiro from the local [facility] is supposed to come and do an onsite evaluation fo bj this afternoon for sister facility in [place]. Awaiting outcome. Reviewed above with Bj.
[2019-08-20 15:37] VITALS: BP 114/76
--- NOTE | 2019-08-20 16:02 | NUR ---
Kaylynn from [facility] phoned and declined Bj for admission due to mental health needs. E-mailed Isaura, , to inform. Awaiting [facility] to complete on site evaluation.
[2019-08-20] MEDS: DOCUSATE SODIUM 100 MG CAPSULE PO SCH (17:14)
[2019-08-20] MEDS: ACETAMINOPHEN 325 MG TABLET PO PRN (18:37)
[2019-08-20 18:41] VITALS: BP 116/83
[2019-08-20] MEDS: OXYMETAZOLINE 0.05% NASAL SPRAY 15ML BOTTLE. NS PRN (19:46)
[2019-08-20] MEDS: ATORVASTATIN CALCIUM 20 MG TABLET PO SCH (19:47)
[2019-08-20] MEDS: LORazepam 1 MG TABLET PO PRN (19:47)
[2019-08-20] MEDS: MELATONIN 3 MG TABLET PO SCH (19:48)
[2019-08-20] MEDS: traZODone 50 MG TABLET. PO SCH (19:48)
[2019-08-20] MEDS: FENOFIBRATE NANOCRYSTALLIZED 145 MG TABLET PO SCH (19:48)
--- NOTE | 2019-08-20 21:24 | NUR ---
Nursing Note Pt in room with multiple somatic complaints, states he is SOA, stuffy nose, nausea, generally not feeling well. Ativan given, with HS meds and Afrin. Pt appears to have significant anxiety. He states he's not sure what he would be anxious about but took the meds willingly.
--- NOTE | 2019-08-21 01:41 | PN ---
DATE: 08/20/2019 SUBJECTIVE: The patient was seen today, met with the staff, chart reviewed. The patient continues to complain of feeling weak and tired, also complains of having diarrhea for the past 2 days. The patient will be staying in the room most of the day today and also yesterday. Staff reports no other medical issues at this time. OBSERVATION: VITAL SIGNS: Temperature 97.9, blood pressure 107/68, pulse 60, respirations 18, O2 sat 93%. Slept about 9 hours last night. The patient is not having any physical complaints. No falls. The patient still withdrawn, appears depressed. Marked constriction of affect. The patient also exhibits marked psychomotor retardation, also admits to feeling depressed at times. The patient denies of any negative thinking. MEDICATIONS: The patient's current medications include bupropion 150 mg daily, trazodone 50 mg at night and 50 mg at night p.r.n., and Latuda 60 mg daily. The patient is not having any side effects. The patient's lab reviewed. ASSESSMENT: Major depressive disorder, single episode, post-traumatic stress disorder and mild cognitive disorder. PLAN: To continue with the treatment. LENGTH OF STAY: 3-[address] M[address] MD [address]: IAN/sergey JOB#: [id number] / [id number]
[2019-08-21] MEDS: LEVOTHYROXINE 50 MCG TABLET PO SCH (05:31)
[2019-08-21 06:00] VITALS: BP 118/76
[2019-08-21] MEDS: DICLOFENAC SODIUM 1% TOPICAL GEL 100GM TUBE. TP SCH ×2 (07:56→20:51)
[2019-08-21] MEDS: FINASTERIDE 5 MG TABLET PO SCH (07:56)
[2019-08-21] MEDS: NYSTATIN TOPICAL POWDER 15GM BOTTLE. TP SCH ×2 (07:56→20:50)
[2019-08-21] MEDS: LURASIDONE 40 MG TABLET. PO SCH (07:56)
[2019-08-21] MEDS: ASPIRIN ENTERIC COATED 81 MG TABLET.DR. PO SCH (07:57)
[2019-08-21] MEDS: buPROPion XL 150 MG TAB.ER.24H PO SCH (07:57)
[2019-08-21] MEDS: MONTELUKAST 10 MG TABLET. PO SCH (07:57)
[2019-08-21] MEDS: TAMSULOSIN 0.4 MG CAP.ER.24H. PO SCH (07:57)
[2019-08-21] MEDS: PRENATAL MULTIVITAMIN TABLET. PO SCH (07:58)
[2019-08-21] MEDS: FLUTICASONE 50MCG/NASAL SPRAY 16GM BOTTLE. NS SCH (07:59)
[2019-08-21] MEDS: LISINOPRIL 10 MG TABLET PO SCH (07:59)
[2019-08-21] MEDS: CETIRIZINE HCL 10 MG TABLET PO SCH (07:59)
[2019-08-21] MEDS: POLYETHYLENE GLYCOL 3350 17 GM PACKET. PO SCH (07:59)
--- NOTE | 2019-08-21 13:49 | NUR ---
Ramiro, front office administrator from [facility] on behalf of [facility], completed an on-site evaluation of Bj this afternoon. Awaiting outcome.
[2019-08-21 15:51] VITALS: BP 116/75
[2019-08-21] MEDS: DOCUSATE SODIUM 100 MG CAPSULE PO SCH (17:18)
--- NOTE | 2019-08-21 17:50 | NUR ---
Patient is alert and oriented to self and situation. Speech is flat and quiet. Patient has been cooperative with staff in all cares this shift. Patient stated to staff this shift "I don't feel good. I feel like I am shaking." Patient was not shaking at the time of complaint and vitals were stable upon observation. BP 118/76, pulse 75, Resp 16 02 95%. Temp 97.4 oral. No negative moods observed. No new behaviors observed this shift. Patient slept through out most of day this shift.
[2019-08-21] MEDS: FENOFIBRATE NANOCRYSTALLIZED 145 MG TABLET PO SCH (20:50)
[2019-08-21] MEDS: ATORVASTATIN CALCIUM 20 MG TABLET PO SCH (20:50)
[2019-08-21] MEDS: traZODone 50 MG TABLET. PO SCH (20:50)
[2019-08-21] MEDS: MELATONIN 3 MG TABLET PO SCH (20:50)
--- NOTE | 2019-08-22 00:34 | NUR ---
Pt in room sleeping in bed on assessment. He was compliant with his meds whole and cooperative with his assessment. Pt had no complaints at this time.
--- NOTE | 2019-08-22 01:30 | PN ---
DATE: 08/21/2019 SUBJECTIVE: The patient was seen today, met with the staff, chart reviewed. The patient has not shown any major change. Still withdrawn, isolative, staying in bed, complains of feeling weak and tired, but does not present with any major behavior problems. OBSERVATION: VITAL SIGNS: Temperature 97.4, blood pressure 118/76, pulse 75, respirations 16, O2 sat 95%. GENERAL: Slept about 8 hours last night. The patient's appetite is fair. The patient continues to show increased psychomotor retardation, social withdrawal, not wanting to communicate and appears depressed. The patient denied of any suicidal thoughts. CURRENT MEDICATIONS: Bupropion 150 mg daily, trazodone 50 mg at night and also 50 mg at night p.r.n. and Latuda 60 mg daily. The patient denies of any side effects. LABORATORY DATA: The patient's lab reviewed. ASSESSMENT: 1. Major depressive disorder, single episode. 2. Posttraumatic stress disorder and mild cognitive disorder. PLAN: To continue with the treatment. LENGTH OF STAY: 3-[address] MENG MD [address]: IAN/sergey JOB#: [id number] / [id number]
[2019-08-22] MEDS: LEVOTHYROXINE 50 MCG TABLET PO SCH (05:37)
[2019-08-22 05:56] VITALS: BP 104/74
[2019-08-22] MEDS: POLYETHYLENE GLYCOL 3350 17 GM PACKET. PO SCH (08:04)
[2019-08-22] MEDS: LURASIDONE 40 MG TABLET. PO SCH (08:05)
[2019-08-22] MEDS: PRENATAL MULTIVITAMIN TABLET. PO SCH (08:05)
[2019-08-22] MEDS: ASPIRIN ENTERIC COATED 81 MG TABLET.DR. PO SCH (08:05)
[2019-08-22] MEDS: TAMSULOSIN 0.4 MG CAP.ER.24H. PO SCH (08:05)
[2019-08-22] MEDS: buPROPion XL 150 MG TAB.ER.24H PO SCH (08:06)
[2019-08-22] MEDS: FLUTICASONE 50MCG/NASAL SPRAY 16GM BOTTLE. NS SCH (08:06)
[2019-08-22] MEDS: FINASTERIDE 5 MG TABLET PO SCH (08:06)
[2019-08-22] MEDS: MONTELUKAST 10 MG TABLET. PO SCH (08:06)
[2019-08-22] MEDS: NYSTATIN TOPICAL POWDER 15GM BOTTLE. TP SCH ×3 (08:06→20:21)
[2019-08-22] MEDS: CETIRIZINE HCL 10 MG TABLET PO SCH (08:06)
[2019-08-22] MEDS: LISINOPRIL 10 MG TABLET PO SCH (08:06)
[2019-08-22] MEDS: DICLOFENAC SODIUM 1% TOPICAL GEL 100GM TUBE. TP SCH ×2 (08:15→20:21)
[2019-08-22 09:21] VITALS: BP 102/71
--- NOTE | 2019-08-22 09:59 | NUR ---
Patient complains of shortness of breath, hot flash, and sweating. He also states that he has not urinated since yesterday, that he had one episode of diarrhea this morning and one yesterday. Patient is diaphoretic, lung sounds are diminished with very fine crackles in BLL, BP=12/71, HR=98, SpO2=98% on room air, RR=16; largest volume found with bladderscan is 32mL. Patient instructed to drink fluids, provided patient with gatorade of his choice. Will report to MD during rounds and continue to monitor.
--- NOTE | 2019-08-22 10:09 | NUR ---
Call placed to KIANA Kohler at [facility], with intent to inquire about admit decision. Left detailed message with request for return phone call. Awaiting call. Addendum: 08/22/19 at 1605 by BALA BRUNO Call two placed to Edita this afternoon. Edita had additional financial questions and was going to contact [facility] , to discuss. Edita indicated she would call this worker back with an admit decision. Awaiting return call.
[2019-08-22 10:15] LABS: BASO # 0.1 x10^3/uL (0.0-0.2); BASO % 1 % (0-3); EOS # 0.1 x10^3/uL (0.0-0.7); EOS % 1 % (0-3); HEMATOCRIT 42.3 % (39.0-53.0); LYMPH # 1.8 x10^3/uL (1.0-4.8); LYMPH % 21 % (24-48); MEAN CORPUSCULAR HEMOGLOBIN 28 pg (25-35); MEAN CORPUSCULAR HGB CONC 33 g/dL (31-37); MEAN CORPUSCULAR VOLUME 84 fL (79-100); MONO # 0.7 x10^3/uL (0.0-1.1); MONO % 8 % (0-9); NEUT # 5.9 x10^3uL (1.8-7.7); NEUT % 69 % (31-73); PLATELET COUNT 536 x10^3/uL (140-400); RED BLOOD COUNT 5.02 x10^6/uL (4.30-5.70); RED CELL DISTRIBUTION WIDTH 14.4 % (11.5-14.5); WHITE BLOOD COUNT 8.5 x10^3/uL (4.0-11.0)
[2019-08-22 10:38] LABS: ALBUMIN 3.3 g/dL (3.4-5.0); ALBUMIN/GLOBULIN RATIO 0.9 (1.0-1.7); CALCIUM 9.2 mg/dL (8.5-10.1); CREATININE 0.9 mg/dL (0.7-1.3); GFR 84.2; POTASSIUM 3.8 mmol/L (3.5-5.1); TOTAL BILIRUBIN 0.3 mg/dL (0.2-1.0); TOTAL PROTEIN 6.9 g/dL (6.4-8.2)
[2019-08-22 14:25] LABS: % ATYL 6 % (0-0); % BANDS 3 % (0-9); % BASOS 2 % (0-3); % LYMPHS 9 % (24-48); % MONOS 7 % (0-10); % SEGS 73 % (35-66)
[2019-08-22 14:29] LABS: PLT ESTIMATE INCREASED (ADEQUATE)
--- NOTE | 2019-08-22 16:33 | RAD ---
CHEST PA LATERAL History: Shortness of breath. Crackles. Comparison: CT August 11, 2019 Findings: No consolidation or pleural effusion. Normal heart size. No pneumothorax. Impression: 1. No acute cardiopulmonary process. Electronically signed by: Inder Jarvis DO (08/22/2019 4:30 PM) [id number]
[2019-08-22 16:37] VITALS: BP 105/75
[2019-08-22] MEDS: DOCUSATE SODIUM 100 MG CAPSULE PO SCH (17:28)
[2019-08-22] MEDS: traZODone 50 MG TABLET. PO SCH (20:19)
[2019-08-22] MEDS: ATORVASTATIN CALCIUM 20 MG TABLET PO SCH (20:19)
[2019-08-22] MEDS: MELATONIN 3 MG TABLET PO SCH (20:19)
[2019-08-22] MEDS: FENOFIBRATE NANOCRYSTALLIZED 145 MG TABLET PO SCH (20:19)
[2019-08-22] MEDS: HYDROcodone/APAP 5/325MG 1 TAB TABLET PO PRN (20:26)
--- NOTE | 2019-08-22 23:08 | PN ---
DATE: 08/22/2019 SUBJECTIVE: The patient was seen today, met with the staff, chart reviewed. The patient's behavior remains the same, stays in bed most of the time. The patient denies of feeling depressed. The patient has complaints of feeling tired and weak. OBSERVATION: VITAL SIGNS: Temperature 98, blood pressure 104/74, pulse 73, respirations 20, O2 sat 97%. GENERAL: Slept about 8 hours last night. The patient's behavior has improved, but still withdrawn with marked psychomotor retardation. The patient is able to hold a conversation, but slow mentation. The patient does make eye contact. The patient is not admitting to feeling depressed at this point. CURRENT MEDICATIONS: Bupropion 150 mg daily, trazodone 50 mg at night and 50 mg at night p.r.n. and Latuda 60 mg daily. Denies of any side effects. ASSESSMENT: 1. Major depressive disorder, single episode. 2. Posttraumatic stress disorder. 3. Mild cognitive disorder. PLAN: To continue with the treatment. LENGTH OF STAY: 3-[address] M[address] MD [address]: IAN/sergey JOB#: [id number] / [id number]
[2019-08-23] MEDS: LEVOTHYROXINE 50 MCG TABLET PO SCH (05:40)
[2019-08-23 05:49] VITALS: BP 100/66
[2019-08-23 07:21] LABS: CALCIUM 9.2 mg/dL (8.5-10.1); CREATININE 0.8 mg/dL (0.7-1.3); GFR 96.4; POTASSIUM 3.8 mmol/L (3.5-5.1)
[2019-08-23] MEDS: ASPIRIN ENTERIC COATED 81 MG TABLET.DR. PO SCH (08:27)
[2019-08-23] MEDS: TAMSULOSIN 0.4 MG CAP.ER.24H. PO SCH (08:27)
[2019-08-23] MEDS: PRENATAL MULTIVITAMIN TABLET. PO SCH (08:27)
[2019-08-23] MEDS: LISINOPRIL 10 MG TABLET PO SCH (08:28)
[2019-08-23] MEDS: FINASTERIDE 5 MG TABLET PO SCH (08:28)
[2019-08-23] MEDS: MONTELUKAST 10 MG TABLET. PO SCH (08:28)
[2019-08-23] MEDS: buPROPion XL 150 MG TAB.ER.24H PO SCH (08:28)
[2019-08-23] MEDS: NYSTATIN TOPICAL POWDER 15GM BOTTLE. TP SCH ×2 (08:29→20:37)
[2019-08-23] MEDS: CETIRIZINE HCL 10 MG TABLET PO SCH (08:29)
[2019-08-23] MEDS: FLUTICASONE 50MCG/NASAL SPRAY 16GM BOTTLE. NS SCH (08:29)
[2019-08-23] MEDS: LURASIDONE 40 MG TABLET. PO SCH (08:29)
[2019-08-23] MEDS: DICLOFENAC SODIUM 1% TOPICAL GEL 100GM TUBE. TP SCH ×2 (09:00→20:37)
[2019-08-23] MEDS: POLYETHYLENE GLYCOL 3350 17 GM PACKET. PO SCH (09:00)
--- NOTE | 2019-08-23 10:23 | NUR ---
No return call from Edita at [facility] with admit decision. Call placed to Edita and message left again this morning with request for return phone call. Awaiting call. Addendum: 08/23/19 at 1511 by BALA BRUNO No return call from Edita. Follow up call placed to Edita who reported that her corporate business office is reviewing the medicaid application that has been submitted on Bj's behalf and is currently pending. KIANA inquired as to how long it will take before there is an admission decision. Edita indicated that she did not know but would contact her corporate business office to find out and then call this worker back. Awaiting return phone call.
--- NOTE | 2019-08-23 12:15 | NUR ---
WEEKLY ACTIVITY THERAPY NOTE Date of Admission: 07/02/2019 (Pt. returned to [facility] on 08/12, from [facility]) Date of AT Assessment: 07/06/2019 Goal aimed: to increase motivation and recreation education Initial goal: Pt. will participate in at least five activity therapy groups per week. Goal changed 07/26/19: Pt. will participate in all Activity Therapy groups offered Goal changed 08/16: Pt. will participate in at least five Activity Therapy groups per week. Weekly progress towards goal: 09/16 Group participation level: moderate in one group Weekly highlights: exercised with group on Tuesday Behaviors observed: sleeping, withdrawn to room most of the week Plan: no change to goal Beneficial adaptations: sit close to electronics engineering manager, reminders and focus on positives, gross motor activities
[2019-08-23 15:53] VITALS: BP 121/76
[2019-08-23] MEDS: DOCUSATE SODIUM 100 MG CAPSULE PO SCH (16:24)
--- NOTE | 2019-08-23 17:34 | NUR ---
Pt withdrawn to room for most of day. Pt calm and cooperative with meds and assessments. Pt states he feels sweaty, skin is cool and barely damp. Temp 98.2. PRN nasal saline administered for c/o "dry nose".
[2019-08-23] MEDS: MELATONIN 3 MG TABLET PO SCH (20:35)
[2019-08-23] MEDS: traZODone 50 MG TABLET. PO SCH (20:36)
[2019-08-23] MEDS: ATORVASTATIN CALCIUM 20 MG TABLET PO SCH (20:36)
[2019-08-23] MEDS: FENOFIBRATE NANOCRYSTALLIZED 145 MG TABLET PO SCH (20:36)
--- NOTE | 2019-08-23 22:31 | NUR ---
Nsg Note: Patient was in room at time of medication administration and assessments, patient was calm, compliant, and cooperative. Quiet and withdrawn. Flat. No other notable behaviors at this time.
--- NOTE | 2019-08-23 23:17 | PN ---
DATE: 08/23/2019 SUBJECTIVE: The patient was seen today, met with the staff, chart reviewed. The patient continues to stay in bed, able to move around when he has to go to the dining room, but wants to stay in bed most of the time. The patient admits to feeling depressed at times, but denies of any negative thoughts. The patient also slow to respond to questions, has some psychomotor retardation. The patient also states that he is not able to leave here because I am not able to find a placement for him. The patient states his visited him yesterday. OBSERVATION: VITAL SIGNS: Temperature 97.2, blood pressure 100/66, pulse 74, respirations 16, O2 sat 96%. GENERAL: Slept about 8 hours last night. The patient's appetite is fair. MEDICATIONS: The patient's current medications include bupropion 150 mg daily, trazodone 50 mg at night and also 50 mg at night p.r.n. and Latuda 60 mg daily. The patient denies of any side effects. The patient has had no falls. ASSESSMENT: 1. Major depressive disorder, single episode. 2. Posttraumatic stress disorder. 3. Mild cognitive disorder. PLAN: To continue with the treatment. LENGTH OF STAY: 3-5 days. Awaiting for placement. CHAS MENG MD DR: IAN/sergey JOB#: [id number] / [id number]
[2019-08-24] MEDS: LEVOTHYROXINE 50 MCG TABLET PO SCH (05:19)
[2019-08-24 05:53] VITALS: BP 113/74
[2019-08-24] MEDS: PRENATAL MULTIVITAMIN TABLET. PO SCH (08:36)
[2019-08-24] MEDS: FINASTERIDE 5 MG TABLET PO SCH (08:37)
[2019-08-24] MEDS: LURASIDONE 40 MG TABLET. PO SCH (08:37)
[2019-08-24] MEDS: TAMSULOSIN 0.4 MG CAP.ER.24H. PO SCH (08:37)
[2019-08-24] MEDS: MONTELUKAST 10 MG TABLET. PO SCH (08:37)
[2019-08-24] MEDS: buPROPion XL 150 MG TAB.ER.24H PO SCH (08:37)
[2019-08-24] MEDS: FLUTICASONE 50MCG/NASAL SPRAY 16GM BOTTLE. NS SCH (08:38)
[2019-08-24] MEDS: ASPIRIN ENTERIC COATED 81 MG TABLET.DR. PO SCH (08:38)
[2019-08-24] MEDS: LISINOPRIL 10 MG TABLET PO SCH (08:38)
[2019-08-24] MEDS: CETIRIZINE HCL 10 MG TABLET PO SCH (08:38)
[2019-08-24] MEDS: POLYETHYLENE GLYCOL 3350 17 GM PACKET. PO SCH (08:38)
[2019-08-24] MEDS: DICLOFENAC SODIUM 1% TOPICAL GEL 100GM TUBE. TP SCH ×2 (09:00→20:20)
[2019-08-24] MEDS: NYSTATIN TOPICAL POWDER 15GM BOTTLE. TP SCH ×2 (09:00→20:20)
[2019-08-24 15:26] VITALS: BP 108/61
[2019-08-24] MEDS: DOCUSATE SODIUM 100 MG CAPSULE PO SCH (18:00)
--- NOTE | 2019-08-24 18:45 | NUR ---
Patient has been somatic, withdrawn, and compliant throughout this shift. He stayed withdrawn to his room between meals. Will continue to monitor.
[2019-08-24] MEDS: traZODone 50 MG TABLET. PO SCH (20:19)
[2019-08-24] MEDS: ATORVASTATIN CALCIUM 20 MG TABLET PO SCH (20:20)
[2019-08-24] MEDS: FENOFIBRATE NANOCRYSTALLIZED 145 MG TABLET PO SCH (20:20)
[2019-08-24] MEDS: MELATONIN 3 MG TABLET PO SCH (20:20)
[2019-08-24] MEDS: HYDROcodone/APAP 5/325MG 1 TAB TABLET PO PRN (20:22)
--- NOTE | 2019-08-24 21:58 | NUR ---
Nursing note: Assumed care of pt in his room. He was awake but lying in bed. He was irritated that the YOUTH SERVICES LIBRARIAN asks him if he is awake every time they do a round. He doesn't want them to talk to him. He was compliant with meds and assessment. C/o pain 04/21 and was given prn Lortab as ordered. No other behaviors.
--- NOTE | 2019-08-25 00:24 | PN ---
DATE: 08/24/2019 SUBJECTIVE: The patient was seen today, met with the staff, chart reviewed. The patient has not shown any major change. The patient admits to feeling tired and weak. The patient stays in bed most of the time. The patient is oriented to surroundings. She has not presented with any major behavior problems. OBSERVATION: VITAL SIGNS: Temperature 97.9, blood pressure 113/74, pulse 69, respirations 20, O2 sat 97%. Slept about 8 hours last night. LABORATORY DATA: The patient's lab reviewed. MEDICATIONS: The patient's medications include bupropion 150 mg daily, trazodone 50 mg at night and 50 mg at night p.r.n. for sleep and Latuda 60 mg daily. The patient denies of any side effects. The patient denies of any falls. ASSESSMENT: 1. Major depressive disorder, single episode. 2. Posttraumatic stress disorder. 3. Mild cognitive disorder. PLAN: To continue with the treatment. LENGTH OF STAY: 3-5 days. The patient is awaiting for placement. CHAS MENG MD DR: IAN/sergey JOB#: [id number] / [id number]
[2019-08-25] MEDS: LEVOTHYROXINE 50 MCG TABLET PO SCH (05:38)
[2019-08-25 06:11] VITALS: BP 113/77
[2019-08-25] MEDS: ASPIRIN ENTERIC COATED 81 MG TABLET.DR. PO SCH (08:59)
[2019-08-25] MEDS: CETIRIZINE HCL 10 MG TABLET PO SCH (08:59)
[2019-08-25] MEDS: FINASTERIDE 5 MG TABLET PO SCH (08:59)
[2019-08-25] MEDS: buPROPion XL 150 MG TAB.ER.24H PO SCH (08:59)
[2019-08-25] MEDS: PRENATAL MULTIVITAMIN TABLET. PO SCH (08:59)
[2019-08-25] MEDS: MONTELUKAST 10 MG TABLET. PO SCH (08:59)
[2019-08-25] MEDS: FLUTICASONE 50MCG/NASAL SPRAY 16GM BOTTLE. NS SCH (09:00)
[2019-08-25] MEDS: TAMSULOSIN 0.4 MG CAP.ER.24H. PO SCH (09:00)
[2019-08-25] MEDS: NYSTATIN TOPICAL POWDER 15GM BOTTLE. TP SCH ×2 (09:00→19:55)
[2019-08-25] MEDS: LURASIDONE 40 MG TABLET. PO SCH (09:00)
[2019-08-25] MEDS: LISINOPRIL 10 MG TABLET PO SCH (09:00)
[2019-08-25] MEDS: DICLOFENAC SODIUM 1% TOPICAL GEL 100GM TUBE. TP SCH ×2 (09:00→19:56)
[2019-08-25] MEDS: POLYETHYLENE GLYCOL 3350 17 GM PACKET. PO SCH (09:01)
[2019-08-25 15:36] VITALS: BP 101/71
[2019-08-25] MEDS: DOCUSATE SODIUM 100 MG CAPSULE PO SCH (18:00)
[2019-08-25] MEDS: FENOFIBRATE NANOCRYSTALLIZED 145 MG TABLET PO SCH (19:53)
[2019-08-25] MEDS: ATORVASTATIN CALCIUM 20 MG TABLET PO SCH (19:53)
[2019-08-25] MEDS: traZODone 50 MG TABLET. PO SCH (19:53)
[2019-08-25] MEDS: MELATONIN 3 MG TABLET PO SCH (19:53)
[2019-08-25] MEDS: PSEUDOEPHEDRINE ER 120 MG TABLET.ER. PO SCH (19:55)
--- NOTE | 2019-08-25 23:41 | NUR ---
Pt located in his room all evening, awake in bed. Compliant with whole medications. Continues to have somatic complaints. Pt states that he is very dehydrated because he didn't get enough to drink today.
[2019-08-26] MEDS: traZODone 50 MG TABLET. PO PRN (00:16)
--- NOTE | 2019-08-26 00:33 | NUR ---
Pt continues to be awake in bed. Repeat Trazodone administered.
--- NOTE | 2019-08-26 00:54 | PN ---
DATE: 08/25/2019 SUBJECTIVE: The patient was seen today, met with the staff, chart reviewed. The patient is still irritable, curiel at times, withdrawn, decreased energy, not wanting to get out of bed. The patient states he is getting bored. The patient also wanted to know whether he could go back to his trazodone to 150 mg at night and apparently he was taking 50 mg currently. The patient denies of any other medical issues at this time. OBSERVATION: VITAL SIGNS: Temperature 97.9, blood pressure 113/74, pulse 69, respirations 20, O2 sat 97%. Slept about 8 hours last night. LABORATORY DATA: The patient's lab reviewed. MEDICATIONS: The patient's current medications include bupropion 150 mg daily, trazodone 50 mg at night p.r.n. for sleep and Latuda 60 mg daily. The patient is not having any side effects to medications. ASSESSMENT: 1. Major depressive disorder, single episode. 2. Posttraumatic stress disorder. 3. Mild cognitive disorder. PLAN: To continue with the treatment. LENGTH OF STAY: 3-5 days. The patient is still waiting for placement. CHAS MENG MD DR: IAN/sergey JOB#: [id number] / [id number]
[2019-08-26] MEDS: LEVOTHYROXINE 50 MCG TABLET PO SCH (05:35)
[2019-08-26 05:48] VITALS: BP 111/71
[2019-08-26] MEDS: TAMSULOSIN 0.4 MG CAP.ER.24H. PO SCH (08:44)
[2019-08-26] MEDS: ASPIRIN ENTERIC COATED 81 MG TABLET.DR. PO SCH (08:44)
[2019-08-26] MEDS: FINASTERIDE 5 MG TABLET PO SCH (08:44)
[2019-08-26] MEDS: PRENATAL MULTIVITAMIN TABLET. PO SCH (08:45)
[2019-08-26] MEDS: LISINOPRIL 10 MG TABLET PO SCH (08:45)
[2019-08-26] MEDS: MONTELUKAST 10 MG TABLET. PO SCH (08:45)
[2019-08-26] MEDS: LURASIDONE 40 MG TABLET. PO SCH (08:45)
[2019-08-26] MEDS: buPROPion XL 150 MG TAB.ER.24H PO SCH (08:45)
[2019-08-26] MEDS: PSEUDOEPHEDRINE ER 120 MG TABLET.ER. PO SCH ×2 (08:46→19:57)
[2019-08-26] MEDS: CETIRIZINE HCL 10 MG TABLET PO SCH (08:46)
[2019-08-26] MEDS: POLYETHYLENE GLYCOL 3350 17 GM PACKET. PO SCH (08:46)
[2019-08-26] MEDS: DICLOFENAC SODIUM 1% TOPICAL GEL 100GM TUBE. TP SCH ×2 (09:00→19:57)
[2019-08-26] MEDS: NYSTATIN TOPICAL POWDER 15GM BOTTLE. TP SCH ×2 (09:00→19:57)
[2019-08-26] MEDS: HYDROcodone/APAP 5/325MG 1 TAB TABLET PO PRN (09:02)
[2019-08-26] MEDS: SODIUM CHLORIDE 0.65% NASAL SPRAY 45ML BOTTLE. NS PRN (09:02)
[2019-08-26 16:06] VITALS: BP 117/76
[2019-08-26] MEDS: DOCUSATE SODIUM 100 MG CAPSULE PO SCH (18:43)
[2019-08-26] MEDS: traZODone 50 MG TABLET. PO SCH (19:56)
[2019-08-26] MEDS: ATORVASTATIN CALCIUM 20 MG TABLET PO SCH (19:56)
[2019-08-26] MEDS: FENOFIBRATE NANOCRYSTALLIZED 145 MG TABLET PO SCH (19:56)
[2019-08-26] MEDS: MELATONIN 3 MG TABLET PO SCH (19:56)
--- NOTE | 2019-08-26 22:46 | NUR ---
Pt located in his bed all evening. Compliant with whole medications. Calm and withdrawn.
[2019-08-27] MEDS: LEVOTHYROXINE 50 MCG TABLET PO SCH (05:14)
[2019-08-27 05:28] VITALS: BP 109/73
[2019-08-27 06:55] LABS: BASO # 0.1 x10^3/uL (0.0-0.2); BASO % 1 % (0-3); EOS # 0.1 x10^3/uL (0.0-0.7); EOS % 1 % (0-3); HEMATOCRIT 41.9 % (39.0-53.0); HEMOGLOBIN 13.9 g/dL (13.0-17.5); LYMPH # 2.6 x10^3/uL (1.0-4.8); LYMPH % 30 % (24-48); MEAN CORPUSCULAR HEMOGLOBIN 28 pg (25-35); MEAN CORPUSCULAR HGB CONC 33 g/dL (31-37); MEAN CORPUSCULAR VOLUME 85 fL (79-100); MONO # 0.7 x10^3/uL (0.0-1.1); MONO % 8 % (0-9); NEUT # 5.1 x10^3uL (1.8-7.7); NEUT % 60 % (31-73); PLATELET COUNT 439 x10^3/uL (140-400); RED BLOOD COUNT 4.93 x10^6/uL (4.30-5.70); RED CELL DISTRIBUTION WIDTH 14.4 % (11.5-14.5); WHITE BLOOD COUNT 8.6 x10^3/uL (4.0-11.0)
[2019-08-27 07:03] LABS: ALBUMIN 3.1 g/dL (3.4-5.0); ALBUMIN/GLOBULIN RATIO 0.9 (1.0-1.7); CREATININE 0.9 mg/dL (0.7-1.3); GFR 84.2; TOTAL BILIRUBIN 0.2 mg/dL (0.2-1.0); TOTAL PROTEIN 6.6 g/dL (6.4-8.2)
[2019-08-27] MEDS: CHOLECALCIFEROL (VITAMIN D3) 50,000 UNIT CAPSULE PO SCH (08:18)
[2019-08-27] MEDS: POLYETHYLENE GLYCOL 3350 17 GM PACKET. PO SCH (08:18)
[2019-08-27] MEDS: LURASIDONE 40 MG TABLET. PO SCH (08:18)
[2019-08-27] MEDS: PRENATAL MULTIVITAMIN TABLET. PO SCH (08:19)
[2019-08-27] MEDS: buPROPion XL 150 MG TAB.ER.24H PO SCH (08:19)
[2019-08-27] MEDS: TAMSULOSIN 0.4 MG CAP.ER.24H. PO SCH (08:19)
[2019-08-27] MEDS: MONTELUKAST 10 MG TABLET. PO SCH (08:19)
[2019-08-27] MEDS: PSEUDOEPHEDRINE ER 120 MG TABLET.ER. PO SCH ×2 (08:19→21:38)
[2019-08-27] MEDS: CETIRIZINE HCL 10 MG TABLET PO SCH (08:19)
[2019-08-27] MEDS: ASPIRIN ENTERIC COATED 81 MG TABLET.DR. PO SCH (08:19)
[2019-08-27] MEDS: LISINOPRIL 10 MG TABLET PO SCH (08:19)
[2019-08-27] MEDS: FINASTERIDE 5 MG TABLET PO SCH (08:19)
[2019-08-27] MEDS: DICLOFENAC SODIUM 1% TOPICAL GEL 100GM TUBE. TP SCH ×2 (09:00→21:00)
[2019-08-27] MEDS: NYSTATIN TOPICAL POWDER 15GM BOTTLE. TP SCH ×2 (09:00→21:00)
--- NOTE | 2019-08-27 09:59 | PN ---
DATE: 08/26/2019 SUBJECTIVE: The patient was seen today, met with the staff, chart reviewed. The patient continues to be withdrawn, isolative, staying in bed most of the time. Also, admits to feeling hopeless because of generalized weakness and also lacking motivation. The patient occasionally gets irritable and curiel most of the time. He is isolating himself, not participating in any activities. OBSERVATION: VITAL SIGNS: Temperature 97.4, blood pressure 111/71, pulse 80, respirations 20, O2 sat 97%. Slept only about 3 hours last night. LABORATORY DATA: The patient's lab reviewed. MEDICATIONS: The patient's current medications include bupropion 150 mg daily, trazodone 50 mg at night p.r.n. and Latuda 60 mg daily. The patient is not having any side effects to medications. ASSESSMENT: 1. Major depressive disorder, single episode. 2. Posttraumatic stress disorder. 3. Mild cognitive disorder. PLAN: To continue with the treatment. LENGTH OF STAY: 3-[address] M[address] MD [address]: IAN/sergey JOB#: [id number] / [id number]
[2019-08-27 15:28] VITALS: BP 114/74
[2019-08-27] MEDS: DOCUSATE SODIUM 100 MG CAPSULE PO SCH (18:00)
--- NOTE | 2019-08-27 18:30 | NUR ---
Patient has been somatic, withdrawn, and compliant throughout this shift. He stayed withdrawn to his room between meals; he did attend one group session today. He refused his evening colace. Will continue to monitor.
[2019-08-27] MEDS: SODIUM CHLORIDE 0.65% NASAL SPRAY 45ML BOTTLE. NS PRN (21:38)
[2019-08-27] MEDS: FENOFIBRATE NANOCRYSTALLIZED 145 MG TABLET PO SCH (21:38)
[2019-08-27] MEDS: traZODone 50 MG TABLET. PO SCH (21:39)
[2019-08-27] MEDS: MELATONIN 3 MG TABLET PO SCH (21:39)
[2019-08-27] MEDS: ATORVASTATIN CALCIUM 20 MG TABLET PO SCH (21:39)
--- NOTE | 2019-08-28 00:41 | PN ---
DATE: 08/27/2019 SUBJECTIVE: The patient was seen today, met with the staff, chart reviewed. The patient has been staying in bed most of the time. The patient was asked about the reason why he is staying in, but the patient states he has been up for lunch and he wants to stay in bed because he feels tired and also complains of boredom. He does not participate in any activities. The patient is still withdrawn with marked psychomotor retardation and also concrete with his thinking. The patient is alert, oriented to surroundings. OBSERVATION: VITAL SIGNS: Temperature 97.2, blood pressure 109/73, pulse 83, respirations 18, O2 sat 96%. Slept about 10 hours last night. LABORATORY DATA: The patient's lab reviewed. CURRENT MEDICATIONS: Include bupropion 100 mg daily, trazodone 50 mg at night and Latuda 60 mg daily. The patient is not having any side effects to medications. The patient is able to walk with a walker. ASSESSMENT: 1. Major depressive disorder, single episode. 2. Posttraumatic stress disorder. 3. Mild cognitive disorder. PLAN: To continue with the treatment. LENGTH OF STAY: 3 to 5 days, awaiting for placement. CHAS MENG MD DR: IAN/sergey JOB#: [id number] / [id number]
--- NOTE | 2019-08-28 03:55 | NUR ---
Nsg Note: Patient in room at time of medication administration and assessments. Patient calm, compliant, and cooperative. Hypoverbal and withdrawn. No other notable behaviors at this time.
[2019-08-28 05:14] VITALS: BP 106/67
[2019-08-28] MEDS: LEVOTHYROXINE 50 MCG TABLET PO SCH (05:25)
[2019-08-28] MEDS: PSEUDOEPHEDRINE ER 120 MG TABLET.ER. PO SCH ×2 (08:31→21:00)
[2019-08-28] MEDS: TAMSULOSIN 0.4 MG CAP.ER.24H. PO SCH (08:31)
[2019-08-28] MEDS: LURASIDONE 40 MG TABLET. PO SCH (08:31)
[2019-08-28] MEDS: FINASTERIDE 5 MG TABLET PO SCH (08:31)
[2019-08-28] MEDS: ASPIRIN ENTERIC COATED 81 MG TABLET.DR. PO SCH (08:31)
[2019-08-28] MEDS: SODIUM CHLORIDE 0.65% NASAL SPRAY 45ML BOTTLE. NS PRN (08:31)
[2019-08-28] MEDS: POLYETHYLENE GLYCOL 3350 17 GM PACKET. PO SCH (08:31)
[2019-08-28] MEDS: CETIRIZINE HCL 10 MG TABLET PO SCH (08:31)
[2019-08-28] MEDS: MONTELUKAST 10 MG TABLET. PO SCH (08:32)
[2019-08-28] MEDS: PRENATAL MULTIVITAMIN TABLET. PO SCH (08:32)
[2019-08-28] MEDS: buPROPion XL 150 MG TAB.ER.24H PO SCH (08:32)
[2019-08-28] MEDS: LISINOPRIL 10 MG TABLET PO SCH (08:32)
[2019-08-28] MEDS: NYSTATIN TOPICAL POWDER 15GM BOTTLE. TP SCH ×2 (09:00→21:00)
[2019-08-28] MEDS: DICLOFENAC SODIUM 1% TOPICAL GEL 100GM TUBE. TP SCH ×2 (09:00→21:00)
--- NOTE | 2019-08-28 09:31 | NUR ---
Follow up call placed to Edita at [facility], left detailed message inquiring about admit decision. Requested a return phone call, awaiting admit decision. Phone conversation with Isaura, , who reported she had to sign another release (she had previously signed this upon her first tour of [facility]) in order for [facility] to speak with [facility] regarding the pending medicaid application.
--- NOTE | 2019-08-28 15:18 | NUR ---
No return call from Edita. Called Edita again and she indicated that corporate business office is still reviewing the financial piece of the medicaid application that has been filed. Explained to Edita that we are awaiting an admit decision from them as [facility] is the facility of choice for location and visiting purposes. Edita indicated that she would reach out to her corporate office to inquire about an admit decision and would call SW back. Awaiting return phone call. Updated Isaura, , via e-mail with the above information.
--- NOTE | 2019-08-28 15:47 | NUR ---
Nursing note: Pt in dining room for morning meds and assessment. Pt compliant with meds whole and cooperative with his assessment. He was in the day room all morning, but has been withdrawn to his room this afternoon. Will continue to monitor.
[2019-08-28 15:50] VITALS: BP 116/78
[2019-08-28 16:58] VITALS: BP 147/78
[2019-08-28] MEDS: DOCUSATE SODIUM 100 MG CAPSULE PO SCH (17:35)
--- NOTE | 2019-08-28 19:37 | NUR ---
Nursing note: Staff reported that they helped pt out of bed before dinner. When asked, pt stated he felt okay to walk to the bathroom. Aids walked out of the room and heard a thump, they went back in to find the pt sitting on the floor. Vital signs were checked and pt had no apparent injuries. He did state his R hip hurt a little bit. X-ray was ordered per Dr. Faria. When asked how pt fell, he stated "I just don't know." Pt /DPOA notified and has no further questions/concerns at this time.
--- NOTE | 2019-08-28 21:02 | PDOC ---
Exam Note: Robert Note: Please also refer to the separate dictated note~for this date of service dictated separately.~Patient seen individually. Discussed the patient with Nursing staff reviewed the chart.~Reviewed interim history and current functioning. Reviewed vital signs,~Labs/ Radiology~and current medications noted below. Continue current treatment with the changes noted in the dictated addendum note Assessment: Vital Signs/I&O: Vital Signs Date Time Temp Pulse Resp B/P (MAP) Pulse Ox O2 Delivery O2 Flow Rate FiO2 08/28/19 16:58 137 20 147/78 (101) 96 08/28/19 15:50 98.1 08/28/19 05:14 Room Air I & O 08/27/19 08/27/19 08/28/19 14:59 22:59 06:59 Intake Total 600 ml 360 ml 240 ml Balance 600 ml 360 ml 240 ml Labs: Laboratory Tests Test 08/28/19 07:51 Glucose (Fingerstick) 91 mg/dL (70-99) Current Medications: I have reviewed the current psychotropics carefully including drug interactions. Risk benefit ratio favors no change other than as noted in my dictated progress note. Diagnosis: Problems: (1) Anxiety disorder (2) Major depressive disorder, recurrent episode (3) Psychosis, atypical (4) Conversion disorder (5) Mild cognitive impairment (6) History of post traumatic stress disorder DARA FELIPE MD Aug 28, 2019 21:01
[2019-08-28] MEDS: traZODone 50 MG TABLET. PO SCH (21:14)
[2019-08-28] MEDS: FENOFIBRATE NANOCRYSTALLIZED 145 MG TABLET PO SCH (21:14)
[2019-08-28] MEDS: MELATONIN 3 MG TABLET PO SCH (21:14)
[2019-08-28] MEDS: ATORVASTATIN CALCIUM 20 MG TABLET PO SCH (21:14)
--- NOTE | 2019-08-28 23:04 | NUR ---
Nsg Note: Patient was in room at time of medication administration and assessments. Patient was hypoverbal, withdrawn, slightly irritable but compliant and cooperative with all cares. Patient went back to sleep after this. Patient being monitored closely for post-fall EOS on day shift. Vitals stable. No other notable behaviors or comments at this time.
--- NOTE | 2019-08-29 03:58 | RAD ---
HIP RIGHT 2 VIEW DATE: 08/28/2019 7:20 PM INDICATION: Right hip pain after falling COMPARISON: None. FINDINGS: Bones: There is no evidence of acute fracture or dislocation. Joints: The joint spaces are normal. Miscellaneous: None. IMPRESSION: No evidence of acute fracture. Electronically signed by: Jacek Nina MD (08/29/2019 3:55 AM) [id number]
[2019-08-29 05:14] VITALS: BP 113/69
[2019-08-29] MEDS: LEVOTHYROXINE 50 MCG TABLET PO SCH (05:17)
[2019-08-29] MEDS: SODIUM CHLORIDE 0.65% NASAL SPRAY 45ML BOTTLE. NS PRN (08:50)
[2019-08-29] MEDS: LURASIDONE 40 MG TABLET. PO SCH (08:51)
[2019-08-29] MEDS: buPROPion XL 150 MG TAB.ER.24H PO SCH (08:52)
[2019-08-29] MEDS: MONTELUKAST 10 MG TABLET. PO SCH (08:52)
[2019-08-29] MEDS: FINASTERIDE 5 MG TABLET PO SCH (08:52)
[2019-08-29] MEDS: TAMSULOSIN 0.4 MG CAP.ER.24H. PO SCH (08:52)
[2019-08-29] MEDS: PRENATAL MULTIVITAMIN TABLET. PO SCH (08:52)
[2019-08-29] MEDS: ASPIRIN ENTERIC COATED 81 MG TABLET.DR. PO SCH (08:53)
[2019-08-29] MEDS: LISINOPRIL 10 MG TABLET PO SCH (08:53)
[2019-08-29] MEDS: POLYETHYLENE GLYCOL 3350 17 GM PACKET. PO SCH (08:53)
[2019-08-29] MEDS: CETIRIZINE HCL 10 MG TABLET PO SCH (08:53)
[2019-08-29] MEDS: PSEUDOEPHEDRINE ER 120 MG TABLET.ER. PO SCH ×2 (08:54→20:51)
[2019-08-29] MEDS: NYSTATIN TOPICAL POWDER 15GM BOTTLE. TP SCH ×2 (08:55→20:50)
[2019-08-29] MEDS: DICLOFENAC SODIUM 1% TOPICAL GEL 100GM TUBE. TP SCH ×2 (08:55→20:50)
--- NOTE | 2019-08-29 10:04 | NUR ---
Call placed to Edita at [facility] to follow up on admit decision as Edita was supposed to reach out to her corporate business office to inquire about admit decision. Left detailed message for Edita with request for return phone call.
--- NOTE | 2019-08-29 10:30 | NUR ---
Nursing note: Pt in dining room this morning for meds and assessment. Pt was compliant with meds whole and was cooperative with his assessment. Pt denied having any pain and had no concerns at the time. Pt is currently in the day room. Will continue to monitor.
[2019-08-29 13:52] LABS: BASO # 0.1 x10^3/uL (0.0-0.2); BASO % 1 % (0-3); EOS # 0.1 x10^3/uL (0.0-0.7); EOS % 1 % (0-3); LYMPH % 23 % (24-48); MEAN CORPUSCULAR HEMOGLOBIN 28 pg (25-35); MEAN CORPUSCULAR HGB CONC 33 g/dL (31-37); MEAN CORPUSCULAR VOLUME 84 fL (79-100); MONO # 0.8 x10^3/uL (0.0-1.1); MONO % 9 % (0-9); NEUT # 5.9 x10^3uL (1.8-7.7); NEUT % 66 % (31-73); PLATELET COUNT 489 x10^3/uL (140-400); RED BLOOD COUNT 5.02 x10^6/uL (4.30-5.70); RED CELL DISTRIBUTION WIDTH 14.1 % (11.5-14.5); WHITE BLOOD COUNT 8.9 x10^3/uL (4.0-11.0)
[2019-08-29 13:57] LABS: CALCIUM 9.9 mg/dL (8.5-10.1); CREATININE 0.9 mg/dL (0.7-1.3); GFR 84.2; POTASSIUM 3.9 mmol/L (3.5-5.1)
[2019-08-29 14:03] LABS: ALBUMIN 3.5 g/dL (3.4-5.0); TOTAL BILIRUBIN 0.4 mg/dL (0.2-1.0); TOTAL PROTEIN 7.1 g/dL (6.4-8.2)
[2019-08-29 16:22] VITALS: BP 112/84
--- NOTE | 2019-08-29 16:27 | NUR ---
Nursing note: Pt was in his room during the lunch hour with his where he was doing a nasal flush when his called out for help. A PIZZA HUT ASSISTANT went to help and pt was seen to be convulsing and was very stiff as he was sitting in his wheelchair. It was reported that this lasted for about 2.5-3 minutes. Pt did not lose consciousness, remained A&Ox4, had stable vital signs, and stated he was hearing marching band music following the episode. 20 G IV was placed in R wrist and labs drawn per Dr. Estevez's order. Dr. Díaz has been consulted per Dr. Faria's order. Pt is currently being supervised in the day room and has not experienced any other seizure-like activity. Will continue to monitor.
[2019-08-29] MEDS: DOCUSATE SODIUM 100 MG CAPSULE PO SCH (18:00)
--- NOTE | 2019-08-29 20:47 | PDOC ---
Exam Note: Robert Note: Please also refer to the separate dictated note~for this date of service dictated separately.~Patient seen individually. Discussed the patient with Nursing staff reviewed the chart.~Reviewed interim history and current functioning. Reviewed vital signs,~Labs/ Radiology~and current medications noted below. Continue current treatment with the changes noted in the dictated addendum note Assessment: Vital Signs/I&O: Vital Signs Date Time Temp Pulse Resp B/P (MAP) Pulse Ox O2 Delivery O2 Flow Rate FiO2 08/29/19 16:22 97.8 110 18 112/84 (93) 98 08/29/19 05:14 Room Air I & O 08/28/19 08/28/19 08/29/19 15:00 23:00 07:00 Intake Total 600 ml 300 ml Balance 600 ml 300 ml Labs: Laboratory Tests Test 08/29/19 07:54 08/29/19 13:40 Glucose (Fingerstick) 105 mg/dL (70-99) H White Blood Count 8.9 x10^3/uL (4.0-11.0) Red Blood Count 5.02 x10^6/uL (4.30-5.70) Hemoglobin 14.0 g/dL (13.0-17.5) Hematocrit 42.0 % (39.0-53.0) Mean Corpuscular Volume 84 fL (79-100) Mean Corpuscular Hemoglobin 28 pg (25-35) Mean Corpuscular Hemoglobin Concent 33 g/dL (31-37) Red Cell Distribution Width 14.1 % (11.5-14.5) Platelet Count 489 x10^3/uL (140-400) H Neutrophils (%) (Auto) 66 % (31-73) Lymphocytes (%) (Auto) 23 % (24-48) L Monocytes (%) (Auto) 9 % (0-9) Eosinophils (%) (Auto) 1 % (0-3) Basophils (%) (Auto) 1 % (0-3) Neutrophils # (Auto) 5.9 x10^3uL (1.8-7.7) Lymphocytes # (Auto) 2.0 x10^3/uL (1.0-4.8) Monocytes # (Auto) 0.8 x10^3/uL (0.0-1.1) Eosinophils # (Auto) 0.1 x10^3/uL (0.0-0.7) Basophils # (Auto) 0.1 x10^3/uL (0.0-0.2) Sodium Level 136 mmol/L (136-145) Potassium Level 3.9 mmol/L (3.5-5.1) Chloride Level 100 mmol/L (98-107) Carbon Dioxide Level 28 mmol/L (21-32) Anion Gap 8 (6-14) Blood Urea Nitrogen 17 mg/dL (8-26) Creatinine 0.9 mg/dL (0.7-1.3) Estimated GFR (Cockcroft-Gault) 84.2 BUN/Creatinine Ratio 19 (6-20) Glucose Level 103 mg/dL (70-99) H Lactic Acid Level 1.2 mmol/L (0.4-2.0) Calcium Level 9.9 mg/dL (8.5-10.1) Total Bilirubin 0.4 mg/dL (0.2-1.0) Aspartate Amino Transferase (AST) 18 U/L (15-37) Alanine Aminotransferase (ALT) 32 U/L (16-63) Alkaline Phosphatase 63 U/L (46-116) Total Protein 7.1 g/dL (6.4-8.2) Albumin 3.5 g/dL (3.4-5.0) Albumin/Globulin Ratio 1.0 (1.0-1.7) Current Medications: I have reviewed the current psychotropics carefully including drug interactions. Risk benefit ratio favors no change other than as noted in my dictated progress note. Diagnosis: Problems: (1) Anxiety disorder (2) Major depressive disorder, recurrent episode (3) Psychosis, atypical (4) Conversion disorder (5) Mild cognitive impairment (6) History of post traumatic stress disorder DARA FELIPE MD Aug 29, 2019 20:47
[2019-08-29] MEDS: MELATONIN 3 MG TABLET PO SCH (20:49)
[2019-08-29] MEDS: LORazepam 1 MG TABLET PO PRN (20:49)
[2019-08-29] MEDS: FENOFIBRATE NANOCRYSTALLIZED 145 MG TABLET PO SCH (20:49)
[2019-08-29] MEDS: traZODone 50 MG TABLET. PO SCH (20:49)
[2019-08-29] MEDS: ATORVASTATIN CALCIUM 20 MG TABLET PO SCH (20:49)
--- NOTE | 2019-08-29 22:12 | PN ---
DATE: 08/28/2019 PSYCHIATRIC PROGRESS NOTE This late entry of 08/28 covers elements not covered in my initial note. SUBJECTIVE: I met with the patient in the evening, reviewed information from Dr. Bright who covered for me over the past 1 week. The patient slept 8-1/4 hours the previous night per PEDRO LUIS Loaiza. He has been withdrawn, takes medications whole, has been in the day room which is where I met with him. He is not very verbal, quite isolative. Sodium 136 on 08/27. REVIEW OF SYSTEMS: No CV, , pulmonary, eye system symptoms on review. MENTAL STATUS EXAMINATION: Reasonably oriented. Speech has some latency, coherent, often responses monosyllabic. Abstraction fair, computation impaired, language function intact, attention span short. Mood and affect depressed. LABORATORY DATA: Reviewed. IMPRESSION: Major depressive disorder, recurrent with psychotic features. Syndrome of inappropriate antidiuretic hormone secretion. Rest unchanged. PLAN: I have carefully reviewed the patient's current psychotropics. We will continue unchanged from initial note including Latuda, melatonin, Ativan p.r.n., Geodon, Wellbutrin and trazodone. MAN Marc FELIPE MD DR: NIKKY/sergey JOB#: [id number] / [id number]
[2019-08-30] MEDS: LEVOTHYROXINE 50 MCG TABLET PO SCH (05:24)
--- NOTE | 2019-08-30 05:32 | NUR ---
Nsg Note: Patient was in day room at time of medication administration and assessments. Patient was somewhat agitated and overstimulated about having to be in the day room and not in his own personal room (LOS due to seizure activity). PRN Ativan given with HS medications. Labs came back in. Will endorse to day shift. No other notable behaviors at this time.
[2019-08-30 06:02] VITALS: BP 105/65
[2019-08-30] MEDS: POLYETHYLENE GLYCOL 3350 17 GM PACKET. PO SCH (09:00)
[2019-08-30] MEDS: NYSTATIN TOPICAL POWDER 15GM BOTTLE. TP SCH (09:00)
[2019-08-30] MEDS: DICLOFENAC SODIUM 1% TOPICAL GEL 100GM TUBE. TP SCH (09:00)
[2019-08-30] MEDS: PSEUDOEPHEDRINE ER 120 MG TABLET.ER. PO SCH ×2 (09:28→20:32)
[2019-08-30] MEDS: LURASIDONE 40 MG TABLET. PO SCH (09:28)
[2019-08-30] MEDS: LISINOPRIL 10 MG TABLET PO SCH (09:29)
[2019-08-30] MEDS: MONTELUKAST 10 MG TABLET. PO SCH (09:29)
[2019-08-30] MEDS: ASPIRIN ENTERIC COATED 81 MG TABLET.DR. PO SCH (09:29)
[2019-08-30] MEDS: FINASTERIDE 5 MG TABLET PO SCH (09:29)
[2019-08-30] MEDS: PRENATAL MULTIVITAMIN TABLET. PO SCH (09:29)
[2019-08-30] MEDS: CETIRIZINE HCL 10 MG TABLET PO SCH (09:29)
[2019-08-30] MEDS: TAMSULOSIN 0.4 MG CAP.ER.24H. PO SCH (09:29)
--- NOTE | 2019-08-30 15:43 | NUR ---
On 08/29/19, e-mailed Isaura/, to inform that still no admit decision had been made by [facility] after ten plus days of having the referral. Suggested that a plan B put in place. Provided information to Isaura about [facility] and [facility] and inquired if she would consider touring them and speaking with their admissions directors. Received e-mail back from Isaura on this date indicating that she would try and tour these two facilities on 08/31/19. Calls placed to Mallory Loving at [facility] and Lucille Tadeo at [facility] to inform that Isaura may be touring. Provided Isaura with contact numbers to both admission directors so that she could call to coordinate tour time. SW has placed two calls to Edita at [facility] this date with no return calls from Edita.
[2019-08-30 16:12] VITALS: BP 124/68
[2019-08-30] MEDS: DOCUSATE SODIUM 100 MG CAPSULE PO SCH (18:00)
--- NOTE | 2019-08-30 18:00 | NUR ---
Patient has been somatic, withdrawn, and compliant throughout this shift. He stayed withdrawn to his room after breakfast. He refused stool softeners because he had a loose stool. Will continue to monitor.
[2019-08-30] MEDS ORDERED: NYSTATIN TOPICAL POWDER 15GM BOTTLE. TP PRN (18:45)
[2019-08-30] MEDS ORDERED: DICLOFENAC SODIUM 1% TOPICAL GEL 100GM TUBE. TP PRN (18:45)
[2019-08-30] MEDS: FENOFIBRATE NANOCRYSTALLIZED 145 MG TABLET PO SCH (20:32)
[2019-08-30] MEDS: MELATONIN 3 MG TABLET PO SCH (20:32)
[2019-08-30] MEDS: traZODone 100 MG TABLET. PO SCH (20:32)
[2019-08-30] MEDS: ATORVASTATIN CALCIUM 20 MG TABLET PO SCH (20:32)
--- NOTE | 2019-08-30 20:39 | PDOC ---
Exam Note: Robert Note: Please also refer to the separate dictated note~for this date of service dictated separately.~Patient seen individually. Discussed the patient with Nursing staff reviewed the chart.~Reviewed interim history and current functioning. Reviewed vital signs,~Labs/ Radiology~and current medications noted below. Continue current treatment with the changes noted in the dictated addendum note Assessment: Vital Signs/I&O: Vital Signs Date Time Temp Pulse Resp B/P (MAP) Pulse Ox O2 Delivery O2 Flow Rate FiO2 08/30/19 16:12 97.8 102 16 124/68 (86) 98 08/29/19 05:14 Room Air I & O 08/29/19 08/29/19 08/30/19 15:00 23:00 07:00 Intake Total 720 ml 480 ml 240 ml Balance 720 ml 480 ml 240 ml Labs: Laboratory Tests Test 08/30/19 07:35 Glucose (Fingerstick) 106 mg/dL (70-99) H Current Medications: Meds: Current Medications Medications (Trade) Dose Ordered Sig/Henry Route PRN Reason Start Time Stop Time Status Last Admin Dose Admin Trazodone HCl (Desyrel) 100 mg QHS PO 08/30/19 21:00 08/30/19 20:32 I have reviewed the current psychotropics carefully including drug interactions. Risk benefit ratio favors no change other than as noted in my dictated progress note. Diagnosis: Problems: (1) Anxiety disorder (2) Major depressive disorder, recurrent episode (3) Psychosis, atypical (4) Conversion disorder (5) Mild cognitive impairment (6) History of post traumatic stress disorder DARA FELIPE MD Aug 30, 2019 20:39
--- NOTE | 2019-08-30 22:09 | NUR ---
NUrsing note: Assumed care of pt in his room. He was lying in bed but awake. He is compliant and pleasant, cooperative, no c/o pain, no behaviors.
[2019-08-31 04:53] VITALS: BP 106/71
[2019-08-31] MEDS: LEVOTHYROXINE 50 MCG TABLET PO SCH (05:19)
[2019-08-31] MEDS: OXYMETAZOLINE 0.05% NASAL SPRAY 15ML BOTTLE. NS PRN (08:22)
[2019-08-31] MEDS: CETIRIZINE HCL 10 MG TABLET PO SCH (08:23)
[2019-08-31] MEDS: PRENATAL MULTIVITAMIN TABLET. PO SCH (08:23)
[2019-08-31] MEDS: PSEUDOEPHEDRINE ER 120 MG TABLET.ER. PO SCH ×2 (08:23→20:26)
[2019-08-31] MEDS: FINASTERIDE 5 MG TABLET PO SCH (08:23)
[2019-08-31] MEDS: TAMSULOSIN 0.4 MG CAP.ER.24H. PO SCH (08:24)
[2019-08-31] MEDS: LISINOPRIL 10 MG TABLET PO SCH (08:24)
[2019-08-31] MEDS: POLYETHYLENE GLYCOL 3350 17 GM PACKET. PO SCH (08:24)
[2019-08-31] MEDS: ASPIRIN ENTERIC COATED 81 MG TABLET.DR. PO SCH (08:24)
[2019-08-31] MEDS: MONTELUKAST 10 MG TABLET. PO SCH (08:24)
[2019-08-31] MEDS: LURASIDONE 40 MG TABLET. PO SCH (09:12)
--- NOTE | 2019-08-31 11:26 | NUR ---
WEEKLY ACTIVITY THERAPY NOTE Date of Admission: 07/02/2019 (Pt. returned to [facility] on 08/12, from [facility]) Date of AT Assessment: 07/06/2019 Goal aimed: to increase motivation and recreation education Initial goal: Pt. will participate in at least five activity therapy groups per week. Goal changed 07/26/19: Pt. will participate in all Activity Therapy groups offered Goal changed 08/16: Pt. will participate in at least five Activity Therapy groups per week. Weekly progress towards goal: did not achieve Group participation level: zero Weekly highlights: Behaviors observed: in room, resting or sleeping during all Activity Therapy groups, seizure like episode Plan: no change to goal Beneficial adaptations: sit close to youth director, reminders and focus on positives, gross motor activities
--- NOTE | 2019-08-31 15:20 | NUR ---
Received phone call from Isaura, , this morning. She is planning to tour [facility] this afternoon. Per Isaura's request, faxed referral information to both facilities for review. Awaiting outcome. Attempted to see Bj to update, he was sleeping soundly and did not awaken to this worker's presence or verbal communication.
--- NOTE | 2019-08-31 15:28 | NUR ---
WEEKLY NOTE: Bj is averaging 67% of meals and six hours of sleep at [facility]. He is medication compliant. Bj sustained a fall this week and has a neurology consult ordered. He frequently complains of not feeling well and spends much of his time resting. He has attended a few SW groups this week. Bj's is touring two [facility] facilities this date as finding placement has been difficult based on Bj's mental health needs and Isaura's preference to have him at a Level I facility.
[2019-08-31 16:03] VITALS: BP 101/68
[2019-08-31] MEDS: DOCUSATE SODIUM 100 MG CAPSULE PO SCH (17:02)
--- NOTE | 2019-08-31 18:19 | NUR ---
Patient has been quiet, withdrawn, and compliant throughout this shift. He stayed withdrawn to his room between meals. Will continue to monitor.
[2019-08-31] MEDS: traZODone 100 MG TABLET. PO SCH (20:26)
[2019-08-31] MEDS: MELATONIN 3 MG TABLET PO SCH (20:27)
[2019-08-31] MEDS: FENOFIBRATE NANOCRYSTALLIZED 145 MG TABLET PO SCH (20:27)
[2019-08-31] MEDS: ATORVASTATIN CALCIUM 20 MG TABLET PO SCH (20:27)
--- NOTE | 2019-08-31 21:26 | PDOC ---
Exam Note: Robert Note: Please also refer to the separate dictated note~for this date of service dictated separately.~Patient seen individually. Discussed the patient with Nursing staff reviewed the chart.~Reviewed interim history and current functioning. Reviewed vital signs,~Labs/ Radiology~and current medications noted below. Continue current treatment with the changes noted in the dictated addendum note Assessment: Vital Signs/I&O: Vital Signs Date Time Temp Pulse Resp B/P (MAP) Pulse Ox O2 Delivery O2 Flow Rate FiO2 08/31/19 16:03 97.2 91 16 101/68 (79) 98 Room Air I & O 08/30/19 08/30/19 08/31/19 15:00 23:00 07:00 Intake Total 480 ml 600 ml Balance 480 ml 600 ml Current Medications: I have reviewed the current psychotropics carefully including drug interactions. Risk benefit ratio favors no change other than as noted in my dictated progress note. Diagnosis: Problems: (1) Anxiety disorder (2) Major depressive disorder, recurrent episode (3) Psychosis, atypical (4) Conversion disorder (5) Mild cognitive impairment (6) History of post traumatic stress disorder DARA FELIPE MD Aug 31, 2019 21:26
--- NOTE | 2019-08-31 22:27 | PN ---
DATE: 08/29/2019 PSYCHIATRIC PROGRESS NOTE This late entry 08/29/2019 covers elements not covered in my initial note. SUBJECTIVE: I met with the patient evening of 08/29/2019. Per PEDRO LUIS Ames, the patient slept 7-1/4 hours previous night. He is compliant with his medications. He had a seizure-like episode. Dr. Díaz has been consulted. Wellbutrin was discontinued. REVIEW OF SYSTEMS: Impaired ambulation. No CV, , pulmonary, eye system symptoms on review. MENTAL STATUS EXAM: Reasonably oriented. Speech has some latency, coherent, often responses monosyllabic. Abstraction fair, computation impaired, language function intact. Mood and affect still depressed. No suicidal ideation. LABORATORY DATA: Reviewed. IMPRESSION: Unchanged from initial note. PLAN: No change from initial note. MAN Marc FELIPE MD DR: NIKKY/sergey JOB#: [id number] / [id number]
--- NOTE | 2019-08-31 22:33 | PN ---
DATE: 08/30/2019 PSYCHIATRIC PROGRESS NOTE This late entry, 08/30/2019, covers elements not covered in my initial note. SUBJECTIVE: I met with the patient in the evening of 08/30/2019. The patient, per Luc, RN, slept 1-1/2 hours previous night. Sodium 136. Dr. Díaz did see him for his seizure episode and suggested that line of sight status could be changed back to q. 15 minutes. Prolactin slightly elevated at 44.2. REVIEW OF SYSTEMS: Ambulation impaired. No CV, , pulmonary, eye system symptoms on review. MENTAL STATUS EXAM: Reasonably oriented. Speech is coherent, has some latency, often responses monosyllabic. Abstraction fair, computation impaired, language function intact. Mood and affect withdrawn. LABORATORY DATA: Reviewed. IMPRESSION: Unchanged from initial note. PLAN: Given his ongoing insomnia, increase trazodone scheduled to 100 mg p.o. at bedtime, may repeat x1. Rest unchanged for now. Wellbutrin has been stopped. DARA FELIPE MD DR: NIKKY/sergey JOB#: [id number] / [id number]
--- NOTE | 2019-08-31 23:00 | NUR ---
Nursing note: Assumed care of pt in his room. He was compliant but withdrawn. No c/o pain. No behaviors.
[2019-09-01] MEDS: LEVOTHYROXINE 50 MCG TABLET PO SCH (04:21)
[2019-09-01 04:50] VITALS: BP 115/71
[2019-09-01] MEDS: CETIRIZINE HCL 10 MG TABLET PO SCH (08:41)
[2019-09-01] MEDS: LURASIDONE 40 MG TABLET. PO SCH (08:41)
[2019-09-01] MEDS: POLYETHYLENE GLYCOL 3350 17 GM PACKET. PO SCH (08:41)
[2019-09-01] MEDS: MONTELUKAST 10 MG TABLET. PO SCH (08:41)
[2019-09-01] MEDS: FINASTERIDE 5 MG TABLET PO SCH (08:41)
[2019-09-01] MEDS: PRENATAL MULTIVITAMIN TABLET. PO SCH (08:41)
[2019-09-01] MEDS: TAMSULOSIN 0.4 MG CAP.ER.24H. PO SCH (08:42)
[2019-09-01] MEDS: PSEUDOEPHEDRINE ER 120 MG TABLET.ER. PO SCH ×2 (08:42→20:13)
[2019-09-01] MEDS: ASPIRIN ENTERIC COATED 81 MG TABLET.DR. PO SCH (08:42)
[2019-09-01] MEDS: LISINOPRIL 10 MG TABLET PO SCH (08:42)
--- NOTE | 2019-09-01 11:29 | NUR ---
Seated in w/c at breakfast. A & O X4. Asked him if he thought he could benefit from an inpt. unit with therapy for younger adults. He agreed "I need to get out of here!" "I don't like the noise". Discussed that his was his guardian and she had to sign him out. Asked permission to call his and discuss his care plan and ask if she would object if I spoke with Dr. Flores. 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 And she appreciated any input from anyone who would advocate for Bj's care. I inquired if she had considered [facility] mental health unit. She reported that [facility] told them he would be considered for outpatient services but not inpatient. But that was last summer. She also reported she had looked at [facility] term care [facility] yesterday, because [facility] had changed their requests relatiing to financial arrangements. stated she hoped that any nursing home facility arrangement would only be temporary and that Bj would get better and be able to live "back to his old self". She sounded overwhelmed with his up and down physical ailments and fainting spells. Pt. had shared he thought his only wanted to get him into a facility to divorce him, and he felt the S.W. was "on his 's side". In actuality, his stated she had not pursued legal guardianship, only was the DPOA for health care decisions. Pt. might be overly suspicious or paranoid of their relationship. However no somatic complaints this a.m., only wanted to withdraw to his room and sleep. He also requested I let him know what his says. Which I will speak with him at lunch time.
[2019-09-01 16:06] VITALS: BP 130/79
[2019-09-01] MEDS: DOCUSATE SODIUM 100 MG CAPSULE PO SCH (17:33)
[2019-09-01] MEDS: ATORVASTATIN CALCIUM 20 MG TABLET PO SCH (20:13)
[2019-09-01] MEDS: MELATONIN 3 MG TABLET PO SCH (20:13)
[2019-09-01] MEDS: FENOFIBRATE NANOCRYSTALLIZED 145 MG TABLET PO SCH (20:13)
[2019-09-01] MEDS: traZODone 100 MG TABLET. PO SCH (20:13)
--- NOTE | 2019-09-01 20:57 | NUR ---
Nursing note: Assumed care of pt in his room. He was compliant but withdrawn. No c/o or pain.
--- NOTE | 2019-09-01 21:27 | PDOC ---
Exam Note: Robert Note: Please also refer to the separate dictated note~for this date of service dictated separately.~Patient seen individually. Discussed the patient with Nursing staff reviewed the chart.~Reviewed interim history and current functioning. Reviewed vital signs,~Labs/ Radiology~and current medications noted below. Continue current treatment with the changes noted in the dictated addendum note Assessment: Vital Signs/I&O: Vital Signs Date Time Temp Pulse Resp B/P (MAP) Pulse Ox O2 Delivery O2 Flow Rate FiO2 09/01/19 16:06 97.3 96 16 130/79 (96) 98 08/31/19 16:03 Room Air I & O 08/31/19 08/31/19 09/01/19 14:59 22:59 06:59 Intake Total 720 ml 260 ml Balance 720 ml 260 ml Current Medications: I have reviewed the current psychotropics carefully including drug interactions. Risk benefit ratio favors no change other than as noted in my dictated progress note. Diagnosis: Problems: (1) Anxiety disorder (2) Major depressive disorder, recurrent episode (3) Psychosis, atypical (4) Hyponatremia (5) Conversion disorder (6) Mild cognitive impairment (7) History of post traumatic stress disorder DARA FELIPE MD Sep 01, 2019 21:27
[2019-09-02] MEDS: LEVOTHYROXINE 50 MCG TABLET PO SCH (04:59)
[2019-09-02 05:29] VITALS: BP 99/65
[2019-09-02] MEDS: CETIRIZINE HCL 10 MG TABLET PO SCH (08:57)
[2019-09-02] MEDS: MONTELUKAST 10 MG TABLET. PO SCH (08:57)
[2019-09-02] MEDS: POLYETHYLENE GLYCOL 3350 17 GM PACKET. PO SCH (08:57)
[2019-09-02] MEDS: FINASTERIDE 5 MG TABLET PO SCH (08:57)
[2019-09-02] MEDS: PSEUDOEPHEDRINE ER 120 MG TABLET.ER. PO SCH ×2 (08:57→19:46)
[2019-09-02] MEDS: PRENATAL MULTIVITAMIN TABLET. PO SCH (08:58)
[2019-09-02] MEDS: LURASIDONE 40 MG TABLET. PO SCH (08:59)
[2019-09-02] MEDS: ASPIRIN ENTERIC COATED 81 MG TABLET.DR. PO SCH (08:59)
[2019-09-02] MEDS: TAMSULOSIN 0.4 MG CAP.ER.24H. PO SCH (09:00)
[2019-09-02] MEDS: SODIUM CHLORIDE 0.65% NASAL SPRAY 45ML BOTTLE. NS PRN (09:04)
--- NOTE | 2019-09-02 09:21 | NUR ---
Held a.m. b/p med until rechecked in 2 hours due to low reading. A &O X4, compliant with meds and assessment. Did not want to talk at this time about conversation with Dr. Faria or news, wanted to wait until "things settle down". Withdrew back to room after eating breakfast.
[2019-09-02] MEDS: LISINOPRIL 10 MG TABLET PO SCH (12:14)
[2019-09-02 15:34] VITALS: BP 120/81
--- NOTE | 2019-09-02 16:50 | NUR ---
Engaged in conversation with Bj in dayroom after lunch. Discussed with him again, the conversations I'd had with him and his yesterday, and the message relayed from Dr. Faria that the DrArleth had no problems with him being discharged or transferred to another adult psychiatric unit, if he would agree to outpatient ECT. While speaking to Bj, it was obvious that he was misconstruing facts and using a circular conversation to talk about staff members, Dr. , and misconstruing conversations to say what he believed was happening. Informed pt. that I was not a marriage counselor, and could not vouch for what other people had said to him. But I strongly reinforced to him that he needed to speak up, and be his own advocate for what he wants to happen once he leaves here. He had said he would speak to Dr. Faria on rounds last night, but did not. Today I told him that the nurse could wake him up when DrArleth was here if that was needed. Later, at 1600, his visited. At her request, I entered the room while she was allowed to vent, because of what Bj had told her I said. As I used active listening to listen and provide input when asked, again, I told Bj and his , I am not a marriage counselor. But I highly encouraged them to talk to each other, and for Bj to voice his concerns. By the end of the 30 minute visit, they had communicated and I believe the talks among the 3 of us has encouraged therapeutic progress for Bj. Isaura's concern was that he would not perseverate on thoughts he perceived to be true, but were not actual fact.
[2019-09-02] MEDS: DOCUSATE SODIUM 100 MG CAPSULE PO SCH (17:32)
[2019-09-02] MEDS: FENOFIBRATE NANOCRYSTALLIZED 145 MG TABLET PO SCH (19:46)
[2019-09-02] MEDS: traZODone 100 MG TABLET. PO SCH (19:46)
[2019-09-02] MEDS: ATORVASTATIN CALCIUM 20 MG TABLET PO SCH (19:46)
[2019-09-02] MEDS: MELATONIN 3 MG TABLET PO SCH (19:46)
--- NOTE | 2019-09-02 21:03 | PDOC ---
Exam Note: Robert Note: Please also refer to the separate dictated note~for this date of service dictated separately.~Patient seen individually. Discussed the patient with Nursing staff reviewed the chart.~Reviewed interim history and current functioning. Reviewed vital signs,~Labs/ Radiology~and current medications noted below. Continue current treatment with the changes noted in the dictated addendum note Assessment: Vital Signs/I&O: Vital Signs Date Time Temp Pulse Resp B/P (MAP) Pulse Ox O2 Delivery O2 Flow Rate FiO2 09/02/19 15:34 98.1 93 16 120/81 (94) 98 08/31/19 16:03 Room Air I & O 09/01/19 09/01/19 09/02/19 15:00 23:00 07:00 Intake Total 360 ml 360 ml Balance 360 ml 360 ml Current Medications: I have reviewed the current psychotropics carefully including drug interactions. Risk benefit ratio favors no change other than as noted in my dictated progress note. Diagnosis: Problems: (1) Anxiety disorder (2) Major depressive disorder, recurrent episode (3) Psychosis, atypical (4) Conversion disorder (5) Mild cognitive impairment (6) History of post traumatic stress disorder DARA FELIPE MD Sep 02, 2019 21:03
--- NOTE | 2019-09-03 01:14 | NUR ---
Last evening pt was in [place] in , when asked why he was in [facility] he said "because I had a seizure I guess". He then was able to stand and walk onto scale without difficulty meds were taken whole without difficulty. When talking with pt he was more interactive than the las time I talked with him.
[2019-09-03 05:08] VITALS: BP 120/60
[2019-09-03] MEDS: LEVOTHYROXINE 50 MCG TABLET PO SCH (05:48)
--- NOTE | 2019-09-03 08:09 | PN ---
DATE: 08/31/2019 This late entry 08/31 covers elements not covered in my initial note. SUBJECTIVE: I met with the patient on evening of 08/31 and staffed at treatment team meeting with the entire team earlier in the day. Social service staff shared is touring various facilities. Slept 6 hours. Appetite 60-70%. Complains of nasal congestion, impaired ambulation in wheelchair. Deferred to Dr. Estevez. REVIEW OF SYSTEMS: Ambulation impaired, some tiredness. No CV, , pulmonary, eye system symptoms on review. MENTAL STATUS EXAMINATION: Reasonably oriented. Speech has some latency, coherent. Abstraction fair, computation impaired, language function intact. Mood and affect somewhat withdrawn. LABORATORY DATA: Reviewed. IMPRESSION: Unchanged from initial note. PLAN: No change from initial note. MAN Marc FELIPE MD DR: NIKKY/sergey JOB#: [id number] / [id number]
--- NOTE | 2019-09-03 08:10 | PN ---
DATE: 09/01/2019 This late entry 09/01 covers elements not covered in my initial note. SUBJECTIVE: I met with the patient in the evening. The patient slept 4-1/4 hours previous night. He remains somewhat withdrawn, but little more animated. REVIEW OF SYSTEMS: No CV, , pulmonary, eye system symptoms on review. Gait unsteady, in wheelchair. MENTAL STATUS EXAMINATION: Oriented reasonably. Speech has some latency, coherent. Abstraction fair, computation impaired, language function intact. Mood and affect withdrawn. LABORATORY DATA: Reviewed. IMPRESSION: Unchanged from initial note. PLAN: No change from initial note. MAN Marc FELIPE MD DR: NIKKY/sergey JOB#: [id number] / [id number]
--- NOTE | 2019-09-03 08:13 | PN ---
DATE: 09/02/2019 PSYCHIATRIC PROGRESS NOTE This late entry 09/02/2019 covers elements not covered in my initial note. SUBJECTIVE: I met with the patient in the evening. The patient slept 6-1/4 hours previous night. is looking at [facility] or [facility] nursing staff addressed this at length with the . From a psychiatric standpoint, he remains a little withdrawn, but appropriate. No more seizure-like episodes. No psychotic symptoms. REVIEW OF SYSTEMS: Ambulation impaired, in wheelchair. No CV, , pulmonary, eye system symptoms on review. MENTAL STATUS EXAM: Oriented reasonably. Speech is coherent. Has some latency. Abstraction fair. Computation impaired. Language function intact. Mood and affect withdrawn, but no suicidal ideation. LABORATORY DATA: Reviewed. IMPRESSION: Unchanged from initial note. PLAN: No change from initial note. MAN Marc FELIPE MD DR: NIKKY/sergey JOB#: [id number] / [id number]
[2019-09-03] MEDS: POLYETHYLENE GLYCOL 3350 17 GM PACKET. PO SCH (08:23)
[2019-09-03] MEDS: PSEUDOEPHEDRINE ER 120 MG TABLET.ER. PO SCH ×2 (08:23→19:37)
[2019-09-03] MEDS: TAMSULOSIN 0.4 MG CAP.ER.24H. PO SCH (08:24)
[2019-09-03] MEDS: ASPIRIN ENTERIC COATED 81 MG TABLET.DR. PO SCH (08:24)
[2019-09-03] MEDS: LURASIDONE 40 MG TABLET. PO SCH (08:24)
[2019-09-03] MEDS: LISINOPRIL 10 MG TABLET PO SCH (08:24)
[2019-09-03] MEDS: PRENATAL MULTIVITAMIN TABLET. PO SCH (08:24)
[2019-09-03] MEDS: CETIRIZINE HCL 10 MG TABLET PO SCH (08:25)
[2019-09-03] MEDS: CHOLECALCIFEROL (VITAMIN D3) 50,000 UNIT CAPSULE PO SCH (08:25)
[2019-09-03] MEDS: FINASTERIDE 5 MG TABLET PO SCH (08:25)
[2019-09-03] MEDS: MONTELUKAST 10 MG TABLET. PO SCH (08:25)
--- NOTE | 2019-09-03 13:16 | NUR ---
[facility] Social Work Discharge Planning Form Patient Name NANI DELVALLE Admit Date: 07/02/19 DISCHARGE PLAN Discharge Destination: [facility] Assessment: Completed on 07/06/19 Level II Assessment: Completed on 07/20/19 Transportation: [facility] will transport on 09/04/19 at 10am. Special Instructions/Notes: Upon arrival to [facility], arrange for facility PCP, facility counselor, and facility psychiatrist to follow up with Nani in 7-14 days. Isaura Delvalle, /POA, is going to call [facility] out patient psychiatry at [phone] to schedule an out patient evaluation so that ECT treatments can be arranged on an out patient basis. DISCHARGE TO FACILITY Facility: [facility] Fax: Address: [address] [place] [address] Contact Name: Cristina Loving, waste reduction coordinator Contact Name: KIANA iJmenez PCP: Dr. Stevenson [phone], (fax) Psychiatrist: Dr. Lai [phone], (fax)
--- NOTE | 2019-09-03 13:19 | NUR ---
Nursing note: Pt in dining room this morning for meds and assessment. Pt was compliant with taking his meds whole and was cooperative with his assessment. He has had no complaints this shift. Pt is currently in the day room participating in group. Will continue to monitor.
--- NOTE | 2019-09-03 13:28 | NUR ---
Reviewed with Isaura, /POA, via phone to coordinate d/c planning for 09/04/19. In arranging for out patient ECT treatments at [facility], is not allowed to schedule this service. Provided Isaura with contact information as she will need to call on Bj's behalf to schedule an out patient evaluation and then ECT treatments can be arranged after initial evaluation has been completed. Provided Isaura with contact number of [phone] where she can call to schedule an initial appointment. Isaura plans to meet Bj at [facility] tomorrow afternoon. Reviewed with Cristina, media services coordinator at [facility], requesting facility PCP, facility counselor, and facility psychiatrist provide services to bj as well.
--- NOTE | 2019-09-03 14:17 | NUR ---
Reviewed with Bj discharge arrangements that are in place for 09/04/19. Completed safety plan form with Bj which will be sent with his discharge instructions and paperwork. Wished Bj well as he prepares to transition to a new level of care.
[2019-09-03 15:47] VITALS: BP 118/76
[2019-09-03] MEDS: DOCUSATE SODIUM 100 MG CAPSULE PO SCH (17:41)
--- NOTE | 2019-09-03 19:30 | NUR ---
Pt in room laying in bed on assessment. He was compliant with his meds whole and cooperative with his assessment. Pt had no complaints at this time.
[2019-09-03] MEDS: ATORVASTATIN CALCIUM 20 MG TABLET PO SCH (19:33)
[2019-09-03] MEDS: MELATONIN 3 MG TABLET PO SCH (19:33)
[2019-09-03] MEDS: traZODone 100 MG TABLET. PO SCH (19:34)
[2019-09-03] MEDS: FENOFIBRATE NANOCRYSTALLIZED 145 MG TABLET PO SCH (19:34)
--- NOTE | 2019-09-03 21:24 | PDOC ---
Exam Note: Robert Note: Please also refer to the separate dictated note~for this date of service dictated separately.~Patient seen individually. Discussed the patient with Nursing staff reviewed the chart.~Reviewed interim history and current functioning. Reviewed vital signs,~Labs/ Radiology~and current medications noted below. Continue current treatment with the changes noted in the dictated addendum note Assessment: Vital Signs/I&O: Vital Signs Date Time Temp Pulse Resp B/P (MAP) Pulse Ox O2 Delivery O2 Flow Rate FiO2 09/03/19 15:47 98.3 95 16 118/76 (90) 96 08/31/19 16:03 Room Air I & O 09/02/19 09/02/19 09/03/19 15:00 23:00 07:00 Intake Total 840 ml 360 ml Balance 840 ml 360 ml Current Medications: I have reviewed the current psychotropics carefully including drug interactions. Risk benefit ratio favors no change other than as noted in my dictated progress note. Diagnosis: Problems: (1) Anxiety disorder (2) Major depressive disorder, recurrent episode (3) Psychosis, atypical (4) Conversion disorder (5) Mild cognitive impairment (6) History of post traumatic stress disorder DARA FELIPE MD Sep 03, 2019 21:24
[2019-09-03] MEDS ORDERED: ACET325T21 PO (23:44)
[2019-09-03] MEDS ORDERED: LURA60TA PO (23:52)
[2019-09-03] MEDS ORDERED: MAG30ORA2 PO (23:52)
[2019-09-03] MEDS ORDERED: METH28OI2 TP (23:53)
[2019-09-03] MEDS ORDERED: MAGN2400 PO (23:53)
[2019-09-03] MEDS ORDERED: PSEU120T58 PO (23:56)
[2019-09-03] MEDS ORDERED: TRAZ-120 PO (23:58)
[2019-09-03] MEDS ORDERED: TRAZ-86 PO (23:58)
[2019-09-04 05:21] VITALS: BP 137/80
[2019-09-04] MEDS: LEVOTHYROXINE 50 MCG TABLET PO SCH (05:46)
[2019-09-04] MEDS: ASPIRIN ENTERIC COATED 81 MG TABLET.DR. PO SCH (09:40)
[2019-09-04] MEDS: CETIRIZINE HCL 10 MG TABLET PO SCH (09:40)
[2019-09-04] MEDS: PSEUDOEPHEDRINE ER 120 MG TABLET.ER. PO SCH (09:40)
[2019-09-04] MEDS: FINASTERIDE 5 MG TABLET PO SCH (09:40)
[2019-09-04] MEDS: POLYETHYLENE GLYCOL 3350 17 GM PACKET. PO SCH (09:41)
[2019-09-04] MEDS: LURASIDONE 40 MG TABLET. PO SCH (09:41)
[2019-09-04] MEDS: TAMSULOSIN 0.4 MG CAP.ER.24H. PO SCH (09:41)
[2019-09-04 09:42] VITALS: BP 137/80
[2019-09-04] MEDS: LISINOPRIL 10 MG TABLET PO SCH (09:42)
[2019-09-04] MEDS: MONTELUKAST 10 MG TABLET. PO SCH (09:42)
[2019-09-04] MEDS: PRENATAL MULTIVITAMIN TABLET. PO SCH (09:42)
--- NOTE | 2019-09-04 09:45 | NUR ---
Nursing note: Pt was found sleeping in his room for morning meds and assessment. He was woken up without difficulty and took his meds whole. He was also cooperative with his assessment. Pt had no complaints at time of assessment.
--- NOTE | 2019-09-04 10:47 | NUR ---
Transition Record was faxed to follow-up provider with the following elements: Reason for admission, procedures, tests, principal diagnosis, pending studies, patient instructions, 04/04 contact information for unit, phone number to obtain pending test results, plan for follow-up care, physician follow-up, advanced directive information, and medication list with dose, duration and instructions. This information was included in the following documents: History and physical, lab results, study results, progress notes, social work planning form, DC instruction form, patient visit summary, and medication reconciliation form. Date & time record faxed: 09/04/19 @ 0240 Record faxed to: Claudia @ [phone] Record discussed with/ report given to: Donovan
--- NOTE | 2019-09-05 17:45 | DS ---
DATE OF DISCHARGE: This late entry 09/04/2019 covers elements not covered in my initial note. REASON FOR ADMISSION: Please refer to the admission history for details. Briefly, the patient is a 69-year-old male initially referred to us from the nursing facility on account of worsening symptoms of depression, suicidal ideation, feeling hopeless, helpless, worthless within the context of her very significant history of major depressive disorder, treated with ECT in the past at the [facility]. The patient had failed outpatient psychiatric interventions. SIGNIFICANT FINDINGS AND CLINICAL COURSE: Following admission, the patient was seen daily individually by myself from a psychiatric standpoint, medical followup per Dr. Estevez. The patient had been transferred to [address] [place] [address] for medical stabilization while he was an inpatient on our unit following the initial referral. He was medically stabilized, continued to be depressed, withdrawn and returned back to us. Many of his psychotropics had been discontinued during the transition for medical stabilization. I met with the patient daily individually, medical followup with Dr. Estevez. Adjustments were made in his psychotropics. He seemed to respond to a combination of Latuda 60 mg a day, melatonin 6 mg at bedtime, Ativan 0.5 mg q.2 hours p.r.n. anxiety, max 2 mg in 24 hours, trazodone 100 mg at bedtime plus 50 mg at bedtime p.r.n., may repeat x 1. Gradually mood appeared to improve. He denied suicidal ideation, still depressed, anxious, and the plan at discharge was that he would need outpatient maintenance ECT. Prior to discharge, 09/04/2019, ambulation impaired with walker. REVIEW OF SYSTEMS: No CV, , pulmonary, eye system symptoms on review. MENTAL STATUS EXAM: The patient was reasonably oriented. Speech coherent, has some latency. Abstraction fair, computation impaired, language function intact, attention span short. Mood and affect less depressed. No suicidal ideation, no psychotic symptoms at discharge. CONDITION AT DISCHARGE: Improved. FINAL DIAGNOSES: Major depressive disorder, recurrent, in partial remission; anxiety disorder, unspecified; impulse control disorder, unspecified; rule out bipolar disorder, depressed, in partial remission. Rest unchanged from admission. DISCHARGE MEDICATIONS: Please refer to the [facility]. Outpatient psychiatric medical followup at the long-term and he would benefit from maintenance ECT as an outpatient and lengthy discussions were held with him and his to facilitate this. MAN Marc FELIPE MD DR: Dion JOB#: [id number] / [id number]
--- NOTE | 2019-09-05 21:21 | PN ---
DATE: 09/03/2019 This late entry, 09/03/2019, covers the elements not covered in my initial note. SUBJECTIVE: I met with the patient evening of 09/03/2019. The patient slept 7-3/4 hours previous night. Per PEDRO LUIS Loaiza, the patient has been pleasant, compliant, attending groups, and less depressed. No suicidal ideation. REVIEW OF SYSTEMS: Ambulation impaired, with walker/wheelchair. No CV, , pulmonary, or eye system symptoms on review. MENTAL STATUS EXAM: Reasonably oriented. Speech is coherent and has some latency. Abstraction fair, computation impaired, language function intact, and attention span short. Mood and affect withdrawn, but less so than before. LABORATORY DATA: Reviewed. IMPRESSION: Unchanged from initial note. PLAN: No change from initial note with tentative discharge, 09/04/2019. MAN Marc FELIPE MD DR: NIKKY/sergey JOB#: [id number] / [id number]
--- NOTE | 2019-09-06 09:21 | NUR ---
Faxed d/c summary, history and physical, medication list, and copy of POA document to [facility] psych-ECT nurse appointment scheduling to assist with Bj's scheduling out patient ECT treatments as [facility] would not allow to arrange these appointments.
== END 2019-09-04 11:00 | DRG 885 ==
LOC: GEROPSY 15:03
PROVIDERS: ADMIT Psychiatry & Neurology Psychiatry; ATTEND Psychiatry & Neurology Psychiatry
DX: F33.3 Major depressive disorder, recurrent, severe with psychotic symptoms (principal); E22.2 Syndrome of inappropriate secretion of antidiuretic hormone; E03.9 Hypothyroidism, unspecified; E78.5 Hyperlipidemia, unspecified; F09 Unspecified mental disorder due to known physiological condition; F41.1 Generalized anxiety disorder; F43.10 Post-traumatic stress disorder, unspecified; F44.9 Dissociative and conversion disorder, unspecified; F63.9 Impulse disorder, unspecified; G31.84 Mild cognitive impairment of uncertain or unknown etiology; I10 Essential (primary) hypertension; M15.9 Polyosteoarthritis, unspecified; N40.0 Benign prostatic hyperplasia without lower urinary tract symptoms; Z66 Do not resuscitate; Z87.891 Personal history of nicotine dependence; Z79.899 Other long term (current) drug therapy
CPT/HCPCS: 36415; 71046; 73502; 80048; 80053; 82947; 83605; 84146; 85007; 85025